=== PATIENT | male | born 1955 | race Caucasian/White ===

== ENCOUNTER → 2017-09-19 14:48 | Outpatient (CLI) | payer OTHER, SELFPAY | PROVIDERS: Family Provider Family Medicine; PCP Family Medicine; Visit Provider Nurse Practitioner Acute Care | DX: G47.33 Obstructive sleep apnea (adult) (pediatric) (principal) | CPT/HCPCS: 98960; G0463 ==

== ENCOUNTER → 2018-01-02 08:10 | Outpatient (CLI) | payer OTHER, SELFPAY ==
[2018-01-02 10:44] LABS: Anion Gap 11 (5-15); BUN 13 mg/dL (7-18); BUN/Creat Ratio 12.9 RATIO (10-20); Calcium,Total 9.2 mg/dL (8.5-10.1); Chloride 101 mmol/L (98-107); Cholesterol 166 mg/dL (200); Creatinine, Serum 1.01 mg/dL (0.70-1.30); EST Glomerular Filtration Rate 80 mL/min (>60); Est Glom Filt Rate - Afr Amer 96 mL/min (>60); Glucose 120 mg/dL (74-106); High Density Lipoprotein 37 mg/dL; PSA,Total - Annual Screen 0.79 ng/mL (0.00-4.00); Potassium 3.3 mmol/L (3.5-5.1); Sodium Level 142 mmol/L (136-145); Triglycerides 182 mg/dL; Very Low Density Lipoprotein 36 mg/dL (5-40)
== END ==
PROVIDERS: Family Provider Family Medicine; PCP Family Medicine; Visit Provider Family Medicine
DX: I10 Essential (primary) hypertension (principal); E78.00 Pure hypercholesterolemia, unspecified; Z12.5 Encounter for screening for malignant neoplasm of prostate
CPT/HCPCS: 36415; 80048; 80061; 84153; G0103

== ENCOUNTER → 2018-08-10 08:18 | Outpatient (CLI) | payer OTHER, SELFPAY ==
[2018-08-10 10:10] LABS: Glucose 131 mg/dL (74-106); Potassium 3.7 mmol/L (3.5-5.1)
== END ==
PROVIDERS: Family Provider Family Medicine; PCP Family Medicine; Referring Provider Family Medicine; Visit Provider Family Medicine
DX: R73.03 Prediabetes (principal); I10 Essential (primary) hypertension
CPT/HCPCS: 36415; 82947; 83036; 84132

== ENCOUNTER → 2019-06-21 09:02 | Outpatient (CLI) | payer OTHER, SELFPAY ==
[2017-05-16 10:11] VITALS: BMI 38.5
[2019-06-21 10:24] LABS: Anion Gap 3 (5-15); BUN 17 mg/dL (7-18); BUN/Creat Ratio 17.3 RATIO (10-20); Calcium,Total 9.3 mg/dL (8.5-10.1); Chloride 104 mmol/L (98-107); Cholesterol 169 mg/dL (200); Creatinine, Serum 0.98 mg/dL (0.70-1.30); EST Glomerular Filtration Rate 82 mL/min (>60); Est Glom Filt Rate - Afr Amer 99 mL/min (>60); Glucose 112 mg/dL (74-106); High Density Lipoprotein 41 mg/dL; PSA,Total - Annual Screen 0.87 ng/mL (0.00-4.00); Potassium 3.7 mmol/L (3.5-5.1); Sodium Level 139 mmol/L (136-145); Triglycerides 216 mg/dL; Very Low Density Lipoprotein 43 mg/dL (5-40)
[2019-06-21 10:35] LABS: Hemoglobin A1c 6.5 % (4.2-6.3)
== END ==
PROVIDERS: PCP Family Medicine; Referring Provider Family Medicine; Visit Provider Family Medicine
DX: E78.00 Pure hypercholesterolemia, unspecified (principal); R73.03 Prediabetes; Z12.5 Encounter for screening for malignant neoplasm of prostate; I10 Essential (primary) hypertension
CPT/HCPCS: 36415; 80048; 80061; 83036; 84153; G0103

== ENCOUNTER → 2019-10-03 | Outpatient (CLI) | payer OTHER, SELFPAY ==
[2017-05-16 10:11] VITALS: BMI 38.5
[2019-10-03 10:04] LABS: Anion Gap 5 (5-15); BUN 19 mg/dL (7-18); BUN/Creat Ratio 21.8 RATIO (10-20); Calcium,Total 8.8 mg/dL (8.5-10.1); Chloride 103 mmol/L (98-107); Cholesterol 153 mg/dL (200); Creatinine, Serum 0.87 mg/dL (0.70-1.30); EST Glomerular Filtration Rate 94 mL/min (>60); Est Glom Filt Rate - Afr Amer 114 mL/min (>60); Glucose 111 mg/dL (74-106); High Density Lipoprotein 45 mg/dL; Potassium 3.5 mmol/L (3.5-5.1); Sodium Level 137 mmol/L (136-145); Triglycerides 125 mg/dL; Very Low Density Lipoprotein 25 mg/dL (5-40)
== END | disposition home or self-care (01) ==
LOC: MTLAB 08:16
PROVIDERS: PCP Family Medicine; Referring Provider Family Medicine; Visit Provider Family Medicine
DX: E11.9 Type 2 diabetes mellitus without complications (principal)
CPT/HCPCS: 36415; 80048; 80061

== ENCOUNTER → 2020-03-31 08:24 | Outpatient (CLI) | payer OTHER, SELFPAY ==
[2017-05-16 10:11] VITALS: BMI 38.5
[2020-03-31 10:39] LABS: Anion Gap 7 (5-15); BUN 15 mg/dL (7-18); BUN/Creat Ratio 13.6 RATIO (10-20); Calcium,Total 9.8 mg/dL (8.5-10.1); Chloride 104 mmol/L (98-107); EST Glomerular Filtration Rate 72 mL/min (>60); Est Glom Filt Rate - Afr Amer 87 mL/min (>60); Glucose 126 mg/dL (74-106); Potassium 3.7 mmol/L (3.5-5.1); Sodium Level 138 mmol/L (136-145)
== END ==
PROVIDERS: PCP Family Medicine; Visit Provider Family Medicine
DX: I10 Essential (primary) hypertension (principal)
CPT/HCPCS: 36415; 80048

== ENCOUNTER → 2021-04-03 10:22 | Outpatient (CLI) | payer BC, SELFPAY ==
[2021-04-03 12:54] LABS: Anion Gap 5 (5-15); BUN 13 mg/dL (7-18); Calcium,Total 9.1 mg/dL (8.5-10.1); Chloride 105 mmol/L (98-107); Creatinine, Serum 0.93 mg/dL (0.70-1.30); EST Glomerular Filtration Rate 87 mL/min (>60); Est Glom Filt Rate - Afr Amer 105 mL/min (>60); Glucose 97 mg/dL (74-106); PSA,Total - Annual Screen 1.11 ng/mL (0.00-4.00); Potassium 3.5 mmol/L (3.5-5.1); Sodium Level 138 mmol/L (136-145)
== END ==
PROVIDERS: PCP Family Medicine; Referring Provider Family Medicine; Visit Provider Family Medicine
DX: I10 Essential (primary) hypertension (principal); Z12.5 Encounter for screening for malignant neoplasm of prostate
CPT/HCPCS: 36415; 80048; 84153; G0103

== ENCOUNTER → 2021-10-09 | Outpatient (CLI) | payer BC, SELFPAY ==
[2021-10-09 12:57] LABS: Cholesterol 173 mg/dL (200); High Density Lipoprotein 47 mg/dL; Triglycerides 107 mg/dL; Very Low Density Lipoprotein 21 mg/dL (5-40)
== END | disposition home or self-care (01) ==
PROVIDERS: PCP Family Medicine; Visit Provider Family Medicine
DX: E78.00 Pure hypercholesterolemia, unspecified (principal)
CPT/HCPCS: 36415; 80061

== ENCOUNTER 2022-07-29 17:13 | Inpatient (IN) | payer MEDICARE, SELFPAY ==
[2022-07-29] VITALS (16 sets, daily range): BP systolic 89–137; BP diastolic 68–115; PULSE 55–167; RESP 18–29; TEMP 36.4–36.6; O2SAT 90–99; BMI 35.5
--- NOTE | 2022-07-29 17:43 | EKG12_ITS ---
Test Reason : TACHY Blood Pressure : / mmHG Vent. Rate : 178 BPM Atrial Rate : 000 BPM P-R Int : 000 ms QRS Dur : 082 ms QT Int : 252 ms P-R-T Axes : 000 107 -33 degrees QTc Int : 433 ms Atrial fibrillation with rapid ventricular response Rightward axis Septal infarct , age undetermined Nonspecific T wave abnormality Abnormal ECG Confirmed by VALE CARRION, LINDSAY ([id number]), health editor ALHAJI GLASS ([id number]) on 08/02/2022 11:10:23 AM Referred By: JACKIE/MAURILIO Confirmed By:LINDSAY COLLAZO MD
[2022-07-29] MEDS: 0.9% Normal Saline 1,000 ML 250 ML IV (17:54)
[2022-07-29] MEDS: dilTIAZem 25 MG/5 ML Vial 20 MG IV BOLUS (17:54)
[2022-07-29 18:03] LABS: Absolute Lymphocyte Count 1.54 X10^3/uL (0.83-4.51); Absolute Neutrophil Count 8.8 X10^3/uL (2.0-7.7); Basophil# 0.08 X10^3/uL; Basophil% 0.7 % (0-1); Eosinophil# 0.11 X10^3/uL; Hematocrit 46.1 % (40-54); Lymphocyte # 1.54 X10^3/ul (0.83-4.51); Lymphocyte % 13.3 % (19-41); Mean Corp Hgb Conc 32.5 g/dL (32-36); Mean Corpuscular Hgb 29.7 pg (27.0-32.0); Mean Corpuscular Volume 91.3 fL (80-94); Mean Platelet Vol. 11.9 fl (6.2-12.0); Monocyte# 1.04 X10^3/uL; NRBC Flagged by Analyzer 0 % (0-5); Neutrophil # 8.75 X10^3/uL (2.7-7.7); Neutrophil % 75.6 % (47-70); Platelet Count 271 K/mm3 (150-450); RBC Distribution Width CV 15.4 % (11.6-14.6); RBC Distribution Width SD 50.7 fl (35.1-43.9); Red Blood Count 5.05 M/mm3 (4.6-6.2); White Blood Count 11.6 K/mm3 (4.4-11.0)
--- NOTE | 2022-07-29 18:06 | EDS_ITS ---
HPI History of Present Illness Chief Complaint: Palpitations Informant: patient Narrative Narrative: Patient has had 3 days of cough and congestion. No fevers or chills, headache, sore throat, myalgias, or significant malaise. Today started feeling a little short of breath at times, feels and palpitations off-and-on. He went to urgent care to have evaluation, and it was determined that his heart rate was extremely high so he was sent here according to the patient. Here, EKG was obtained prior to my seeing the patient, he appears to be in rapid A-fib. He does not have a history of this. He is not currently feeling palpitations and his heart rate is in the 170s. He takes baby aspirin, medications for blood pressure and cholesterol and is healthy otherwise. He is unvaccinated against COVID and influenza, he has had no contact with anyone who has been sick that he knows of recently. Denies any angina. No history of DVT or PE. No recent leg pain or swelling. No travel out of the area recently or hospitalization/surgery. [facility] Medical History HTN (hypertension) Hypercholesteremia Sleep apnea Home Medications amlodipine 10 mg tablet (Norvasc) 10 mg PO QDAY 04/30/17 [History Last Taken Unknown] aspirin 81 mg tablet,delayed release 81 mg PO QDAY 04/30/17 [History Last Taken Unknown] lisinopril 20 mg-hydrochlorothiazide 25 mg tablet 1 tab PO QDAY 04/30/17 [History Last Taken Unknown] rosuvastatin 10 mg tablet (Crestor) 10 mg PO QDAY 04/30/17 [History Last Taken Unknown] multivitamin 1 tab PO DAILY 07/29/22 [History Last Taken Unknown] Allergy/AdvReac Type Severity Reaction Status Date / Time atorvastatin Allergy Other Verified 05/26/17 12:45 Family History Father Heart disease Myocardial infarction Mother Cancer Diabetes Brother Myocardial infarction Surgical History History of partial knee replacement S/P excision of lipoma Social History Smoking Status: Never smoker alcohol intake: never substance use type: does not use eating out: 4 or more times/week during the past year weight has: remained stable ROS ROS ED Constitutional Constitutional ED: Denies chills or fever(s) Eyes Eyes: Denies change in vision or diplopia ENT ENT ED: Reports nasal congestion; Denies rhinorrhea or sore throat Cardiovascular Cardiovascular: Reports palpitations; Denies chest pain, leg edema or syncope Respiratory/Chest Respiratory/Chest: Reports chest congestion, cough and dyspnea on exertion Gastrointestinal Gastrointestinal: Denies abdominal pain, diarrhea, nausea or vomiting Genitourinary Genitourinary ED: Denies dysuria or hematuria Musculoskeletal Musculoskeletal: Denies back pain or neck pain Integumentary Denies abscess or rash Neurologic Neurologic: Denies headache(s), paresthesias or weakness Psychiatric Psychiatric: Denies anxiety or suicidal thoughts EXAM Physical Exam Const Vital Signs: 07/29/22 17:14 07/29/22 17:23 07/29/22 17:26 Temperature 97.9 F Temperature Source Temporal Pulse Rate 55 L 165 H Respiratory Rate 18 Respiratory Pattern Normal Blood Pressure 129/100 H Blood Pressure Mean 109 Blood Pressure Position Blood Pressure Location Pulse Ox 99 Oxygen Delivery Method Room Air Oxygen Flow Rate (L/min) 07/29/22 17:43 07/29/22 18:13 07/29/22 19:00 Temperature Temperature Source Pulse Rate 134 H 167 H Respiratory Rate 18 18 Respiratory Pattern Blood Pressure 119/91 H 127/115 H Blood Pressure Mean 100 119 Blood Pressure Position Blood Pressure Location Pulse Ox 92 92 92 Oxygen Delivery Method Nasal Cannula Nasal Cannula Nasal Cannula Oxygen Flow Rate (L/min) 2 2 2 07/29/22 19:45 07/29/22 20:27 07/29/22 20:42 Temperature Temperature Source Pulse Rate 160 H 146 H 156 H Respiratory Rate 24 H 21 H 18 Respiratory Pattern Blood Pressure 137/112 H 104/88 H Blood Pressure Mean 120 93 Blood Pressure Position Semi-Fowlers Semi-Fowlers Blood Pressure Location Left Arm Left Arm Pulse Ox 91 91 Oxygen Delivery Method Mechanical Ventilator Nasal Cannula Oxygen Flow Rate (L/min) 3 3 07/29/22 20:50 07/29/22 21:06 07/29/22 21:33 Temperature 97.6 F L 97.7 F L Temperature Source Oral Oral Pulse Rate 135 H 130 H 133 H Respiratory Rate 23 H 24 H 20 H Respiratory Pattern Blood Pressure 132/96 H 103/92 H 113/101 H Blood Pressure Mean 108 95 105 Blood Pressure Position Semi-Fowlers Semi-Fowlers Blood Pressure Location Left Arm Left Arm Pulse Ox 92 91 90 Oxygen Delivery Method Nasal Cannula Nasal Cannula Nasal Cannula Oxygen Flow Rate (L/min) 3 3 4 07/29/22 21:00 Temperature 97.7 F L Temperature Source Oral Pulse Rate 126 H Respiratory Rate 25 H Respiratory Pattern Blood Pressure 113/101 H Blood Pressure Mean 105 Blood Pressure Position Blood Pressure Location Pulse Ox 90 Oxygen Delivery Method Nasal Cannula Oxygen Flow Rate (L/min) 4 Positive well nourished and well developed Constitutional Narrative: Well-appearing. Conversive in full sentences. General Appearance ED: well developed and NAD HEENT Reports moist mucous membranes normocephalic and atraumatic Eyes PERRL and EOMs intact bilaterally Neck full ROM and supple Resp normal respiratory effort and clear to auscultation bilaterally Cardio no murmurs Rate: tachycardic Rhythm: abnormal rhythm irregularly irregular GI non-tender and non-distended Auscultation: normoactive bowel sounds Palpation: soft Back/Spine no CVA tenderness General Back: other FROM Extremity normal to inspection General Extremety ED: Negative for edema, pulses abnormal or tenderness General Extremity: Negative for edema or pulses abnormal Neuro oriented x3, CN's II-XII intact bilaterally and no sensory deficits noted Sensorium / Orientation: awake and alert Motor Exam: strength 5/5 throughout Skin no rashes or lesions noted and no wounds MDM MDM MDM Narrative Medical decision making narrative: Patient and apparent new onset A-fib with RVR unknown how long he has been in it. Started him with a dose of Cardizem 20 mg, this slowed him down to the 130- 140 range, so this was followed by a Cardizem drip. Plan is for admission. His labs are noted, his troponin is within normal limits, I do not suspect a pulmonary embolus given the symptoms only of rapid heartbeat and respiratory illness recently. COVID and influenza are negative. Obtained a two-view chest x-ray, my interpretation he has cardiomegaly, some cephalization. Radiology in agreement it appears more consistent with CHF. Added BNP. Was given him some gentle IV fluid since we will give him Cardizem, I will discontinue that. He is a little short of breath, borderline hypoxic and required 2 L nasal cannula, no respiratory distress. Added bolus of Cardizem in addition to an albuterol treatment. Still awaiting for BNP results, but discussed with cardiology Dr. Alvarado, he recommends starting the patient on IV amiodarone bolus/drip, given that his blood pressures are borderline and this clinical scenario. Upon initiating this, his blood pressure did climb into the 110s systolic, his heart rate is in the 120s, and on reevaluation he is having some expiratory wheezes in the bases but in no respiratory distress and able to converse. Therefore I am going to go ahead and give him Lasix 20 mg IV. His BNP returned elevated 524 consistent with all of this being cardiogenic. Lab Data Attestation: I reviewed the patient's lab results. Labs: Laboratory Results - last 24 hr 07/29/22 07/29/22 07/29/22 17:30 17:30 21:00 WBC 11.6 H RBC 5.05 Hgb 15.0 Hct 46.1 MCV 91.3 MCH 29.7 MCHC 32.5 RDW Std Deviation 50.7 H RDW Coeff of Regino 15.4 H Plt Count 271 MPV 11.9 Immature Gran % (Auto) 0.400 Neut % (Auto) 75.6 H Lymph % (Auto) 13.3 L [place] % (Auto) 9.0 Eos % (Auto) 1.0 Baso % (Auto) 0.7 Absolute Neuts (auto) 8.8 H Absolute Lymphs (auto) 1.54 Nucleated RBC % 0 Sodium 136 Potassium 3.8 Chloride 101 Carbon Dioxide 24.0 Anion Gap 11 BUN 22 H Creatinine 1.27 Estim Creat Clear Calc 62.80 Est GFR (MDRD) Af Amer 73 Est GFR (MDRD) Non-Af 60 BUN/Creatinine Ratio 17.3 Glucose 160 H Calcium 9.7 Troponin I High Sens 32 B-Natriuretic Peptide 524.1 H Radiography Chest X-Ray - ED: 2 View, Read by ED Physician, Cardiomegaly, CHF and No Infiltrates Diagnostic Testing: Clinical Impression(s) from Imaging Studies Chest X-Ray 07/29/22 20:20 IMPRESSION: CHF with pulmonary edema and small pleural effusions. Electronically Signed: Ant Clenaing MD at 20:36 EST , Rhythm Strip Rhythm Strip: A-fib Rate: 177 Ectopy: None EKG Initial EKG: Attestation: I personally reviewed and interpreted this EKG as follows: Interpretation: No Acute Injury Pattern, Atrial Fibrillation (With RVR) and Non-Specific ST Changes (Suspect rate dependent) Prior: No Prior Management Discussion w/another healthcare provider: Hospitalist and Chocolate Finisher Operator (cardiology Dr. Alvarado) Critical Care Time Critical Care Time: Yes Critical care time (excluding procedures): 30-74 minutes (35 min), Including time spent:, Discussing w/Patient &/or Family/Statistical Technician, Discussing w/Consultan ts, Arranging Admission or Transfer and Performing Direct Patient Care at Bedside Discharge Plan Dx/Rx/DC Orders Clinical Impression: Atrial fibrillation with RVR, Acute CHF (congestive heart failure) Disposition Disposition: Acute Care Hospital [facility]
[2022-07-29 18:30] LABS: Anion Gap 11 (5-15); BUN 22 mg/dL (7-18); BUN/Creat Ratio 17.3 RATIO (10-20); Calcium,Total 9.7 mg/dL (8.5-10.1); Chloride 101 mmol/L (98-107); Creatinine, Serum 1.27 mg/dL (0.70-1.30); EST Glomerular Filtration Rate 60 mL/min (>60); Est Glom Filt Rate - Afr Amer 73 mL/min (>60); Glucose 160 mg/dL (74-106); Potassium 3.8 mmol/L (3.5-5.1); Sodium Level 136 mmol/L (136-145); Troponin-I HS 32 pg/mL (3.0-78.0)
--- NOTE | 2022-07-29 20:20 | RAD_ITS ---
INDICATION: Cough/SOB EXAMINATION/TECHNIQUE: X-RAY - XR Chest 2 Views COMPARISON: None. FINDINGS: LUNGS: Bibasilar atelectasis and small pleural effusions. Lower peripheral septal thickening. MEDIASTINUM AND CARDIOVASCULAR STRUCTURES: Mild cardiomegaly. Central enlarged pulmonary vessels. RAD/Chest PA and Lateral IMPRESSION: CHF with pulmonary edema and small pleural effusions. Electronically Signed: Ant Cleaning MD at 20:36 EST ,
[2022-07-29] MEDS: Albuterol 2.5 MG/3 ML VIAL.NEB. INHALATION (20:41)
[2022-07-29] MEDS: dilTIAZem 25 MG/5 ML Vial 10 MG IV BOLUS (20:46)
[2022-07-29 21:42] LABS: BNP,B-Type NATRIURETIC PEPTIDE 524.1 pg/mL (0-100)
[2022-07-29] MEDS: Amiodarone 360 MG in Dextrose 5% Viaflo Bag 192.8 ML 33.3 MG CONT INF (21:49)
--- NOTE | 2022-07-29 21:58 | HP.PCM.HOS_ITS ---
[facility] - General General Date of Admission: 07/29/22 Date of Service: 07/29/22 Chief Complaint: Palpitations HPI Narrative ILDA STERN, is a 67 M with a significant history of obesity; hypertension; obstructive sleep apnea on home BiPAP and hyperlipidemia who presented to the emergency department with palpitations. His palpitations started on the same day of presentation. He went to the urgent care and was found to be in A-fib RVR so he was sent to the emergency department for further evaluation and treatment. Of note 3 to 4 days ago patient's symptoms started with a dry cough. Also he developed chest tightness. He reports dyspnea on exertion. He has chronic orthopnea. He uses home BiPAP and denies paroxysmal nocturnal dyspnea. He has chronic swelling in his left ankle. He denies any weight changes at least in the past 2 weeks. He denies any fever or chills. [facility] Medical History HTN (hypertension) Hypercholesteremia Sleep apnea Home Medications amlodipine 10 mg tablet (Norvasc) 10 mg PO QDAY blood pressure 04/30/17 [History Last Taken Unknown] aspirin 81 mg tablet,delayed release 81 mg PO QDAY heart health 04/30/17 [History Last Taken Unknown] lisinopril 20 mg-hydrochlorothiazide 25 mg tablet 1 tab PO QHS blood pressure 04/30/17 [History Last Taken Unknown] rosuvastatin 10 mg tablet (Crestor) 10 mg PO QDAY cholesterol 04/30/17 [History Last Taken Unknown] multivitamin 1 tab PO DAILY supplement 07/29/22 [History Last Taken Unknown] Allergy/AdvReac Type Severity Reaction Status Date / Time atorvastatin Allergy Other Verified 05/26/17 12:45 Family History Father Heart disease Myocardial infarction Mother Cancer Diabetes Brother Myocardial infarction Surgical History History of partial knee replacement S/P excision of lipoma Social History Smoking Status: Never smoker alcohol intake: never substance use type: does not use eating out: 4 or more times/week during the past year weight has: remained stable ROS ROS Narrative Pertinent positives and pertinent negatives as noted in HPI. All other systems were reviewed and are negative Vital Signs Vital Signs Vital Signs: 07/29/22 17:14 07/29/22 17:23 07/29/22 17:26 Temperature 97.9 F Temperature Source Temporal Pulse Rate 55 L 165 H Respiratory Rate 18 Respiratory Pattern Normal Blood Pressure 129/100 H Blood Pressure Mean 109 Blood Pressure Position Blood Pressure Location Pulse Ox 99 Oxygen Delivery Method Room Air Oxygen Flow Rate (L/min) 07/29/22 17:43 07/29/22 18:13 07/29/22 19:00 Temperature Temperature Source Pulse Rate 134 H 167 H Respiratory Rate 18 18 Respiratory Pattern Blood Pressure 119/91 H 127/115 H Blood Pressure Mean 100 119 Blood Pressure Position Blood Pressure Location Pulse Ox 92 92 92 Oxygen Delivery Method Nasal Cannula Nasal Cannula Nasal Cannula Oxygen Flow Rate (L/min) 2 2 2 07/29/22 19:45 07/29/22 20:27 07/29/22 20:42 Temperature Temperature Source Pulse Rate 160 H 146 H 156 H Respiratory Rate 24 H 21 H 18 Respiratory Pattern Blood Pressure 137/112 H 104/88 H Blood Pressure Mean 120 93 Blood Pressure Position Semi-Fowlers Semi-Fowlers Blood Pressure Location Left Arm Left Arm Pulse Ox 91 91 Oxygen Delivery Method Mechanical Ventilator Nasal Cannula Oxygen Flow Rate (L/min) 3 3 07/29/22 20:50 07/29/22 21:06 07/29/22 21:33 Temperature 97.6 F L 97.7 F L Temperature Source Oral Oral Pulse Rate 135 H 130 H 133 H Respiratory Rate 23 H 24 H 20 H Respiratory Pattern Blood Pressure 132/96 H 103/92 H 113/101 H Blood Pressure Mean 108 95 105 Blood Pressure Position Semi-Fowlers Semi-Fowlers Blood Pressure Location Left Arm Left Arm Pulse Ox 92 91 90 Oxygen Delivery Method Nasal Cannula Nasal Cannula Nasal Cannula Oxygen Flow Rate (L/min) 3 3 4 07/29/22 21:00 07/29/22 21:48 07/29/22 21:49 Temperature 97.7 F L Temperature Source Oral Pulse Rate 126 H 132 H 118 H Respiratory Rate 25 H 20 H 24 H Respiratory Pattern Blood Pressure 113/101 H 132/94 H 132/94 H Blood Pressure Mean 105 106 106 Blood Pressure Position Blood Pressure Location Pulse Ox 90 92 Oxygen Delivery Method Nasal Cannula Oxygen Flow Rate (L/min) 4 Weight Weight: 118.841 kg Body Mass Index (BMI) 35.5 Physical Exam Narrative Physical exam: General: Well-nourished, well-developed. Head: Normocephalic, atraumatic, no tenderness Eyes: Vision is grossly intact. EOMI ENT, no trauma, moist mucous membranes, no rhinorrhea Neck: Nontender, No thyromegaly. CVS: Regular rate and rhythm. S1-S2 present. No murmur, gallop or rub. Respiratory : Tachycardia. Irregularly irregular rate and rhythm. Abdomen: Soft, nontender, nondistended, normal bowel sounds, no masses : Deferred Back: Nontender, no CVA tenderness, no midline spinal tenderness, deformities, step-offs Extremities: Mild swelling of the left ankle. Right ankle is not swollen. Skin: Normal color, no trauma, abrasions Neuro: Alert, oriented, cranial nerves II through XII grossly intact. Psychiatry: Normal mood. Normal affect. Not depressed. Not anxious. Results Lab / Micro Data Result Diagrams: 07/30/22 03:55 07/30/22 03:55 Labs: Laboratory Results - last 24 hr 07/29/22 17:30: WBC 11.6 H, RBC 5.05, Hgb 15.0, Hct 46.1, MCV 91.3, MCH 29.7, MCHC 32.5, RDW Std Deviation 50.7 H, RDW Coeff of Regino 15.4 H, Plt Count 271, MPV 11.9, Immature Gran % (Auto) 0.400, Neut % (Auto) 75.6 H, Lymph % (Auto) 13.3 L, [place] % (Auto) 9.0, Eos % (Auto) 1.0, Baso % (Auto) 0.7, Absolute Neuts (auto) 8.8 H, Absolute Lymphs (auto) 1.54, Nucleated RBC % 0 07/29/22 17:30: Sodium 136, Potassium 3.8, Chloride 101, Carbon Dioxide 24.0, Anion Gap 11, BUN 22 H, Creatinine 1.27, Estim Creat Clear Calc 62.80, Est GFR (MDRD) Af Amer 73, Est GFR (MDRD) Non-Af 60, BUN/Creatinine Ratio 17.3, Glucose 160 H, Calcium 9.7, Troponin I High Sens 32 07/29/22 21:00: B-Natriuretic Peptide 524.1 H Micro: Microbiology 07/29/22 18:11 Nasal Secretion SARS-CoV-2 & FLU Antigen (Rapid) - Final Rhythm Strip Rhythm Strip: A-fib Rate: 177 Ectopy: None Radiology Impression Chest X-Ray 07/29/22 20:20 IMPRESSION: CHF with pulmonary edema and small pleural effusions. Electronically Signed: Ant Cleaning MD at 20:36 EST , Assessment & Plan Assessment/Plan (1) Atrial fibrillation with RVR: (2) Acute CHF (congestive heart failure): (3) Hypoxia: PLAN: Plan Atrial fibrillation with RVR with hypoxia Received Cardizem bolus at emergency department. Started on Cardizem drip at the emergency department and continued. Amiodarone drip at emergency department and continued. We will add digoxin since the patient heart rate is still uncontrolled. Therapeutic dose Lovenox ordered Place on PCU on telemetry Obtain echo Lovenox 1 mg per kilogram subcutaneous every 12 hours Potassium level of 3.7 on presentation. Replaced. Check magnesium. Check TSH. Continue supplemental oxygenation titrate as necessary. Cardiology consult. Acute heart failure Unclear whether reduced ejection fraction of preserved ejection fraction. Hold home lisinopril and hydrochlorothiazide combo. HCTZ held. Lisinopril cont inued. Lasix IV ordered. Placed supplemental potassium Obstructive sleep apnea Hypoxic on presentation. Home BiPAP continued nightly and as needed. Hypertension Blood pressures were soft while patient was on Cardizem drip. Trend blood pressures. Home lisinopril continued. Hydrochlorothiazide held. DVT prophylaxis Not indicated as patient be started on therapy dose of Lovenox. Lovenox c ontinued. Charges/Coding Visit Charges Inpatient E&M: 66231 Init Hosp L3
[2022-07-29] MEDS: Furosemide 20 MG/2 ML VIAL IV (22:56)
[2022-07-30] VITALS (28 sets, daily range): BP systolic 87–149; BP diastolic 58–139; PULSE 70–118; RESP 11–29; TEMP 36.4–37.1; O2SAT 26–99; BMI 35.4
--- NOTE | 2022-07-30 00:17 | ECHOD_ITS ---
Reason For Study: Afib, Aflutter Procedure This was a 2D Doppler, Color Flow transthoracic echocardiogram. The exam was of adequate technical quality. Exam performed portable in patient room. Left Ventricle Mildly dilated left ventricle. Moderate global left ventricular systolic dysfunction. The estimated ejection fraction is 35 %. Diastolic function is indeterminate. Right Ventricle Normal RV size. Normal systolic function. Atria The left atrium is moderately enlarged. The right atrium is mildly enlarged. No doppler evidence for ASD. Mitral Valve There is mild mitral annular calcification. Mild focal mitral valve calcification of the anterior leaflet. Moderately severe (3+) mitral valve insufficiency. Tricuspid Valve Normal tricuspid valve. Mild eccentric tricuspid valve insufficiency. Right ventricular systolic pressure estimated to be 55 mmHg. Aortic Valve Trisinus/trileaflet aortic valve. Severe diffuse aortic valve calcification. Moderate to severe aortic stenosis. Pulmonic Valve The pulmonic valve is not well visualized. Trivial pulmonic valve insufficiency. Great Vessels Normal sized aortic root. Pericardium/Pleural Trivial pericardial effusion. There are no echocardiographic indications of cardiac tamponade. Echolucency compatible with a pleural effusion. MMode/2D Measurements & Calculations LVIDd: 5.4 cm IVSd: 1.2 cm LVOT diam: 2.1 cm LVIDs: 4.5 cm LVPWd: 1.3 cm LVOT area: 3.4 cm2 RVDd: 5.0 cm FS: 15.7 % Ao root diam: 3.7 cm LAV(MOD-bp): 107.9 ml LVAd ap4: 40.9 cm2 LAV(MOD-bp) Indexed: 45.3 ml/m2 LVLd ap4: 9.4 cm LAV(MOD-sp2): 93.6 ml EDV(MOD-sp4): 146.6 ml LAV(MOD-sp4): 113.4 ml EDV(sp4-el): 152.0 ml LVAs ap4: 31.6 cm2 LVLs ap4: 8.6 cm ESV(MOD-sp4): 97.3 ml ESV(sp4-el): 98.5 ml EF(MOD-sp4): 33.6 % EF(sp4-el): 35.2 % LVAd ap2: 45.5 cm2 SV(MOD-sp4): 49.3 ml SV(MOD-sp2): 53.3 ml LVLd ap2: 10.0 cm EDV(MOD-sp2): 173.9 ml EDV(sp2-el): 175.2 ml LVAs ap2: 35.1 cm2 LVLs ap2: 8.5 cm ESV(MOD-sp2): 120.7 ml ESV(sp2-el): 122.6 ml EF(MOD-sp2): 30.6 % SV(sp4-el): 53.6 ml LA dimension(2D): 5.5 cm LA A4 area: 30.4 cm2 RA A4 area: 22.9 cm2 Doppler Measurements & Calculations MV E max sandy: 120.4 cm/sec MV V2 max: 133.5 cm/sec Ao V2 max: 297.5 cm/sec MV max P.2 mmHg Ao max P.8 mmHg MV V2 mean: 75.2 cm/sec Ao V2 mean: 234.8 cm/sec MV mean P.9 mmHg Ao mean P.6 mmHg MV V2 VTI: 30.0 cm Ao V2 VTI: 53.6 cm AV (velocity ratio): 0.36 MVA(VTI): 2.2 cm2 DAVID(I,D): 1.2 cm2 DAVID(V,D): 1.1 cm2 LV V1 max: 99.9 cm/sec SV(LVOT): 64.6 ml PA V2 max: 73.3 cm/sec LV V1 max P.1 mmHg LV V1 mean P.8 mmHg LV V1 mean: 79.2 cm/sec LV V1 VTI: 19.2 cm TR max sandy: 316.4 cm/sec TR max P.1 mmHg ECHO/Echo Complete Interpretation Summary Mildly dilated left ventricle. Moderate global left ventricular systolic dysfunction. The estimated ejection fraction is 35 %. The left atrium is moderately enlarged. The right atrium is mildly enlarged. There is mild mitral annular calcification. Mild focal mitral valve calcification of the anterior leaflet. Moderately severe (3+) mitral valve insufficiency. Mild eccentric tricuspid valve insufficiency. Moderate to severe aortic stenosis. Trivial pulmonic valve insufficiency. Trivial pericardial effusion. There are no echocardiographic indications of cardiac tamponade. Echolucency compatible with a pleural effusion. Right ventricular systolic pressure estimated to be 55 mmHg patible with pulmon colin hypertension. Diastolic function is indeterminate. Ordering Physician: Tommy Lira Referring Physician: Ant Roth Performed By: Elvira Knox RDCS, RVT
[2022-07-30] MEDS: Potassium Chloride Oral Tablet 20 MEQ 40 MEQ PO ×2 (01:28→07:47)
[2022-07-30] MEDS: Enoxaparin 120 MG/0.8 ML Syringe SC (01:30)
[2022-07-30] MEDS: Digoxin 250 MCG/ML Ampul 500 MCG IV (01:33)
[2022-07-30] MEDS: 0.9% Saline Lock 10 ML Syringe IV ×2 (01:35→17:00)
--- NOTE | 2022-07-30 03:43 | CPS ---
Pt has own cpap/bipap with 4L bleed in. It is set up for pt and ready for use.
[2022-07-30 04:19] LABS: Magnesium 2.2 mg/dL (1.6-2.6)
[2022-07-30] MEDS: Amiodarone 360 MG in Dextrose 5% Viaflo Bag 192.8 ML 16.7 MG CONT INF (04:56)
[2022-07-30] MEDS: Digoxin 250 MCG/ML Ampul IV (04:58)
[2022-07-30 05:06] LABS: Absolute Lymphocyte Count 1.37 X10^3/uL (0.83-4.51); Basophil# 0.05 X10^3/uL; Basophil% 0.4 % (0-1); Eosinophil# 0.02 X10^3/uL; Eosinophils% 0.2 % (0-5); Hematocrit 43.5 % (40-54); Hemoglobin 14.1 g/dL (13.0-16.5); Lymphocyte # 1.37 X10^3/ul (0.83-4.51); Lymphocyte % 10.7 % (19-41); Mean Corp Hgb Conc 32.4 g/dL (32-36); Mean Corpuscular Hgb 29.6 pg (27.0-32.0); Mean Corpuscular Volume 91.4 fL (80-94); Mean Platelet Vol. 11.8 fl (6.2-12.0); Monocyte# 1.31 X10^3/uL; Monocyte% 10.2 % (0-10); NRBC Flagged by Analyzer 0 % (0-5); Platelet Count 230 K/mm3 (150-450); RBC Distribution Width CV 15.3 % (11.6-14.6); RBC Distribution Width SD 51.5 fl (35.1-43.9); Red Blood Count 4.76 M/mm3 (4.6-6.2); White Blood Count 12.8 K/mm3 (4.4-11.0)
[2022-07-30 05:37] LABS: Anion Gap 9 (5-15); BUN 25 mg/dL (7-18); BUN/Creat Ratio 19.2 RATIO (10-20); Calcium,Total 8.9 mg/dL (8.5-10.1); Chloride 102 mmol/L (98-107); EST Glomerular Filtration Rate 59 mL/min (>60); Est Glom Filt Rate - Afr Amer 71 mL/min (>60); Estimated Creatinine Clearance 61.35 ml/min; Glucose 124 mg/dL (74-106); Potassium 3.7 mmol/L (3.5-5.1); Sodium Level 135 mmol/L (136-145); Thyroid Stim Hormone (TSH) 3.61 uIU/mL (0.358-3.74)
[2022-07-30] MEDS: Aspirin E.C. 81 MG Tablet PO (07:47)
[2022-07-30] MEDS: Furosemide 20 MG/2 ML VIAL IV ×2 (07:47→17:00)
[2022-07-30] MEDS: Multivitamins,Therapeutic Tablet 1 TABLET PO (07:47)
--- NOTE | 2022-07-30 08:09 | NURSING ---
O2 sats mid 80's, pt feeling SOB, increased O2 to 6LNC with no improvement, switched to high flow NC at 8L, sats up to 93% and pt stated feeling better.
[2022-07-30] MEDS: Lisinopril 20 MG Tablet PO (10:04)
[2022-07-30] MEDS: APIXABAN 5 MG TABLET PO ×2 (11:20→22:19)
[2022-07-30] MEDS: dilTIAZem 60 MG Tablet PO (12:04)
--- NOTE | 2022-07-30 12:17 | CON.PCM.CA_ITS ---
Assessment & Plan Assessment/Plan (1) Atrial fibrillation with RVR: PLAN: Continue IV amiodarone for now. After 24 hours of IV amiodarone he can be switched to 200 mg p.o. twice daily of oral amiodarone. Agree with trying to wean off the IV Cardizem. Because of the low EF we will give him metoprolol tartrate and at the time of discharge switch to metoprolol succinate. Agree with Karla. (2) Acute CHF (congestive heart failure): PLAN: Patient may benefit from IV Lasix for another day and he could potentially be switched to p.o. Lasix tomorrow. He would need evaluation for the etiology of his CHF in the form of coronary angiography. This could potentially be done as an outpatient if patient continues to improve. HPI Consult Data Date of Consult: 07/30/22 HPI Narrative Reason for Consultation: A-fib with RVR HPI Narrative: ILDA STERN, is a 67 M who presents with shortness of breath and palpitations. Patient was doing well till about 4 days back. He thought he had a chest cold and started developing shortness of breath. He also describes orthopnea. Last evening he started developing palpitations and was found to have A-fib with RVR in the emergency room. He was started on Cardizem and amiodarone and his heart rate is under better control now. His 2D echo revealed an EF of 35%, moderate aortic stenosis, moderate to severe mitral regurgitation. Patient was also started on IV Lasix and his shortness of breath is improved significantly. He still has some cough when he lies down flat. He denies any chest pain. His 1 set of troponin was negative. Review of systems: All systems reviewed. All else is negative except that in HPI. [facility] Medical History HTN (hypertension) Hypercholesteremia Sleep apnea Home Medications amlodipine 10 mg tablet (Norvasc) 10 mg PO QDAY blood pressure 04/30/17 [History Last Taken Unknown] aspirin 81 mg tablet,delayed release 81 mg PO QDAY [facility] 04/30/17 [History Last Taken Unknown] lisinopril 20 mg-hydrochlorothiazide 25 mg tablet 1 tab PO QHS blood pressure 04/30/17 [History Last Taken Unknown] rosuvastatin 10 mg tablet (Crestor) 10 mg PO QDAY cholesterol 04/30/17 [History Last Taken Unknown] multivitamin 1 tab PO DAILY supplement 07/29/22 [History Last Taken Unknown] Allergy/AdvReac Type Severity Reaction Status Date / Time atorvastatin Allergy Other Verified 05/26/17 12:45 Family History Father Heart disease Myocardial infarction Mother Cancer Diabetes Brother Myocardial infarction Surgical History History of partial knee replacement S/P excision of lipoma Social History Smoking Status: Never smoker alcohol intake: never substance use type: does not use eating out: 4 or more times/week during the past year weight has: remained stable Physical Exam Const alert and oriented x3 HEENT normocephalic Eyes no scleral icterus Neck Neck Narrative: Mild JVD. Resp normal respiratory effort Resp Narrative: Right-sided crackles. Cardio Cardio Narrative: Irregular rhythm. systolic murmur noted. Extremity Extremity Narrative: 1+ left lower extremity edema. Trace right lower extremity edema. Risk Stratification Risk Stratification Applicable: No Charges/Coding Visit Charges Inpatient E&M: 78603 Init Hosp L2 Objective Data Vital Signs: Vital Signs Temp Pulse Resp BP Pulse Ox O2 Del Method O2 Flow Rate 98.0 F 97 21 H 114/91 H 98 High Flow 6 07/30/22 09:00 07/30/22 11:00 07/30/22 11:00 07/30/22 11:00 07/30/22 11:00 07/30/22 11:00 07/30/22 11:00 Oxygen Flow Rate (L/min) 6 Oxygen Delivery Method High Flow Weight: 260 lb 12.909 oz Body Mass Index (BMI) 35.4 Intake & Output: Intake and Output for Last 24 Hours 07/28/22 07/29/22 07/30/22 23:59 23:59 23:59 Intake Total 1113.0 / 1113.0 663.01 / 663.01 Output Total 675 / 675 Balance 1113.0 / 1113.0 -11.99 / -11.99 Lab / Micro Data Result Diagrams: 07/30/22 03:55 07/30/22 03:55 Labs: Laboratory Results - last 24 hr 07/29/22 17:30: WBC 11.6 H, RBC 5.05, Hgb 15.0, Hct 46.1, MCV 91.3, MCH 29.7, MCHC 32.5, RDW Std Deviation 50.7 H, RDW Coeff of Regino 15.4 H, Plt Count 271, MPV 11.9, Immature Gran % (Auto) 0.400, Neut % (Auto) 75.6 H, Lymph % (Auto) 13.3 L, [place] % (Auto) 9.0, Eos % (Auto) 1.0, Baso % (Auto) 0.7, Absolute Neuts (auto) 8.8 H, Absolute Lymphs (auto) 1.54, Nucleated RBC % 0 07/29/22 17:30: Sodium 136, Potassium 3.8, Chloride 101, Carbon Dioxide 24.0, Anion Gap 11, BUN 22 H, Creatinine 1.27, Estim Creat Clear Calc 62.80, Est GFR (MDRD) Af Amer 73, Est GFR (MDRD) Non-Af 60, BUN/Creatinine Ratio 17.3, Glucose 160 H, Calcium 9.7, Troponin I High Sens 32 07/29/22 17:30: Magnesium 2.2 07/29/22 21:00: B-Natriuretic Peptide 524.1 H 07/30/22 03:55: WBC 12.8 H, RBC 4.76, Hgb 14.1, Hct 43.5, MCV 91.4, MCH 29.6, MCHC 32.4, RDW Std Deviation 51.5 H, RDW Coeff of Regino 15.3 H, Plt Count 230, MPV 11.8, Immature Gran % (Auto) 0.500, Neut % (Auto) 78.0 H, Lymph % (Auto) 10.7 L, [place] % (Auto) 10.2 H, Eos % (Auto) 0.2, Baso % (Auto) 0.4, Absolute Neuts (auto) 10.0 H, Absolute Lymphs (auto) 1.37, Nucleated RBC % 0 07/30/22 03:55: Sodium 135 L, Potassium 3.7, Chloride 102, Carbon Dioxide 24.0, Anion Gap 9, BUN 25 H, Creatinine 1.30, Estim Creat Clear Calc 61.35, Est GFR (MDRD) Af Amer 71, Est GFR (MDRD) Non-Af 59 L, BUN/Creatinine Ratio 19.2, Glucose 124 H, Calcium 8.9, TSH 3.61 Micro: Microbiology 07/29/22 18:11 Nasal Secretion SARS-CoV-2 & FLU Antigen (Rapid) - Final Rhythm Strip Rhythm Strip: A-fib Rate: 177 Ectopy: None Cardiology Labs/Tests 07/29/22 17:30: WBC 11.6 H, RBC 5.05, Hgb 15.0, Hct 46.1, MCV 91.3, MCH 29.7, MCHC 32.5, Plt Count 271, MPV 11.9, Immature Gran % (Auto) 0.400, Neut % (Auto) 75.6 H, Lymph % (Auto) 13.3 L, [place] % (Auto) 9.0, Eos % (Auto) 1.0, Baso % (Auto) 0.7, Absolute Neuts (auto) 8.8 H, Nucleated RBC % 0 07/29/22 17:30: Sodium 136, Potassium 3.8, Chloride 101, Carbon Dioxide 24.0, Anion Gap 11, BUN 22 H, Creatinine 1.27, Est GFR (MDRD) Af Amer 73, Est GFR (MDRD) Non-Af 60, BUN/Creatinine Ratio 17.3, Glucose 160 H, Calcium 9.7 07/29/22 17:30: Magnesium 2.2 07/29/22 21:00: B-Natriuretic Peptide 524.1 H 07/30/22 03:55: WBC 12.8 H, RBC 4.76, Hgb 14.1, Hct 43.5, MCV 91.4, MCH 29.6, MCHC 32.4, Plt Count 230, MPV 11.8, Immature Gran % (Auto) 0.500, Neut % (Auto) 78.0 H, Lymph % (Auto) 10.7 L, [place] % (Auto) 10.2 H, Eos % (Auto) 0.2, Baso % (Auto) 0.4, Absolute Neuts (auto) 10.0 H, Nucleated RBC % 0 07/30/22 03:55: Sodium 135 L, Potassium 3.7, Chloride 102, Carbon Dioxide 24.0, Anion Gap 9, BUN 25 H, Creatinine 1.30, Est GFR (MDRD) Af Amer 71, Est GFR (MDRD) Non-Af 59 L, BUN/Creatinine Ratio 19.2, Glucose 124 H, Calcium 8.9 Rhythm: EKG: ECHO: Stress Test: Cardiac Cath: PCI: CT Surgery: Holter monitor: EPS: PPM: CXR: Chest CT Scan: Radiography Diagnostic Testing: Radiology Impression Chest X-Ray 07/29/22 20:20 IMPRESSION: CHF with pulmonary edema and small pleural effusions. Electronically Signed: Ant Cleaning MD at 20:36 EST , Echocardiogram 07/30/22 00:17 Interpretation Summary Mildly dilated left ventricle. Moderate global left ventricular systolic dysfunction. The estimated ejection fraction is 35 %. The left atrium is moderately enlarged. The right atrium is mildly enlarged. There is mild mitral annular calcification. Mild focal mitral valve calcification of the anterior leaflet. Moderately severe (3+) mitral valve insufficiency. Mild eccentric tricuspid valve insufficiency. Moderate to severe aortic stenosis. Trivial pulmonic valve insufficiency. Trivial pericardial effusion. There are no echocardiographic indications of cardiac tamponade. Echolucency compatible with a pleural effusion. Right ventricular systolic pressure estimated to be 55 mmHg patible with pulmon colin hypertension. Diastolic function is indeterminate. Ordering Physician: Tommy Lira Referring Physician: Ant Roth Performed By: Elvira Knox, FLAVIA, RVT
--- NOTE | 2022-07-30 13:50 | CASEMGMT ---
AURELIA CHRISTIAN DC Planning Assessment: Face to Face with patient for initial transition planning/care coordination assessment. AURELIA CHRISTIAN introduced self and role at [facility], pt voices understanding. Pt alert, oriented x4, and agreeable to participating in assessment with and son Koby at bedside. Care providers, pharmacy, and demographics verified. Admitting Dx: Atrial Fibrillation w/RVR and CHF PCP: Gonzalez Specialists: Dr. Jaffe (neurology for DANELLE) Preferred Pharmacy: [facility] Insurance: [employer] Prescription Benefit: yes Living Will/HPOA: yes/HPOA: Rose Mary first, son Koby second LNOK: brandee Bazzi Living Arrangements: Pt lives with his in a single story home with two steps to enter. Pt states he is independent with ADLs including self care and household tasks. Transportation: pt drives and family is able to drive if he is unable. DME: [employer] but no home O2. States they do have assistive DME available from other family members if needed. SNF/HHC: denies any previous providers Plan: Pt plans to return home at discharge with the support of his family. Discussed Eliquis need at discharge and one month free card provided to pt. Pt and family deny any additional questions or concerns at this time. Krista Capone RN CM
[2022-07-30] MEDS: Metoprolol Tartrate 50 MG Tablet PO ×2 (14:29→21:03)
--- NOTE | 2022-07-30 17:53 | CASEMGMT ---
AURELIA CM NOTE; AURELIA CM to room. Discussed home O2, if pt qualifies for Home O2 @ d/c. Pt has a PAP from [facility] [place] and states would like to get O2 thru [facility] [place]. Made aware [facility] [place] does not deliver O2 on the w/e's for new O2 set-up. Pt made aware [facility] is affiliated w/[facility]. He chooses [facility]. Discussed process of home O2 set up and questions answered. Pt verifies he does have a pulse ox @ home. Green sheet placed on chart w/instructions if pt qualifies for Home O2. Carmita BSN AURELIA CM
--- NOTE | 2022-07-30 18:56 | PCM.PN.HOSP ---
Reason for Visit Reason for Visit: Diagnoses Unspecified atrial fibrillation (07/29/22) Heart failure, unspecified (07/29/22) Hypoxemia (07/29/22) Subjective Subjective Patient was seen and examined today, I discussed his care with cardiology today, I also discussed his care with his who was at the bedside during the time my examination today. Patient was admitted for dyspnea yesterday and was found to have new onset atrial fibrillation with rapid ventricular response and acute congestive heart failure. Cardiology told me today the patient's echocardiogram shows reduced EF of 35%. He had been placed on IV digoxin, IV Cardizem, and IV amiodarone when he was admitted yesterday. I stop the patient's IV digoxin today and placed him on p.o. Cardizem with the intent of discontinuing IV Cardizem after the patient had responded to the oral Cardizem, cardiology however felt that the patient was better served to be placed on a beta-bill and placed the patient on metoprolol and stop the oral Cardizem. They also directed that the patient's IV Cardizem be stopped after the patient had his metoprolol. Finally, cardiology instructed me to stop the patient's amiodarone drip when his current bag was finished and place him on amiodarone 200 mg twice daily. At the time of this dictation, patient's pulse rate has slowed into the 80s and 90s but remains in atrial fibrillation. Objective Data Objective Data Vital Signs: Vital Signs Temp Pulse Resp BP Pulse Ox O2 Del Method O2 Flow Rate 98.7 F 83 22 H 101/70 95 Nasal Cannula 3 07/30/22 18:00 07/30/22 18:00 07/30/22 18:00 07/30/22 18:00 07/30/22 18:00 07/30/22 18:00 07/30/22 18:00 Oxygen Flow Rate (L/min) 3 Oxygen Delivery Method Nasal Cannula Weight: 118.3 kg Body Mass Index (BMI) 35.4 Intake & Output: Intake and Output for Last 24 Hours 07/28/22 07/29/22 07/30/22 23:59 23:59 23:59 Intake Total 1113.0 / 1113.0 1074.75 / 1074.75 Output Total 1325 / 1325 Balance 1113.0 / 1113.0 -250.25 / -250.25 Lab / Micro Data Result Diagrams: 07/30/22 03:55 07/30/22 03:55 Labs: Laboratory Results - last 24 hr 07/29/22 17:30: Magnesium 2.2 07/29/22 21:00: B-Natriuretic Peptide 524.1 H 07/30/22 03:55: WBC 12.8 H, RBC 4.76, Hgb 14.1, Hct 43.5, MCV 91.4, MCH 29.6, MCHC 32.4, RDW Std Deviation 51.5 H, RDW Coeff of Regino 15.3 H, Plt Count 230, MPV 11.8, Immature Gran % (Auto) 0.500, Neut % (Auto) 78.0 H, Lymph % (Auto) 10.7 L, G[place]pie % (Auto) 10.2 H, Eos % (Auto) 0.2, Baso % (Auto) 0.4, Absolute Neuts (auto) 10.0 H, Absolute Lymphs (auto) 1.37, Nucleated RBC % 0 07/30/22 03:55: Sodium 135 L, Potassium 3.7, Chloride 102, Carbon Dioxide 24.0, Anion Gap 9, BUN 25 H, Creatinine 1.30, Estim Creat Clear Calc 61.35, Est GFR (MDRD) Af Amer 71, Est GFR (MDRD) Non-Af 59 L, BUN/Creatinine Ratio 19.2, Glucose 124 H, Calcium 8.9, TSH 3.61 Micro: Microbiology 07/29/22 18:11 Nasal Secretion SARS-CoV-2 & FLU Antigen (Rapid) - Final Radiography Diagnostic Testing: Radiology Impression Chest X-Ray 07/29/22 20:20 IMPRESSION: CHF with pulmonary edema and small pleural effusions. Electronically Signed: Ant Cleaning MD at 20:36 EST , Echocardiogram 07/30/22 00:17 Interpretation Summary Mildly dilated left ventricle. Moderate global left ventricular systolic dysfunction. The estimated ejection fraction is 35 %. The left atrium is moderately enlarged. The right atrium is mildly enlarged. There is mild mitral annular calcification. Mild focal mitral valve calcification of the anterior leaflet. Moderately severe (3+) mitral valve insufficiency. Mild eccentric tricuspid valve insufficiency. Moderate to severe aortic stenosis. Trivial pulmonic valve insufficiency. Trivial pericardial effusion. There are no echocardiographic indications of cardiac tamponade. Echolucency compatible with a pleural effusion. Right ventricular systolic pressure estimated to be 55 mmHg patible with pulmonary hypertension. Diastolic function is indeterminate. Ordering Physician: Tommy Lira Referring Physician: Ant Roth Performed By: Elvira Knox, FLAVIA, RVT Rhythm Strip Rhythm Strip: A-fib Rate: 177 Ectopy: None Physical Exam Const alert, oriented x3, no apparent distress and healthy appearing General Appearance: cooperative, well kempt and well developed Orientation / Consciousness: awake, oriented to person, oriented to place and oriented to time HEENT normocephalic, head/scalp atraumatic and moist oral mucous membranes Eyes PERRL, EOMs intact bilaterally and conjunctivae normal Neck supple, no JVD and thyroid normal General: trachea midline Resp normal respiratory effort, no retractions and no use of accessory muscles Resp Narrative: Fine rales are noted on inspiration at the bases Auscultation: rales bilateral; Negative for rhonchi or wheezes Cardio S1 normal heart sound, S2 normal heart sound, no murmurs, no rub and no gallops Cardio Narrative: Heart rate and rhythm is irregular GI normal to inspection, nondistended, normoactive bowel sounds, soft to palpation, non-tender and non-distended Extremity no clubbing, cyanosis or edema Skin no rashes or lesions noted General Skin Exam: no breakdown Neuro oriented x3, CN's II-XII intact bilaterally, moves all extremities, no focal motor deficits and no sensory deficits noted Sensorium / Orientation: awake, alert, oriented to person, oriented to place and oriented to time Speech: speech normal Psych affect normal Assessment & Plan Assessment/Plan (1) Atrial fibrillation with RVR: PLAN: Plan 1. Acute systolic congestive heart failure-initial episode-patient will continue on IV Lasix, pulse ox will be monitored and telemetry will be monitored. #2 new onset atrial fibrillation with RVR-again patient will be on oral amiodarone, metoprolol orally, and will be placed on Eliquis for anticoagulation, patient's Lovenox was discontinued. #3 cardiomyopathy-most probably not rate related, patient will need to undergo a work-up for the cardiomyopathy as an outpatient most probably #4 hypoxia secondary to #1-patient is currently on nasal cannula O2 at 3 L/min, pulse ox will be monitored #5 essential hypertension-patient will remain on lisinopril #6 hyperlipidemia-patient is on Crestor Total clinical time spent by myself addressing the patient's medical issues, reviewing all the data, and collaborating with the patient's care team: 35 minutes Charges/Coding Visit Charges Inpatient E&M: 99045 Subs Hosp L2
[2022-07-30] MEDS: Amiodarone 200 MG Tablet PO (21:03)
[2022-07-31] VITALS (14 sets, daily range): BP systolic 111–128; BP diastolic 64–100; PULSE 71–126; RESP 16; TEMP 36.4–36.9; O2SAT 93–97; BMI 35.4
--- NOTE | 2022-07-31 07:00 | RAD_ITS ---
STUDY: X-RAY CHEST REASON FOR EXAM: Male, 67 years old. chf TECHNIQUE: Single AP portable view of the chest. COMPARISON: 07/29/2022 FINDINGS: The lungs are clear and expanded. Small bilateral pleural effusions with bibasilar atelectasis. There is moderate cardiac enlargement. Normal mediastinum and elis. Normal visualized pulmonary arteries. Normal visualized aortic arch and descending thoracic aorta. Normal visualized thoracic spine. Normal visualized ribs, clavicles, and shoulders. There is no demonstrated abnormality of the visualized soft tissue structures of the upper abdomen. RAD/Chest PA and Lateral IMPRESSION: Small bilateral pleural effusions with bibasilar atelectasis, slightly worsened when compared with the prior study. Electronically Signed: Reece Holley MD at 17:32 EST ,
[2022-07-31 07:23] LABS: Anion Gap 8 (5-15); BUN 25 mg/dL (7-18); BUN/Creat Ratio 22.1 RATIO (10-20); Calcium,Total 8.3 mg/dL (8.5-10.1); Chloride 106 mmol/L (98-107); Creatinine, Serum 1.13 mg/dL (0.70-1.30); EST Glomerular Filtration Rate 69 mL/min (>60); Est Glom Filt Rate - Afr Amer 83 mL/min (>60); Estimated Creatinine Clearance 70.58 ml/min; Glucose 90 mg/dL (74-106); Potassium 3.6 mmol/L (3.5-5.1); Sodium Level 138 mmol/L (136-145)
[2022-07-31] MEDS: Potassium Chloride Oral Tablet 20 MEQ 40 MEQ PO (08:15)
[2022-07-31] MEDS: Metoprolol Tartrate 50 MG Tablet PO ×2 (08:15→15:41)
[2022-07-31] MEDS: Furosemide 20 MG/2 ML VIAL IV ×2 (08:15→17:11)
[2022-07-31] MEDS: Lisinopril 20 MG Tablet PO (08:15)
[2022-07-31] MEDS: Multivitamins,Therapeutic Tablet 1 TABLET PO (08:15)
[2022-07-31] MEDS: Amiodarone 200 MG Tablet PO ×2 (08:15→21:38)
[2022-07-31] MEDS: APIXABAN 5 MG TABLET PO ×2 (08:16→21:38)
[2022-07-31] MEDS: Aspirin E.C. 81 MG Tablet PO (08:16)
--- NOTE | 2022-07-31 11:24 | PCM.PN.CARD ---
Subjective Subjective The patient is awake and alert this morning. He denies any ongoing chest discomfort or palpitations. There has been no obvious issues with classic acute CHF/pulmonary edema this day. He is still wearing O2 nasal cannula at this time. Objective Data Vital Signs: Vital Signs Temp Pulse Resp BP Pulse Ox O2 Del Method O2 Flow Rate 98.4 F 121 H 16 128/93 H 96 Nasal Cannula 3 07/31/22 08:08 07/31/22 08:15 07/31/22 08:08 07/31/22 08:15 07/31/22 08:08 07/31/22 08:15 07/31/22 08:15 Oxygen Flow Rate (L/min) 3 Oxygen Delivery Method Nasal Cannula Weight: 261 lb 3.964 oz Body Mass Index (BMI) 35.4 Intake & Output: Intake and Output for Last 24 Hours 07/29/22 07/30/22 07/31/22 23:59 23:59 23:59 Intake Total 1113.0 / 1113.0 1074.75 / 1314.75 340 / 340 Output Total 1325 / 1325 Balance 1113.0 / 1113.0 -250.25 / -10.25 340 / 340 Lab / Micro Data Result Diagrams: 07/30/22 03:55 07/31/22 05:21 Labs: Laboratory Results - last 24 hr 07/31/22 05:21: Sodium 138, Potassium 3.6, Chloride 106, Carbon Dioxide 24.0, Anion Gap 8, BUN 25 H, Creatinine 1.13, Estim Creat Clear Calc 70.58, Est GFR (MDRD) Af Amer 83, Est GFR (MDRD) Non-Af 69, BUN/Creatinine Ratio 22.1 H, Glucose 90, Calcium 8.3 L Rhythm Strip Rhythm Strip: A-fib Rate: 177 Ectopy: None Cardiology Labs/Tests 07/31/22 05:21: Sodium 138, Potassium 3.6, Chloride 106, Carbon Dioxide 24.0, Anion Gap 8, BUN 25 H, Creatinine 1.13, Est GFR (MDRD) Af Amer 83, Est GFR (MDRD) Non-Af 69, BUN/Creatinine Ratio 22.1 H, Glucose 90, Calcium 8.3 L Rhythm: Atrial fibrillation Radiography Diagnostic Testing: Radiology Impression Echocardiogram 07/30/22 00:17 Interpretation Summary Mildly dilated left ventricle. Moderate global left ventricular systolic dysfunction. The estimated ejection fraction is 35 %. The left atrium is moderately enlarged. The right atrium is mildly enlarged. There is mild mitral annular calcification. Mild focal mitral valve calcification of the anterior leaflet. Moderately severe (3+) mitral valve insufficiency. Mild eccentric tricuspid valve insufficiency. Moderate to severe aortic stenosis. Trivial pulmonic valve insufficiency. Trivial pericardial effusion. There are no echocardiographic indications of cardiac tamponade. Echolucency compatible with a pleural effusion. Right ventricular systolic pressure estimated to be 55 mmHg patible with pulmonary hypertension. Diastolic function is indeterminate. Ordering Physician: Tommy Lira Referring Physician: Ant Roth Performed By: Elvira Knox, FLAVIA, RVT Physical Exam Const alert, oriented x3 and no apparent distress Orientation / Consciousness: awake HEENT normocephalic, head/scalp atraumatic and hearing grossly normal bilaterally Eyes PERRL, EOMs intact bilaterally, conjunctivae normal and no scleral icterus Neck full ROM, supple and no JVD Carotids: normal carotid upstroke Resp Auscultation: diminished lung sounds bilateral (bases) Cardio Rhythm: abnormal rhythm irregularly irregular Heart Sounds: S1 normal, S2 normal and murmur systolic II/ soft mid left sternal border GI normal to inspection, nondistended, normoactive bowel sounds Extremity General Extremity: edema left lower extremity trace Skin no rashes or lesions noted Psych mental status grossly normal Assessment & Plan Assessment/Plan (1) Atrial fibrillation with RVR: PLAN: The patient remains in atrial fibrillation. His heart rate remains elevated. He is rate limiting medication dose is going to be increased to metoprolol tartrate 100 mg p.o. twice daily. He is continuing anticoagulant therapy. He is also on antiarrhythmic therapy with amiodarone. (2) Cardiomyopathy: PLAN: The patient's echocardiogram was reviewed. He does have what appears to be a global left ventricular systolic dysfunction with a diminished LVEF of 35%. It is unclear whether this is related to his atrial dysrhythmia, his underlying valvular heart disease, or underlying CAD. He will continue combined medical therapy which at the moment is including furosemide at 20 mg IV twice daily, potassium supplement, and lisinopril 20 mg p.o. daily. (3) Acute CHF (congestive heart failure): PLAN: The patient appears to be clinically improved from what was previously described with concerns of acute CHF. He is continuing medical therapy as noted above. (4) Valvular heart disease: PLAN: The patient does have valvular heart disease as described on his echocardiogram. Again its unclear whether this is a participating factor in his other objective findings. He will need continued evaluation and care of this going forward as to whether or not he will eventually need valvular repair/replacement. (5) Pulmonary HTN: PLAN: The patient's estimated RV systolic pressure was elevated compatible with pulmonary hypertension. From a cardiovascular standpoint there may be a contributing factor from his underlying valvular heart related issues superimposed upon his other cardiac comorbidities and noncardiovascular issues. He will continue medical therapy/support as noted above at this time. He is also on oxygen therapy at this time. Hopefully if he clinically improves this can be weaned off. (6) HLD (hyperlipidemia): PLAN: The patient has a history of hyperlipidemia. He is continuing rosuvastatin 10 mg p.o. daily (7) HTN (hypertension): PLAN: The patient has a history of hypertension. He is on medical management as noted. Hopefully his blood pressures will stay reasonably well controlled. Addt'l Comments The patient's case was discussed and reviewed with the patient, previously with Dr. Alvarado performed his cardiovascular consultation and with Dr. Baez. Overall, it appears at the moment the plan is for continued conservative medical management and once his cardiovascular condition stabilizes to consider future further cardiac diagnostic evaluation with diagnostic cardiac catheterization which depending upon the patient's status may be either as an inpatient or potentially as an outpatient. Comment: Time spent the patient's evaluation/care including examination, review of medical records/imaging studies, discussion with the patient and the [facility] medical staff, and documentation, etc.: 40 minutes. Procedure Criteria Type of Procedure Procedure Type: Elective Elective Risks - COVID COVID Risk Discussion: The surgeon/proceduralist and patient have discussed in detail the risk of exposure to and/or potential harm posed by the COVID-19 virus with having a surgery/procedure at this time versus the risk of delaying the surgery/procedure. It is not possible to know either the risk of delaying the surgery or procedure or chance of getting an infection with perfect accuracy, but a joint decision was made between the patient and the surgeon/proceduralist to proceed at this time with the scheduled surgery/procedure as indicated on the consent form.
--- NOTE | 2022-07-31 17:40 | PN.HOSP_ITS ---
Reason for Visit Reason for Visit: Diagnoses Hyperlipidemia, unspecified (07/29/22) Essential (primary) hypertension (07/29/22) Pulmonary hypertension, unspecified (07/29/22) Endocarditis, valve unspecified (07/29/22) Cardiomyopathy, unspecified (07/29/22) Unspecified atrial fibrillation (07/29/22) Heart failure, unspecified (07/29/22) Hypoxemia (07/29/22) Subjective Subjective Patient was seen and examined today, I discussed his care with cardiology today, he has been tachycardic when up walking around, I have decided to increase the patient's metoprolol after discussing this with Dr. Huynh. Patient was weaned off oxygen today, he does not appear short of breath, chest x-ray showed small bilateral pleural effusions. Objective Data Objective Data Vital Signs: Vital Signs Temp Pulse Resp BP Pulse Ox O2 Del Method O2 Flow Rate 98.4 F 120 H 16 111/87 H 97 Room Air 0 07/31/22 15:38 07/31/22 15:41 07/31/22 15:38 07/31/22 15:41 07/31/22 15:38 07/31/22 15:38 07/31/22 12:19 Oxygen Flow Rate (L/min) [ 0 AMBULATING on Room Air] Oxygen Flow Rate (L/min) [At 0 REST on Room Air] Oxygen Flow Rate (L/min) 3 Oxygen Delivery Method Room Air Weight: 118.5 kg Body Mass Index (BMI) 35.4 Intake & Output: Intake and Output for Last 24 Hours 07/29/22 07/30/22 07/31/22 23:59 23:59 23:59 Intake Total 1113.0 / 1113.0 1074.75 / 1314.75 820 / 820 Output Total 1325 / 1325 Balance 1113.0 / 1113.0 -250.25 / -10.25 820 / 820 Lab / Micro Data Result Diagrams: 07/30/22 03:55 07/31/22 05:21 Labs: Laboratory Results - last 24 hr 07/31/22 05:21: Sodium 138, Potassium 3.6, Chloride 106, Carbon Dioxide 24.0, Anion Gap 8, BUN 25 H, Creatinine 1.13, Estim Creat Clear Calc 70.58, Est GFR (MDRD) Af Amer 83, Est GFR (MDRD) Non-Af 69, BUN/Creatinine Ratio 22.1 H, Glucose 90, Calcium 8.3 L Micro: Microbiology 07/29/22 18:11 Nasal Secretion SARS-CoV-2 & FLU Antigen (Rapid) - Final Radiography Diagnostic Testing: Radiology Impression Chest X-Ray 07/31/22 07:00 IMPRESSION: Small bilateral pleural effusions with bibasilar atelectasis, slightly worsened when compared with the prior study. Electronically Signed: Reece Holley MD at 17:32 EST , Rhythm Strip Rhythm Strip: A-fib Rate: 177 Ectopy: None Physical Exam Const alert, oriented x3, no apparent distress, average body habitus and healthy a ppearing General Appearance: cooperative, well kempt and well developed Orientation / Consciousness: awake, oriented to person, oriented to place and or iented to time HEENT normocephalic, head/scalp atraumatic and moist oral mucous membranes Eyes PERRL, EOMs intact bilaterally and conjunctivae normal Neck supple, no JVD, thyroid normal and no carotid bruits General: trachea midline Resp normal respiratory effort, no retractions, no use of accessory muscles and clear to auscultation bilaterally Auscultation: Negative for rales, rhonchi or wheezes Cardio S1 normal heart sound, S2 normal heart sound, no murmurs, no rub and no gallops Cardio Narrative: Heart rate and rhythm is irregular GI normal to inspection, nondistended, normoactive bowel sounds, soft to palpation, non-tender and non-distended Extremity Extremity Narrative: Mild lower leg edema was noted Skin no rashes or lesions noted General Skin Exam: no breakdown Neuro oriented x3, CN's II-XII intact bilaterally, moves all extremities, no focal motor deficits and no sensory deficits noted Sensorium / Orientation: awake and alert Speech: speech normal Psych affect normal Assessment & Plan Assessment/Plan (1) Atrial fibrillation with RVR: PLAN: Plan 1. Acute systolic congestive heart failure-initial episode-patient will continue on IV Lasix, labs will be repeated tomorrow, anticipate changing over to oral Lasix tomorrow #2 new onset atrial fibrillation with RVR-again patient is on oral amiodarone, I increase his metoprolol to 150 mg twice daily, patient is on Eliquis. #3 cardiomyopathy-most probably not rate related, patient will need to undergo a work-up for the cardiomyopathy as an outpatient most probably #4 hypoxia-resolved at this time, secondary to acute systolic congestive heart failure #5 essential hypertension-patient will remain on lisinopril #6 hyperlipidemia-patient is on Crestor #7 hypercoagulable state secondary to #2-patient is on Eliquis Total clinical time spent by myself addressing the patient's medical issues, reviewing all the data, and collaborating with the patient's care team: 35 minutes Charges/Coding Visit Charges Inpatient E&M: 94473 Subs Hosp L2
[2022-07-31] MEDS: dilTIAZem 25 MG/5 ML Vial 10 MG IV BOLUS (18:39)
[2022-07-31] MEDS: Metoprolol Tartrate 100 MG Tablet PO (21:43)
[2022-08-01 03:17] VITALS: BP 103/72; PULSE 104; RESP 18; TEMP 36.7; O2SAT 95
[2022-08-01 04:54] LABS: Anion Gap 6 (5-15); BUN 23 mg/dL (7-18); BUN/Creat Ratio 19.2 RATIO (10-20); Calcium,Total 8.7 mg/dL (8.5-10.1); Chloride 107 mmol/L (98-107); EST Glomerular Filtration Rate 64 mL/min (>60); Est Glom Filt Rate - Afr Amer 78 mL/min (>60); Estimated Creatinine Clearance 66.46 ml/min; Glucose 104 mg/dL (74-106); Sodium Level 141 mmol/L (136-145)
[2022-08-01 08:05] VITALS: O2SAT 93
[2022-08-01 08:52] VITALS: BP 116/92; PULSE 119; RESP 16; TEMP 36.9; O2SAT 98
[2022-08-01] MEDS: Amiodarone 200 MG Tablet PO (08:55)
[2022-08-01] MEDS: Multivitamins,Therapeutic Tablet 1 TABLET PO (08:55)
[2022-08-01] MEDS: Aspirin E.C. 81 MG Tablet PO (08:55)
[2022-08-01] MEDS: Potassium Chloride Oral Tablet 20 MEQ 40 MEQ PO (08:55)
[2022-08-01] MEDS: APIXABAN 5 MG TABLET PO (08:56)
[2022-08-01] MEDS: Lisinopril 20 MG Tablet PO (08:56)
[2022-08-01 08:59] VITALS: PULSE 119; PULSE 126
[2022-08-01] MEDS: Metoprolol Tartrate 100 MG Tablet 150 MG PO (08:59)
[2022-08-01] MEDS: Digoxin 250 MCG/ML Ampul 500 MCG IV (08:59)
[2022-08-01] MEDS: Furosemide 20 MG Tablet PO (09:00)
--- NOTE | 2022-08-01 11:45 | PN.CARD_ITS ---
Subjective Subjective The patient is awake and alert. He has been up and ambulating. He is not complaining of any acute symptoms at this time. It is noted that his heart rate is better at rest and it does accelerate with ambulation/exertion. However, he states he cannot sense this change. Objective Data Vital Signs: Vital Signs Temp Pulse Resp BP Pulse Ox O2 Del Method O2 Flow Rate 98.5 F 119 H 16 116/92 H 98 Room Air 0 08/01/22 08:52 08/01/22 08:59 08/01/22 08:52 08/01/22 08:52 08/01/22 08:52 08/01/22 08:52 07/31/22 12:19 Oxygen Flow Rate (L/min) [ 0 AMBULATING on Room Air] Oxygen Flow Rate (L/min) [At 0 REST on Room Air] Oxygen Flow Rate (L/min) 3 Oxygen Delivery Method Room Air Weight: 261 lb 3.964 oz Body Mass Index (BMI) 35.4 Intake & Output: Intake and Output for Last 24 Hours 07/30/22 07/31/22 08/01/22 23:59 23:59 23:59 Intake Total 1074.75 / 1314.75 1240 / 1360 120 / 120 Output Total 1325 / 1325 Balance -250.25 / -10.25 1240 / 1360 120 / 120 Lab / Micro Data Result Diagrams: 07/30/22 03:55 08/01/22 04:20 Labs: Laboratory Results - last 24 hr 08/01/22 04:20: Sodium 141, Potassium 4.0, Chloride 107, Carbon Dioxide 28.0, Anion Gap 6, BUN 23 H, Creatinine 1.20, Estim Creat Clear Calc 66.46, Est GFR (MDRD) Af Amer 78, Est GFR (MDRD) Non-Af 64, BUN/Creatinine Ratio 19.2, Glucose 104, Calcium 8.7 Rhythm Strip Rhythm Strip: A-fib Rate: 177 Ectopy: None Cardiology Labs/Tests 08/01/22 04:20: Sodium 141, Potassium 4.0, Chloride 107, Carbon Dioxide 28.0, Anion Gap 6, BUN 23 H, Creatinine 1.20, Est GFR (MDRD) Af Amer 78, Est GFR (MDRD) Non-Af 64, BUN/Creatinine Ratio 19.2, Glucose 104, Calcium 8.7 Rhythm: Atrial fibrillation Radiography Diagnostic Testing: Radiology Impression Chest X-Ray 07/31/22 07:00 IMPRESSION: Small bilateral pleural effusions with bibasilar atelectasis, slightly worsened when compared with the prior study. Electronically Signed: Reece Holley MD at 17:32 EST Reading Location ID and State: [facility] / [place] Tel , Service support , Physical Exam Const alert, oriented x3 and no apparent distress Orientation / Consciousness: awake HEENT normocephalic, head/scalp atraumatic and hearing grossly normal bilaterally Eyes PERRL, EOMs intact bilaterally, conjunctivae normal and no scleral icterus Neck full ROM, supple and no JVD Carotids: normal carotid upstroke Resp Auscultation: diminished lung sounds bilateral (bases) Cardio Rhythm: abnormal rhythm irregularly irregular Heart Sounds: S1 normal, S2 normal and murmur systolic II/ soft mid left sternal border GI normal to inspection, nondistended, normoactive bowel sounds Extremity General Extremity: edema left lower extremity trace Skin no rashes or lesions noted Psych mental status grossly normal Assessment & Plan Assessment/Plan (1) Atrial fibrillation with RVR: PLAN: The patient remains in atrial fibrillation. His heart rate remains elevated. He is rate limiting medication dose is going to be increased to metoprolol tartrate 150 mg p.o. twice daily. He is also receiving a IV dose of digitalis. He is continuing anticoagulant therapy. He is also on antiarrhythmic therapy with amiodarone. This will need to be tapered over time (2) Cardiomyopathy: PLAN: The patient's echocardiogram was reviewed. He does have what appears to be a global left ventricular systolic dysfunction with a diminished LVEF of 35%. It is unclear whether this is related to his atrial dysrhythmia, his underlying valvular heart disease, or underlying CAD. He will continue combined medical therapy which at the moment is including fu rosemide therapy-oral, potassium supplement, and lisinopril 20 mg p.o. daily. (3) Acute CHF (congestive heart failure): PLAN: The patient appears to be clinically improved from what was previously described with concerns of acute CHF. He is continuing medical therapy as noted above. (4) Valvular heart disease: PLAN: The patient does have valvular heart disease as described on his echocardiogram. Again its unclear whether this is a participating factor in his other objective findings. He will need continued evaluation and care of this going forward as to whether or not he will eventually need valvular repair/replacement. (5) Pulmonary HTN: PLAN: The patient's estimated RV systolic pressure was elevated compatible with pulmonary hypertension. From a cardiovascular standpoint there may be a contributing factor from his underlying valvular heart related issues superimposed upon his other cardiac comorbidities and noncardiovascular issues. He will continue medical therapy/support as noted above at this time. He is also on oxygen therapy at this time. Hopefully if he clinically improves this can be weaned off. (6) HLD (hyperlipidemia): PLAN: The patient has a history of hyperlipidemia. He is continuing rosuvastatin 10 mg p.o. daily (7) HTN (hypertension): PLAN: The patient has a history of hypertension. He is on medical management as noted. Hopefully his blood pressures will stay reasonably well controlled. Addt'l Comments The patient's case was discussed and reviewed with the patient and Dr. Chayito glasgow. Comment: Time spent the patient's evaluation, examination, review of clinical case, discussion with the patient and the medical staff, documentation, etc.: 40 minutes Procedure Criteria Type of Procedure Procedure Type: Elective Elective Risks - COVID COVID Risk Discussion: The surgeon/proceduralist and patient have discussed in detail the risk of expo sure to and/or potential harm posed by the COVID-19 virus with having a surgery/procedure at this time versus the risk of delaying the surgery/procedure. It is not possible to know either the risk of delaying the surgery or procedure or chance of getting an infection with perfect accuracy, but a joint decision was made between the patient and the surgeon/proceduralist to proceed at this time with the scheduled surgery/procedure as indicated on the consent form.
--- NOTE | 2022-08-01 11:56 | DCINST_ITS ---
Discharge Instructions Diet Discharge Diet: No restrictions Activity Discharge Activity: Return to Normal Activity Weight Bearing Status: Full weight bearing Follow Up Care Test Results: Test results from this visit will be discussed in further detail at your follow- up appointment, if applicable. Discharge Plan Admission Admit Date/Time: 07/29/22 21:41 Primary Reason for Your Visit: a-fib Attending Provider: Chapo Baez Primary Care Provider: Ant Roth Consulting Providers: Tommy Lira ; Kelly Alvarado Instructions Additional Instructions / Restrictions: Do not take furosemide today, do not take lisinopril today, do not take potassium today Discharge Orders/Prescriptions Prescriptions: New metoprolol tartrate 100 mg Tablet 150 mg PO BID Qty: 90 0RF amiodarone 200 mg Tablet 200 mg PO BID Qty: 6 0RF lisinopril 20 mg Tablet 20 mg PO DAILY Qty: 30 0RF potassium chloride [Klor-Con M20] 20 mEq Tablet,Er Particles/Crystals 20 meq PO DAILYCM Qty: 30 0RF furosemide 20 mg Tablet 40 mg PO DAILY Qty: 60 0RF Eliquis 5 mg Tablet 5 mg PO BID Qty: 30 0RF digoxin 250 mcg (0.25 mg) tablet 250 mcg PO DAILY Qty: 30 0RF Rx Instructions: start on 08/01/22 Continued aspirin 81 mg tablet,delayed release (DR/EC) 81 mg PO QDAY rosuvastatin [Crestor] 10 mg tablet 10 mg PO QDAY multivitamin Tablet 1 tab PO DAILY Changed amlodipine [Norvasc] 10 mg tablet 5 mg PO QDAY Qty: 1 0RF Discontinued lisinopril-hydrochlorothiazide 20-25 mg tablet 1 tab PO QHS Referrals / Follow Up: Kelly Alvarado MD [Med Staff - Active Staff] - Within 2 Weeks (call for appointment) Ant Roth MD [Primary Care Provider] - Within 1 Month Disposition Disposition (needs filled in before D/C Order can be placed): Home, Self Care
--- NOTE | 2022-08-01 12:22 | DS.PCM_ITS ---
Providers Date of Admission: 07/29/22 Date of Discharge: 08/01/22 Primary Care Physician: Dr. Ant Roth MD Consultations 07/30/22 00:17 Consult: Cardiology Routine Consulting Provider: Kelly Alvarado Reason for Consult: Afib and heart failure EMERGENT Consult: No MD Notified: Yes Date Notified: 07/30/22 Time Notified: 06:44 Method of Notification: Text Reason For Visit: AFIB WITH RVR Diagnosis Discharge Diagnosis (1) Atrial fibrillation with RVR: Status: Acute Code(s): I48.91 - Unspecified atrial fibrillation (2) Cardiomyopathy: Status: Acute Code(s): I42.9 - Cardiomyopathy, unspecified (3) Acute CHF (congestive heart failure): Status: Acute Code(s): I50.9 - Heart failure, unspecified (4) Valvular heart disease: Status: Acute Code(s): I38 - Endocarditis, valve unspecified (5) Pulmonary HTN: Status: Acute Code(s): I27.20 - Pulmonary hypertension, unspecified (6) HLD (hyperlipidemia): Status: Acute Code(s): E78.5 - Hyperlipidemia, unspecified (7) HTN (hypertension): Status: Chronic Code(s): I10 - Essential (primary) hypertension Plan 1. Acute systolic congestive heart failure-initial episode-patient will continue on IV Lasix, labs will be repeated tomorrow, anticipate changing over to oral Lasix tomorrow #2 new onset atrial fibrillation with RVR-again patient is on oral amiodarone, I increase his metoprolol to 150 mg twice daily, patient is on Eliquis. #3 cardiomyopathy-most probably not rate related, patient will need to undergo a work-up for the cardiomyopathy as an outpatient most probably #4 hypoxia-resolved at this time, secondary to acute systolic congestive heart failure #5 essential hypertension-patient will remain on lisinopril #6 hyperlipidemia-patient is on Crestor #7 hypercoagulable state secondary to #2-patient is on Eliquis #8 moderate pulmonary hypertension Total clinical time spent by myself addressing the patient's medical issues, reviewing all the data, and collaborating with the patient's care team: 35 minutes Medications at Discharge Home Medications aspirin 81 mg tablet,delayed release 81 mg PO QDAY [facility] 04/30/17 rosuvastatin 10 mg tablet (Crestor) 10 mg PO QDAY cholesterol 04/30/17 multivitamin 1 tab PO DAILY supplement 07/29/22 amiodarone 200 mg tablet 200 mg PO BID #6 tabs 08/01/22 amlodipine 10 mg tablet (Norvasc) 5 mg PO QDAY blood pressure #1 TAB 08/01/22 apixaban 5 mg tablet (Eliquis) 5 mg PO BID #30 tabs 08/01/22 digoxin 250 mcg (0.25 mg) tablet 250 mcg PO DAILY #30 tabs 08/01/22 furosemide 20 mg tablet 40 mg PO DAILY #60 tabs 08/01/22 lisinopril 20 mg tablet 20 mg PO DAILY #30 tabs 08/01/22 metoprolol tartrate 100 mg tablet 150 mg PO BID #90 tabs 08/01/22 potassium chloride 20 mEq tablet,extended release(part/cryst) (Klor-Con M) 20 meq PO DAILYCM #30 tabs 08/01/22 Hospital Course Operations None Procedures 2-D Echocardiogram Summary of Care Provided Minutes Spent on Discharge: 32 Hospital Course: This 67-year-old white male was seen in the emergency room at [facility] with complaints of cough and congestion x3 days, patient also complained of some shortness of breath. EKG was obtained and revealed the patient to be in A-fib with a rapid ventricular response, patient did not have a history of this rhythm in the past. Patient was given a dose of IV Cardizem which slowed him down slightly, this was followed by Cardizem drip, troponin was within normal limits, COVID and influenza test were negative. Chest x-ray was obtained and it showed cardiomegaly with some cephalization, radiology felt that the patient was in congestive heart failure. Patient required 2 L nasal cannula oxygen, the case was discussed with cardiology by the emergency room physician and the patient was started on IV amiodarone bolus and drip and admitted to PCU. The following day, patient was seen in consultation by cardiology, his medications were adjusted and the patient underwent diuresis and was able to get off oxygen. Echocardiogram was performed which showed a decreased ejection fraction, it was felt that the patient would need close follow-up as an outpatient and need to undergo a cardiac catheterization. Patient's heart rate was finally controlled with a combination of digoxin, beta-bill, and amiodarone. On 08/01/2022, patient was seen and examined: On examination he appeared in good health and spirits. Vital signs as documented. Skin warm and dry and without overt rashes. Neck without JVD, neck was supple, trachea midline, thyroid was normal. Lungs clear bilaterally, normal air movement was noted. Heart exam notable for irregular rhythm, normal sounds and absence of murmurs, rubs or gallops. Abdomen unremarkable and without evidence of organomegaly, masses, or abdominal aortic enlargement. Bowel sounds are present, abdomen is not distended. Extremities nonedematous, no cyanosis was noted, no clubbing was noted. Neuro: Cranial nerves II through XII are grossly intact, no focal motor deficits were noted, sensation to light touch and pinprick intact, motor exam 5/5 throughout. Psych: Patient is alert and oriented x3, he does not appear anxious or depressed, he does not appear agitated. On 08/01/2022, patient was seen and examined and felt to be in stable condition for discharge home. Weight / BMI Weight Weight: 118.5 kg Body Mass Index (BMI) 35.4 ABG / Lab / Microbiology Data Result Diagrams: 07/30/22 03:55 08/01/22 04:20 Laboratory: Laboratory Results - last 24 hr 08/01/22 04:20: Sodium 141, Potassium 4.0, Chloride 107, Carbon Dioxide 28.0, Anion Gap 6, BUN 23 H, Creatinine 1.20, Estim Creat Clear Calc 66.46, Est GFR (MDRD) Af Amer 78, Est GFR (MDRD) Non-Af 64, BUN/Creatinine Ratio 19.2, Glucose 104, Calcium 8.7 Microbiology: Microbiology 07/29/22 18:11 Nasal Secretion SARS-CoV-2 & FLU Antigen (Rapid) - Final Radiography Diagnostic Testing: Radiology Impression Chest X-Ray 07/31/22 07:00 IMPRESSION: Small bilateral pleural effusions with bibasilar atelectasis, slightly worsened when compared with the prior study. Electronically Signed: Reece Holley MD at 17:32 EST , D/C Instructions Discharge Diet: No restrictions Weight Bearing Status: Full weight bearing Meaningful Use Info Meaningful Use Diagnoses (Choose all that apply): CHF CHF ZOYA/ARB ordered at discharge?: Yes Documented LVEF (%): 35 Discharge Plan Admission Admit Date/Time: 07/29/22 21:41 Primary Reason for Your Visit: a-fib Attending Provider: Chapo Baez Primary Care Provider: Ant Roth Consulting Providers: Tommy Lira ; Kelly Alvarado Instructions Additional Instructions / Restrictions: Do not take furosemide today, do not take lisinopril today, do not take potassium today Discharge Orders/Prescriptions Prescriptions: New metoprolol tartrate 100 mg Tablet 150 mg PO BID Qty: 90 0RF amiodarone 200 mg Tablet 200 mg PO BID Qty: 6 0RF lisinopril 20 mg Tablet 20 mg PO DAILY Qty: 30 0RF potassium chloride [Klor-Con M20] 20 mEq Tablet,Er Particles/Crystals 20 meq PO DAILYCM Qty: 30 0RF furosemide 20 mg Tablet 40 mg PO DAILY Qty: 60 0RF Eliquis 5 mg Tablet 5 mg PO BID Qty: 30 0RF digoxin 250 mcg (0.25 mg) tablet 250 mcg PO DAILY Qty: 30 0RF Rx Instructions: start on 08/01/22 Continued aspirin 81 mg tablet,delayed release (DR/EC) 81 mg PO QDAY rosuvastatin [Crestor] 10 mg tablet 10 mg PO QDAY multivitamin Tablet 1 tab PO DAILY Changed amlodipine [Norvasc] 10 mg tablet 5 mg PO QDAY Qty: 1 0RF Discontinued lisinopril-hydrochlorothiazide 20-25 mg tablet 1 tab PO QHS Referrals / Follow Up: Kelly Alvarado MD [Med Staff - Active Staff] - Within 2 Weeks (call for appointment) Ant Roth MD [Primary Care Provider] - Within 1 Month Disposition Disposition (needs filled in before D/C Order can be placed): Home, Self Care Charges/Coding Visit Charges Inpatient E&M: 93323 Disch Hosp >30min
[2022-08-01 12:54] VITALS: BP 111/86; PULSE 80; RESP 16; TEMP 36.6; O2SAT 98
== END 2022-08-01 13:10 | disposition home or self-care (01) | DRG 291 ==
LOC: ED 21:44 → PCU 22:28
PROVIDERS: Admitting Provider Hospitalist; Emergency Provider Emergency Medicine; PCP Family Medicine; Visit Provider Internal Medicine
DX: I11.0 Hypertensive heart disease with heart failure (principal); I50.21 Acute systolic (congestive) heart failure; D68.69 Other thrombophilia; I27.20 Pulmonary hypertension, unspecified; I48.91 Unspecified atrial fibrillation; I42.9 Cardiomyopathy, unspecified; E78.00 Pure hypercholesterolemia, unspecified; G47.33 Obstructive sleep apnea (adult) (pediatric); Z28.310 Unvaccinated for COVID-19; R09.02 Hypoxemia; Z20.822 Contact with and (suspected) exposure to COVID-19; Z79.82 Long term (current) use of aspirin; Z79.899 Other long term (current) drug therapy
CPT/HCPCS: 36415; 71046; 80048; 83735; 83880; 84443; 84484; 85025; 87428; 93005; 93306; 94640; 94762; 99285; J7030; Q9957; A4216; J1940

== ENCOUNTER → 2022-09-24 | Outpatient (CLI) | payer MEDICARE, SELFPAY ==
--- NOTE | 2022-09-24 08:46 | ECHOD_ITS ---
Reason For Study: CHF Procedure This was a 2D Doppler, Color Flow transthoracic echocardiogram. Exam performed in department. Left Ventricle Normal LV size. Moderate concentric left ventricular hypertrophy. The estimated ejection fraction is 50 %. Stage 3 diastolic dysfunction. There is borderline global hypokinesis of the left ventricle. Right Ventricle Normal RV size. Normal systolic function. Atria The left atrium is severely enlarged. Mitral Valve There is mild to moderate mitral annular calcification. Mild focal mitral valve calcification of the anterior leaflet. Mild-Moderate (1-2+) eccentric mitral valve insufficiency. Tricuspid Valve Normal tricuspid valve. Mild tricuspid valve insufficiency. Pulmonary artery systolic pressure is 35 mmHg. Aortic Valve Trisinus/trileaflet aortic valve. Moderate focal aortic valve calcification. Moderate restriction of the aortic valve. Peak aortic valve gradient 49 mmHg. Mean aortic valve gradient 25 mmHg. MMode/2D Measurements & Calculations LVIDd: 5.3 cm IVSd: 1.4 cm LVOT diam: 2.1 cm LVIDs: 4.0 cm LVPWd: 1.4 cm FS: 23.4 % LVOT area: 3.4 cm2 LA dimension: 5.7 cm LAV(MOD-bp): 123.8 ml LA A4 area: 34.1 cm2 LAV(MOD-bp) Indexed: 53.3 ml/m2 LAV(MOD-sp2): 113.8 ml LAV(MOD-sp4): 124.2 ml RA A4 area: 29.1 cm2 Time Measurements MV dec time: 0.17 sec Doppler Measurements & Calculations MV E max caleb: 86.8 cm/sec Lat Peak E' Caleb: 10.9 cm/sec Med Peak E' Caleb: 6.7 cm/sec MV A max caleb: 31.9 cm/sec E/E' lat: 8.0 E/E' med: 12.9 MV E/A: 2.7 MV V2 max: 92.6 cm/sec Ao V2 max: 347.2 cm/sec MV max P.4 mmHg MV dec slope: 516.2 cm/sec2 Ao max P.7 mmHg MV V2 mean: 47.2 cm/sec Ao V2 mean: 227.6 cm/sec MV mean P.1 mmHg Ao mean P.9 mmHg MV V2 VTI: 27.4 cm Ao V2 VTI: 75.5 cm AV (velocity ratio): 0.30 MVA(VTI): 2.8 cm2 DAVID(I,D): 1.0 cm2 DAVID(V,D): 0.98 cm2 LV V1 max: 98.3 cm/sec MR max caleb: 562.9 cm/sec SV(LVOT): 76.9 ml LV V1 max P.9 mmHg MR max P.7 mmHg LV V1 mean P.1 mmHg MR mean caleb: 440.3 cm/sec LV V1 mean: 68.3 cm/sec MR mean P.0 mmHg LV V1 VTI: 22.3 cm MR VTI: 193.7 cm PA V2 max: 102.8 cm/sec TR max caleb: 276.0 cm/sec PA V2 mean: 71.7 cm/sec TR max P.5 mmHg ECHO/Echo Complete Interpretation Summary Normal LV size. Moderate concentric left ventricular hypertrophy. The estimated ejection fraction is 50 %. There is borderline global hypokinesis of the left ventricle. Stage 3 diastolic dysfunction. Mean aortic valve gradient 25 mmHg. Moderate focal aortic valve calcification. Moderate restriction of the aortic valve. Compared to previous study, the left ventricular systolic function has improved .. Ordering Physician: Shady Knox Referring Physician: Ant Roth Performed By: Christiano Huff RCS
== END | disposition home or self-care (01) ==
LOC: CVS 08:39
PROVIDERS: PCP Family Medicine; Referring Provider Nurse Practitioner Family; Visit Provider Nurse Practitioner Family
DX: I34.0 Nonrheumatic mitral (valve) insufficiency (principal); I42.9 Cardiomyopathy, unspecified; I35.0 Nonrheumatic aortic (valve) stenosis
CPT/HCPCS: 93306

== ENCOUNTER → 2022-09-27 | Outpatient (CLI) | payer MEDICARE, SELFPAY ==
[2022-09-27 13:24] LABS: ALB/GLOB Ratio 0.9 RATIO (0.9-2.4); AST(SGOT) 33 U/L (15-37); Alanine Aminotransfer ALT/SGPT 36 U/L (16-61); Albumin, Serum 3.8 g/dL (3.2-5.0); Alkaline Phosphatase 57 U/L (45-117); Anion Gap 9 (5-15); BUN 15 mg/dL (7-18); BUN/Creat Ratio 13.3 RATIO (10-20); Calcium,Total 9.5 mg/dL (8.5-10.1); Chloride 105 mmol/L (98-107); Cholesterol 197 mg/dL (200); Creatinine, Serum 1.13 mg/dL (0.70-1.30); EST Glomerular Filtration Rate 69 mL/min (>60); Est Glom Filt Rate - Afr Amer 83 mL/min (>60); Globulin 4.3 g/dL (2.2-4.2); Glucose 130 mg/dL (74-106); High Density Lipoprotein 46 mg/dL; Potassium 3.3 mmol/L (3.5-5.1); Protein, Total 8.1 g/dL (6.4-8.2); Sodium Level 141 mmol/L (136-145); Triglycerides 187 mg/dL; Very Low Density Lipoprotein 37 mg/dL (5-40)
== END | disposition home or self-care (01) ==
LOC: MFPLAB 09:47
PROVIDERS: PCP Family Medicine; Visit Provider Family Medicine
DX: E11.9 Type 2 diabetes mellitus without complications (principal)
CPT/HCPCS: 36415; 80053; 80061

== ENCOUNTER → 2022-11-17 | Outpatient (CLI) | payer MEDICARE, SELFPAY ==
--- NOTE | 2022-11-17 16:55 | STRESSREP ---
Stress Test Report Pharmacologic myocardial perfusion stress test. 67-year-old male with a history of atrial fibrillation Resting EKG demonstrates atrial fibrillation with a rate of [address] depression is noted in the inferior lateral leads consistent with digoxin. Resting blood pressure is 160/88 mmHg. 0.4 mg of regadenoson was infused per usual protocol followed by rapid intravenous saline flush injection. Continuous EKG monitoring was performed. The maximum heart rate was 76 bpm which was 49% of max impacted heart rate the maximum workload was 1 metabolic equivalent. At rest there were no ST or T wave changes noted to suggest ischemia, but rather digoxin use and at peak infusion nonspecific ST changes were noted which did not meet the criteria for ischemia. No clinical angina is noted. The final blood pressure was 138/80 mmHg. Myocardial perfusion protocol. 14.8 mCi of technetium 99m sestamibi was injected at rest. 0.4 mg of regadenoson was infused per usual protocol. At peak infusion 44.7 mCi of technetium 99m sestamibi was injected stress images were obtained stress and rest images were reconstructed and compared in the short axis vertical long and horizontal long axis. Gated images were also obtained. Perfusion SPECT analysis: Review of the stress images demonstrate normal uptake of tracer noted in all areas of the myocardium, but there is reduction noted involving the inferior wall from base to apex with significant GI attenuation artifact also present.. The resting images similar demonstrated normal uptake of tracer noted in all areas of the myocardium with a similar pattern noted in the inferior wall. No areas of reversibility are noted to suggest ischemia, but GI attenuation artifact or a previous infarct is possible. Gated SPECT analysis: The gated ejection fraction is 47%. Conclusion: Pharmacologic myocardial perfusion stress test with perfusion defect noted in the inferior wall consistent with attenuation artifact and/or infarct. Low normal to mildly reduced ejection fraction.
== END | disposition home or self-care (01) ==
LOC: CVS 06:54
PROVIDERS: PCP Family Medicine; Referring Provider Nurse Practitioner Family; Visit Provider Nurse Practitioner Family
DX: I25.10 Atherosclerotic heart disease of native coronary artery without angina pectoris (principal); I42.9 Cardiomyopathy, unspecified; I48.91 Unspecified atrial fibrillation; I34.0 Nonrheumatic mitral (valve) insufficiency; I35.0 Nonrheumatic aortic (valve) stenosis; I10 Essential (primary) hypertension; E78.5 Hyperlipidemia, unspecified; R94.31 Abnormal electrocardiogram [ECG] [EKG]
CPT/HCPCS: 78452; 93017; A9500; A4216; J2785

== ENCOUNTER → 2023-03-28 | Outpatient (CLI) | payer MEDICARE, SELFPAY ==
[2023-03-28 08:45] LABS: Absolute Lymphocyte Count 2.14 X10^3/uL (0.83-4.51); Absolute Neutrophil Count 6.1 X10^3/uL (2.0-7.7); Basophil# 0.08 X10^3/uL; Basophil% 0.8 % (0-1); Eosinophil# 0.26 X10^3/uL; Eosinophils% 2.7 % (0-5); Hematocrit 47.8 % (40-54); Hemoglobin 16.3 g/dL (13.0-16.5); Lymphocyte # 2.14 X10^3/ul (0.83-4.51); Lymphocyte % 22.2 % (19-41); Mean Corp Hgb Conc 34.1 g/dL (32-36); Mean Corpuscular Hgb 31.9 pg (27.0-32.0); Mean Corpuscular Volume 93.5 fL (80-94); Mean Platelet Vol. 10.2 fl (6.2-12.0); Monocyte% 11.4 % (0-10); NRBC Flagged by Analyzer 0 % (0-5); Neutrophil # 6.06 X10^3/uL (2.7-7.7); Neutrophil % 62.7 % (47-70); Platelet Count 293 K/mm3 (150-450); RBC Distribution Width CV 12.9 % (11.6-14.6); RBC Distribution Width SD 44.4 fl (35.1-43.9); Red Blood Count 5.11 M/mm3 (4.6-6.2); White Blood Count 9.7 K/mm3 (4.4-11.0)
[2023-03-28 09:15] LABS: Anion Gap 2 (5-15); BUN 15 mg/dL (7-18); BUN/Creat Ratio 12.9 RATIO (10-20); Calcium,Total 9.3 mg/dL (8.5-10.1); Chloride 102 mmol/L (98-107); Creatinine, Serum 1.16 mg/dL (0.70-1.30); EST Glomerular Filtration Rate 67 mL/min (>60); Est Glom Filt Rate - Afr Amer 81 mL/min (>60); Glucose 131 mg/dL (74-106); Sodium Level 137 mmol/L (136-145)
== END | disposition home or self-care (01) ==
LOC: LAB 08:07
PROVIDERS: PCP Family Medicine
DX: I35.0 Nonrheumatic aortic (valve) stenosis (principal)
CPT/HCPCS: 36415; 80048; 85025

== ENCOUNTER → 2023-11-02 | Outpatient (CLI) | payer MEDICARE, SELFPAY ==
[2023-11-02 13:24] LABS: AST(SGOT) 41 U/L (15-37); Alanine Aminotransfer ALT/SGPT 48 U/L (16-61); Alkaline Phosphatase 50 U/L (45-117); Anion Gap 6 (5-15); BUN 19 mg/dL (7-18); BUN/Creat Ratio 15.8 RATIO (10-20); Calcium,Total 9.3 mg/dL (8.5-10.1); Chloride 103 mmol/L (98-107); Cholesterol 162 mg/dL (200); EST Glomerular Filtration Rate 64 mL/min (>60); Est Glom Filt Rate - Afr Amer 78 mL/min (>60); Globulin 4.1 g/dL (2.2-4.2); Glucose 135 mg/dL (74-106); High Density Lipoprotein 42 mg/dL; Potassium 3.8 mmol/L (3.5-5.1); Protein, Total 8.1 g/dL (6.4-8.2); Sodium Level 138 mmol/L (136-145); Triglycerides 194 mg/dL; Very Low Density Lipoprotein 39 mg/dL (5-40)
[2023-11-02 14:10] LABS: Hemoglobin A1c 5.9 % (3.8-5.6)
== END | disposition home or self-care (01) ==
PROVIDERS: PCP Family Medicine; Visit Provider Family Medicine
DX: I10 Essential (primary) hypertension (principal); E11.9 Type 2 diabetes mellitus without complications
CPT/HCPCS: 36415; 80053; 80061; 83036

== ENCOUNTER → 2024-05-02 | Outpatient (CLI) | payer MEDICARE, SELFPAY ==
[2024-05-02 13:02] LABS: Microalbumin:Creatinine Ratio 948.1 mg/g CRE (<30 mg/g CRE)
[2024-05-02 13:03] LABS: AST(SGOT) 30 U/L (15-37); Alanine Aminotransfer ALT/SGPT 42 U/L (16-61); Albumin, Serum 4.2 g/dL (3.2-5.0); Alkaline Phosphatase 54 U/L (45-117); Anion Gap 5 (5-15); BUN 20 mg/dL (7-18); BUN/Creat Ratio 16.4 RATIO (10-20); Calcium,Total 9.4 mg/dL (8.5-10.1); Chloride 105 mmol/L (98-107); Cholesterol 181 mg/dL (200); Creatinine, Serum 1.22 mg/dL (0.70-1.30); EST Glomerular Filtration Rate 63 mL/min (>60); Est Glom Filt Rate - Afr Amer 76 mL/min (>60); Globulin 4.3 g/dL (2.2-4.2); Glucose 140 mg/dL (74-106); High Density Lipoprotein 39 mg/dL; Potassium 3.5 mmol/L (3.5-5.1); Protein, Total 8.5 g/dL (6.4-8.2); Sodium Level 140 mmol/L (136-145); Triglycerides 276 mg/dL; Very Low Density Lipoprotein 55 mg/dL (5-40)
== END | disposition home or self-care (01) ==
LOC: MFPLAB 10:46
PROVIDERS: PCP Family Medicine; Referring Provider Family Medicine; Visit Provider Family Medicine
DX: E11.9 Type 2 diabetes mellitus without complications (principal)
CPT/HCPCS: 36415; 80053; 80061; 82043; 82570

== ENCOUNTER → 2024-10-31 | Outpatient (CLI) | payer MEDICARE, SELFPAY ==
[2024-10-31 12:53] LABS: ALB/GLOB Ratio 1.1 RATIO (0.9-2.4); AST(SGOT) 38 U/L (<=37); Alanine Aminotransfer ALT/SGPT 33 U/L (<=46); Albumin, Serum 4.4 g/dL (3.4-4.8); Alkaline Phosphatase 56 U/L (40-129); Anion Gap 14 (5-15); BUN 21 mg/dL (4-19); BUN/Creat Ratio 17.2 RATIO (10-20); Calcium,Total 9.9 mg/dL (7.6-11.0); Carbon Dioxide 26.6 mmol/L (21.0-32.0); Chloride 100 mmol/L (98-108); Cholesterol 174 mg/dL (<=200); Creatinine, Serum 1.23 mg/dL (0.70-1.20); EST Glomerular Filtration Rate 64 (>60); Globulin 3.9 g/dL (2.2-4.2); Glucose 127 mg/dL (70-99); High Density Lipoprotein 38 mg/dL; Low Density Lipoprotein Calc. 88 mg/dL; Potassium 3.4 mmol/L (3.3-5.1); Protein, Total 8.3 g/dL (5.9-8.4); Sodium Level 141 mmol/L (133-145); Total Bilirubin 0.59 mg/dL (0.00-1.30); Triglycerides 242 mg/dL; Very Low Density Lipoprotein 48 mg/dL (5-40); cholesterol:hdl ratio screen 4.59
[2024-10-31 14:22] LABS: Microalbumin,Random Urine 41.2 mg/L (NO RANGE EST.); Microalbumin:Creatinine Ratio 1745.8 mg/g CRE
--- OUTSIDE RECORDS SUMMARY | 2024-10-31 19:04 | XMS RPT_ITS | CCD ---
Author Organization [facility] CliniSyms Care Team Providers Care Credit Front Office Developer Name Role Phone BARTOLOME MCDONOUGH Unavailable Unavailabl e Unavailable Primary Care Provider Unavailabl e Dr. Ant Roth Primary Care Provider Dr. Alex Bajwa Emergency Provider 1([facility])[phone] Dr. Tommy Lirait Provider Dr. Tommy Lira Attending Provider 1([facility])[phone] Dr. Tommy Lira Other Provider 1([facility])[phone] Ant Huynh Attending Provider 1([facility])[phone] Dr. Chapo Baez Attending Provider Dr. Chapo Baez Other Provider 1([facility])[phone] Kelly Alvarado Other Provider Dr. Ant Roth Primary Care Provider Dr. Alex Bajwa Emergency Provider 1([facility])[phone] Dr. Tommy Lira Provider 1([facility])[phone] Tommy Lira Attending Provider Dr. Tommy Lira Other Provider Dr. Ant Huynh Attending Provider Dr. Chapo Baez Attending Provider 1([facility])[phone] Dr. Chapo Baez Other Provider Dr. Kelly Alvarado Other Provider Dr. Ant Roth Referring Provider 1([facility])[phone] Roof DULITE MACHINE BLUER, DULITE MACHINE BLUER-C Shady Ignacio Attending Provider Dr. Saw Goldman Attending Provider Dr. Saw Goldman Referring Provider Roof DULITE MACHINE BLUER, DULITE MACHINE BLUER-C Shady Ignacio Referring Provider Roof DULITE MACHINE BLUER, DULITE MACHINE BLUER-C Shady Ignacio Other Provider Roof POLISHER HAND, Shady Unavailable Ant Roth MD Primary Care Provider Saw Goldman MD Unavailable Ant Roth MD Primary Care Provider AGUILAR HERRMANN Attending Unavailable LANDY FERGUSON Referring Unavailable LANDY FERGUSON Attending Unavailable ROTH, ANT Carrasco Primary Care Unavailable ROTH, ANT Carrasco Primary Care Unavailable BERHANE MCKEON Attending Unavailable ROTH, ANT Carrasco Referring Unavailable ROTH, ANT Carrasco Primary Care Unavailable KISTE, AALIYAH Alexandra Referring Unavailable ELLIESTAALIYAH Dahl Attending Unavailable ROTH, ANT Carrasco Primary Care Unavailable BERHANE MCKEON Attending Unavailable ROTH, ANT Carrasco Referring Unavailable Roth, Ant Primary Care Unavailable Roth, Ant Referring Unavailable Roth, Ant Attending Unavailable Roth, Ant Primary Care Unavailable Roth, Ant Attending Unavailable DONNA OTERO Attending Unavailable Roth, Ant Primary Care Unavailable Roth, Ant Primary Care Unavailable Roof DULITE MACHINE BLUER, Shady Ignacio Attending Unavailable Roth, Ant Referring Unavailable Allergies Allergy Classification Reported Allergen(s) Allergy Type Date of Onset Reaction(s) Facility (7 sources) atorvastatin Drug Allergy 05-26-2017 Other [facility] (1 source) atorvastatin Drug Allergy 12-07-2023 [facility] Repository Medications Current Medications Medication Drug Class(es) Dates Sig (Normalized) Sig (Original) amiodarone hydrochloride 200 mg oral tablet (20 sources) Antiarrhythmic Start: 02-24-2023 take 0.5 tablet by mouth once daily AMIOdarone 200 MG tablet Take 0.5 tablets by mouth daily. 15 tablet 5 02/24/2023 Active Start: 09-14-2022 take 1 tablet by venus th twice daily Amiodarone Active 200 MG PO .COMPLEX 180 September 14, 2022 4:14pm 200 mg orally once a day: please give extra tablets as patient may need to resume twice a day depending on test results; Start: 09-01-2022 End: 02-24-2023 take 200 mg by mouth once daily Amiodarone Discontinue d 200 MG PO DAILY September 01, 2022 9:02pm September 14, 2022 4:15pm Start: 08-01-2022 End: 09-01-2022 take 200 mg by mouth twice daily Amiodarone Discontinued 200 MG PO TWICE A DAY 60 August 06, 2022 2:43pm September 01, 2022 9:04pm amiodarone (Pace daniel) 200 MG tablet Take 100 mg by mouth in the morning. Active amLODIPine 5 mg oral tablet (20 sources) Dihydropyridine Calcium Channel Bill Start: 09-14-2022 take 5 mg by mouth once daily Amlodipine Active 5 MG PO DAILY September 14, 2022 12:00am Start: 08-01-2022 End: 09-14-2022 take 5 mg by mouth once daily Amlodipine (Norvasc) 10 mg tablet Discontinued 5 MG PO daily August 01, 2022 1:02pm September 14, 2022 4:16pm Start: 04-30-2017 End: 08-01-2022 take 1 tablet by mouth once daily Amlodipine (Norvasc) 10 mg tablet Discontinued 10 MG PO daily April 30, 2017 1:00am August 01, 2022 1:02pm Comment on above: Take 10 mg by mouth once daily. aspirin 81 mg delayed release oral tablet (15 sources) Platelet Aggregation Inhibitor, Nonsteroidal Anti-inflammatory Drug Start: 04-04-2023 End: 04-04-2023 aspirin chewable tablet 324 mg Start: 04-30-2017 take 81 mg by mouth once daily Aspirin Active 81 MG PO daily April 30, 2017 1:00am take 81 mg by mouth in the morning ASPIRIN 81 PO Take 81 mg by mouth in the morning. Active End: 02-24-2023 aspirin 81 MG Chew Tab chewa ble tablet Chew 1 tablet daily. 0 02/24/2023 Discontinued (Stop Taking at Discharge) Comment on above: Take 81 mg by mouth once daily. digoxin 0.25 mg oral tablet (13 sources) Cardiac Glycoside Start: 08-01-2022 End: 02-24-2023 take 250 ug by mouth once daily Digoxin Active 250 MCG PO DAILY November 04, 2022 11:33am start on 08/01/22 furosemide 40 mg oral tablet (20 sources) Loop Diuretic Start: 09-14-2022 End: 11-04-2022 take 40 mg by mouth once daily Furosemide Active 40 MG PO DAILY November 04, 2022 11:33am Start: 08-01-2022 End: 09-14-2022 take 40 mg by mouth once daily Furosemide Discontinued 40 MG PO DAILY August 01, 2022 1:00am September 14, 2022 4:17pm lisinopril 20 mg oral tablet (18 sources) Angiotensin Converting Enzyme Inhibitor Start: 08-01-2022 take 20 mg by mouth once daily Lisinopril Active 20 MG PO DAILY August 01, 2022 1:00am metoprolol tartrate 100 mg oral tablet (18 sources) beta-Adrenergic Bill Start: 08-01-2022 take 150 mg by mouth twice daily Metoprolol Tartrate Active 150 MG PO TWICE A DAY August 01, 2022 1:00am metoprolol tartr ate (Lopressor) 100 MG tablet Take 150 mg by mouth in the morning and 150 mg before bedtime. Active take 1.5 tablets by mouth twice daily Metoprolol 100 MG tab regular release Take 1.5 tablets by mouth 2 times daily. Active Multiple Vitamins-Minerals ( Centrum Silver Adult 50+) tablet (10 sources) Multiple Vitamin s-Minerals (Centrum Silver Adult 50+) tablet Take by mouth. Active Multiple Vitamin s-Minerals (Centrum Silver Adult 50+) tablet Take by mouth. 0 Active Multivitamin preparation (6 sources) Start: 07-29-2022 take 1 tablet by mouth once daily Multivitamin Active 1 TABLET PO DAILY July 29, 2022 1:00am Start: 07-29-2022 take 1 tablet by venus th once daily Multivitamin Active 1 TABLET PO DAILY July 29, 2022 12:00am rosuvastatin calcium 10 mg oral tablet (20 sources) HMG-CoA Reductase Inhibitor Start: 04-30-2017 take 1 tablet by mouth once daily Rosuvastatin (Crestor) 10 mg tablet Active 10 MG PO daily April 30, 2017 1:00am Comment on above: Take 10 mg by mouth once daily. zinc citrate 30 mg oral capsule (10 sources) take 1 capsule by mouth once daily Zinc 30 MG capsule Take 1 capsule by mouth daily. Active Zinc 30 MG capsu le Take by mouth 2 times daily. 0 Active Completed/Discontinued Medications Medication Drug Class(es) Dates Sig (Normalized) Sig (Original) acetaminophen 325 mg oral tablet (1 source) Start: 04-04-2023 End: 04-04-2023 take 1 tablet by mouth every six hours as needed Acetaminophen (TYLENOL) tablet 325 mg acetaminophen 325 mg / oxyCODONE hydrochloride 5 mg oral tablet (7 sources) Opioid Agonist Start: 05-16-2017 End: 05-26-2017 take 1 tablet by mouth every four hours as needed Oxycodone-Acetamino phen Discontinued 1 - 2 TABLET PO EVERY 4 HOURS NEEDED May 16, 2017 1:00am May 26, 2017 1:45pm apixaban 5 mg oral tablet (20 sources) Factor Xa Inhibitor Start: 08-01-2022 End: 11-04-2022 take 1 tablet by mouth twice daily Apixaban (Eliquis) 5 mg tablet Discontinued 5 MG PO TWICE A DAY 180 September 14, 2022 4:19pm November 04, 2022 11:34am Eliquis 5 MG tab let Take by mouth every 12 hours. Active hydroCHLOROthiazide 25 mg / lisinopril 20 mg oral tablet (8 sources) Thiazide Diuretic, Angiotensin Converting Enzyme Inhibitor Start: 04-30-2017 End: 08-01-2022 take 1 tablet by mouth at bedtime Lisinopril-Hydrochlorothiazide Discontinued 1 TABLET PO AT BEDTIME April 30, 2017 1:00am August 01, 2022 12:59pm Start: 04-30-2017 take 1 tablet by venus th once daily Lisinopril-Hydrochlorothiazide Active 1 TABLET PO daily April 30, 2017 12:54pm take 1 tablet by venus th once daily lisinopril-hydrochlorothiazide (PRINZIDE , ZESTORETIC) 20-25 mg per tablet Take 1 tablet by mouth once daily. 0 Active Comment on above: Take 1 tablet by venus th once daily. iohexol (OMNIPAQUE) 350 MG/M L injection 1-171 mL (1 source) Start: 04-26-2023 End: 04-26-2023 iohexol (OMNIPAQUE) 350 MG/ML injection 1-171 mL microencapsulated potassium chloride 20 meq extended release oral tablet (20 sources) Start: 08-01-2022 End: 11-04-2022 Potassium Chloride (Klor-Con M20) 20 mEq tablet,ER particles/crystals Discontinued 20 MEQ PO DAILY WITH MEALS 90 September 14, 2022 4:17pm November 04, 2022 11:34am take 20 mEq by mouth in the morn ing potassium chloride (Klor-Con) 20 MEQ packet Take 20 mEq by mouth in the morning and 20 mEq before bedtime. Active Potassium Chlori de ER 20 MEQ Tab CR tablet Take by mouth. Active 20 ml sodium chloride 9 mg/m l injection (4 sources) Start: 04-26-2023 End: 04-26-2023 Sodium chloride (PF) 0.9 % injection 1-100 mL Start: 04-04-2023 End: 04-04-2023 Sodium chloride 0.9% IV solu tion Start: 04-04-2023 End: 04-04-2023 Sodium chloride 0.9% IV solu tion Start: 02-24-2023 End: 02-24-2023 Sodium chloride 0.9% IV solu tion 500 mL Problems Active Problems Problem Classification Problem Date Documented Date Episodic/Chronic Cardiac and circulatory congenital anomalies (1 source) Aortic valve stenosis; Translations: [Congenital stenosis of aortic valve] 10-25-2023 Chronic Cardiac dysrhythmias (20 sources) Atrial fibrillation with rapid ventricular response; Translations: [Unspecified atrial fibrillation] Onset: 3 07-29-2022 Chronic Cardiac dysrhythmias (1 source) Tachycardia; Translations: [Tachycardia, unspecified] Episodic Congestive heart failure; nonhypertensive (12 sources) Acute congestive heart failure; Translations: [Heart failure, unspecified] Onset: 5 07-29-2022 Chronic Diabetes mellitus without complication (1 source) Type 2 diabetes mellitus without complications; Translations: [Type 2 diabetes mellitus without complications] Onset: 5 Chronic Disorders of lipid metabolism (15 sources) Hyperlipidemia, unspecified; Translations: [Hyperlipidemia] Onset: 7 07-31-2022 Chronic Essential hypertension (20 sources) Essential (primary) hypertension; Translations: [Hypertensive disorder] Onset: 7 07-31-2022 Chronic Heart valve disorders (20 sources) Aortic stenosis, non-rheumatic ; Translations: [Nonrheumatic aortic (valve) stenosis] Onset: 5 08-13-2022 Chronic Other circulatory disease (2 sources) Other disorders of arteries, arterioles and capillaries in diseases classified elsewhere; Translations: [Other disorders of arteries, arterioles and capillaries in diseases classified elsewhere] Onset: 5 Chronic Other circulatory disease (1 source) Other specified symptoms and signs involving the circulatory and respiratory systems; Translations: [Other symptoms involving cardiovascular system] 04-26-2023 Episodic Other lower respiratory disease (6 sources) Hypoxia; Translations: [Hypoxemia] 07-29-2022 Episodic Other lower respiratory disease (5 sources) Hypoxemia; Translations: [Hypoxemia] 07-29-2022 Episodic Other nutritional; endocrine; and metabolic disorders (6 sources) Obese class II; Translations: [Obesity, unspecified] Onset: 3 04-26-2023 Chronic Other skin disorders (7 sources) Mass of subcutaneous tissue of back; Translations: [Localized swelling, mass and lump, trunk] 05-16-2017 Episodic Tatiana-; endo-; and myocarditis; cardiomyopathy (except that caused by tuberculosis or sexually transmitted disease) (19 sources) Heart valve disorder; Translations: [Endocarditis, valve unspecified] 07-31-2022 Chronic Pulmonary heart disease (6 sources) Pulmonary hypertension; Translations: [Pulmonary hypertension, unspecified] 07-31-2022 Chronic Residual codes; unclassified (4 sources) Obstructive sleep apnea syndrome; Translations: [Obstructive sleep apnea (adult) (pediatric)] Onset: 5 06-07-2024 Chronic Unclassified (6 sources) Abnormal electrocardiogram [ECG] [EKG]; Translations: [Electrocardiogram abnormal] Onset: 7 11-05-2022 Episodic Past or Other Problems Problem Classification Problem Date Documented Date Episodic/Chronic Medical examination/evaluatio n (2 sources) Encounter for other preprocedural examination; Translations: [Encounter for other preprocedural examination] Onset: 01-19-2017 Episodic Results Test Name Value Interpretation Reference Range Facility ECHOCARDIOGRAMon 10-18-2024 Echocardiography ? Left Ventricle: Chamber size is enlarged at end diastole. Normal global systolic function. Ejection fraction is normal (55 - 60%). Diastolic function is consistent with impaired relaxation (grade I). ? Right Ventricle: Chamber size is normal. Systolic function is normal. ? Left Atrium: Chamber size is normal. ? Aortic Valve: Calcified trileaflet valve. Leaflet excursion is decreased. Mild regurgitation. Moderate to severe stenosis. Mean gradient: 35 mmHg. Dimensionless Index by VTI: 0.26. Valve area continuity VTI: 0.82 cm2. Stroke volume index: 31.78 ml/m2. The valve Vmax is 4.02 m/s. Gradient may be underestimated due to low stroke volume. ? Mitral Valve: Normal appearing leaflets. Leaflet mobility is normal. No regurgitation. No valve stenosis. ? Tricuspid Valve: Normal leaflets. Leaflet mobility is normal. Trace regurgitation. No stenosis. ? Compared to the prior study on 04/05/2024, the aortic valve gradient has worsened. Table formatting from the original result was not included. Images from the original result were not included. [facility] Facility [facility] Patient Information Patient Name Lenard Correa Legal Sex Male Indication for Exam Priority: Routine Dx: Severe aortic stenosis [I35.0 (ICD-10-CM)] Comments: Severe aortic stenosis Interpretation Summary Result History is available. ? Left Ventricle: Chamber size is enlarged at end diastole. Normal global systolic function. Ejection fraction is normal (55 - 60%). Diastolic function is consistent with impaired relaxation (grade I). ? Right Ventricle: Chamber size is normal. Systolic function is normal. ? Left Atrium: Chamber size is normal. ? Aortic Valve: Calcified trileaflet valve. Leaflet excursion is decreased. Mild regurgitation. Moderate to severe stenosis. Mean gradient: 35 mmHg. Dimensionless Index by VTI: 0.26. Valve area continuity VTI: 0.82 cm2. Stroke volume index: 31.78 ml/m2. The valve Vmax is 4.02 m/s. Gradient may be underestimated due to low stroke volume. ? Mitral Valve: Normal appearing leaflets. Leaflet mobility is normal. No regurgitation. No valve stenosis. ? Tricuspid Valve: Normal leaflets. Leaflet mobility is normal. Trace regurgitation. No stenosis. ? Compared to the prior study on 04/05/2024, the aortic valve gradient has worsened. Findings Left Ventricle Chamber size is enlarged at end diastole. Normal global systolic function. Ejection fraction is normal (55 - 60%). Diastolic function is consistent with impaired relaxation (grade I). Right Ventricle Chamber size is normal. Systolic function is normal. Left Atrium Chamber size is normal. Right Atrium Chamber size is normal. Septum The atrial septum is normal. Mitral Valve Normal appearing leaflets. Leaflet mobility is normal. No regurgitation. No valve stenosis. Aortic Valve Trileaflet valve. Leaflet calcification. Leaflet excursion is decreased. Mild regurgitation. Moderate to severe stenosis. Mean gradient: 35 mmHg. Dimensionless Index by VTI: 0.26. Valve area continuity VTI: 0.82 cm2. Stroke volume index: 31.78 ml/m2. The valve Vmax is 4.02 m/s. Tricuspid Valve Normal leaflets. Leaflet mobility is normal. Trace regurgitation. No stenosis. Pulmonic Valve Pulmonic valve not well visualized. Pulmonic valve function not well visualized. No regurgitation. No stenosis. Aorta No dilation to extent seen. SOV: 3.67 cm. STJ: 3.39 cm. Ascendin.80 cm. Pericardium No pericardial effusion. IVC/SVC Inferior vena cava not well visualized. Reading Providers Reading Role Read Date Augustina Young DO Fellow - Reading 10/18/2024 Landry Allan MD [facility] [place] 10/18/2024 Left Heart Measurements LV - Systole LVIDD 6.14 cm IVS 0.7 cm LVIDS 3.72 cm PW 0.85 cm LV RWT 0.28 LV Mass Index 75.8 g/m2 LV EDV BP 159 mL LV ESV BP 70 mL BP EF 56 % LV stroke volume BP (ml) 89 mL LV stroke volume index BP 36.18 mL/m2 LV - Diastole MV pk E sandy 0.47 m/s MV pk A sandy 0.8 m/s E/A ratio 0.59 e' septal pk sandy 0.04 m/s e' lateral pk sandy 0.04 m/s Avg e' pk sandy 0.04 m/s E/e' septal ratio 10.8 E/e' lateral ratio 11.99 Avg E/e' ratio 11.4 LV - HCM AV LVOT peak gradient 3 mmHg Left Atrium LA ESV SP 4CH (MOD) 108 mL LA ESV SP 2CH (MOD) 45 mL LA ESV BP (MOD) index 30 mL/m2 Right Heart Measurements RV - 2D RV basal diam 3.98 cm RV mid diam 3.97 cm RV long diam 7.44 cm RV - Doppler TAPSE 1.88 cm RV S' 14.1 cm/s Right Atrium RA vol index 4CH (MOD) 23.17 mL/m2 Great Vessels Aortic Root - End Diastolic Sinus 3.67 cm STJ 3.39 cm Ascending aorta 3.8 cm Doppler Measurements - Aortic Valve Stenosis LVOT diameter 2 cm LVOT area 3.14 cm2 LVOT peak sandy 0.92 m/s LVOT peak VTI 24.9 cm Stroke (more content not included)... Normal [facility] Metabolic Prof ilon 05-02-2024 Albumin [Mass/Vol] 4.2 g/dL Normal 3.2-5.0 [facility] Comment on above: Performed By: #### L 500.4050, L500.4100, [id number] #### [facility] [address] [place], [address] Albumin/Globulin [Mass ratio] 1.0 {ratio} Normal 0.9-2.4 [facility] Comment on above: Performed By: #### L 500.4050, L500.4100, [id number] #### [facility] [address] [place], [address] ALK P 54 U/L Normal 45-117 [facility] Comment on above: Performed By: #### L [id number], L500.4100, [id number] #### [facility] [address] [place], [address] ALT [Catalytic activity/Vol] 42 U/L Normal 16-61 [facility] Comment on above: Performed By: #### L 500.4050, L500.4100, [id number] #### [facility] [address] [place], [address] AST [Catalytic activity/Vol] 30 U/L Normal 15-37 [facility] Comment on above: Performed By: #### L 500.4050, L500.4100, [id number] #### [facility] [address] [place], [address] Bilirubin [Mass/Vol] 0.60 mg/dL Normal 0.20-1.00 [facility] Comment on above: Result Comment: For patients on eltrombopag therapy, use of Dimension [place] TBIL is not recommended. Performed By: #### L 500.4050, L500.4100, [id number] #### [facility] [address] [place], [address] BUN/CRE 16.4 RATIO Normal 10-20 [facility] Comment on above: Performed By: #### L [id number], L500.4100, [id number] #### [facility] [address] [place], [address] CA,Total 9.4 mg/dL Normal 8.5-10.1 [facility] Comment on above: Performed By: #### L 500.4050, [id number], [id number] #### [facility] [address] [place], [address] Chloride [Moles/Vol] 105 mmol/L Normal 98-107 [facility] Comment on above: Performed By: #### L 500.4050, L500.4100, [id number] #### [facility] [address] [place], [address] CO2 [Moles/Vol] 30.0 mmol/L Normal 21.0-32.0 [facility] Comment on above: Performed By: #### L 500.4050, L500.4100, L502.0250 #### [facility] [address] [place], [address] Creatinine [Mass/Vol] 1.22 mg/dL Normal 0.70-1.30 [facility] Comment on above: Result Comment: The validity of the calculated GFR GFRAA in patients over 70 years has not been determined. Clinical correlation is essential. Performed By: #### L 500.4050, L500.4100, [id number] #### [facility] [address] [place], [address] EST GFR - AA 76 mL/min Normal >60 [facility] Comment on above: Result Comment: Afri can Afghan GFR Calc Performed By: #### L 500.4050, L500.4100, L502.0250 #### [facility] [address] [place], [address] GAP 5 Normal 5-15 [facility] Comment on above: Performed By: #### L 500.4050, L500.4100, [id number] #### [facility] [address] [place], [address] GFR/1.73 sq M.predicted among non-blacks MDRD (S/P/Bld) [Vol rate/Area] 63 mL/min/{1.73_m2} Normal >60 [facility] Comment on above: Result Comment: Non- GFR Calc Performed By: #### L 500.4050, L500.4100, [id number] #### [facility] [address] [place], [address] Globulin (S) [Mass/Vol] 4.3 g/dL High 2.2-4.2 [facility] Comment on above: Performed By: #### L 500.4050, L500.4100, [id number] #### [facility] [address] [place], [address] Glucose [Mass/Vol] 140 mg/dL High 74-106 [facility] Comment on above: Result Comment: Fast ing Glucose result greater than or equal to 126 mg/dL suggests DIABETES MELLITUS per A.D.A. criteria. Performed By: #### L 500.4050, L500.4100, [id number] #### [facility] [address] [place], [address] Potassium [Moles/Vol] 3.5 mmol/L Normal 3.5-5.1 [facility] Comment on above: Performed By: #### L 500.4050, [id number], [id number] #### [facility] [address] [place], [address] Sodium [Moles/Vol] 140 mmol/L Normal 136-145 [facility] Comment on above: Performed By: #### L 500.4050, L500.4100, [id number] #### [facility] [address] [place], [address] T PROT 8.5 g/dL High 6.4-8.2 [facility] Comment on above: Performed By: #### L 500.4050, L500.4100, [id number] #### [facility] [address] [place], [address] Urea nitrogen [Mass/Vol] 20 mg/dL High 7-18 [facility] Comment on above: Performed By: #### L 500.4050, L500.4100, L502.0250 #### [facility] [address] [place], [address] Lipid Profileon 05-02-2024 Cholesterol [Mass/Vol] 181 mg/dL Normal 200 [facility] Comment on above: Result Comment: <200 mg/dL Desirable 200-240 mg/dL Borderline >240 mg/dL High Risk Performed By: #### L 500.4050, L500.4100, [id number] #### [facility] [address] [place], [address] Cholesterol in HDL [Mass/Vol] 39 mg/dL Low [facility] Comment on above: Result Comment: The drugs N-Acetylcysteine and Metamizole may falsely depress this assay. Reference Range HDL <40 mg/dL Low HDL Cholesterol HDL >or= 60 mg/dL High HDL Cholesterol Performed By: #### L 500.4050, L500.4100, [id number] #### [facility] [address] [place], [address] Cholesterol in LDL [Mass/Vol] 87 mg/dL Normal 0-130 [facility] Comment on above: Performed By: #### L 500.4050, L500.4100, [id number] #### [facility] [address] [place], [address] Cholesterol in VLDL [Mass/Vol] 55 mg/dL High 5-40 [facility] Comment on above: Performed By: #### L 500.4050, L500.4100, [id number] #### [facility] [address] [place], [address] Triglyceride [Mass/Vol] 276 mg/dL High [facility] Comment on above: Result Comment: The drugs N-Acetylcysteine and Metamizole may falsely depress this assay. Serum Triglycerides Reference Interval Normal <150 mg/dL Borderline high 150 - 199 mg/dL High 200 - 499 mg/dL Very High > or = 500 mg/dL Performed By: #### L 500.4050, L500.4100, [id number] #### [facility] [address] [place], [address] Microalb:Creat Ratio,Random URon 05-02-2024 Creatinine [Mass/Vol] 13.50 mg/dL Normal NO RAN GE EST. [facility] Comment on above: Performed By: #### L 500.4050, L500.4100, L502.0250 #### [facility] [address] [place], [address] MALB:CRE 948.1 mg/g CRE High <30 mg/g CRE [facility] Comment on above: Performed By: #### L 500.4050, L500.4100, L502.0250 #### [facility] [address] [place], [address] MICROALBUMIN,UR 128.0 mg/L Normal NO RANGE EST. [facility] Comment on above: Performed By: #### L 500.4050, L500.4100, L502.0250 #### [facility] [address] [place], [address] ECHOCARDIOGRAMon 04-06-2024 Echocardiography Left ventricle marlin l in size and with low-normal systolic function. Ejection fraction of 50-55%. No regional wall motion abnormalities. Right ventricle with normal size and systolic function. Poor TR jet unable to assess RVSP. Aortic valve severely calcified with moderate-severe stenosis (DAVID 0.84 cm2 by VTI, DI 0.24, mean gradient 28 mm Hg, Vmax 3.57 m/s) and trace regurgitation. Compared to prior study on 10/25/23, there are no significant changes. Table formatting from the original result was not included. Images from the original result were not included. Facility [facility] Patient Information Patient Name Lenard Correa Legal Sex Male Indication for Exam Priority: Routine Dx: Severe aortic stenosis [I35.0 (ICD-10-CM)] Comments: Severe surveillance Interpretation Summary Result History is available. Left ventricle normal in size and with low-normal systolic function. Ejection fraction of 50-55%. No regional wall motion abnormalities. Right ventricle with normal size and systolic function. Poor TR jet unable to assess RVSP. Aortic valve severely calcified with moderate-severe stenosis (DAVID 0.84 cm2 by VTI, DI 0.24, mean gradient 28 mm Hg, Vmax 3.57 m/s) and trace regurgitation. Compared to prior study on 10/25/23, there are no significant changes. Findings Left Ventricle Chamber size is normal. Increased wall thickness. Concentric remodeling is present. Normal global systolic function. Regional wall motion is normal. Ejection fraction is low normal (50-55%). Diastolic function is consistent with impaired relaxation (grade I). Right Ventricle Chamber size is enlarged. Systolic function is normal. Left Atrium Chamber size is normal. Right Atrium Chamber size is normal. Septum The atrial septum is normal. Mitral Valve Anterior leaflet thickening. Leaflet calcification. Leaflet mobility is normal. Trace regurgitation. No valve stenosis. Aortic Valve Structural morphology cannot be determined. Leaflet calcification. Leaflet excursion is decreased. Trace regurgitation. Moderate to severe stenosis. Mean gradient: 28 mmHg. Dimensionless Index by VTI: 0.24. Valve area continuity VTI: 0.84 cm2. The valve Vmax is 3.57 m/s. Tricuspid Valve Normal leaflets. Leaflet mobility is normal. No regurgitation. No stenosis. Pulmonary artery systolic pressure (PASP) is unable to be estimated. Pulmonic Valve Trace regurgitation. No stenosis. Aorta No dilation to extent seen. SOV: 3.97 cm. STJ: 3.43 cm. Ascendin.69 cm. Pericardium Trivial pericardial effusion. IVC/SVC Inferior vena cava not well visualized. Reading Providers Reading Role Read Date Garrett Gutierrez MD Fellow - Reading 04/06/2024 Viviane Hirsch MD Echo [place], Test Dope Mixer 04/06/2024 Wall Scoring Score Index: 1.00 The left ventricular wall motion is normal. Left Heart Measurements LV - Systole LVIDD 4.32 cm IVS 1.35 cm LVIDS 2.89 cm PW 1.6 cm LV RWT 0.74 LV Mass Index 103.8 g/m2 LV EDV BP 163 mL LV ESV BP 75 mL BP EF 54 % LV stroke volume BP (ml) 88 mL LV stroke volume index BP 36.07 mL/m2 LV - Diastole MV pk E sandy 0.5 m/s MV pk A sandy 0.81 m/s E/A ratio 0.62 e' septal pk sandy 0.08 m/s e' lateral pk sandy 0.04 m/s Avg e' pk sandy 0.06 m/s E/e' septal ratio 6.35 E/e' lateral ratio 13.16 Avg E/e' ratio 9.75 LV - HCM AV LVOT peak gradient 2 mmHg Left Atrium LA ESV SP 4CH (MOD) 88 mL LA ESV SP 2CH (MOD) 67 mL LA ESV BP (MOD) index 33 mL/m2 Right Heart Measurements RV - 2D RV basal diam 4.65 cm RV mid diam 4.16 cm RV long diam 8.07 cm RV - Doppler TAPSE 2.66 cm RV S' 16.73 cm/s Great Vessels Aortic Root - End Diastolic Sinus 3.97 cm STJ 3.43 cm Ascending aorta 3.69 cm Doppler Measurements - Aortic Valve Stenosis LVOT diameter 2.11 cm LVOT area 3.49 cm2 LVOT peak sandy 0.78 m/s LVOT peak VTI 20.47 cm Stroke Volume 72 cm/mL Stroke volume index 29 Ao peak sandy 3.57 m/s Ao VTI 84.71 cm AV peak gradient 51 mmHG AV mean gradient 28 mmHg DI (VTI) 0.24 m/2 DI (Vmax) 0.22 DAVID (continuity Vmax) 0.76 cm2 DAVID index (continuity Vmax) 0.31 m/s DAVID (continuity VTI) 0.84 cm2 DAVID index (continuity VTI) 0.35 cm2/m2 LVOT stroke volume 72 cm3 LVOT stroke volume index 29.32 ml/m2 Doppler Measurements - Mitral Valve Stenosis MV pk E sandy 0.5 m/s MV pk A sandy 0.81 m/s E/A ratio 0.62 PISA-MS MV pk E sandy 0.5 m/s Vitals Height Weight BSA (Calculated - sq m) BP Pulse 1.829 m (6') 124.3 kg (274 lb) 2.44 m2 Performing Staff Zbigniew Bird Study Details A complete echocardiography study (including color flow Doppler, spectral Doppler and M- (more content not included)... Normal [facility] 12 Lead EKG performed by [facility] on 12-07-2023 12 Lead EKG performed by [address] [address] 12 Lead EKG performed by [facility] 12/07/23 0749 MR#: [id number] Acct: [id number] Name: LENARD CORREA Rep #: [id number] : 1955 68 From: Shady Knox NP, NP-C Attending Dr: REYNOLD Verma Status: DEP AMB Ordering Dr: Shady Knox NP Date: 12/07/23 [place]: [facility] Sex: M C Admitted: BMS/12 Lead EKG performed by [facility] ECG Report Interpretation ---Sinus Rhythm -First degree A-V block Devyn = [id number] RHYTHMElectronically signed on 12/13/2023 at 10:40 by Saw Goldman Software Version [id number] 12/13/23 1044 Date Shady FLAHERTY CC: Dr. Ant Roth MD Date Dictated: 12/07/2349 Date Transcribed: 12/07/23748 [employer]ards Stripper Etcher: MINDY Signed Normal [facility] Cardiology Visit Reporton Cardiology Visit Report [facility] [place] [id number] [facility]. [address] [place] [address] OFFICE VISIT Date of Service: 12/07/23 MR#: [id number] Acct: [id number] Name: LENARD CORREA Rep #: [id number] : 1955 Provider: REYNOLD meza Age/Sex: 68/M Location: [facility] Status: Signed HPI HPI History of Present Illness Details: This is a 68-year-old male presents the office today for a cardiovascular outpatient follow-up. He was in the Emergency Department on 07/29/2022 for palpitations. He was noted be in atrial fibrillation with RVR. His troponin is within normal limits. His BNP was elevated at 524. Echocardiogram on 07/30/2022 showed ejection fraction of 35%, moderately enlarged left atrium, mildly enlarged right atrium, moderately severe mitral valve insufficiency, moderate to severe aortic valve stenosis, and an RVSP of 55 mmHg. He was discharged on amiodarone, metoprolol tartrate, and digoxin therapy. He had repeat echocardiogram in August 2022 that showed ejection action 50% stage III diastolic dysfunction. He had stress test on 11/17/2022 that was negative for ischemia. He was referred to electrophysiology team. He underwent successful cardioversion on 02/24/2023. Digoxin was discontinued. He underwent echocardiogram on 02/24/2023 that showed ejection fraction of 55-60%, severe aortic valve stenosis with a mean pressure gradient of 37 mmHg and a DAVID of 0.97 cm???. He underwent a heart catheterization on 04/04/2023 that showed nonobstructive coronary artery disease with left main with minimal luminal irregularities, mid LAD with 20-30% stenosis, distal LAD with 20-30% stenosis, LCx is normal, and RCA is a small vessel with minimal luminal irregularities. He is currently being worked up for TAVR versus surgical aortic valve replacement with possible maze procedure. He also has a history of hypertension, hyperlipidemia, and DANELLE with BiPAP therapy. He denies chest, arm, jaw, or neck discomfort. He denies palpitations. He denies bilateral lower extremity edema. He denies claudication. He states shortness of breath with activity such as walking longer distances. He denies shortness of breath at rest, orthopnea, or PND. He denies chronic cough. He denies significant, sudden weight gain. He denies lightheadedness, dizziness, near-syncope, or syncope. He denies blood in urine, blood in stool, or epistaxis. He denies fever with chills. He denies myalgia. He continual fatigue. His exercise level has remained stable. He states typically his blood pressure is 120s-130s. Intake Vital Signs 04/14/23 13:00 12/07/23 08:24 Height 6 ft 6 ft Weight: 265 lb 278 lb BMI 35.9 37.7 BP 156/75 H 179/93 H Blood Pressure Location Lt brachial Lt brachial Position Sitting Sitting Respiration 14 18 Pulse 55 L 58 L Pulse Source Monitor Monitor Pulse Oximetry (%) 96 Intake Visit Reasons: 1 Y FU - PREV PFM PT Special Needs Nanny Required: No Is patient in pain?: No Allergies atorvastatin Allergy (Verified 12/07/23 08:27) Other Medications ???Medication ???Instructions ???Recorded ???Confirmed ???Type aspirin 81 mg tablet,delayed 81 mg PO QDAY heart health 04/30/17 12/07/23 History release rosuvastatin 10 mg tablet (Crestor) 10 mg PO QDAY cholesterol 04/30/17 12/07/23 History multivitamin 1 tab PO DAILY supplement 07/29/22 12/07/23 History lisinopril 20 mg tablet 20 mg PO DAILY #30 tabs 08/01/22 12/07/23 Rx metoprolol tartrate 100 mg tablet 150 mg (1.5 x 100 mg) PO BID #90 08/01/22 12/07/23 Rx tabs amlodipine 5 mg tablet 5 mg PO DAILY #90 tabs 09/14/22 12/07/23 Rx amiodarone 200 mg tablet 100 mg PO DAILY 04/14/23 12/07/23 History potassium chloride 20 mEq 20 meq PO BID 04/14/23 12/07/23 History tablet,extended release(part/cryst) (Klor-Con M) apixaban 5 mg tablet (Eliquis) 5 mg PO BID #180 tabs 10/18/23 12/07/23 Rx furosemide 40 mg tablet 40 mg PO DAILY #90 tabs 12/07/23 12/07/23 Rx Have you fallen in the past year?: No [facility] Medical History Nonrheumatic aortic (valve) stenosis Nonrheumatic mitral (valve) insufficiency Pulmonary HTN Valvular heart disease Acute CHF (congestive heart failure) Atrial fibrillation with RVR Sleep apnea HTN (hypertension) Hypercholesteremia Surgical History History of partial knee replacement S/P excision of lipoma Family History Father Heart disease Myocardial infarction Mother Cancer Diabetes Brother Myocardial infarction Social History Smoking Status: Never smoker alcohol intake: never substance use type: does not use eating out: 4 or more times/wee (more content not included)... Normal [facility] Comprehensive Metabolic Prof armen 11-02-2023 Albumin [Mass/Vol] 4.0 g/dL Normal 3.2-5.0 [facility] Comment on above: Performed By: #### L 501.9914, L500.4100, L500.4050 #### [facility] [address] [place], [address] Albumin/Globulin [Mass ratio] 1.0 {ratio} Normal 0.9-2.4 [facility] Comment on above: Performed By: #### L 501.9985, L500.4100, L500.4050 #### [facility] [address] [place], [address] ALK P 50 U/L Normal 45-117 [facility] Comment on above: Performed By: #### L 501.9985, L500.4100, L500.4050 #### [facility] [address] [place], [address] ALT [Catalytic activity/Vol] 48 U/L Normal 16-61 [facility] Comment on above: Performed By: #### L 501.9985, L500.4100, L500.4050 #### [facility] [address] [place], [address] AST [Catalytic activity/Vol] 41 U/L High 15-37 [facility] Comment on above: Performed By: #### L 501.9985, L500.4100, L500.4050 #### [facility] [address] [place], [address] Bilirubin [Mass/Vol] 0.50 mg/dL Normal 0.20-1.00 [facility] Comment on above: Result Comment: For patients on eltrombopag therapy, use of Dimension [place] TBIL is not recommended. Performed By: #### L 501.9985, L500.4100, L500.4050 #### [facility] [address] [place], [address] BUN/CRE 15.8 RATIO Normal 10-20 [facility] Comment on above: Performed By: #### L 501.9985, L500.4100, L500.4050 #### [facility] [address] [place], [address] CA,Total 9.3 mg/dL Normal 8.5-10.1 [facility] Comment on above: Performed By: #### L 501.9985, L500.4100, L500.4050 #### [facility] [address] [place], [address] Chloride [Moles/Vol] 103 mmol/L Normal 98-107 [facility] Comment on above: Performed By: #### L 501.9985, L500.4100, L500.4050 #### [facility] [address] [place], [address] CO2 [Moles/Vol] 29.0 mmol/L Normal 21.0-32.0 [facility] Comment on above: Performed By: #### L 501.9985, L500.4100, L500.4050 #### [facility] [address] [place], [address] Creatinine [Mass/Vol] 1.20 mg/dL Normal 0.70-1.30 [facility] Comment on above: Result Comment: The validity of the calculated GFR GFRAA in patients over 70 years has not been determined. Clinical correlation is essential. Performed By: #### L 501.9985, L500.4100, L500.4050 #### [facility] [address] [place], [address] EST GFR - AA 78 mL/min Normal >60 [facility] Comment on above: Result Comment: Afri can Afghan GFR Calc Performed By: #### L 501.9985, L500.4100, L500.4050 #### [facility] [address] [place], [address] GAP 6 Normal 5-15 [facility] Comment on above: Performed By: #### L 501.9985, L500.4100, L500.4050 #### [facility] [address] [place], [address] GFR/1.73 sq M.predicted among non-blacks MDRD (S/P/Bld) [Vol rate/Area] 64 mL/min/{1.73_m2} Normal >60 [facility] Comment on above: Result Comment: Non- GFR Calc Performed By: #### L 501.9985, L500.4100, L500.4050 #### [facility] [address] [place], [address] Globulin (S) [Mass/Vol] 4.1 g/dL Normal 2.2-4.2 [facility] Comment on above: Performed By: #### L 501.9985, L500.4100, L500.4050 #### [facility] [address] [place], [address] Glucose [Mass/Vol] 135 mg/dL High 74-106 [facility] Comment on above: Result Comment: Fast ing Glucose result greater than or equal to 126 mg/dL suggests DIABETES MELLITUS per A.D.A. criteria. Performed By: #### L 501.9985, L500.4100, L500.4050 #### [facility] [address] [place], [address] Potassium [Moles/Vol] 3.8 mmol/L Normal 3.5-5.1 [facility] Comment on above: Performed By: #### L 501.9985, L500.4100, L500.4050 #### [facility] [address] [place], [address] Sodium [Moles/Vol] 138 mmol/L Normal 136-145 [facility] Comment on above: Performed By: #### L 501.9985, L500.4100, L500.4050 #### [facility] [address] [place], [address] T PROT 8.1 g/dL Normal 6.4-8.2 [facility] Comment on above: Performed By: #### L 501.9985, L500.4100, L500.4050 #### [facility] [address] [place], [address] Urea nitrogen [Mass/Vol] 19 mg/dL High 7-18 [facility] Comment on above: Performed By: #### L 501.9985, L500.4100, L500.4050 #### [facility] [address] [place], [address] Hemoglobin A1con 11-02-2023 HbA1c (Bld) [Mass fraction] 5.9 % High 3.8-5.6 [facility] Comment on above: Result Comment: Norm al < 5.7 % Prediabetic 5.7 - 6.4 % Diabetic >or= 6.5 % Please note range changes. Performed By: #### L 501.9985, L500.4100, L500.4050 #### [facility] [address] [place], [address] Lipid Profileon 11-02-2023 Cholesterol [Mass/Vol] 162 mg/dL Normal 200 [facility] Comment on above: Result Comment: <200 mg/dL Desirable 200-240 mg/dL Borderline >240 mg/dL High Risk Performed By: #### L 501.9985, L500.4100, L500.4050 #### [facility] [address] [place], [address] Cholesterol in HDL [Mass/Vol] 42 mg/dL Normal [facility] Comment on above: Result Comment: The drugs N-Acetylcysteine and Metamizole may falsely depress this assay. Reference Range HDL <40 mg/dL Low HDL Cholesterol HDL >or= 60 mg/dL High HDL Cholesterol Performed By: #### L 501.9985, L500.4100, L500.4050 #### [facility] [address] [place], [address] Cholesterol in LDL [Mass/Vol] 81 mg/dL Normal 0-130 [facility] Comment on above: Performed By: #### L 501.9985, L500.4100, L500.4050 #### [facility] [address] [place], [place], [address] Cholesterol in VLDL [Mass/Vol] 39 mg/dL Normal 5-40 [facility] Comment on above: Performed By: #### L 501.9985, L500.4100, L500.4050 #### [facility] [address] [place], [address] Triglyceride [Mass/Vol] 194 mg/dL Normal [facility] Comment on above: Result Comment: The drugs N-Acetylcysteine and Metamizole may falsely depress this assay. Serum Triglycerides Reference Interval Normal <150 mg/dL Borderline high 150 - 199 mg/dL High 200 - 499 mg/dL Very High > or = 500 mg/dL Performed By: #### L 501.9985, L500.4100, L500.4050 #### [facility] [address] [place], [place], [id number] Cardiac echo study Procedure Ordered By: Derrek Carvalho on 10-25-2023 Ao ASC index 1.59 cm/m2 [facility]: Ao peak sandy 3.63 m/s [facility] Work [facility]: Ao SOV index 1.48 cm/m2 [facility] Work Phone: Ao STJ index 1.39 cm/m2 [facility] Work Phone: Ao VTI 86.47 cm [facility] Work Phone: Ascending aorta 3.78 cm [facility] Work Phone: AV LVOT peak gradient 3 mmHg [facility] Work Phone: AV mean gradient 32 mmHg [facility] Work Phone: AV peak gradient 53 mmHG [facility] Work Phone: AV valve area 1.01 cm2 [facility] Work Phone: AV Velocity Ratio 0.25 [facility] Work Phone: DAVID (continuity Vmax) 1.05 cm2 [facility] Work Phone: DAVID (continuity VTI) 1.01 cm2 [facility] Work Phone: DAVID index (continuity Vmax) 0.44 m/s [facility] Work Phone: DAVID index (continuity VTI) 0.42 cm2/m2 [facility] Work Phone: Avg e' pk sandy 0.05 m/s [facility] Work Phone: Avg E/e' ratio 13.93 [facility] Work Phone: Body surface area Derived from formula 2.38 m2 [facility] Work Phone: BP EF 68 % [facility] Work Phone: DI (Vmax) 0.25 [facility] Work Phone: DI (VTI) 0.24 m/2 [facility] Work Phone: E wave decelartion time 314.20 msec [facility] Work Phone: e' lateral pk sandy 0.0483 m/s [facility]: e' lateral pk sandy 0.05 m/s [facility] Work Phone: e' septal pk sandy 0.0524 m/s [facility]: e' septal pk sandy 0.05 m/s [facility] Work Phone: E/A ratio 0.84 [facility] Work Phone: E/e' lateral ratio 14.49 [facility] Work Phone: E/e' septal ratio 13.36 [facility] Work Phone: EF SP 2CH 68 [facility] Work Phone: EF SP 4CH 70 [facility] Work Phone: EST RAP 5.00 mmHg [facility] Work Phone: EST RVSP 21 mmHg [facility] Work Phone: FS 35 % 28 - 44 % [facility] Work Phone: IVS 1.39 cm [facility] Work Phone: LA AREA 2CH 28.26 cm2 [facility] Work Phone: LA area 4CH 33.60 cm2 [facility] Work Phone: LA ESV BP (MOD) 131 mL [facility] Work Phone: LA ESV BP (MOD) index 55 mL/m2 [facility] Work Phone: LA ESV SP 2CH (MOD) 109 mL [facility] Work Phone: LA ESV SP 4CH (MOD) 133 mL [facility] Work Phone: LV EDV BP 146 mL [facility] Work Phone: LV EDV SP 2CH 150 mL [facility] Work Phone: LV EDV SP 4CH 142 mL [facility] Work Phone: LV ESV BP 47 mL [facility] Work Phone: LV ESV SP 2CH 48 mL [facility] Work Phone: LV ESV SP 4CH 43 mL [facility] Work Phone: LV mass 311.23 g [facility] Work Phone: LV Mass Index 130.8 g/m2 [facility] Work Phone: LV RWT 0.75 [facility] Work Phone: LV stroke volume BP (ml) 99 mL [facility] Work Phone: LV stroke volume index BP 41.60 mL/m2 [facility] Work Phone: LVIDD 4.66 cm [facility] Work Phone: LVIDS 3.01 cm [facility] Work Phone: LVOT area 4.15 cm2 [facility] Work Phone: LVOT diameter 2.30 cm [facility] Work Phone: LVOT peak sandy 0.92 m/s [facility] Work Phone: LVOT peak VTI 21.05 cm [facility] Work Phone: LVOT stroke volume 87 cm3 [facility] Work Phone: LVOT stroke volume index 36.73 ml/m2 [facility] Work Phone: MV pk A sandy 0.83 m/s [facility] Work Phone: MV pk E sandy 0.70 m/s [facility] Work Phone: [facility] AV VTI RATIO PRE STRESS 0.24 [facility] Work Phone: [facility] ECHO LV BIPLANE SYSTOLIC VOLUME INDEX 19.75 mL/m2 [facility] Work Phone: [facility] ECHO LV BP DIASTOLIC VOLUME INDEX 61.34 mL/m[facility] Work Phone: PV mean gradient 1 mmHg [facility] Work Phone: PV peak gradient 3 mmHg [facility] Work Phone: PV PK SANDY 0.80 m/s [facility] Work Phone: PW 1.75 cm [facility] Work Phone: RA area 4CH (MOD) 18.63 cm2 [facility] Work Phone: RA vol index 4CH (MOD) 42.02 mL/m2 [facility] Work Phone: Right atrium volume 4 chamber method of disks 100 mL [facility] Work Phone: RV basal diam 4.68 cm [facility] Work Phone: RV long diam 8.81 cm [facility] Work Phone: RV mid diam 3.47 cm [facility] Work Phone: RV S' 13.79 cm/s [facility] Work Phone: RVOT peak gradient 2 mmHg [facility] Work Phone: RVOT peak sandy 0.67 m/s [facility] Work Phone: RVOT peak VTI 16.62 cm [facility] Work Phone: Sinus 3.52 cm [facility] Work Phone: STJ 3.32 cm [facility] Work Phone: Stroke Volume 87 cm/mL [facility] Work Phone: [facility]roke volume index [facility]: TAPSE 2.52 cm [facility] Work Phone: TR pk grad 16 mmHg [facility] Work Phone: TR pk sandy 1.99 m/s [facility] Work Phone: [facility] Work Phone: Cardiac echo study Procedure on 10-25-2023 Left ventricular siz e is normal with concentric hypertrophy. Regional wall motion and global systolic function are normal. Ejection fraction 68% Left atrium measures severely enlarged in size Right ventricle is enlarged with normal systolic function. Estimated right ventricular/pulmonary artery systolic pressure is within the normal limits Right atrium measures moderate to severely enlarged in size Aortic valve is calcified. No regurgitation. Moderately severe (area 1.0cm2, mean gradient 32mmHg) to severe (dimensionless index 0.24) stenosis Ascending aorta is mildly enlarged, 3.8cm Further study details described below In comparison to an echo of January 2023, no significant changes have occurred. Left Ventricle Chamber size is normal. Increased wall thickness. Concentric hypertrophy. Normal global systolic function. Regional wall motion is normal. The ejection fraction is 68%. Ejection fraction by modified Arizmendi's rule is normal. Diastolic function could not be determined. Right Ventricle Chamber size is enlarged. Systolic function is normal. Left Atrium Chamber size is severely enlarged. Right Atrium Chamber size is moderately to severely enlarged. IVC/SVC The inferior vena cava is normal in size. The inferior vena cava structure has a diameter <21 mm and decreases >50% during inspiration. Mitral Valve Mild anterior and posterior leaflet calcification. Leaflet mobility is normal. Mild annular calcification. Trace regurgitation. No valve stenosis. Tricuspid Valve Normal leaflets. Leaflet mobility is normal. Mild regurgitation. No stenosis. No echo/Doppler evidence for pulmonary hypertension. Poor tricuspid regurgitation jet may not accurately reflect right ventricular systolic pressure. Estimated right ventricular systolic pressure is 21 mmHg. Aortic Valve Morphology not clear on this study. Historically a bicuspid valve. Moderate leaflet calcification. Leaflet excursion is decreased. No regurgitation. Moderate to severe stenosis. Mean gradient: 32 mmHg. Dimensionless Index by VTI: 0.24. Valve area continuity VTI: 1.01 cm2. The valve Vmax is 3.63 m/s. Pulmonic Valve Normal structure. No regurgitation. No stenosis. Pericardium No pericardial effusion. Septum The atrial septum is normal. Aorta Sinuses of Valsalva/aortic root is mildly enlarged. Ascending aorta is normal size. SOV: 3.52 cm. STJ: 3.32 cm. Ascendin.78 cm. Study Details A complete echocardiography study was performed. Overall study quality was good. Imaging system used: [employer]. Indications Indications for study: aortic valve disease. Wall Scoring Score Index: 1.00 The left ventricular wall motion is normal. [facility] Radiology Study observation (narrative) [facility] CT ANGIO TAVR EVALUATIONon 1 06-26-2022 IMPRESSION: 1. Aortic valvular calcification. Please refer to the separate cardiology report regarding the cardiac, aortic valve, aortic root, and coronary findings/measurements. 2. Mild multifocal aortoiliac, iliofemoral, and visceral atheromatous disease, without flow-limiting stenosis. 3. Mild enlargement of the pulmonary arteries, which may suggest pulmonary arterial hypertension in the proper clinical setting. 4. Ancillary findings as described above. OLOGY Tom Boucher MD - 04/26/2023 EXAM: CT Angiogram of the chest, abdomen and pelvis for TAVR evaluation, 04/26/2023 14:41 PM CLINICAL INDICATIONS: aortic stenosis; TECHNIQUE: The imaging was performed using a dual-source 128-slice MDCT system. A non-gated CT arterial angiogram with a spiral acquisition extending from shoulders to upper thighs covering the chest, abdomen and pelvis to assess the entire thoracic and abdominal aorta, as well as extremity branches for vascular access. CONTRAST: iohexol (OMNIPAQUE) 350 MG/ML injection 1-171 mL; Route of Administration: Intravenous; Dose: 100 mL. Post-processing consisted of 3D (including MIP) and 4D assessment on an FDA-approved advanced workstation. FINDINGS: Chest Wall: Degenerative changes of thoracic spine Mediastinum: Normal, without adenopathy Cat: Normal, without adenopathy Pleural Spaces: Normal, without thickening/effusion or pneumothorax Lung Parenchyma: Mild subsegmental atelectatic changes. Pericardium: Normal, without thickening/effusion. Aortic valvular calcification and coronary calcification atherosclerosis noted. ------ -- Pulmonary Arteries: There is mild enlargement of the pulmonary arteries, with the main pulmonary artery measuring up to 3.4 cm. ------ -- Thoracic Aorta: Mid-Ascending Segment (4 cm above annulus) = No atherosclerosis Minimum Diameter - 36 mm / Perpendicular Diameter - 38 mm Proximal Arch = No atherosclerosis, 32 mm Distal Arch = Minimal atherosclerosis, 33 mm Isthmus = No atherosclerosis, 34 mm Mid-Descending Segment = No atherosclerosis, 30 mm Diaphragm Level = Mild atherosclerosis, 27 mm Arch Branches: Patent with minimal scattered changes. Right Innominate Artery/Subclavian Artery: Minimal atherosclerosis No stenosis Minimum Diameter - 7.5 mm / Perpendicular Diameter - 8.7 mm No tortuosity Left Subclavian Artery: No atherosclerosis No stenosis Minimum Diameter - 7.6 mm / Perpendicular Diameter - 8.9 mm No tortuosity ------ -- Abdominal Aorta: Suprarenal Segment = Minimal atherosclerosis, 26 mm Infrarenal Segment = Mild atherosclerosis, 24 mm Minimum Aortic Lumen Caliber: Minimum Diameter - 19 mm / Perpendicular Diameter - 22 mm Abdominal Aortic Branches: Atherosclerosis of celiac, SMA, renal, and FAM branches without significant stenoses. Right Common Iliac Artery Lumen: No atherosclerosis No stenosis Minimum Diameter - 13 mm / Perpendicular Diameter - 15 mm No tortuosity Left Common Iliac Artery Lumen: No atherosclerosis No stenosis Minimum Diameter - 14 mm / Perpendicular Diameter - 14 mm No tortuosity Right External Iliac Artery Lumen: No atherosclerosis No stenosis Minimum Diameter - 11 mm / Perpendicular Diameter - 11 mm No tortuosity Left External Iliac Artery Lumen: No atherosclerosis No stenosis Minimum Diameter - 11 mm / Perpendicular Diameter - 11 mm No tortuosity Right Femoral Artery Lumen: No atherosclerosis No stenosis Minimum Diameter - 11 mm / Perpendicular Diameter - 12 mm No tortuosity Left Femoral Artery Lumen: No atherosclerosis No stenosis Minimum Diameter - 9.9 mm / Perpendicular Diameter - 11 mm No tortuosity ------ -- Liver: Normal Biliary System: Normal Pancreas: Normal Spleen: Normal Kidneys: Normal Adrenal Glands: Normal Bowels: Normal Retroperitoneum: Normal Pelvic Structures: Normal Abdominal and Pelvic Wall: Degenerative changes of lumbosacral spine and hip joints IMPRESSION IMPRESSION: 1. Aortic valvular calcification. Please refer to the separate cardiology report regarding the cardiac, aortic valve, aortic root, and coronary findings/measurements. 2. Mild multifocal aortoiliac, iliofemoral, and visceral atheromatous disease, without flow-limiting stenosis. 3. Mild enlargement of the pulmonary arteries, which may suggest pulmonary arterial hypertension in the proper clinical setting. 4. Ancillary findings as described above. [facility] Radiology Study observation (narrative) [facility] CT ANGIO TAVR EVALUATIONOrde red By: Tom Boucher on 04-26-2023 [facility] Work Phone: [email or web address] Carotid arteries - bilateralOrdered By: Sánchez Singleton on 04-26-2023 [facility] Work Phone: [email or web address] Carotid arteries - bilateralon 04-26-2023 Radiology Study observation (narrative) [facility] CHEM 6 (LYTES, BUN CREA)on 06-04-2022 Anion gap [Moles/Vol] 10 mmol/L 7 - 17 mmol/L [facility] Chloride [Moles/Vol] 104 mmol/L 98 - 10 8 mmol/L [facility] CO2 [Moles/Vol] 30 mmol/L 21 - 31 mmol/L [facility] Creatinine [Mass/Vol] 1.04 mg/dL 0.70 - 1.30 mg/dL [facility] eGFR, CKD-EPI, Male 80 - PINF [facility] Comment on above: Reported eGFR is bas ed on the CKD-EPI 2020 equation using creatinine, age, and sex. Potassium [Moles/Vol] 3.7 mmol/L 3.5 - 5.0 mmol/L [facility] Sodium [Moles/Vol] 140 mmol/L 135 - 145 mmol/L [facility] Urea nitrogen [Mass/Vol] 18 mg/dL 7 - 25 mg/dL [facility] Urea nitrogen/Creatinine [Mass ratio] 17 mg/mg [facility] Cardiac catheterization stud yon 04-04-2023 [facility] Radiology Study observation (narrative) [facility] Absolute lymphocyte counton 03-28-2023 Lymphocytes Auto (Unsp spec) [#/Vol] 2.14 10*3/uL 0.83-4.51 [facility] Basophil percentageon 2022 Basophils/100 WBC (Bld) 0.8 % 0-1 [facility] Chloride [Moles/Vol] 102 mmol[facility]L 98-[facility] Eosin[facility]/100 WBC (Bld) 2.7 % 0-5 [facility] Glucose [Mass/Vol] 131 mg/dL 74-106 [facility] Comment on above: Fasting Glucose resu lt greater than or equal to 126 mg/dL suggests DIABETES MELLITUS per A.D.A. criteria. Neutrophils (Bld) [#/Vol] 6.1 10*3/uL 2.0-7.7 [facility] Neutrophils/100 WBC (Bld) 62.7 % 47-70 [facility] Potassium [Moles/Vol] 3.0 mmol/L 3.5-5.1 [facility] Sodium [Moles/Vol] 137 mmol/L 136-145 [facility] WBC (Bld) [#/Vol] 9.7 10*3/uL 4.4-11.0 [facility] Blood erythrocytes count (nu mber/volume)on 03-28-2023 RBC (Bld) [#/Vol] 5.11 10*6/uL 4.6-6.2 [facility] Blood hemoglobin measurement (mass/volume)on 03-28-2023 Hemoglobin (Bld) [Mass/Vol] 16.3 g/dL 13.0-16.5 [facility] Blood lymphocytes/100 leukoc yteson 03-28-2023 Lymphocytes/100 WBC (Bld) 22.2 % 19-41 [facility] Blood monocytes/100 leukocyt eson 03-28-2023 Monocytes/100 WBC (Bld) 11.4 % 0-10 [facility] Blood platelet mean volumeon 03-28-2023 Platelet mean volume (Bld) [Entitic vol] 10.2 fL 6.2-12.0 [facility] Determination of erythrocyte mean corpuscular volume (MCV)on 03-28-2023 MCV (RBC) [Entitic vol] 93.5 fL 80-94 [facility] Hematocrit Auto (Bld) [Volum e fraction]on 03-28-2023 Hematocrit (Bld) [Volume fraction] 47.8 % 40-54 [facility] Laboratory - Chemistry and C hemistry - challengeon 03-28-2023 CO2 [Moles/Vol] 33.0 mmol/L 21.0-32.0 [facility] Urea nitrogen/Creatinine [Mass ratio] 12.9 mg/mg 10-20 [facility] Laboratory - Hematology and Cell countson 03-28-2023 Erythrocyte distribution width (RBC) [Entitic vol] 44.4 fL 35.1-43.9 [facility] Erythrocyte distribution width (RBC) [Ratio] 12.9 % 11.6-14.6 [facility] Immature granulocytes/100 WBC (Bld) 0.200 % 0.0-0.9 [facility] Comment on above: IG% - Immature Granu locytes (promyelocytes, myelocytes and metamyelocytes) > 1% indicates that a LEFT SHIFT is Present. MCH (RBC) [Entitic mass] 31.9 pg 27.0-32.0 [facility] Nucleated RBC/100 WBC (Bld) [Ratio] 0 % 0-5 [facility] MCHC Auto (RBC) [Mass/Vol]on 03-28-2023 MCHC (RBC) [Mass/Vol] 34.1 g/dL 32-36 [facility] No Panel Informationon 03-28 Estimated GFR (MDRD) Amer 81 mL/min >60 [facility] Comment on above: GFR Calc Estimated GFR (MDRD) Non-Af Amer 67 mL/min >60 [facility] Comment on above: Non- GFR Calc Platelets bldon 03-28-2023 Platelets (Bld) [#/Vol] 293 10*3/uL 150-450 [facility] Serum or plasma calcium henok urement (mass/volume)on 03-28-2023 Calcium [Mass/Vol] 9.3 mg/dL 8.5-10.1 [facility] Serum or plasma creatinine m easurement (mass/volume)on 03-28-2023 Creatinine [Mass/Vol] 1.16 mg/dL 0.70-1.30 [facility] Comment on above: The validity of the calculated GFR & GFRAA in patients over 70 years has not been determined. Clinical correlation is essential. Serum or plasma urea nitroge n measurement (mass/volume)on 03-28-2023 Urea nitrogen [Mass/Vol] 15 mg/dL 7-18 [facility] Thin prep Papanicolaou smear with manual screeningon 03-28-2023 Thin prep Papanicolaou smear with manual screening 2 5-15 [facility] CHEM 7 (LYTES,BUN,CREA,GLUC) on 02-24-2023 Anion gap [Moles/Vol] 15 mmol/L 7 - 17 mmol/L [facility] Chloride [Moles/Vol] 100 mmol/L 98 - 10 8 mmol/L [facility] CO2 [Moles/Vol] 28 mmol/L 21 - 31 mmol/L [facility] Creatinine [Mass/Vol] 1.16 mg/dL 0.70 - 1.30 mg/dL [facility] eGFR, CKD-EPI, Male 69 - PINF [facility] Comment on above: Reported eGFR is bas ed on the CKD-EPI 2020 equation using creatinine, age, and sex. Glucose [Mass/Vol] 132 mg/dL High 70 - 99 mg/dL [facility] Interpretation and review of laboratory results Abnormal [facility] Osmolality Calc [Osmolality] 294 [facility] Potassium [Moles/Vol] 3.5 mmol/L 3.5 - 5.0 mmol/L [facility] Sodium [Moles/Vol] 139 mmol/L 135 - 145 mmol/L [facility] Urea nitrogen [Mass/Vol] 19 mg/dL 7 - 25 mg/dL [facility] Urea nitrogen/Creatinine [Mass ratio] 16 mg/mg [facility] EP CARDIOVERSION EXTERNALOrd ered By: Oscar Nolasco on 02-24-2023 Body surface area Derived from formula 2.38 m2 [facility] Work Phone: [facility] Work Phone: EP CARDIOVERSION EXTERNALon 02-24-2023 Lenard Correa is a 67 y.o. male with persistent atrial fibrillation who presented for cardioversion. - Successful 200 J synchronized cardioversion. - Propofol 100 mg iv was used for sedation. Plan - Stop digoxin. - Continue amiodarone. - Continue Eliquis. - Outpatient follow up for further evaluation of aortic stenosis and consideration for Afib ablation. [facility] Radiology Study observation (narrative) [facility] Basophil percentageOrdered B y: Dr. Roth on 09-27-2022 Bilirubin [Mass/Vol] 0.80 mg/dL 0.20-1.00 [facility] Comment on above: For patients on eltr ombopag therapy, use of Dimension [place] TBIL is not recommended. Chloride [Moles/Vol] 105 mmol/L 98-107 [facility] Cholesterol [Mass/Vol] 197 mg/dL <200 [facility] Comment on above: <200 mg/dL Desirable 200-240 mg/dL Borderline >240 mg/dL High Risk Glucose [Mass/Vol] 130 mg/dL 74-106 [facility] Comment on above: Fasting Glucose resu greater than or equal to 126 mg/dL suggests DIABETES MELLITUS per A.D.A. criteria. Potassium [Moles/Vol] 3.3 mmol/L 3.5-5.1 [facility] Protein [Mass/Vol] 8.1 g/dL 6.4-8.2 [facility] Sodium [Moles/Vol] 141 mmol/L 136-145 [facility] Triglyceride [Mass/Vol] 187 mg/dL <199 [facility] Comment on above: The drugs N-Acetylcy steine and Metamizole may falsely depress this assay.Serum Triglycerides Reference Interval Normal <150 mg/dL Borderline high 150 - 199 mg/dL High 200 - 499 mg/dL Very High > or = 500 mg/dL Laboratory - Chemistry and C hemistry - challengeOrdered By: Dr. Roth on 09-27-2022 ALP [Catalytic activity/Vol] 57 U/L 45-117 [facility] ALT [Catalytic activity/Vol] 36 U/L 16-61 [facility] CO2 [Moles/Vol] 27.0 mmol/L 21.0-32.0 [facility] Globulin (S) [Mass/Vol] 4.3 g/dL 2.2-4.2 [facility] Urea nitrogen/Creatinine [Mass ratio] 13.3 mg/mg 10-20 [facility] No Panel InformationOrdered By: Dr. Roth on 09-27-2022 Estimated GFR (MDRD) Amer 83 mL/min >60 [facility] Comment on above: GFR Calc Estimated GFR (MDRD) Non-Af Amer 69 mL/min >60 [facility] Comment on above: Non- GFR Calc Serum or plasma albumin henok urement (mass/volume)Ordered By: Dr. Roth on 09-27-2022 Albumin [Mass/Vol] 3.8 g/dL 3.2-5.0 [facility] Serum or plasma albumin/glob ulin mass ratioOrdered By: Dr. Roth on 09-27-2022 Albumin/Globulin [Mass ratio] 0.9 {ratio} 0.9-2.4 [facility] Serum or plasma calcium henok urement (mass/volume)Ordered By: Dr. Roth on 09-27-2022 Calcium [Mass/Vol] 9.5 mg/dL 8.5-10.1 [facility] Serum or plasma cholesterol in HDL measurement (mass/volume)Ordered By: Dr. Roth on 09-27-2022 Cholesterol in HDL [Mass/Vol] 46 mg/dL >40 [facility] Comment on above: The drugs N-Acetylcy steine and Metamizole may falsely depress this assay. Reference Range HDL <40 mg/dL Low HDL Cholesterol HDL >or= 60 mg/dL High HDL Cholesterol Serum or plasma cholesterol in VLDL measurement (mass/volume)Ordered By: Dr. Roth on 09-27-2022 Cholesterol in VLDL [Mass/Vol] 37 mg/dL 5-40 [facility] Serum or plasma creatinine m easurement (mass/volume)Ordered By: Dr. Roth on 09-27-2022 Creatinine [Mass/Vol] 1.13 mg/dL 0.70-1.30 [facility] Comment on above: The validity of the calculated GFR & GFRAA in patients over 70 years has not been determined. Clinical correlation is essential. Serum or plasma low density lipoprotein (LDL) cholesterol measurement (mass/volume)Ordered By: Dr. Roth on 09-27-2022 Cholesterol in LDL [Mass/Vol] 114 mg/dL 0-130 [facility] Serum or plasma urea nitroge n measurement (mass/volume)Ordered By: Dr. Roth on 09-27-2022 Urea nitrogen [Mass/Vol] 15 mg/dL 7-18 [facility] Thin prep Papanicolaou smear with manual screeningOrdered By: Dr. Roth on 09-27-2022 Thin prep Papanicolaou smear with manual screening 33 U/L 15-37 [facility] Thin prep Papanicolaou smear with manual screening 9 5-15 [facility] Basophil percentageOrdered B y: Dr. Baez on 08-01-2022 Chloride [Moles/Vol] 107 mmol/L 98-107 [facility] Glucose [Mass/Vol] 104 mg/dL 74-106 [facility] Comment on above: Fasting Glucose resu lt from 100 to 125 mg/dL suggests IMPAIRED HOMEOSTASIS per A.D.A. criteria. Potassium [Moles/Vol] 4.0 mmol/L 3.5-5.1 [facility] Sodium [Moles/Vol] 141 mmol/L 136-145 [facility] Laboratory - Chemistry and C hemistry - challengeOrdered By: Dr. Baez on 08-01-2022 CO2 [Moles/Vol] 28.0 mmol/L 21.0-32.0 [facility] Urea nitrogen/Creatinine [Mass ratio] 19.2 mg/mg 10-20 [facility] No Panel InformationOrdered By: Dr. Baez on 08-01-2022 Estimated Creatinine Clearance Calc 66.46 ml/min [facility] Estimated GFR (MDRD) Amer 78 mL/min >60 [facility] Comment on above: GFR Calc Estimated GFR (MDRD) Non-Af Amer 64 mL/min >60 [facility] Comment on above: Non- GFR Calc Serum or plasma calcium henok urement (mass/volume)Ordered By: Dr. Baez on 08-01-2022 Calcium [Mass/Vol] 8.7 mg/dL 8.5-10.1 [facility] Serum or plasma creatinine m easurement (mass/volume)Ordered By: Dr. Baez on 08-01-2022 Creatinine [Mass/Vol] 1.20 mg/dL 0.70-1.30 [facility] Comment on above: The validity of the calculated GFR & GFRAA in patients over 70 years has not been determined. Clinical correlation is essential. Serum or plasma urea nitroge n measurement (mass/volume)Ordered By: Dr. Baez on 08-01-2022 Urea nitrogen [Mass/Vol] 23 mg/dL 7-18 [facility] Thin prep Papanicolaou smear with manual screeningOrdered By: Dr. Baez on 08-01-2022 Thin prep Papanicolaou smear with manual screening 6 5-15 [facility] Absolute lymphocyte countOrd ered By: Dr. Lira on 07-30-2022 Lymphocytes Auto (Unsp spec) [#/Vol] 1.37 10*3/uL 0.83-4.51 [facility] Basophil percentageOrdered B y: Dr. Lira on 07-30-2022 Basophils/100 WBC (Bld) 0.4 % 0-1 [facility] Eosinophils/100 WBC (Bld) 0.2 % 0-5 [facility] Neutrophils (Bld) [#/Vol] 10.0 10*3/uL 2.0-7.7 [facility] Neutrophils/100 WBC (Bld) 78.0 % 47-70 [facility] WBC (Bld) [#/Vol] 12.8 10*3/uL 4.4-11.0 [facility] Blood erythrocytes count (nu mber/volume)Ordered By: Dr. Lira on 07-30-2022 RBC (Bld) [#/Vol] 4.76 10*6/uL 4.6-6.2 [facility] Blood hemoglobin measurement (mass/volume)Ordered By: Dr. Lira on 07-30-2022 Hemoglobin (Bld) [Mass/Vol] 14.1 g/dL 13.0-16.5 [facility] Blood lymphocytes/100 leukoc ytesOrdered By: Dr. Lira on 07-30-2022 Lymphocytes/100 WBC (Bld) 10.7 % 19-41 [facility] Blood monocytes/100 leukocyt esOrdered By: Dr. Lira on 07-30-2022 Monocytes/100 WBC (Bld) 10.2 % 0-10 [facility] Blood platelet mean volumeOr dered By: Dr. Lira on 07-30-2022 Platelet mean volume (Bld) [Entitic vol] 11.8 fL 6.2-12.0 [facility] Determination of erythrocyte mean corpuscular volume (MCV)Ordered By: Dr. Lira on 07-30-2022 MCV (RBC) [Entitic vol] 91.4 fL 80-94 [facility] Hematocrit Auto (Bld) [Volum e fraction]Ordered By: Dr. Lira on 07-30-2022 Hematocrit (Bld) [Volume fraction] 43.5 % 40-54 [facility] Laboratory - Hematology and Cell countsOrdered By: Dr. Lira on 07-30-2022 Erythrocyte distribution width (RBC) [Entitic vol] 51.5 fL 35.1-43.9 [facility] Erythrocyte distribution width (RBC) [Ratio] 15.3 % 11.6-14.6 [facility] Immature granulocytes/100 WBC (Bld) 0.500 % 0.0-0.9 [facility] Comment on above: IG% - Immature Granu locytes (promyelocytes, myelocytes and metamyelocytes) > 1% indicates that a LEFT SHIFT is Present. MCH (RBC) [Entitic mass] 29.6 pg 27.0-32.0 [facility] Nucleated RBC/100 WBC (Bld) [Ratio] 0 % 0-5 [facility] MCHC Auto (RBC) [Mass/Vol]Or dered By: Dr. Lira on 07-30-2022 MCHC (RBC) [Mass/Vol] 32.4 g/dL 32-36 [facility] No Panel InformationOrdered By: Dr. Lira on 07-30-2022 Thyroid Stimulating Hormone (TSH) 3.61 uIU/mL 0.358-3.74 [facility] Platelets bldOrdered By: Dr. Lira on 07-30-2022 Platelets (Bld) [#/Vol] 230 10*3/uL 150-450 [facility] Absolute lymphocyte countOrd ered By: Dr. Bajwa on 07-29-2022 Lymphocytes Auto (Unsp spec) [#/Vol] 1.54 10*3/uL 0.83-4.51 [facility] Basophil percentageOrdered B y: Dr. Bajwa on 07-29-2022 Basophils/100 WBC (Bld) 0.7 % 0-1 [facility] Chloride [Moles/Vol] 101 mmol/L 98-107 [facility] Eosinophils/100 WBC (Bld) 1.0 % 0-5 [facility] Glucose [Mass/Vol] 160 mg/dL 74-106 [facility] Comment on above: Fasting Glucose resu lt greater than or equal to 126 mg/dL suggests DIABETES MELLITUS per A.D.A. criteria. Neutrophils (Bld) [#/Vol] 8.8 10*3/uL 2.0-7.7 [facility] Neutrophils/100 WBC (Bld) 75.6 % 47-70 [facility] Potassium [Moles/Vol] 3.8 mmol/L 3.5-5.1 [facility] Comment on above: Moderate Hemolysis, Result may be falsely increased. Sodium [Moles/Vol] 136 mmol/L 136-145 [facility] WBC (Bld) [#/Vol] 11.6 10*3/uL 4.4-11.0 [facility] Blood erythrocytes count (nu mber/volume)Ordered By: Dr. Bajwa on 07-29-2022 RBC (Bld) [#/Vol] 5.05 10*6/uL 4.6-6.2 [facility] Blood hemoglobin measurement (mass/volume)Ordered By: Dr. Bajwa on 07-29-2022 Hemoglobin (Bld) [Mass/Vol] 15.0 g/dL 13.0-16.5 [facility] Blood lymphocytes/100 leukoc ytesOrdered By: Dr. Bajwa on 07-29-2022 Lymphocytes/100 WBC (Bld) 13.3 % 19-41 [facility] Blood monocytes/100 leukocyt esOrdered By: Dr. Bajwa on 07-29-2022 Monocytes/100 WBC (Bld) 9.0 % 0-10 [facility] Blood platelet mean volumeOr dered By: Dr. Bajwa on 07-29-2022 Platelet mean volume (Bld) [Entitic vol] 11.9 fL 6.2-12.0 [facility] CNOVon 07-29-2022 CNOV Office Visit ([facility] ) LENARD CORREA ([id number]) 1955 M Date Time Provider Department 07/29/22 5:00 PM GREGORIA BUTLER [facility] During your visit today, we recorded the following information about you: Temperature Pulse Respiration Blood pressure 97.3 degrees 166/minute 20/minute 132/92 Weight 119.7 kg Gregoria Butler APRN.[facility] 07/29/2022 5:27 PM Signed Subjective Cough Associated symptoms include shortness of breath and wheezing. Pertinent negatives include no chest pain. Lenard Correa is a 67 year old male who presents with 3 days of cough, shortness of breath, wheezing. 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 On rooming intake his HR is noted to be 166. He denies chest pain. He has not had any nausea. He denies any cardiac history. Review of Systems Respiratory: Positive for cough, shortness of breath and wheezing. Cardiovascular: Negative for chest pain. Gastrointestinal: Negative for nausea and vomiting. BP 132/92 Pulse (!) 166 Temp 36.3 ?C (97.3 ?F) Resp 20 Wt 119.7 kg (263 lb 12.8 oz) SpO2 96% No past medical history on file. No past surgical history on file. ALLERGIES Patient has no known allergies. MEDICATIONS amLODIPine (NORVASC) 10 mg tablet Take 10 mg by mouth once daily. rosuvastatin (CRESTOR) 10 mg tablet Take 10 mg by mouth once daily. aspirin, enteric coated (ASPIRIN, ENTERIC COATED) 81 mg EC tablet Take 81 mg by mouth once daily. lisinopril-hydrochlorot hiazide (PRINZIDE, ZESTORETIC) 20-25 mg per tablet Take 1 tablet by mouth once daily. No family history on file. Social History Tobacco Use Smoking status: Never Smokeless tobacco: Never Objective Physical Exam Vitals and nursing note reviewed. Constitutional: General: He is not in acute distress. Appearance: He is not toxic-appearing. Cardiovascular: Rate and Rhythm: Tachycardia present. Pulmonary: Effort: Pulmonary effort is normal. No respiratory distress. Breath sounds: No wheezing or rales. Neurological: Mental Status: He is alert and oriented to person, place, and time. ASSESSMENT/PLAN: 1. Tachycardia - ICD9: 785.0, ICD10: R00.0 - patient is experiencing an arrhythmia which is likely the cause for his shortness of breath. He is referred to ER. He is offered ambulance transportation and he declined. [facility]. Report called to ER and sent via ER Passport. Gregoria Butler APRN.[employer] Referring Provider: SELF [[id number]] Allergies As of Date: 07/29/2022 (No Known Allergies) Date Reviewed: 07/29/2022 Reviewed by: Sue Valdez MA - Fully Assessed Reason for Visit: Cough [28] Cmt: Sob, wheezing x 3 days Primary Visit Diagnosis:Tachycardia [R00.0] Prescriptions as of 07/29/2022 - amLODIPine (NORVASC) 10 mg tablet Take 10 mg by mouth once daily. - rosuvastatin (CRESTOR) 10 mg tablet Take 10 mg by mouth once daily. - aspirin, enteric coated (ASPIRIN, ENTERIC COATED) 81 mg EC tablet Take 81 mg by mouth once daily. - lisinopril-hydrochlorot hiazide (PRINZIDE, ZESTORETIC) 20-25 mg per tablet Take 1 tablet by mouth once daily. Problem List As Of Date: 07/29/2022 (None) Encounter Status:Closed by GREGORIA BUTLER on 07/29/22 Normal [facility] Determination of erythrocyte mean corpuscular volume (MCV)Ordered By: Dr. Bajwa on 07-29-2022 MCV (RBC) [Entitic vol] 91.3 fL 80-94 [facility] Hematocrit Auto (Bld) [Volum e fraction]Ordered By: Dr. Bajwa on 07-29-2022 Hematocrit (Bld) [Volume fraction] 46.1 % 40-54 [facility] Influenza virus A and B and SARS-CoV-2 (COVID-19) Ag panel - Upper respiratory specimOrdered By: Dr. Bajwa on 07-29-2022 SARS-CoV-2 (COVID-19) RNA KARI+probe Ql (Resp) [facility] Laboratory - Chemistry and C hemistry - challengeOrdered By: Dr. Bajwa on 07-29-2022 Natriuretic peptide B (Bld) [Mass/Vol] 524.1 pg/mL 0-100 [facility] CO2 [Moles/Vol] 24.0 mmol/L 21.0-32.0 [facility] Urea nitrogen/Creatinine [Mass ratio] 17.3 mg/mg 10-20 [facility] - Chemistry and C hemistry - challengeOrdered By: Dr. Lira on 07-29-2022 Magnesium [Mass/Vol] 2.2 mg/dL 1.6-2.6 [facility] Comment on above: Moderate Hemolysis, Result may be falsely increased. Laboratory - Hematology and Cell countsOrdered By: Dr. Bajwa on 07-29-2022 Erythrocyte distribution width (RBC) [Entitic vol] 50.7 fL 35.1-43.9 [facility] Erythrocyte distribution width (RBC) [Ratio] 15.4 % 11.6-14.6 [facility] Immature granulocytes/100 WBC (Bld) 0.400 % 0.0-0.9 [facility] Comment on above: IG% - Immature Granu locytes (promyelocytes, myelocytes and metamyelocytes) > 1% indicates that a LEFT SHIFT is Present. MCH (RBC) [Entitic mass] 29.7 pg 27.0-32.0 [facility] Nucleated RBC/100 WBC (Bld) [Ratio] 0 % 0-5 [facility] MCHC Auto (RBC) [Mass/Vol]Or dered By: Dr. Bajwa on 07-29-2022 MCHC (RBC) [Mass/Vol] 32.5 g/dL 32-36 [facility] No Panel InformationOrdered By: Dr. Bajwa on 07-29-2022 Estimated Creatinine Clearance Calc 62.80 ml/min [facility] Estimated GFR (MDRD) Amer 73 mL/min >60 [facility] Comment on above: GFR Calc Estimated GFR (MDRD) Non-Af Amer 60 mL/min >60 [facility] Comment on above: Non- GFR Calc Troponin I High Sensitivity 32 pg/mL 3.0-78.0 [facility] Comment on above: Please Note: New Tea t Units and Gender Specific Reference Ranges. For more information see Policy Stat Procedure [place] High Sensitivity Troponin (TNIH) and attachments. Platelets bldOrdered By: Dr. Bajwa on 07-29-2022 Platelets (Bld) [#/Vol] 271 10*3/uL 150-450 [facility] Serum or plasma calcium henok urement (mass/volume)Ordered By: Dr. Bajwa on 07-29-2022 Calcium [Mass/Vol] 9.7 mg/dL 8.5-10.1 [facility] Serum or plasma creatinine m easurement (mass/volume)Ordered By: Dr. Bajwa on 07-29-2022 Creatinine [Mass/Vol] 1.27 mg/dL 0.70-1.30 [facility] Comment on above: The validity of the calculated GFR & GFRAA in patients over 70 years has not been determined. Clinical correlation is essential. Serum or plasma urea nitroge n measurement (mass/volume)Ordered By: Dr. Bajwa on 07-29-2022 Urea nitrogen [Mass/Vol] 22 mg/dL 7-18 [facility] Thin prep Papanicolaou smear with manual screeningOrdered By: Dr. Bajwa on 07-29-2022 Thin prep Papanicolaou smear with manual screening 11 5-15 [facility] Basophil percentageon 2021 Cholesterol [Mass/Vol] 173 mg/dL <200 [facility] Work Phone: Comment on above: <200 mg/dL Desirable 200-240 mg/dL Borderline >240 mg/dL High Risk Triglyceride [Mass/Vol] 107 mg/dL [facility] Work Phone: Comment on above: The drugs N-Acetylcy steine and Metamizole may falsely depress this assay.Serum Triglycerides Reference Interval Normal <150 mg/dL Borderline high 150 - 199 mg/dL High 200 - 499 mg/dL Very High > or = 500 mg/dL Serum or plasma cholesterol in HDL measurement (mass/volume)on 10-09-2021 Cholesterol in HDL [Mass/Vol] 47 mg/dL [facility] Work Phone: Comment on above: The drugs N-Acetylcy steine and Metamizole may falsely depress this assay. Reference Range HDL <40 mg/dL Low HDL Cholesterol HDL >or= 60 mg/dL High HDL Cholesterol Serum or plasma cholesterol in VLDL measurement (mass/volume)on 10-09-2021 Cholesterol in VLDL [Mass/Vol] 21 mg/dL 5-40 [facility] Work Phone: Serum or plasma low density lipoprotein (LDL) cholesterol measurement (mass/volume)on 10-09-2021 Cholesterol in LDL [Mass/Vol] 105 mg/dL 0-130 [facility] Work Phone: Vital Signs Date Time Vital Sign Value Performing Clinician Facility 06-07-2024 14:33-0500 Body height 182.9 cm Aguilar Herrmann MD Work Phone: [facility] 06-07-2024 14:33-0500 Body mass index (BMI) [Ratio] 37.97 kg/m2 Aguilar Herrmann MD Work Phone: [facility] 06-07-2024 14:33-0500 Body weight 127.01 kg Aguilar Herrmann MD Work Phone: [facility] 06-07-2024 14:33-0500 Diastolic blood pressure 86 mm[Hg] Aguilar Herrmann MD Work Phone: [facility] 06-07-2024 14:33-0500 Heart rate 90 /min Aguilar Herrmann MD Work Phone: [facility] 06-07-2024 14:33-0500 SaO2% (BldA) [Mass fraction] 98 % Aguilar Herrmann MD Work Phone: [facility] 06-07-2024 14:33-0500 Systolic blood pressure 142 mm[Hg] Aguilar Herrmann MD Work Phone: [facility] 04-05-2024 16:00-0500 Body height 182.9 cm Landy Ferguson APRN-POLISHER HAND Work Phone: [facility] 04-05-2024 16:00-0500 Body mass index (BMI) [Ratio] 37.16 kg/m2 Landy Ferguson FOOD SANITARIAN-[employer] Work Phone: 5([phone])[phone] [place] [address] 04-05-2024 16:00-0500 Body weight 124.29 kg Landy Ferguson AISHA-POLISHER HAND Work Phone: 0(132)913-041782 [place] [address] 10-25-2023 11:37-0400 Diastolic blood pressure 85 mm[Hg] Ryan Ospina MD Work Phone: 5(436)238-923382 [place] [address] 10-25-2023 11:37-0400 Heart rate 47 /min Ryan Ospina MD Work Phone: 0(218)611-[address] [place] [address] 10-25-2023 11:37-0400 Systolic blood pressure 173 mm[Hg] Ryan Ospina MD Work Phone: 1(140)481-507282 [place] [address] 10-25-2023 11:34-0400 Body height 182.9 cm Ryan Ospina MD Work Phone: 2(635)589-606482 [place] [address] 10-25-2023 11:34-0400 Body mass index (BMI) [Ratio] 37.23 kg/m2 Ryan Ospina MD Work Phone: 4(243)731-614882 [place] [address] 10-25-2023 11:34-0400 Body temperature 98.01 [degF] Ryan Ospina MD Work Phone: 3(745)157-329182 [place] [address] 10-25-2023 11:34-0400 Body weight 124.51 kg Ryan Ospina MD Work Phone: 6(761)614-489382 [place] [address] 10-25-2023 11:34-0400 Respiratory rate 18 /min Ryan Ospina MD Work Phone: 5(449)256-279482 [place] [address] 10-25-2023 11:34-0400 SaO2% (BldA) [Mass fraction] 95 % yRan Ospina MD Work Phone: 9(503)950-483582 [place] [address] 10-25-2023 11:14-0400 Body height 182.9 cm Aaliyah Kiste FOOD SANITARIAN-POLISHER HAND Work Phone: [facility] 10-25-2023 11:14-0400 Body mass index (BMI) [Ratio] 35.26 kg/m2 Aaliyah Sanchez FOOD SANITARIAN-POLISHER HAND Work Phone: [facility] 10-25-2023 11:14-0400 Body weight 117.94 kg Aaliyah Sanchez FOOD SANITARIAN-[employer] Work Phone: [facility] 10-25-2023 11:14-0400 Diastolic blood pressure 82 mm[Hg] Aaliyah Sanchez FOOD SANITARIAN-POL[employer] HAND Work Phone: [facility] 10-25-2023 11:14-0400 Systolic blood pressure 142 mm[Hg] Aaliyah Sanchez FOOD SANITARIAN-POL[employer] HAND Work Phone: [facility] 04-04-2023 12:23-0500 Diastolic blood pressure 72 mm[Hg] Reece Soto MD, PhD Work Phone: [facility] 04-04-2023 12:23-0500 Heart rate 44 /min Reece Soto MD, PhD Work Phone: [facility] 04-04-2023 12:23-0500 Respiratory rate 20 /min Reece Soto MD, PhD Work Phone: [facility] 04-04-2023 12:23-0500 SaO2% (BldA) [Mass fraction] 96 % Reece Soto MD, PhD Work Phone: [facility] 04-04-2023 12:23-0500 Systolic blood pressure 150 mm[Hg] Reece Soto MD, PhD Work Phone: [facility] 04-04-2023 08:04-0500 Body height 182.9 cm Reece Soto MD, PhD Work Phone: [facility] 04-04-2023 08:04-0500 Body mass index (BMI) [Ratio] 35.26 kg/m2 Reece Soto MD, PhD Work Phone: [facility] 04-04-2023 08:04-0500 Body temperature 97.9 [degF] Reece Soto MD, PhD Work Phone: [facility] 04-04-2023 08:04-0500 Body weight 117.94 kg Reece Soto MD, PhD Work Phone: [facility] 02-24-2023 11:15-0400 Diastolic blood pressure 75 mm[Hg] Meryl Colon MD Work Phone: [facility] 02-24-2023 11:15-0400 Heart rate 44 /min Meryl Colon MD Work Phone: [facility] 02-24-2023 11:15-0400 Respiratory rate 23 /min Meryl Colon MD Work Phone: [facility] 02-24-2023 11:15-0400 SaO2% (BldA) [Mass fraction] 98 % Meryl Colon MD Work Phone: [facility] 02-24-2023 11:15-0400 Systolic blood pressure 158 mm[Hg] Meryl Colon MD Work Phone: [facility] 02-24-2023 08:27-0400 Body height 182.9 cm Meryl Colon MD Work Phone: [facility] 02-24-2023 08:27-0400 Body mass index (BMI) [Ratio] 35.26 kg/m2 Meryl Colon MD Work Phone: [facility] 02-24-2023 08:27-0400 Body temperature 98.2 [degF] Meryl Colon MD Work Phone: [facility] 02-24-2023 08:27-0400 Body weight 117.94 kg Meryl Colon MD Work Phone: [facility] 11-04-2022 10:46-0400 Body height 182.[address] Ant Roth Work Phone: [facility] 11-04-2022 10:46-0400 Body mass index (BMI) [Ratio] 34.8 kg/m2 Dr. Ant Roth Work Phone: [facility] 11-04-2022 10:46-0400 Body weight 116.[address] Ant Roth Work Phone: [facility] 11-04-2022 10:46-0400 Diastolic blood pressure 85 mm[Hg] Dr. Ant Roth Work Phone: [facility] 11-04-2022 10:46-0400 Heart rate 50 /min Dr. Ant Roth Work Phone: [facility] 11-04-2022 10:46-0400 Respiratory rate 18 /min Dr. Ant Roth Work Phone: [facility] 11-04-2022 10:46-0400 Systolic blood pressure 156 mm[Hg] Dr. Ant Roth Work Phone: [facility] 08-13-2022 13:09-0400 Body height 182.[address] Ant Roth Work Phone: [facility] 08-13-2022 13:09-0400 Body mass index (BMI) [Ratio] 33.2 kg/m2 Dr. Ant Roth Work Phone: [facility] 08-13-2022 13:09-0400 Body weight 111.[address] Ant Roth Work Phone: [facility] 08-13-2022 13:09-0400 Diastolic blood pressure 90 mm[Hg] Dr. Ant Roth Work Phone: [facility] 08-13-2022 13:09-0400 Heart rate 70 /min Dr. Ant Roth Work Phone: [facility] 08-13-2022 13:09-0400 Respiratory rate 18 /min Dr. Ant Roth Work Phone: [facility] 08-13-2022 13:09-0400 SaO2% (BldA) [Mass fraction] 95 % Dr. Ant Roth Work Phone: [facility] 08-13-2022 13:09-0400 Systolic blood pressure 132 mm[Hg] Dr. Ant Roth Work Phone: [facility] 08-01-2022 12:54-0500 Body temperature 97.9 [degF] Dr. Ant Roth Work Phone: [facility] 08-01-2022 12:54-0500 Diastolic blood pressure 86 mm[Hg] Dr. Ant Roth Work Phone: [facility] 08-01-2022 12:54-0500 Heart rate 80 /min Dr. Ant Roth Work Phone: [facility] 08-01-2022 12:54-0500 Respiratory rate 16 /min Dr. Ant Roth Work Phone: [facility] 08-01-2022 12:54-0500 SaO2% (BldA) [Mass fraction] 98 % Dr. Ant Roth Work Phone: [facility] 08-01-2022 12:54-0500 Systolic blood pressure 111 mm[Hg] Dr. Ant Roth Work Phone: [facility] 07-31-2022 12:19-0500 Inhaled oxygen flow rate 0 L/min Dr. Ant Roth Work Phone: [facility] 07-31-2022 05:51-0500 Body mass index (BMI) [Ratio] 35.4 kg/m2 Dr. Ant Roth Work Phone: [facility] 07-31-2022 05:51-0500 Body weight 118.[address] Ant Roth Work Phone: [facility] 07-30-2022 00:18-0500 Body height 182.[address] Ant Roth Work Phone: [facility] 07-29-2022 23:33-0500 Diastolic blood pressure 68 mm[Hg] [facility] 07-29-2022 23:33-0500 Heart rate 111 /min [facility] 07-29-2022 23:33-0500 Inhaled oxygen flow rate 4 L/min [facility] 07-29-2022 23:33-0500 Respiratory rate 26 /min [facility] 07-29-2022 23:33-0500 SaO2% (BldA) [Mass fraction] 92 % [facility] 07-29-2022 23:33-0500 Systolic blood pressure 89 mm[Hg] [facility] 07-29-2022 22:38-0500 Body temperature 97.7 [degF] [facility] 07-29-2022 17:14-0500 Body height 182.88 cm [facility] 07-29-2022 17:14-0500 Body mass index (BMI) [Ratio] 35.5 kg/m2 [facility] 07-29-2022 17:14-0500 Body weight 118.84 kg [facility] 07-29-2022 16:52-0500 Body temperature 97.3 [degF] Gregoria Praisler-Wood FOOD SANITARIAN.POLISHER HAND Work Phone: [facility] 07-29-2022 16:52-0500 Body weight 119.66 kg Gregoria Praisler-Wood FOOD SANITARIAN.POLISHER HAND Work Phone: [facility] 07-29-2022 16:52-0500 Diastolic blood pressure 92 mm[Hg] Gregoria Praisler-Wood FOOD SANITARIAN.POLISHER HAND Work Phone: [facility] 07-29-2022 16:52-0500 Heart rate 166 /min Gregoria Praisler-Wood FOOD SANITARIAN.POL[employer]ER HAND Work Phone: [facility] 07-29-2022 16:52-0500 Respiratory rate 20 /min Gregoria Praisler-Wood FOOD SANITARIAN.POL[employer]ER HAND Work Phone: [facility] 03-02-2023 16:52-0500 SaO2% (BldA) [Mass fraction] 96 % Gregoria Butler FOOD SANITARIAN.POLISHER HAND Work Phone: [facility] 07-29-2022 16:52-0500 Systolic blood pressure 132 mm[Hg] Gregoria Butler APRN.POLISHER HAND Work Phone: [facility] Encounters Encounter Date Encounter Type Care Provider Facility Start: 10-25-2024 ambulatory DONNABORIS OTERO Soumya ty:[facility] Start: 10-18-2024 ambulatory [facility] Facility :[facility] Start: 06-07-2024 End: 06-07-2024 Office outpatient visit 25 minutes Agiular Herrmann MD Work Phone: [facility] Comment on above: DANELLE (obstructive sle ep apnea) (Primary Dx); Atrial fibrillation, unspecified type (CMS/HCC); Congestive heart failure, unspecified HF chronicity, unspecified heart failure type ([facility]/HCC) Start: 06-07-2024 End: 06-07-2024 ambulatory AGUILAR HERRMANN Not Available Start: 06-07-2024 End: 06-07-2024 Bamboo flowsheet Aguilar Herrmann MD Work Phone: [facility] Start: 06-07-2024 End: 06-07-2024 Bamboo flowsheet Aguilar Herrmann MD Work Phone: [facility] Start: 05-02-2024 End: 05-02-[address] [facility] Facility:[facility] Start: 04-19-2024 [facility] Start: 04-05-2024 End: 04-05-2024 Subsequent hospital visit by physician Landy Ferguson FOOD SANITARIAN-POLISHER HAND Work Phone: [facility] Reece Seth [facility] Comment on above: Arrived Start: 04-05-2024 ambulatory LANDY FERGUSON Facilit y:[facility] Start: 12-07-2023 End: 12-07-2023 ambulatory [facility] Facility:[facility] Start: 11-02-2023 End: 11-02-[address] [facility] Facility:[facility] Start: 10-25-2023 End: 10-25-2023 Office outpatient visit 25 minutes Ryan Ospina MD Work Phone: [facility] Comment on above: Severe aortic stenos is (Primary Dx) Start: 10-25-2023 End: 10-25-2023 Subsequent hospital visit by physician Aaliyah Sanchez FOOD SANITARIAN-POLISHER HAND Work Phone: [facility] Comment on above: Arrived Start: 04-26-2023 End: 04-26-2023 Subsequent hospital visit by physician Aaliyah Sanchez FOOD SANITARIAN-POL[employer] Work Phone: [facility] Comment on above: Arrived Start: 04-04-2023 End: 04-04-2023 Subsequent hospital visit by physician Reece Soto MD, PhD Work Phone: [facility] Comment on above: Severe aortic stenos is Start: 03-28-2023 End: 03-28-2023 ambulatory [facility] Work Phone: Start: 03-28-2023 End: 03-28-2023 Patient encounter procedure [facility] Work Phone: Start: 02-24-2023 End: 02-24-2023 Subsequent hospital visit by physician Meryl Colon MD Work Phone: [facility] Comment on above: Persistent atrial fi brillation Start: 02-15-2023 End: 02-15-2023 Office outpatient new 60 minutes Bonita Mccollum FOOD SANITARIAN-POLISHER HAND Work Phone: [facility] Comment on above: Persistent atrial fi brillation (Primary Dx); Abnormal result of other cardiovascular function study Start: 11-19-2022 Non-patient / Non-visit Dr. Brandon Roth Work Phone: [facility] Start: 11-17-2022 Non-patient / Non-visit Dr. Brandon Roth Work Phone: [facility] Start: 11-17-2022 End: 11-17-[address] Ant Roth Work Phone: [facility] Work Phone: Start: 11-17-2022 End: 11-17-[address] [facility] Start: 11-04-2022 End: 11-04-[address] Ant Roth Work Phone: [facility] Start: 09-30-2022 Non-patient / Non-visit Dr. Brandon Roth Work Phone: [facility] Start: 09-27-2022 End: 09-27-[address] Ant Roth Work Phone: [facility] Work Phone: Start: 09-27-2022 End: 09-27-[address] Ant Roth Work Phone: [facility] Start: 09-24-2022 Non-patient / Non-visit Dr. Brandon Roth Work Phone: [facility] Start: 09-24-2022 End: 09-24-[address] Ant Roth Work Phone: [facility] Work Phone: Start: 09-24-2022 End: 09-24-[address] [facility] Start: 08-13-2022 End: 08-13-[address] Ant Roth Work Phone: [facility] Start: 08-01-2022 Non-patient / Non-visit Dr. Brandon Roth Work Phone: [facility] Start: 07-31-2022 Non-patient / Non-visit Dr. Brandon Roth Work Phone: [facility] Start: 07-31-2022 Non-patient / Non-visit Dr. Brandon Roth Work Phone: [facility] Start: 07-30-2022 Non-patient / Non-visit Dr. Brandon Roth Work Phone: [facility] Start: 07-30-2022 Non-patient / Non-visit Dr. Brandon Roth Work Phone: [facility] Start: 07-29-2022 Non-patient / Non-visit Dr. Brandon Roth Work Phone: [facility] Start: 07-29-2022 End: 08-01-2022 Evaluation and management of inpatient [facility] Start: 07-29-2022 End: 07-29-2022 ambulatory Facility:[facility] Start: 07-29-2022 End: 07-29-2022 Patient encounter procedure Gregoria Butler APRN.POLISHER HAND Work Phone: [facility] Comment on above: Tachycardia (Primary Dx) Start: 10-09-2021 End: 10-09-2021 [facility] Start: 01-19-2017 End: 01-19-2017 [facility] Procedures Date Procedure Procedure Detail Performing Clinician Start: 10-25-2023 Echo tthrc r-t 2d w/ wom-mode compl spec&colr d Aaliyah Sanchez FOOD SANITARIAN-POL[employer] Work Phone: Start: 04-26-2023 Ct heart contrast ev al cardiac structure&morph Aaliyah Sanchez FOOD SANITARIAN-[employer] Work Phone: Start: 04-26-2023 Duplex scan extracra nial art compl bi study Aaliyah Sanchez FOOD SANITARIAN-POL[employer] Work Phone: Start: 04-26-2023 Spmtry w/vc expirato ry mauro w/wo mxml vol vntj Aaliyah Sanchez [facility] Work Phone: Start: 04-04-2023 Cath placement & njx coronary art angio img s&i [facility]aliyah Sanchez [facility] Work Phone: Start: 04-04-2023 Cardiac catheterization Aaliyah Sanchez [facility] Work Phone: Start: 04-04-2023 Creatinine blood Judie Bryant MD Work Phone: Start: 04-04-2023 Ecg routine ecg w/le ast 12 lds w/i&r Judie Bryant MD Work Phone: Start: 02-24-2023 Cardioversion electi ve arrhythmia external Bonita A Nilesh FOOD SANITARIAN-POL[employer] Work Phone: Start: 02-24-2023 Creatinine blood Hedy A [place] [employer]ITAR[employer] Work Phone: Start: 11-17-2022 Cardiovascular stres s test using pharmacologic stress agent Dr. Ant Roth Work Phone: Start: 07-31-2022 Plain chest X-ray Dr. Inderjit Roth Work Phone: Start: 07-29-2022 Plain chest X-ray SARS-CoV-2 & FLU Ant igen (Rapid) Plan of Treatment Date Care Activity Detail Author Start: 05-20-2026 Tetanus vaccination TETANUS [facility] Start: 06-07-2024 End: 06-07-2024 Patient encounter procedure 06/07/2024 2:40 PM EST Office Visit [facility] [address] [place] [id number] Aguilar Herrmann MD [address] [place], [place] [id number] Arrived [facility] Comment on above: Arrived Start: 04-04-2024 Potassium [Moles/volume] in Serum or Plasma POTASSIUM [facility] Start: 02-25-2024 Potassium [Moles/volume] in Serum or Plasma POTASSIUM [facility] Start: 01-29-2024 COVID-19 VACCINE ( season) COVID-19 VACCINE () [facility] Start: 01-29-2024 Influenza vaccination [facility] Start: 10-25-2023 End: 10-24-2024 Echocardiography ECHOCARDIOGRAM Echocardiography Routine Severe aortic stenosis Expected: 10/25/2023, Expires: 10/24/2024 [facility] Comment on above: Expected: 10/25/2023, Expires: Start: 04-26-2023 End: 04-26-2023 Patient encounter procedure 04/26/2023 12:30 PM EST Office Visit [employer] [facility] [address] [place] [address] Ryan Ospina MD [address] [place] [id number] [employer] [facility] Start: 04-26-2023 End: 04-26-2023 Patient encounter procedure [facility] Start: 04-04-2023 End: 04-04-2023 L hrt cath w/njx l ventriculography img s&i LEFT HEART CATHETERIZATION Severe aortic stenosis 04/04/2023 9:24 AM EST [facility] CATH Start: 02-24-2023 End: 02-24-2023 Admission to same day surgery center 02/24/2023 1:10 PM EDT - 02/24/2023 2:10 PM EDT Surgery Cardiovascular Imaging Lab [facility] [address] [place] [id number] Obed Soria Procedure [address] [place] [address] Cardioversion Cardiovascular Imaging Lab [facility] Comment on above: Cardioversion Start: 02-24-2023 Subsequent hospital visit by physician 02/24/2023 1:10 PM EDT Hospital Encounter [facility] [address] [place] [address] Persistent atrial fibrillation [facility] Comment on above: Persistent atrial fibrillation Start: 02-15-2023 End: 02-16-[address] CARDIAC PULMONARY VENOGRAM Imaging Routine Persistent atrial fibrillation Abnormal result of other cardiovascular function study Expected: 02/15/2023, Expires: 02/16/2024 [facility] Comment on above: Expected: 02/15/2023, Expires: Start: 01-28-2023 COVID-19 VACCINE () COVID-19 VACCINE () [facility] Start: 01-28-2023 Influenza vaccination INFLUENZA VACCINE (#1) [facility] Start: 11-19-2022 Patient referral [facility] Work Phone: Start: 08-01-2022 Patient discharge [facility] Start: 07-30-2022 Care planning and problem solving actions [facility] Start: 07-30-2022 Verification routine [facility] Start: 07-30-2022 Care planning and problem solving actions [facility] Start: 07-30-2022 Following clinical pathway protocol [facility] Start: 07-30-2022 Assessment of risk of venous thromboembolism [facility] Start: 07-30-2022 Continuous pulse oximetry [facility] Start: 07-30-2022 Elevation of affected extremity [facility] Start: 07-30-2022 Fluid restriction [facility] Start: 07-30-2022 Insertion of catheter into peripheral vein [facility] Start: 07-30-2022 Measuring intake and output [facility] Start: 07-30-2022 Notification of physician [facility] Start: 07-30-2022 Oxygen therapy [facility] Start: 07-30-2022 Patient education [facility] Start: 07-30-2022 Providing care according to standard [facility] Start: 07-30-2022 Provision of activity privileges [facility] Start: 07-30-2022 Referral to barrel builder [facility] Start: 07-30-2022 End: 07-30-2022 [facility] Start: 07-29-2022 Dual pressure spontaneous ventilation support [facility] Start: 07-29-2022 Verification routine [facility] Start: 07-29-2022 Admission procedure [facility] Start: 05-30-2022 ADVANCE DIRECTIVE DISCUSSION ADVANCE DIRECTIVE DISCUSSION [facility] Start: 05-30-2022 DEPRESSION ASSESSMENT DEPRESSION ASSESSMENT [facility] Start: 2021 Abdominal aortic aneurysm screening ABDOMINAL AORTIC ANEURYSM HIGH RISK SCREEN [facility] Start: 2021 Pneumococcal vaccination [facility] Start: 2021 PNEUMOCOCCAL: 65+ (1 - PCV) PNEUMOCOCCAL: 65+ (1 - PCV) [facility] Start: 2016 RSV VACCINE (1 - 1-dose 60+ series) RSV VACCINE (1 - 1-dose 60+ series) [facility] Start: 2011 PROSTATE CANCER SCREENING DISCUSSION PROSTATE CANCER SCREENING DISCUSSION [facility] Start: 2006 Prostate specific antigen measurement PROSTATE CANCER SCREENING DISCUSSION [facility] Start: 2006 SHINGRIX VACCINE (1 of 2) SHINGRIX VACCINE (1 of 2) [facility] Start: 2006 Zoster vaccine hzv live for subcutaneous use ZOSTER (SHINGLES) VACCINE (1 of 2) [facility] Start: 2001 COLOGUARD (FIT-DNA) COLOGUARD (FIT-DNA) [facility] Start: 2001 Colonoscopy COLONOSCOPY [facility] Start: 2001 COLORECTAL CANCER SCREENING COLORECTAL CANCER SCREENING [facility] Start: [address] COLONOGRAPHY [facility] Start: 2001 DIABETES SCREEN DIABETES SCREEN [facility] Start: 2001 FECAL OCCULT BLOOD FECAL OCCULT BLOOD [facility] Start: 2001 Screening for malignant neoplasm of colon COLORECTAL CANCER SCREENING DISCUSSION [facility] Start: 2001 SIGMOIDOSCOPY SIGMOIDOSCOPY [facility] Start: 1996 Lipid panel LIPID SCREENING [facility] Start: 1991 LIPID SCREEN LIPID SCREEN [facility] Start: 1975 Urine microalbumin profile DTAP,TDAP,TD (1 - Tdap) [facility] Start: 1974 HEPATITIS C SCREENING HEPATITIS C SCREENING [facility] Start: 1956 COVID-19 VACCINE (#1) COVID-19 VACCINE (#1) [facility] Start: 1956 Hepatitis C screening HEPATITIS C VIRUS SCREENING [facility] Start: 1956 Potassium [Moles/volume] in Serum or Plasma POTASSIUM [facility] Cardiac catheterizat ion study INVASIVE CARDIOVASCULAR PROCEDURE Cardiac Cath Routine Severe aortic stenosis 04/04/2023 10:12 AM EST [facility] End: 04-26-[address] [facility] Comment on above: 1 Occurrences starting 04/26/2023 until 04/26/2023 End: 02-24-2023 Echocardiography ECHOCARDIOGRAM Echocardiography Urgent One Time for 1 Occurrences starting 02/24/2023 until 02/24/2023 [facility] Comment on above: One Time for 1 Occurrences starting 01/29 until 02/24/2023 End: 04-05-2024 Echocardiography [facility] Comment on above: 1 Occurrences starting 04/05/2024 until 04/05/2024 Ephys evl trnsptl tx atrial fib isolat pulm vein ABLATION SCHED INTERCARDIAC A-FIB TRANSEPTAL BY PULM VEIN ISOLATION W/EP EVAL (37660) Persistent atrial fibrillation [facility] ROSS EP End: 02-24-2023 EXTRA LAVENDER TOP [facility] Comment on above: Once for 1 Occurrences starting 02/25/20 until 02/24/2023 End: 04-04-2023 EXTRA LAVENDER TOP [facility] Comment on above: Once for 1 Occurrences starting 04/04/20 until 04/04/2023 End: 02-24-2023 EXTRA LIGHT BLUE TOP [facility] Comment on above: Once for 1 Occurrences starting 02/25/20 until 02/24/2023 End: 04-04-2023 EXTRA LIGHT BLUE TOP [facility] Comment on above: Once for 1 Occurrences starting 04/04/20 until 04/04/2023 End: 02-24-2023 EXTRA TUBES [facility] Work Phone: Comment on above: One Time for 1 Occurrences starting 01/29 until 02/24/2023 End: 04-04-2023 EXTRA TUBES [facility] Work Phone: Comment on above: One Time for 1 Occurrences starting 10/2022 until 04/04/2023 Measurement of respiratory function PFT STANDARD PFT Routine Severe aortic stenosis 04/26/2023 10:39 AM EST [facility] Patient referral [facility] Work Phone: Standard ECG ECG ECG Routine Persistent atrial fibrillation 02/15/2023 12:34 PM EDT [facility] End: 02-24-2023 Standard ECG ECG ECG STAT One Time for 1 Occurrences starting 02/24/2023 until 02/24/2023 [facility] Work Phone: Comment on above: One Time for 1 Occurrences starting 01/29 until 02/24/2023 Immunizations Immunization Date Immunization Notes Care Provider [facility] 02-27-2022 influenza virus vaccine, unspecified formulation [facility] Work Phone: [facility] Payers Date Payer Category Payer Medicare (Managed Care) [employer] [id number] 2024 Medicare [id number] 2023 Self-pay [id number] 2023 Unknown [id number] 2022 Medicare [id number] 2022 Private Health Insurance [id number] 2011 Unknown [id number] 1956 Unknown [id number] 1956 Unknown [id number] [id number] 1956 Unknown [id number] [id number] 1956 Unknown [id number] 1956 Unknown [id number] Unknown [id number] Unknown [id number] Unknown [id number] Unknown [id number] [id number] Unknown [id number] [id number] Social History Date Type Detail Facility Start: 05-31-2017 End: 11-04-2022 Tobacco smoking status NHIS Unknown if ever smoked [facility] Start: 1955 Sex Assigned At Male [facility] Start: 07-29-2022 End: 11-11-2022 Tobacco smoking status NHIS Never smoked tobacco [facility] Start: 07-29-2022 End: 11-11-2022 Tobacco use and exposure Smokeless tobacco non-user [facility] Start: 1955 Sex Assigned At Not on file [facility] Start: 02-24-2023 End: 06-02-2023 Gender identity Not on file [facility] Start: 02-24-2023 End: 05-31-2024 Alcohol intake Lifetime non-drinker (finding) [facility] Start: 02-24-2023 End: 06-02-2023 History of Social function [facility] Start: 04-28-2023 Alcohol Comment Caffeine: none [facility] Start: 06-04-2024 Gender identity Identifies as male gender (finding) [facility] Healthcare Goals Date Patient Goal Desired Activity /State Functional Status Date Assessment Result Facility 08-01-2022 Functional status Chair [facility] Work Phone: Mental Status Date Assessment Result Facility 08-01-2022 Cognitive function Voice/Name [facility] Work Phone: 07-29-2022 Cognitive function Level Of Consciousness Awake [facility] Work Phone: Clinical Notes 07-29-2022 to 06-07-2024 Aguilar Herrmann MD - 06/07/2024 2:40 PM Lucian Ferguson APRN-[facility] - 10/25/2023 11:15 AM Enedina Ospina MD - 10/25/2023 11:15 AM EDTPatient InstructionsDischarge Instr - Activity Note Date & Type Note Facility 06-07-2024 History of Present illness Narrative Images from the original note were not included. CHIEF COMPLAINT: Lenard Correa is a 69 y.o. male here today for Chief Complaint Patient presents with Sleep Apnea HISTORY OF PRESENT ILLNESS: History of Present Illness The patient presents for a follow-up visit. He has a history of sleep apnea. His last visit was approximately a year ago with Estelita, at which time it was noted that he was wearing his CPAP nightly and was on Auto BiPAP 22/05 with a pressure support of 4. No changes were made at that time. He reports no significant changes in his condition since his last visit. He continues to use his CPAP machine nightly, achieving 8 to 9 hours of sleep per night. His last sleep study was conducted approximately 5 to 6 years ago. He is currently under the care of Dr. Ant Roth. He underwent a sleep test with Dr. Baig 6 to 7 years ago but has not had any recent consultations. He says he has a slight leaky heart valve and [facility] to get another [facility]. He was just down there in March and nothing has changed from the previous echo. They are hoping to push it to where he turns 71 and then they would do the TAVR operation rather than open heart surgery. He had atrial fibrillation and congestive heart failure, which they said was due to atrial fibrillation. He was cardioverted at the [facility] and ever since then everything seems to be fine. He is still on Eliquis. MEDICATIONS Eliquis Current Outpatient Medications on File Prior to Visit Medication Sig Dispense Refill amiodarone (Pacerone) 200 MG tablet Take 100 mg by mouth in the morning. amLODIPine (Norvasc) 5 MG tablet Take 5 mg by mouth in the morning. apixaban (Eliquis) 5 MG tablet Take 5 mg by mouth in the morning and 5 mg before bedtime. ASPIRIN 81 PO Take 81 mg by mouth in the morning. digoxin (Lanoxin) 250 MCG tab;et Take 250 mcg by mouth in the morning. furosemide (Lasix) 40 MG tablet Take 40 mg by mouth in the morning. lisinopril 20 MG tablet Take 20 mg by mouth in the morning. metoprolol tartrate (Lopressor) 100 MG tablet Take 150 mg by mouth in the morning and 150 mg before bedtime. potassium chloride (Klor-Con) 20 MEQ packet Take 20 mEq by mouth in the morning and 20 mEq before bedtime. rosuvastatin (Crestor) 10 MG tablet Take 10 mg by mouth in the morning. No current facility-administered medications on file prior to visit. Past Medical History: Diagnosis Date A-fib (CMS/HCC) CHF (congestive heart failure) (CMS/HCC) High blood pressure (CMS/HCC) DANELLE (obstructive sleep apnea) Past Surgical History: Procedure Laterality Date CT ANGIOGRAM HEART CORONARY 04/26/2023 CT ANGIOGRAM TAVR 04/26/2023 CT ANGIOGRAM HEART CORONARY 04/26/2023 CT ANGIOGRAM TAVR 04/26/2023 JOINT REPLACEMENT Right knee replacement Family History Problem Relation Name Age of Onset Cancer Mother gallbladder Heart disease Father No Known Problems Sister No Known Problems Brother 2 Cancer Other Spouse thyroid, breast and skin No Known Problems Son No Known Problems Daughter Social History Tobacco Use Smoking status: Never Smokeless tobacco: Never Substance Use Topics Alcohol use: Never Comment: Caffeine: none ALLERGIES: Patient has no known allergies. REVIEW OF SYSTEMS: General: Appetite change: denies. Chills: denies. Fever: denies. Allergy/Immunology: Unusual rection to medications, food, animals or insects reaction: denies. Ophthalmologic: Visual acuity change: denies. ENT: Decreased hearing: denies. Endocrine: Weight loss: denies. Respiratory: Cough: denies. Wheezing: denies. Cardiovascular: Chest pain: denies. Palpitations: denies. Gastrointestinal: Abdominal pain: denies. Difficulty swallowing: denies Hematology: Bleeding problems: denies. Genitourinary: Painful urination: denies. Musculoskeletal: Joint pain: denies. Joint edema: denies. Skin: Rash: denies. Neurologic: Ataxia: denies, Tremor: denies. Psychiatric Anxiety: denies. Depression: denies. Insomnia: denies. Suicidal thoughts: denies. Also see HPI for elements of ROS documented therein and for details of positive findings, which shall supersede the foregoing. OBJECTIVE: Objective Vitals: 06/07/24 1433 BP: 142/86 Pulse: 90 SpO2: 98% Weight: 280 lb Height: 6' Body mass index is 37.97 kg/m . No orders to display No visits with results within 2 Month(s) from this visit. Latest known visit with results is: No results found for any previous visit. Results Imaging Echo showed a slight leaky valve. Examination: General Exam: pleasant, well nourished, well developed, in no acute distress Head: normocephalic, atraumatic Eyes: extraocular movement intact (EOMI), pupils equal, round, reactive to light, upper eyelids normal , lower eyelids normal Ears: no obvious hearing deficit Nose: Nares patent Neck/Throat: neck supple, full range of motion Oral Cavity: mucosa moist Skin: warm and dry Heart: no murmurs, regular rate and rhythm, S1, S2 normal Lungs: clear to auscultation bilaterally, good air movement, no wheezes, rales, rhonci, speaks in full sentences Chest: normal shape and expansion Abdomen: bowel sounds present, soft, nontender, nondistended, no guarding or rigidity Extremities: no edema, no cyanosis Musculoskeletal: no swelling or deformity Neurologic: AAOx3, memory intact, fund of knowledge appropriate Naming and repetition intact, fluent language, follows 3-step commands Pupils equal and reactive EOM intact, no gaze preference or deviation, no nystagmus. Normal sensation in V1, V2, and V3 segments bilaterally No facial asymmetry, no nasolabial fold flattening Normal hearing to speech Normal palatal elevation, no uvular deviation Normal midline tongue protrusion 5/5 head turn and 5/5 shoulder shrug bilaterally 5/5 muscle power in bilateral shoulder abductors/adductors, elbow flexors/extensors, wrist flexors/extensors, finger abductors/adductors. 5/5 in bilateral hip flexors/extensors, knee flexors/extensors, ankle dorsiflexors and plantar flexors. Reflexes 2/4 throughout, bilateral flexor plantar response, no Grullon's, no clonus Sensation intact to touch, pinprick, vibration, and temperature in all limbs No hemineglect, no extinction to double sided stimulation (visual & tactile) Romberg absent Coordination intact to finger to nose and heel to blakely, no tremor, no dysmetria Normal stance, no truncal ataxia Normal gait; patient able to tip-toe, heel-walk Psych: pleasant, cooperative, good eye contact, speech clear, judgement and insight good ASSESSMENT/PLAN: Assessment & Plan 1. Sleep Apnea. He has a history of sleep apnea and has been using an Auto BiPAP machine with settings of 24/12 and a pressure support of 4. He reports sleeping 8-9 hours per night with the machine. His last sleep study was approximately 5-6 years ago. He will be referred to Dr. Baig for a sleep study to ensure his current treatment plan is still appropriate. He is advised to sign a release form to facilitate the transfer of his medical records. 2. Atrial Fibrillation. He has a history of atrial fibrillation, which was previously managed with cardioversion. He continues to take Eliquis. He reports that his blood pressure is slightly elevated today but typically ranges from 130-132/80-82. He is advised to continue his current medication regimen and monitor his blood pressure regularly. 3. Congestive Heart Failure. He has a history of congestive heart failure secondary to atrial fibrillation. He undergoes regular echocardiograms every 6 months at the [facility] in [place]. The most recent echocardiogram in March showed no changes. He is scheduled for another echocardiogram in September. The plan is to manage his condition with medication until he reaches the age of 71, at which point a TAVR procedure may be considered. documented in this encounter [facility] 10-25-2023 History of Present illness Narrative [facility] Division of Cardiac Surgery I'm seeing ,Mr. Lenard Correa, a 68 y.o. male with history of HTN, HLD, DANELLE on BiPAP, tachycardia induced cardiomyopathy (recovered EF), atrial fibrillation, and severe bicuspid aortic valve stenosis. Follows with Dr. Goldman in Cardiology. They present for 6 month follow up with echo surveillance prior to the appointment. Patient was asymptomatic 6 months ago. He denies back pain, chest pain, shortness of breath and has no complaints of numbness or pain in the upper or lower extremities. For activity, he is active with his grandkids. Takes care of his lawn and goes on walks. He denies having any physical limitation. Review of Systems - General ROS: negative for - chills, fatigue, fever, night sweats or sleep disturbance. All other systems reported negative for HEENT, Cardiac, pulmonary, GI, , musculoskeletal, and integumentary. Current Meds: Current Outpatient Medications: AMIOdarone 200 MG tablet, Take 0.5 tablets by mouth daily., Disp: 15 tablet, Rfl: 5 amLODIPine 5 MG tablet, Take 1 tablet by mouth daily., Disp: , Rfl: Eliquis 5 MG tablet, Take by mouth every 12 hours., Disp: , Rfl: furOSEmide 40 MG tablet, Take 1 tablet by mouth daily., Disp: , Rfl: Lisinopril 20 MG tablet, Take 1 tablet by mouth daily., Disp: , Rfl: Metoprolol 100 MG tab regular release, Take 1.5 tablets by mouth 2 times daily., Disp: , Rfl: Multiple Vitamins-Minerals (Centrum Silver Adult 50+) tablet, Take by mouth., Disp: , Rfl: Potassium Chloride ER 20 MEQ Tab CR tablet, Take by mouth., Disp: , Rfl: Rosuvastatin 10 MG tablet, Take 1 tablet by mouth every evening at 6 PM., Disp: , Rfl: Zinc 30 MG capsule, Take 1 capsule by mouth daily., Disp: , Rfl: Physical Exam: Vital Signs BP 173/85 (BP Location: Left arm, BP Position: Sitting) Pulse (!) 47 Temp 98 F (36.7 C) (Oral) Resp 18 Ht 1.829 m (6') Wt 124.5 kg (274 lb 8 oz) SpO2 95% BMI 37.23 kg/m Smoking Status Never Alert and Oriented x3 RRR, no murmurs appreciated Radial pulses Lungs clear bilaterally. Abdomen is soft, rounded Extremities show no edema Skin is warm and dry. No focal deficits appreciated. Echocardiogram 02/24/23 LVIDD 5.9 Normal left ventricular size and systolic function. LVEF of 55-60%. Indeterminate diastolic function Severely dilated RV with normal systolic function Severe bi-atrial dilation Suspect bicuspid aortic valve with fusion of right and left coronary cusps. Calcified and restricted leaflets. Severe aortic stenosis (MG of 37 mmHg, PV 3.87 m/s, DI 0.23, DAVID 0.97 cm2) Mild mitral regurgitation Mild tricuspid regurgitation. RVSP of 27 mmHg Borderline dilated aortic root measuring 4.0 cm and ascending aorta measuring 3.7 cm. Results: I personally reviewed the CT images from 10/25/2023 Dr. Ospina, LVIDD 4.66 Left ventricular size is normal with concentric hypertrophy. Regional wall motion and global systolic function are normal. Ejection fraction 68% Left atrium measures severely enlarged in size Right ventricle is enlarged with normal systolic function. Estimated right ventricular/pulmonary artery systolic pressure is within the normal limits Right atrium measures moderate to severely enlarged in size Aortic valve is calcified. No regurgitation. Moderately severe (area 1.0cm2, mean gradient 32mmHg) to severe (dimensionless index 0.24) stenosis Ascending aorta is mildly enlarged, 3.8cm Further study details described below In comparison to an echo of January 2023, no significant changes have occurred. In summary, Mr. Lenard Correa, a 68 y.o. male with severe aortic valve stenosis. His valve disease is stable in comparison to 6 months ago, patient remains asymptomatic. Also, we discussed exercise and the importance of avoiding increases in intra-thoracic pressure. We will follow him up in 1 year with Echocardiogram. Patient to do a 6 month follow up with Cardiology. KARTHIKEYAN Omalley [facility] Nurse Practitioner P: [phone] F: [phone] CARDIAC SURGERY - STAFF Referring Pan Tank Worker: Dr. Saw Goldman Today I had the pleasure of seeing Lenard Correa is a 68 y.o. male with Landy NAPIER The patient is known to me for aortic stenosis. I have reviewed the patient's history, medications, and current complaints. Please see note for details regarding these. Briefly this is a 68 yo M. Known . He is asymptomatic and states that he is doing more from an activity level without any limitations. Symptoms Angina: No Edema: No Dyspnea: No Fatigue: No I have personally reviewed the imaging in regards to this issue and results are as follows: Echocardiogram: LVEF: 68% RV Function: Normal Aortic Valve: Moderate to severe Stenosis Mitral Valve: No significant abnormalities Tricuspid Valve: No significant abnormalities Other: NA Cardiac Catheterization: No significant CAD CT: Aortic Calcification: No Other: Annulus ~30 mm At this time, I feel we should proceed with observation. We will plan to get an echo in 6 months and will alternate echos and visits between 's office and our office. PLAN: Obtain the following: -Echo in 6 months -[facility] in 1 year Ryan Ospina MD Attending Surgeon Division of Cardiac Surgery documented in this encounter [facility] 10-25-2023 Instructions Tete Linares RN - 10/25/2023 11:15 AM EDT Thank you for choosing [facility] Division of Cardiac Surgery for your cardiac surgical needs. Please continue to follow-up with your Pan Tank Worker for your heart issues and with your Primary Care Physician for further medication refills and health care questions. We will contact you with an appointment for in one year with an echocardiogram. For Questions regarding follow-up in the future, please call [phone] and speak to Ryan Ospina MD s administrative dietitian. documented in this encounter [facility] 04-26-2023 Note EXAM: CT Angiogram o f the chest, abdomen and pelvis for TAVR evaluation, 04/26/2023 14:41 PM CLINICAL INDICATIONS: aortic stenosis; TECHNIQUE: The imaging was performed using a dual-source 128-slice MDCT system. A non-gated CT arterial angiogram with a spiral acquisition extending from shoulders to upper thighs covering the chest, abdomen and pelvis to assess the entire thoracic and abdominal aorta, as well as extremity branches for vascular access. CONTRAST: iohexol (OMNIPAQUE) 350 MG/ML injection 1-171 mL; Route of Administration: Intravenous; Dose: 100 mL. Post-processing consisted of 3D (including MIP) and 4D assessment on an FDA-approved advanced workstation. FINDINGS: Chest Wall: Degenerative changes of thoracic spine Mediastinum: Normal, without adenopathy Cat: Normal, without adenopathy Pleural Spaces: Normal, without thickening/effusion or pneumothorax Lung Parenchyma: Mild subsegmental atelectatic changes. Pericardium: Normal, without thickening/effusion. Aortic valvular calcification and coronary calcification atherosclerosis noted. Pulmonary Arteries: There is mild enlargement of the pulmonary arteries, with the main pulmonary artery measuring up to 3.4 cm. Thoracic Aorta: Mid-Ascending Segment (4 cm above annulus) = No atherosclerosis Minimum Diameter - 36 mm / Perpendicular Diameter - 38 mm Proximal Arch = No atherosclerosis, 32 mm Distal Arch = Minimal atherosclerosis, 33 mm Isthmus = No atherosclerosis, 34 mm Mid-Descending Segment = No atherosclerosis, 30 mm Diaphragm Level = Mild atherosclerosis, 27 mm Arch Branches: Patent with minimal scattered changes. Right Innominate Artery/Subclavian Artery: Minimal atherosclerosis No stenosis Minimum Diameter - 7.5 mm / Perpendicular Diameter - 8.7 mm No tortuosity Left Subclavian Artery: No atherosclerosis No stenosis Minimum Diameter - 7.6 mm / Perpendicular Diameter - 8.9 mm No tortuosity Abdominal Aorta: Suprarenal Segment = Minimal atherosclerosis, 26 mm Infrarenal Segment = Mild atherosclerosis, 24 mm Minimum Aortic Lumen Caliber: Minimum Diameter - 19 mm / Perpendicular Diameter - 22 mm Abdominal Aortic Branches: Atherosclerosis of celiac, SMA, renal, and FAM branches without significant stenoses. Right Common Iliac Artery Lumen: No atherosclerosis No stenosis Minimum Diameter - 13 mm / Perpendicular Diameter - 15 mm No tortuosity Left Common Iliac Artery Lumen: No atherosclerosis No stenosis Minimum Diameter - 14 mm / Perpendicular Diameter - 14 mm No tortuosity Right External Iliac Artery Lumen: No atherosclerosis No stenosis Minimum Diameter - 11 mm / Perpendicular Diameter - 11 mm No tortuosity Left External Iliac Artery Lumen: No atherosclerosis No stenosis Minimum Diameter - 11 mm / Perpendicular Diameter - 11 mm No tortuosity Right Femoral Artery Lumen: No atherosclerosis No stenosis Minimum Diameter - 11 mm / Perpendicular Diameter - 12 mm No tortuosity Left Femoral Artery Lumen: No atherosclerosis No stenosis Minimum Diameter - 9.9 mm / Perpendicular Diameter - 11 mm No tortuosity Liver: Normal Biliary System: Normal Pancreas: Normal Spleen: Normal Kidneys: Normal Adrenal Glands: Normal Bowels: Normal Retroperitoneum: Normal Pelvic Structures: Normal Abdominal and Pelvic Wall: Degenerative changes of lumbosacral spine and hip joints RADIOLOGY 04-04-2023 Nurse Note Discharge instructions and printed AVS reviewed with patient by AURELIA Raza all questions answered. Pt verbalizes understanding. IV dc'd with no difficulty and catheter tip intact. Telemetry dc'd. VS stable at time of discharge. Patient being discharged to home by wheelchair with spouse. No patient belongings left at bedside. Post procedure recovery without events. R radial site without bleeding or hematoma, palpable +2 pulses, verbalizes understanding of dc instructions. [facility] 04-04-2023 Miscellaneous Notes Discharge instructions and printed AVS reviewed with patient by AURELIA Raza all questions answered. Pt verbalizes understanding. IV dc'd with no difficulty and catheter tip intact. Telemetry dc'd. VS stable at time of discharge. Patient being discharged to home by wheelchair with spouse. No patient belongings left at bedside. Post procedure recovery without events. R radial site without bleeding or hematoma, palpable +2 pulses, verbalizes understanding of dc instructions. Pt arrives to room 2432 in IPR for CorLv. ECG completed. IV started in L arm. Labs drawn and sent. 0.9 NS IVF initiated @ 100mL/ hr per pump. Pt prep completed. Valuables given to . Clothes secured in room. Questions about procedure answered. Family brought to bedside. Bed in low position, side rail up x2 and call light given to pt. Tele monitor shows Sinus Gigi. PREPARING FOR YOUR VENETIAN BLIND MECHANIC PROCEDURE Your catheterization is scheduled on APRIL 04, 2023 at: [facility] at the [facility] located at [address], [place] [address]. You are to arrive at [facility] on the 1st floor at 8:00AM You may use waste/materials exchange specialist parking ($10) or park in the [facility] [employer] [facility] just past the [place] ($3). There is a walkway from the 2nd floor of the garage into the [place] Lobby. You are to have nothing to eat after MIDNIGHT You may drink CLEAR liquids up to the time you arrive or 2 hrs before the procedure. (water, juice, clear soda, tea, coffee NO CREAMERS). YOU ARE TO TAKE YOUR MEDICATIONS USUAL ON THE AM OF THE PROCEDURE UNLESS OTHERWISE INSTRUCTED. THEN SEE BELOW. ++++++++++++++++++++++++++++++++ ++++++++++++++++++++++++++++++++ + DO NOT TAKE ELIQUIS 04/02/2023, 04/03/2023, AND 04/04/2023 AM. ++++++++++++++++++++++++++++++++ ++++++++++++++++++++++++++++++++ + PLEASE BRING A COMPLETE AND ACCURATE LIST OF ALL THE MEDICATIONS THAT YOU TAKE ON A REGULAR BASIS. BRING AN OVERNIGHT BAG JUST IN CASE YOU HAVE TO SPEND THE NIGHT. JUST ESSENTIALS YOU WOULD NEED FOR BED. YOU ARE HAVING A LEFT HEART CATH - Expect to be at the hospital 6 - 8 hrs. If you get a stent, you may have to stay the night. ++++++++++++++++++++++++++++++++ ++++++++++++++++++++++++++++++++ ++ IF YOU REQUIRE CPAP, bring it with you. You will need it during your cath procedure. ++++++++++++++++++++++++++++++++ ++++++++++++++++++++++++++++++++ ++ If you have a contrast dye or iodine allergy or if you are on Coumadin or any other major blood thinners like Eliquis, Xarelto, Pradaxa and it was NOT addressed during scheduling, please call NOW to notify the lab ([phone]). You may receive sedation during your procedure and will not be permitted to drive yourself home. You will not be allowed to drive for 24-48 hrs. You will need a friend or family member to accompany you home (a taxi or bus is not acceptable). Failure to have a responsible person on discharge will result in cancellation of your procedure. HOSPITAL POLICY SAYS THAT YOU ARE PERMITTED TWO (2) VISITORS WITH YOU. ALTHOUGH, THE PREP AND RECOVERY AREA WHERE YOU WILL BE, ONLY ALLOWS 1 VISITOR AT A TIME WITH YOU IN THE ROOM BEFORE AND AFTER THE PROCEDURE. Labs: PLEASE GO TO [facility]. TO HAVE YOUR LAB WORK DRAWN ABOUT 1 WEEK BEFORE YOUR PROCEDURE. THESE ARE NOT FASTING LABS. YOU MAY BE TOLD BY ANOTHER DEPARTMENT THAT YOU WILL RECEIVE A REMINDER CALL THE DAY BEFORE YOUR PROCEDURE, BUT YOU WILL NOT RECEIVE A REMINDER CALL. IF YOU HAVE ANY QUESTIONS REGARDING THE PROCEDURE CALL US AT : [phone] THANK YOU, BERNADETTE MOSES Metal Bending Machine Operator Scheduling The above instructions were given to patient verbally over the phone AND VIA MY CHART. CLICK THE LINK BELOW FOR A VIDEO EXPLANATION OF THE CARDIAC CATH PROCEDURE AND OUT PATIENT PROCESS. [email or web address] I called patient to schedule his heart cath. There was no answer so I left a message on his voice mail requesting that he call us back. Our direct phone number was provided. [phone]. I also left him the following my chart message. Demarco GONSALES, I tried to contact you by phone but there was no answer. Please call us back at [phone] so we can schedule you heart cath that AALIYAH SANCHEZ ordered. Thank you, SHANE RN documented in this encounter [facility] 04-04-2023 Nurse Note Pt arrives to room 2432 in IPR for CorLv. ECG completed. IV started in L arm. Labs drawn and sent. 0.9 NS IVF initiated @ 100mL/ hr per pump. Pt prep completed. Valuables given to . Clothes secured in room. Questions about procedure answered. Family brought to bedside. Bed in low position, side rail up x2 and call light given to pt. Tele monitor shows Sinus Gigi. [facility] 03-08-2023 Nurse Note PREPARING FOR YOUR VENETIAN BLIND MECHANIC PROCEDURE Your catheterization is scheduled on APRIL 04, 2023 at: [facility] at the [facility] located at [address] [place] [address]. You are to arrive at [place] registration on the 1st floor at 8:00AM You may use waste/materials exchange specialist parking ($10) or park in the [employer] [facility] [facility] just past the [place] ($3). There is a walkway from the 2nd floor of the garage into the [facility]. You are to have nothing to eat after MIDNIGHT You may drink CLEAR liquids up to the time you arrive or 2 hrs before the procedure. (water, juice, clear soda, tea, coffee NO CREAMERS). YOU ARE TO TAKE YOUR MEDICATIONS USUAL ON THE AM OF THE PROCEDURE UNLESS OTHERWISE INSTRUCTED. THEN SEE BELOW. ++++++++++++++++++++++++++++++++ ++++++++++++++++++++++++++++++++ + DO NOT TAKE ELIQUIS 04/02/2023, 04/03/2023, AND 04/04/2023 AM. ++++++++++++++++++++++++++++++++ ++++++++++++++++++++++++++++++++ + PLEASE BRING A COMPLETE AND ACCURATE LIST OF ALL THE MEDICATIONS THAT YOU TAKE ON A REGULAR BASIS. BRING AN OVERNIGHT BAG JUST IN CASE YOU HAVE TO SPEND THE NIGHT. JUST ESSENTIALS YOU WOULD NEED FOR BED. YOU ARE HAVING A LEFT HEART CATH - Expect to be at the hospital 6 - 8 hrs. If you get a stent, you may have to stay the night. ++++++++++++++++++++++++++++++++ ++++++++++++++++++++++++++++++++ ++ IF YOU REQUIRE CPAP, bring it with you. You will need it during your cath procedure. ++++++++++++++++++++++++++++++++ ++++++++++++++++++++++++++++++++ ++ If you have a contrast dye or iodine allergy or if you are on Coumadin or any other major blood thinners like Eliquis, Xarelto, Pradaxa and it was NOT addressed during scheduling, please call NOW to notify the lab ([phone]). You may receive sedation during your procedure and will not be permitted to drive yourself home. You will not be allowed to drive for 24-48 hrs. You will need a friend or family member to accompany you home (a taxi or bus is not acceptable). Failure to have a responsible person on discharge will result in cancellation of your procedure. HOSPITAL POLICY SAYS THAT YOU ARE PERMITTED TWO (2) VISITORS WITH YOU. ALTHOUGH, THE PREP AND RECOVERY AREA WHERE YOU WILL BE, ONLY ALLOWS 1 VISITOR AT A TIME WITH YOU IN THE ROOM BEFORE AND AFTER THE PROCEDURE. Labs: PLEASE GO TO [facility]. TO HAVE YOUR LAB WORK DRAWN ABOUT 1 WEEK BEFORE YOUR PROCEDURE. THESE ARE NOT FASTING LABS. YOU MAY BE TOLD BY ANOTHER DEPARTMENT THAT YOU WILL RECEIVE A REMINDER CALL THE DAY BEFORE YOUR PROCEDURE, BUT YOU WILL NOT RECEIVE A REMINDER CALL. IF YOU HAVE ANY QUESTIONS REGARDING THE PROCEDURE CALL US AT : [phone] THANK YOU, BERNADETTE MOSES Metal Bending Machine Operator Scheduling The above instructions were given to patient verbally over the phone AND VIA MY CHART. CLICK THE LINK BELOW FOR A VIDEO EXPLANATION OF THE CARDIAC CATH PROCEDURE AND OUT PATIENT PROCESS. [email or web address]?[email or web address] [facility] 03-08-2023 Nurse Note I called patient to schedule his heart cath. There was no answer so I left a message on his voice mail requesting that he call us back. Our direct phone number was provided. [phone]. I also left him the following my chart message. Demarco GONSALES, I tried to contact you by phone but there was no answer. Please call us back at [phone] so we can schedule you heart cath that AALIYAH SANCHEZ ordered. Thank you, SHANE MOSES [facility] 02-24-2023 Nurse Note Discharge instructions and printed AVS reviewed with patient by RN, all questions answered. Pt verbalizes understanding. IV dc'd with no difficulty and catheter tip intact. Telemetry dc'd. VS stable at time of discharge. Patient being discharged to home with . No patient belongings left at bedside. Post procedure recovery without events. Sedation education reviewed on AVS. [facility] 02-24-2023 Miscellaneous Notes Discharge instructions and printed AVS reviewed with patient by RN, all questions answered. Pt verbalizes understanding. IV dc'd with no difficulty and catheter tip intact. Telemetry dc'd. VS stable at time of discharge. Patient being discharged to home with . No patient belongings left at bedside. Post procedure recovery without events. Sedation education reviewed on AVS. documented in this encounter [facility] 02-24-2023 Hospital Discharge instructions KARTHIKEYAN Sullivan - 02/24/2023 8:41 AM EDT Activity Start light exercise if your doctor says that it is okay. Even a small amount will help you get stronger, have more energy, and manage your stress. Walking is an easy way to get exercise. Start out by walking a little more than you did in the hospital. Bit by bit, increase the amount you walk. When you exercise, watch for signs that your heart is working too hard. You are pushing too hard if you cannot talk while you are exercising. If you become short of breath or dizzy or have chest pain, sit down and rest right away. Check your pulse regularly. Place two fingers on the artery at the palm side of your wrist in line with your thumb. If your heartbeat seems uneven or fast, talk to your doctor. Rest for 24 hours after you are home. You should have someone with you to help you the first night you are home. DO NOT drive for 24 hours. DO NOT make any important decisions for 24 hours. DO NOT work around the stove, machinery or power equipment for 24 hours. KARTHIKEYAN Sullivan - 02/24/2023 8:41 AM EDT Diet: Cardiac 4gm NA Low sodium, low fat, low cholesterol, caffeine controlled. Sodium restricted to 4 grams. KARTHIKEYAN Sullivan - 02/24/2023 8:41 AM EDT NOTIFY PHYSICIAN BLEEDING/BRUISING -If severe bleeding, apply pressure -Increased bleeding from site -Increased bruising or hematoma Chest pain or shortness of breath Respiratory Changes Call your doctor or nurse if you have shortness of breath that gets worse -Cough that gets worse -Coughing up blood Stroke Symptoms Call 911 if you suddenly have any of these signs of a stroke: -Numbness or muscle weakness -Trouble swallowing -Problems talking -Dizziness or feeling unsteady -Severe headache -Confusion SYMPTOMS OF DVT DVT = Deep Vein Thrombus, or Blood Clot -any tender, swollen, or reddened areas from your groin to your heels. -numbness or tingling in groin or calf -the skin on your leg looks pale or blue or it feels cold to touch -any shortness of breath -chest pain -fever or chills When you are nauseated, you may feel weak and sweaty and notice a lot of saliva in your mouth. Nausea often leads to vomiting. Most of the time you do not need to worry about nausea and vomiting, but they can be signs of other illnesses. The doctor has checked you carefully, but problems can develop later. If you notice any problems or new symptoms, get medical treatment right away. Follow-up care is a dugan part of your treatment and safety. Be sure to make and go to all appointments, and call your doctor if you are having problems. It's also a good idea to know your test results and keep a list of the medicines you take. How can you care for yourself at home? To prevent dehydration, drink plenty of fluids, enough so that your urine is light yellow or clear like water. Choose water and other caffeine-free clear liquids until you feel better. If you have kidney, heart, or liver disease and have to limit fluids, talk with your doctor before you increase the amount of fluids you drink. Rest in bed until you feel better. When you are able to eat, try clear soups, mild foods, and liquids until all symptoms are gone for 12 to 48 hours. Other good choices include dry toast, crackers, cooked cereal, and gelatin dessert, such as Jell-O. When should you call for help? Call 911 anytime you think you may need emergency care. For example, call if: You passed out (lost consciousness) Call your doctor now or seek immediate medical care if: You have symptoms of dehydration, such as: Dry eyes and a dry mouth Passing only a little dark urine Feeling thirstier than usual You have new or worsening belly pain You have a new or higher fever You vomit blood or what looks like coffee grounds Watch closely for changes in your health, and be sure to contact your doctor if: You have on going nausea and vomiting Your vomiting gets worse Your vomiting last longer than 2 days You are not getting better as expected Where can you learn more? Go to [email or web address].net/osumy chart. The following attachments cannot be sent through Care Everywhere.Cardioversion: Post-op (American)documented in this encounter [facility] 02-24-2023 History and physical note Lenard Correa is a 67 y.o. male here for DCCV. H&P reviewed from 02/15/23 by me, updates as listed. Updates: In summary, Lenard Correa is a 67 year old male with HTN, DANELLE on BiPAP, HFrecoveredEF(tachymediated, mod-severe aortix stenosis and persistent atrial fibrillation. He was diagnosed with AF with RVR in July of 2022 when he presented to ED with cough and PURCELL. He was found to have an LVEF of 35%. He was started on Amiodarone but cardioversion was never attempted. His rate is now controlled and his LVEF improved to 50%. He is symptomatic with fatigue, and decreased exercise intemperance. He is a [id number] score of 3 and is anticoagulated on Eliquis. He denies any missed doses x4 weeks. Patient Active Problem List Diagnosis Essential hypertension Persistent atrial fibrillation Objective BP (!) 186/93 Pulse 64 Temp 98.2 F (36.8 C) (Oral) Resp 16 Ht 1.829 m (6') Wt 117.9 kg (260 lb) SpO2 97% BMI 35.26 kg/m Smoking Status Never Body mass index is 35.26 kg/m . Telemetry AF Cardiac Testing Echo 09/24/22-LVEF 50%, moderate LVH, borderline global hypokinesis LV, Stage III diastolic dysfunction, moderate constriction of aortic valve with mean gradient of 25 mmHG Echo 07/30/22-LVEF 35%, LA moderately enlarged, moderately severe MV insufficiency, moderate to severe aortic stenosis, RVSP 55mmHG Stress 11/17/22-Perfusion defect inferior wall consistent with attenuation artifact and/or infarct Referring MD: Dr Goldman PCP Ant VIZCARRA MD: Never seen by EP physician Anticoagulation: Eliquis Missed doses? no Last dose taken 02/24/23 [id number] Score: 3 (HTN, HF, Age) Antiarrythmics:Currently on Amiodarone No results found for: WBC, WBCCOUNT, WBCFETAL, HGB, HCT, PLATELET, MCV No results found for: SODIUM, POTASSIUM, CHLORIDE, CO2, BUN, CREATSERUM, GLUCOSE No results found for: INR Medications Prior to Admission Medication Sig Dispense Refill Last Dose AMIOdarone 200 MG tablet Take 1 tablet by mouth daily. amLODIPine 5 MG tablet Take 1 tablet by mouth daily. aspirin 81 MG Chew Tab chewable tablet Chew 1 tablet daily. Digoxin 250 MCG tablet Take 1 tablet by mouth daily. Eliquis 5 MG tablet Take by mouth every 12 hours. furOSEmide 40 MG tablet Take 1 tablet by mouth daily. Lisinopril 20 MG tablet Take 1 tablet by mouth daily. Metoprolol 100 MG tab regular release Take 1.5 tablets by mouth 2 times daily. Multiple Vitamins-Minerals (Centrum Silver Adult 50+) tablet Take by mouth. Potassium Chloride ER 20 MEQ Tab CR tablet Take by mouth. Rosuvastatin 10 MG tablet Take 1 tablet by mouth daily. Zinc 30 MG capsule Take by mouth 2 times daily. Review of Systems - Negative except as noted above Physical Exam General appearance - alert, LOC x 3, well appearing, and in no distress Neck - supple, no significant adenopathy, carotids upstroke normal bilaterally without bruits. Chest - lungs clear to auscultation, breath sounds equal and symmetric, no rhonchi, rales or wheezes Heart - irregularly irregular, S1 and S2 normal, no murmurs, clicks, gallops or rubs, normal bilateral carotid upstroke without bruits, no JVD Abdomen - soft, nontender, nondistended, no masses or organomegaly, bowel sounds present x 4 quadrants. Extremities - peripheral pulses normal, no pedal edema, no clubbing or cyanosis Skin - normal coloration and turgor, no rashes, no suspicious skin lesions noted Assessment and Plan: Persistent atrial fibrillation-On Amiodarone. No missed doses of Eliquis x4 weeks. Fellow to obtain consent. OK to proceed with DCCV today. Plan is to have echocardiogram today to assess severity of aortic valve to plan for valve+MAZE vs AF RFA. Bonita Mccollum, FOOD SANITARIAN-POLISHER HAND 02/24/2023 Associated attestation - Oscar Nolasco MD - 02/24/2023 10:51 AM EDT Attending Physician Note I have personally interviewed and examined this patient with the Nurse Practitioner on 02/24/23. I have reviewed the history and examination and edited these in the note above. I agree with the medical decision and components of the note as edited by me. Patient is alert and oriented and VS stable. He presents with symptomatic persistent AF with shortness of breath and fatigue. He has had some improvement with better rate control on amiodarone. Also, there is moderate-severe . We plan DC cardioversion. The procedure was explained with indication, risks and benefits and he consents to proceed. Oscar Nolasco MD, [facility], [facility] Steven Chatman Chair in Cardiac Electrophysiology Professor of Clinical Medicine [facility] 02-24-2023 History and physical note Lenard Correa is a 67 y.o. male here for DCCV. H&P reviewed from 02/15/23 by me, updates as listed. Updates: In summary, Lenard Correa is a 67 year old male with HTN, DANELLE on BiPAP, HFrecoveredEF(tachymediated, mod-severe aortix stenosis and persistent atrial fibrillation. He was diagnosed with AF with RVR in July of 2022 when he presented to ED with cough and PURCELL. He was found to have an LVEF of 35%. He was started on Amiodarone but cardioversion was never attempted. His rate is now controlled and his LVEF improved to 50%. He is symptomatic with fatigue, and decreased exercise intemperance. He is a [id number] score of 3 and is anticoagulated on Eliquis. He denies any missed doses x4 weeks. Patient Active Problem List Diagnosis Essential hypertension Persistent atrial fibrillation Objective BP (!) 186/93 Pulse 64 Temp 98.2 F (36.8 C) (Oral) Resp 16 Ht 1.829 m (6') Wt 117.9 kg (260 lb) SpO2 97% BMI 35.26 kg/m Smoking Status Never Body mass index is 35.26 kg/m . Telemetry AF Cardiac Testing Echo 09/24/22-LVEF 50%, moderate LVH, borderline global hypokinesis LV, Stage III diastolic dysfunction, moderate constriction of aortic valve with mean gradient of 25 mmHG Echo 07/30/22-LVEF 35%, LA moderately enlarged, moderately severe MV insufficiency, moderate to severe aortic stenosis, RVSP 55mmHG Stress 11/17/22-Perfusion defect inferior wall consistent with attenuation artifact and/or infarct Referring MD: Dr Goldman PCP Ant VIZCARRA MD: Never seen by EP physician Anticoagulation: Eliquis Missed doses? no Last dose taken 02/24/23 [id number] Score: 3 (HTN, HF, Age) Antiarrythmics:Currently on Amiodarone No results found for: WBC, WBCCOUNT, WBCFETAL, HGB, HCT, PLATELET, MCV No results found for: SODIUM, POTASSIUM, CHLORIDE, CO2, BUN, CREATSERUM, GLUCOSE No results found for: INR Medications Prior to Admission Medication Sig Dispense Refill Last Dose AMIOdarone 200 MG tablet Take 1 tablet by mouth daily. amLODIPine 5 MG tablet Take 1 tablet by mouth daily. aspirin 81 MG Chew Tab chewable tablet Chew 1 tablet daily. Digoxin 250 MCG tablet Take 1 tablet by mouth daily. Eliquis 5 MG tablet Take by mouth every 12 hours. furOSEmide 40 MG tablet Take 1 tablet by mouth daily. Lisinopril 20 MG tablet Take 1 tablet by mouth daily. Metoprolol 100 MG tab regular release Take 1.5 tablets by mouth 2 times daily. Multiple Vitamins-Minerals (Centrum Silver Adult 50+) tablet Take by mouth. Potassium Chloride ER 20 MEQ Tab CR tablet Take by mouth. Rosuvastatin 10 MG tablet Take 1 tablet by mouth daily. Zinc 30 MG capsule Take by mouth 2 times daily. Review of Systems - Negative except as noted above Physical Exam General appearance - alert, LOC x 3, well appearing, and in no distress Neck - supple, no significant adenopathy, carotids upstroke normal bilaterally without bruits. Chest - lungs clear to auscultation, breath sounds equal and symmetric, no rhonchi, rales or wheezes Heart - irregularly irregular, S1 and S2 normal, no murmurs, clicks, gallops or rubs, normal bilateral carotid upstroke without bruits, no JVD Abdomen - soft, nontender, nondistended, no masses or organomegaly, bowel sounds present x 4 quadrants. Extremities - peripheral pulses normal, no pedal edema, no clubbing or cyanosis Skin - normal coloration and turgor, no rashes, no suspicious skin lesions noted Assessment and Plan: Persistent atrial fibrillation-On Amiodarone. No missed doses of Eliquis x4 weeks. Fellow to obtain consent. OK to proceed with DCCV today. Plan is to have echocardiogram today to assess severity of aortic valve to plan for valve+MAZE vs AF RFA. Bonita Mccollum, FOOD SANITARIAN-POLISHER HAND 02/24/2023 Associated attestation - Oscar Nolasco MD - 02/24/2023 10:51 AM EDT Attending Physician Note I have personally interviewed and examined this patient with the Nurse Practitioner on 02/24/23. I have reviewed the history and examination and edited these in the note above. I agree with the medical decision and components of the note as edited by me. Patient is alert and oriented and VS stable. He presents with symptomatic persistent AF with shortness of breath and fatigue. He has had some improvement with better rate control on amiodarone. Also, there is moderate-severe . We plan DC cardioversion. The procedure was explained with indication, risks and benefits and he consents to proceed. Oscar Nolasco MD, [facility], [facility] Steven Chatman Chair in Cardiac Electrophysiology Professor of Clinical Medicine documented in this encounter [facility] 02-15-2023 History of Present illness Narrative NEW PATIENT - ATRIAL ARRHYTHMIA CLINIC VISIT for CARDIAC ELECTROPHYSIOLOGY Primary care provider: Ant Roth Cardiology physician: /Shady Knox CNP [facility] Provider for this encounter: KARTHIKEYAN Sullivan It was my pleasure to see Lneard Correa independently for Cardiovascular Electrophysiology on 02/15/2023. Mr. Correa is a 67 y.o. 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 Mr. Correa is here to establish care for management of atrial fibrillation. He was first diagnosed in July of 2022 when he presented to the ED with dyspnea/cough and was found to be in HFrEF. His LV function was found to be 35% in AF with RVR. He was started on Amiodarone, Toprol, Eliquis, and digoxin.Cardioversion was never attempted and he has been in rate controlled atrial fibrillation since discharge in July. Follow up echocardiogram shows an LVEF of 50%. Symptomatically, he seems to feel OK. He does note increased fatigue and possibly some decreased exercise tolerance, but he is able to do normal activities, yard activities, etc without difficulty. ASSESSMENT and PLAN Mr. 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 Reports PURCELL, faituge . We discussed pathophysiology of atrial arrhythmias and treatment options including benefits and risks of medical management/antiarrhythmic drugs, cardioversion, and ablation therapy. He prefers cardioversion as bridge to ablation. - LDL and A1c labs reviewed from September,factory - Stress testing showed inferior wall perfusion defect consistent with attenuation. No symptoms of ischemia. - Echo from July and August reviewed - Continue Amiodarone for rhythm control; - Continue Eliquis for stroke risk reduction in setting of [id number] score of 3 (for CHF, HTN and age). A score of 3 is associated with 3.2% unadjusted ischemic stroke rate per year . - Discussed lifestyle modifications to promote heart health, specifically progression of exercise regimen . He denies alcohol and tobacco use. -Schedule for AF ablation with CARTO/general anesthesia and CTPV prior. Hold dose of Eliquis morning of procedure. HFrEF(recovered)/Tachyinduced cardiomyopathy/LVEF 50% now -Continue Toprol, Losartan -Because of his reduction in LVEF, thought to be tachyinduced, rhythm control is preferred DANELLE on BiPAP -Continue compliance. Uses nightly. high risk medication use Currently on Amiodarone - monitoring. Will continue until after ablation Moderate Aortic Stenosis -asymptomatic -Mean pressure gradient 25mmHG and AV area 1.0 HTN Elevated today. - Encouraged periodic home monitoring and keep log - Continue current regimen, will talk to or PCP re:management obesity, class 2 There is no height or weight on file to calculate BMI. - Discussed health benefits of dietary and lifestyle modifications to promote weight loss, specifically reduced portion sizes . RECOMMENDED FOLLOW UP We will plan on return visit in 3-4 months after ablation, or sooner if needed. If you have any questions or concerns, please do not hesitate to contact me. Sincerely, Bonita Mccollum APRN-POLISHER HAND Clinical Electrophysiology, Division of Cardiovascular Medicine, [facility] SUBJECTIVE Today the patient reports feeling fatigue. Review of Systems Constitutional: Positive for malaise/fatigue. Cardiovascular: Positive for dyspnea on exertion. All other systems reviewed and are negative. OBJECTIVE Physical Exam Constitutional: In general, the patient appears well and in no distress. Overweight. Cardiovascular: Slow rate, irregular rhythm; S1 normal, S2 normal. No murmurs, clicks, rubs, or gallops appreciated . Respiratory: No respiratory distress, normal normal work of breathing. Breath sounds are Normal, lungs are clear without rales or rhonchi . Abdomen: Round, soft, non-tender. Extremities: No peripheral edema. Palpable radial pulses equal bilaterally. Skin: Without apparent icterus, rash, or other lesions of the visualized skin. Warm, dry. Neurologic: Alert. Oriented to self, place, and time. Psychiatric: Good attention and Normal thought process. Mood is fair. Good insight into situation and disease process. I have reviewed each of the following bulleted unique test results as part of today's service: Notes from [facility] from October 2022 Echo 09/24/22-LVEF 50%, moderate LVH, borderline global hypokinesis LV, Stage III diastolic dysfunction, moderate constriction of aortic valve with mean gradient of 25 mmHG Echo 07/30/22-LVEF 35%, LA moderately enlarged, moderately severe MV insufficiency, moderate to severe aortic stenosis, RVSP 55mmHG Stress 11/17/22-Perfusion defect inferior wall consistent with attenuation artifact and/or infarct I personally spent the following amount of time to complete the visit: ACTIVITY TIME Direct communication with the patient. 50 minutes Other patient care activities related to this service including chart/data review, coordination of care, and/or preparation of documentation. 20 minutes Total time spent on this service. 70 minutes Medical decision making complexity was high. Patient Education Patient education regarding the following topic(s) was provided on 02/16/2023: diagnostic tesing (CT scan) and procedure identification (cardioversion and ablation). Those in attendance for the education included: patient and spouse. Barriers in providing the education included: none. The following methods were used in providing the education: explanation and handout. [facility] handouts given included: After visit summary. The response of those in attendance was: states/identifies education topic. The following Clinical Intervention(s) occurred during today s visit: None documented in this encounter [facility] 02-15-2023 Instructions Jialyn Virk RN - 02/15/2023 12:30 PM EDT Arrange for cardioversion - please call Jb at [phone] to schedule Arrange for atrial fibrillation ablation with a CT scan beforehand If your CT scan is on a different day than the procedure, you may eat and drink up to the CT scan. If your CT scan is on the same days as the procedure, do NOT eat or drink after midnight. Do not take Eliquis the morning of your procedure, but you may take other medications with a sip of water both days. Bring a current list of your medications. If your CT scan is on a different day than the ablation, you may drive yourself. If it is on the same day as the ablation, you will need a bus driver/monitor to bring you to the hospital and to pick you up at time of discharge. Jb Moncada at will call you to schedule the procedure when scheduling permits. A nurse from the EP lab will call you 7 days prior to your procedure to review these instructions. Continue current medications Thank you for choosing [facility] for your [facility] Care. [employer] is an available tool to securely access your online medical information. Please ask to enroll during any [facility] appointment. Once enrolled, your MD reviewed test results will be available for you to review at your convenience. [employer] messaging is reserved for non urgent messages and responses may take a few days. Call the [facility] at [phone] option 6, option 3 for urgent EP questions/concerns M-F 8 to 4:00 Call Scheduling for any appointment/procedure verification or changes [phone] If we are sending you an Event monitor and you have not received it when expected, please call the office. For any questions/problems with your monitor please call Mariah at [phone]. [facility] testing and procedure patient Instructions may be obtained at: [email or web address] Insurance Concerns: [email or web address] The following attachments cannot be sent through Care Everywhere.Pulmonary Vein CT Scan ([facility]) (American)Cardioversion: General Info (American)documented in this encounter [facility] 02-15-2023 Miscellaneous Notes Addended by: BONITA MCCOLLUM on: 02/15/2023 04:53 PM Modules accepted: Orders documented in this encounter [facility] 02-15-2023 Note Addended by: BONITA MCCOLLUM on: 02/15/2023 04:53 PM Modules accepted: [facility] Note Addended by: BONITA MCCOLLUM on: 02/15/2023 04:53 PM Modules accepted: Orders [facility] 07-31-2022 Progress note Note Date/Time July 31, 2022 5:45pm [facility] Medical Records Department [address] [place] [address] Progress Note - Hospitalist 07/31/22 1740 MR#: [id number] Acct: [id number] Name: LENARD CORREA Rep #:[id number] : 1955 67 From: Chapo Baez DO PCP: Dr. Ant Roth MD Status:ADM I N Location: [place] [address] Reason for Visit Reason for Visit: Diagnoses Hyperlipidemia, unspecified (07/29/22) Essential (primary) hypertension (07/29/22) Pulmonary hypertension, unspecified (07/29/22) Endocarditis, valve unspecified (07/29/22) Cardiomyopathy, unspecified (07/29/22) Unspecified atrial fibrillation (07/29/22) Heart failure, unspecified (07/29/22) Hypoxemia (07/29/22) Subjective Subjective Patient was seen and examined today, I discussed his care with cardiology today,he has been tachycardic when up walking around, I have decided to increase the patient's metoprolol after discussing this with Dr. Huynh. Patient was weaned off oxygen today, he does not appear short of breath, chest x-ray showed small bilateral pleural effusions. Objective Data Objective Data Vital Signs: Vital Signs Temp Pulse Resp BP Pulse Ox O2 Del Method O2 Flow Rate 98.4 F 120 H 16 111/87 H 97 Room Air 0 07/31/22 15:38 07/31/22 15:41 07/31/22 15:38 07/31/22 15:41 07/31/22 15:38 07/31/22 15:38 07/31/22 12:19 Oxygen Flow Rate (L/min) [ 0 AMBULATING on Room Air] Oxygen Flow Rate (L/min) [At 0 REST on Room Air] Oxygen Flow Rate (L/min) 3 Oxygen Delivery Method Room Air Weight: 118.5 kg Body Mass Index (BMI) 35.4 Intake & Output: Intake and Output for Last 24 Hours 07/29/22 07/30/22 07/31/22 23:59 23:59 23:59 Intake Total 1113.0 / 1113.0 1074.75 / 1314.75 820 / 820 Output Total 1325 / 1325 Balance 1113.0 / 1113.0 -250.25 / -10.25 820 / 820 Lab / Micro Data Result Diagrams: 07/30/22 03:55 07/31/22 05:21 Labs: Laboratory Results - last 24 hr 07/31/22 05:21: Sodium 138, Potassium 3.6, Chloride 106, Carbon Dioxide 24.0, Anion Gap 8, BUN 25 H, Creatinine 1.13, Estim Creat Clear Calc 70.58, Est GFR (MDRD) Af Amer 83, Est GFR (MDRD) Non-Af 69, BUN/Creatinine Ratio 22.1 H, Glucose 90, Calcium 8.3 L Micro: Microbiology 07/29/22 18:11 Nasal Secretion SARS-CoV-2 & FLU Antigen (Rapid) - Final Radiography Diagnostic Testing: Radiology Impression Chest X-Ray 07/31/22 07:00 IMPRESSION: Small bilateral pleural effusions with bibasilar atelectasis, slightly worsened when compared with the prior study. Electronically Signed: Reece Holley MD at 17:32 EST , Rhythm Strip Rhythm Strip: A-fib Rate: 177 Ectopy: None Physical Exam Const alert, oriented x3, no apparent distress, average body habitus and healthy appearing General Appearance: cooperative, well kempt and well developed Orientation / Consciousness: awake, oriented to person, oriented to place and oriented to time HEENT normocephalic, head/scalp atraumatic and moist oral mucous membranes Eyes PERRL, EOMs intact bilaterally and conjunctivae normal Neck supple, no JVD, thyroid normal and no carotid bruits General: trachea midline Resp normal respiratory effort, no retractions, no use of accessory muscles and clearto auscultation bilaterally Auscultation: Negative for rales, rhonchi or wheezes Cardio S1 normal heart sound, S2 normal heart sound, no murmurs, no rub and no gallops Cardio Narrative: Heart rate and rhythm is irregular GI normal to inspection, nondistended, normoactive bowel sounds, soft to palpation,non-tender and non-distended Extremity Extremity Narrative: Mild lower leg edema was noted Skin no rashes or lesions noted General Skin Exam: no breakdown Neuro oriented x3, CN's II-XII intact bilaterally, moves all extremities, no focal motor deficits and no sensory deficits noted Sensorium / Orientation: awake and alert Speech: speech normal Psych affect normal Assessment & Plan Assessment/Plan (1) Atrial fibrillation with RVR: PLAN: Plan 1. Acute systolic congestive heart failure-initial episode-patient will continue on IV Lasix, labs will be repeated tomorrow, anticipate changing over to oral Lasix tomorrow #2 new onset atrial fibrillation with RVR-again patient is on oral amiodarone, Iincrease his metoprolol to 150 mg twice daily, patient is on Eliquis. #3 cardiomyopathy-most probably not rate related, patient will need to undergo awork-up for the cardiomyopathy as an outpatient most probably #4 hypoxia-resolved at this time, secondary to acute systolic congestive heart failure #5 essential hypertension-patient will remain on lisinopril #6 hyperlipidemia-patient is on Crestor #7 hypercoagulable state secondary to #2-patient is on Eliquis Total clinical time spent by myself addressing the patient's medical issues, reviewing all the data, and collaborating with the patient's care team: 35 minutes Charges/Coding Visit Charges Inpatient E&M: 53012 Subs Hosp L2 07/31/22 5259 <Electronically signed by Chapo Baez DO> Cosigner Signature (if applicable): CC: ~ Signed [facility] Work Phone: [phone]) 167-172303-04-[address] Huynh [facility] July 31, 2022 12:20pm Note Date/Time July 31, 2022 12:2 0pm [facility] Medical Records Department [address] [place] [address] Progress Note - Cardiology 07/31/22 1124 MR#: [id number] Acct: [id number] Name: LENARD CORREA Rep #:[id number] : 1955 67 From: Ant Huynh MD PCP: Dr. Ant Roth MD Status:ADM I N Location: [place] [address] Subjective Subjective The patient is awake and alert this morning. He denies any ongoing chest discomfort or palpitations. There has been no obvious issues with classic acuteCHF/pulmonary edema this day. He is still wearing O2 nasal cannula at this time. Objective Data Vital Signs: Vital Signs Temp Pulse Resp BP Pulse Ox O2 Del Method O2 Flow Rate 98.4 F 121 H 16 128/93 H 96 Nasal Cannula 3 07/31/22 08:08 07/31/22 08:15 07/31/22 08:08 07/31/22 08:15 07/31/22 08:08 07/31/22 08:15 07/31/22 08:15 Oxygen Flow Rate (L/min) 3 Oxygen Delivery Method Nasal Cannula Weight: 261 lb 3.964 oz Body Mass Index (BMI) 35.4 Intake & Output: Intake and Output for Last 24 Hours 07/29/22 07/30/22 07/31/22 23:59 23:59 23:59 Intake Total 1113.0 / 1113.0 1074.75 / 1314.75 340 / 340 Output Total 1325 / 1325 Balance 1113.0 / 1113.0 -250.25 / -10.25 340 / 340 Lab / Micro Data Result Diagrams: 07/30/22 03:55 07/31/22 05:21 Labs: Laboratory Results - last 24 hr 07/31/22 05:21: Sodium 138, Potassium 3.6, Chloride 106, Carbon Dioxide 24.0, Anion Gap 8, BUN 25 H, Creatinine 1.13, Estim Creat Clear Calc 70.58, Est GFR (MDRD) Af Amer 83, Est GFR (MDRD) Non-Af 69, BUN/Creatinine Ratio 22.1 H, Obolufb25, Calcium 8.3 L Rhythm Strip Rhythm Strip: A-fib Rate: 177 Ectopy: None Cardiology Labs/Tests 07/31/22 05:21: Sodium 138, Potassium 3.6, Chloride 106, Carbon Dioxide 24.0, Anion Gap 8, BUN 25 H, Creatinine 1.13, Est GFR (MDRD) Af Amer 83, Est GFR (MDRD) Non- Af 69, BUN/Creatinine Ratio 22.1 H, Glucose 90, Calcium 8.3 L Rhythm: Atrial fibrillation Radiography Diagnostic Testing: Radiology Impression Echocardiogram 07/30/22 00:17 Interpretation Summary Mildly dilated left ventricle. Moderate global left ventricular systolic dysfunction. The estimated ejection fraction is 35 %. The left atrium is moderately enlarged. The right atrium is mildly enlarged. There is mild mitral annular calcification. Mild focal mitral valve calcification of the anterior leaflet. Moderately severe (3+) mitral valve insufficiency. Mild eccentric tricuspid valve insufficiency. Moderate to severe aortic stenosis. Trivial pulmonic valve insufficiency. Trivial pericardial effusion. There are no echocardiographic indications of cardiac tamponade. Echolucency compatible with a pleural effusion. Right ventricular systolic pressure estimated to be 55 mmHg patible with pulmonary hypertension. Diastolic function is indeterminate. Ordering Physician: Tommy Lira Referring Physician: Ant Roth Performed By: Elvira Knox RDCS, RVT Physical Exam Const alert, oriented x3 and no apparent distress Orientation / Consciousness: awake HEENT normocephalic, head/scalp atraumatic and hearing grossly normal bilaterally Eyes PERRL, EOMs intact bilaterally, conjunctivae normal and no scleral icterus Neck full ROM, supple and no JVD Carotids: normal carotid upstroke Resp Auscultation: diminished lung sounds bilateral (bases) Cardio Rhythm: abnormal rhythm irregularly irregular Heart Sounds: S1 normal, S2 normal and murmur systolic II/ soft mid left sternal border GI normal to inspection, nondistended, normoactive bowel sounds Extremity General Extremity: edema left lower extremity trace Skin no rashes or lesions noted Psych mental status grossly normal Assessment & Plan Assessment/Plan (1) Atrial fibrillation with RVR: PLAN: The patient remains in atrial fibrillation. His heart rate remains elevated. He is rate limiting medication dose is going to be increased to metoprolol tartrate 100 mg p.o. twice daily. He is continuing anticoagulant therapy. He is also on antiarrhythmic therapy with amiodarone. (2) Cardiomyopathy: PLAN: The patient's echocardiogram was reviewed. He does have what appears to be a global left ventricular systolic dysfunction with a diminished LVEF of 35%. It is unclear whether this is related to his atrial dysrhythmia, his underlying valvular heart disease, or underlying CAD. He will continue combined medical therapy which at the moment is including furosemide at 20 mg IV twice daily, potassium supplement, and lisinopril 20 mg p.o. daily. (3) Acute CHF (congestive heart failure): PLAN: The patient appears to be clinically improved from what was previously described with concerns of acute CHF. He is continuing medical therapy as noted above. (4) Valvular heart disease: PLAN: The patient does have valvular heart disease as described on his echocardiogram. Again its unclear whether this is a participating factor in his other objective findings. He will need continued evaluation and care of this going forward as to whether or not he will eventually need valvular repair/replacement. (5) Pulmonary HTN: PLAN: The patient's estimated RV systolic pressure was elevated compatible with pulmonary hypertension. From a cardiovascular standpoint there may be a contributing factor from his underlying valvular heart related issues superimposed upon his other cardiac comorbidities and noncardiovascular issues. He will continue medical therapy/support as noted above at this time. He is also on oxygen therapy at this time. Hopefully if he clinically improves this can be weaned off. (6) HLD (hyperlipidemia): PLAN: The patient has a history of hyperlipidemia. He is continuing rosuvastatin 10 mg p.o. daily (7) HTN (hypertension): PLAN: The patient has a history of hypertension. He is on medical management as noted. Hopefully his blood pressures will stay reasonably well controlled. Addt'l Comments The patient's case was discussed and reviewed with the patient, previously with Dr. Alvarado performed his cardiovascular consultation and with Dr. Baez. Overall, it appears at the moment the plan is for continued conservative medicalmanagement and once his cardiovascular condition stabilizes to consider future further cardiac diagnostic evaluation with diagnostic cardiac catheterization which depending upon the patient's status may be either as an inpatient or potentially as an outpatient. Comment: Time spent the patient's evaluation/care including examination, review of medical records/imaging studies, discussion with the patient and the [facility] medical staff, and documentation, etc.: 40 minutes. Procedure Criteria Type of Procedure Procedure Type: Elective Elective Risks - COVID COVID Risk Discussion: The surgeon/proceduralist and patient have discussed in detail the risk of exposure to and/or potential harm posed by the COVID-19 virus with having a surgery/procedure at this time versus the risk of delaying the surgery/procedure. It is not possible to know either the risk of delaying the surgery or procedure or chance of getting an infection with perfect accuracy, but a joint decision was made between the patient and the surgeon/proceduralist to proceed at this time with the scheduled surgery/procedure as indicated on the consent form. 07/31/22 1220 <Electronically signed by Ant Huynh MD> Cosigner Signature (if applicable): CC: ~ Signed [facility] Work Phone: [phone] 135-302703-03-[address] Baez [facility] July 30, 2022 7:04pm Note Date/Time July 30, 2022 7:04 pm [facility] Medical Records Department [address] [place] [id number] Progress Note - Hospitalist 07/30/22 1856 MR#: [id number] Acct: [id number] Name: LENARD CORREA Rep #:[id number] : 1955 67 From: Chapo Baez DO PCP: Dr. Ant Roth MD Status:ADM I N Location: [place] [address] Reason for Visit Reason for Visit: Diagnoses Unspecified atrial fibrillation (07/29/22) Heart failure, unspecified (07/29/22) Hypoxemia (07/29/22) Subjective Subjective Patient was seen and examined today, I discussed his care with cardiology today,I also discussed his care with his who was at the bedside during the time my examination today. Patient was admitted for dyspnea yesterday and was found to have new onset atrial fibrillation with rapid ventricular response and acute congestive heart failure. Cardiology told me today the patient's echocardiogramshows reduced EF of 35%. He had been placed on IV digoxin, IV Cardizem, and IV amiodarone when he was admitted yesterday. I stop the patient's IV digoxin today and placed him on p.o. Cardizem with the intent of discontinuing IV Cardizem after the patient had responded to the oral Cardizem, cardiology however felt that the patient was better served to be placed on a beta-bill and placed the patient on metoprolol and stop the oral Cardizem. They also directed that the patient's IV Cardizem be stopped after the patient had his metoprolol. Finally, cardiology instructed me to stop the patient's amiodarone drip when his current bag was finished and place him on amiodarone 200 mg twice daily. At the time of this dictation, patient's pulse rate has slowed into the 80s and 90s but remains in atrial fibrillation. Objective Data Objective Data Vital Signs: Vital Signs Temp Pulse Resp BP Pulse Ox O2 Del Method O2 Flow Rate 98.7 F 83 22 H 101/70 95 Nasal Cannula 3 07/30/22 18:00 07/30/22 18:00 07/30/22 18:00 07/30/22 18:00 07/30/22 18:00 07/30/22 18:00 07/30/22 18:00 Oxygen Flow Rate (L/min) 3 Oxygen Delivery Method Nasal Cannula Weight: 118.3 kg Body Mass Index (BMI) 35.4 Intake & Output: Intake and Output for Last 24 Hours 07/28/22 07/29/22 07/30/22 23:59 23:59 23:59 Intake Total 1113.0 / 1113.0 1074.75 / 1074.75 Output Total 1325 / 1325 Balance 1113.0 / 1113.0 -250.25 / -250.25 Lab / Micro Data Result Diagrams: 07/30/22 03:55 07/30/22 03:55 Labs: Laboratory Results - last 24 hr 07/29/22 17:30: Magnesium 2.2 07/29/22 21:00: B-Natriuretic Peptide 524.1 H 07/30/22 03:55: WBC 12.8 H, RBC 4.76, Hgb 14.1, Hct 43.5, MCV 91.4, MCH 29.6, MCHC 32.4, RDW Std Deviation 51.5 H, RDW Coeff of Regino 15.3 H, Plt Count 230, MPV11.8, Immature Gran % (Auto) 0.500, Neut % (Auto) 78.0 H, Lymph % (Auto) 10.7 L,Kidder % (Auto) 10.2 H, Eos % (Auto) 0.2, Baso % (Auto) 0.4, Absolute Neuts (auto)10.0 H, Absolute Lymphs (auto) 1.37, Nucleated RBC % 0 07/30/22 03:55: Sodium 135 L, Potassium 3.7, Chloride 102, Carbon Dioxide 24.0, Anion Gap 9, BUN 25 H, Creatinine 1.30, Estim Creat Clear Calc 61.35, Est GFR (MDRD) Af Amer 71, Est GFR (MDRD) Non-Af 59 L, BUN/Creatinine Ratio 19.2, Glucose 124 H, Calcium 8.9, TSH 3.61 Micro: Microbiology 07/29/22 18:11 Nasal Secretion SARS-CoV-2 & FLU Antigen (Rapid) - Final Radiography Diagnostic Testing: Radiology Impression Chest X-Ray 07/29/22 20:20 IMPRESSION: CHF with pulmonary edema and small pleural effusions. Electronically Signed: Ant Cleaning MD at 20:36 EST , Echocardiogram 07/30/22 00:17 Interpretation Summary Mildly dilated left ventricle. Moderate global left ventricular systolic dysfunction. The estimated ejection fraction is 35 %. The left atrium is moderately enlarged. The right atrium is mildly enlarged. There is mild mitral annular calcification. Mild focal mitral valve calcification of the anterior leaflet. Moderately severe (3+) mitral valve insufficiency. Mild eccentric tricuspid valve insufficiency. Moderate to severe aortic stenosis. Trivial pulmonic valve insufficiency. Trivial pericardial effusion. There are no echocardiographic indications of cardiac tamponade. Echolucency compatible with a pleural effusion. Right ventricular systolic pressure estimated to be 55 mmHg patible with pulmonary hypertension. Diastolic function is indeterminate. Ordering Physician: Tommy Lira Referring Physician: Ant Roth Performed By: Elvira Knox, RDCS, RVT Rhythm Strip Rhythm Strip: A-fib Rate: 177 Ectopy: None Physical Exam Const alert, oriented x3, no apparent distress and healthy appearing General Appearance: cooperative, well kempt and well developed Orientation / Consciousness: awake, oriented to person, oriented to place and oriented to time HEENT normocephalic, head/scalp atraumatic and moist oral mucous membranes Eyes PERRL, EOMs intact bilaterally and conjunctivae normal Neck supple, no JVD and thyroid normal General: trachea midline Resp normal respiratory effort, no retractions and no use of accessory muscles Resp Narrative: Fine rales are noted on inspiration at the bases Auscultation: rales bilateral; Negative for rhonchi or wheezes Cardio S1 normal heart sound, S2 normal heart sound, no murmurs, no rub and no gallops Cardio Narrative: Heart rate and rhythm is irregular GI normal to inspection, nondistended, normoactive bowel sounds, soft to palpation,non-tender and non-distended Extremity no clubbing, cyanosis or edema Skin no rashes or lesions noted General Skin Exam: no breakdown Neuro oriented x3, CN's II-XII intact bilaterally, moves all extremities, no focal motor deficits and no sensory deficits noted Sensorium / Orientation: awake, alert, oriented to person, oriented to place andoriented to time Speech: speech normal Psych affect normal Assessment & Plan Assessment/Plan (1) Atrial fibrillation with RVR: PLAN: Plan 1. Acute systolic congestive heart failure-initial episode-patient will continue on IV Lasix, pulse ox will be monitored and telemetry will be monitored. #2 new onset atrial fibrillation with RVR-again patient will be on oral amiodarone, metoprolol orally, and will be placed on Eliquis for anticoagulation, patient's Lovenox was discontinued. #3 cardiomyopathy-most probably not rate related, patient will need to undergo awork-up for the cardiomyopathy as an outpatient most probably #4 hypoxia secondary to #1-patient is currently on nasal cannula O2 at 3 L/min, pulse ox will be monitored #5 essential hypertension-patient will remain on lisinopril #6 hyperlipidemia-patient is on Crestor Total clinical time spent by myself addressing the patient's medical issues, reviewing all the data, and collaborating with the patient's care team: 35 minutes Charges/Coding Visit Charges Inpatient E&M: 86551 Subs Hosp L2 07/30/22 1904 <Electronically signed by Chapo Baez DO> Cosigner Signature (if applicable): CC: ~ Signed [facility] Work Phone: 1(898) 415-730403-03-[address] Alvarado [facility] July 30, 2022 12:24pm Note Date/Time July 30, 2022 12:2 4pm [facility] Medical Records Department [address] [place] [address] Consultation - Cardiology 07/30/22 1217 MR#: [id number] Acct: [id number] Name: LENARD CORREA Rep #:[id number] : 1955 67 From: Kelly hardy MD PCP: Dr. Ant Roth MD Status:ADM I N Location: [place] [address] Assessment & Plan Assessment/Plan (1) Atrial fibrillation with RVR: PLAN: Continue IV amiodarone for now. After 24 hours of IV amiodarone he can beswitched to 200 mg p.o. twice daily of oral amiodarone. Agree with trying to wean off the IV Cardizem. Because of the low EF we will give him metoprolol tartrate and at the time of discharge switch to metoprolol succinate. Agree with Karla. (2) Acute CHF (congestive heart failure): PLAN: Patient may benefit from IV Lasix for another day and he could potentiallybe switched to p.o. Lasix tomorrow. He would need evaluation for the etiology of his CHF in the form of coronary angiography. This could potentially be done as an outpatient if patient continues to improve. HPI Consult Data Date of Consult: 07/30/22 HPI Narrative Reason for Consultation: A-fib with RVR HPI Narrative: LENARD CORREA, is a 67 M who presents with shortness of breath and palpitations. Patient was doing well till about 4 days back. He thought he hada chest cold and started developing shortness of breath. He also describes orthopnea. Last evening he started developing palpitations and was found to have A-fib with RVR in the emergency room. He was started on Cardizem and amiodarone and his heart rate is under better control now. His 2D echo revealedan EF of 35%, moderate aortic stenosis, moderate to severe mitral regurgitation. Patient was also started on IV Lasix and his shortness of breath is improved significantly. He still has some cough when he lies down flat. He denies any chest pain. His 1 set of troponin was negative. Review of systems: All systems reviewed. All else is negative except that in HPI. [facility] Medical History HTN (hypertension) Hypercholesteremia Sleep apnea Home Medications amlodipine 10 mg tablet (Norvasc) 10 mg PO QDAY blood pressure 04/30/17 [History Last Taken Unknown] aspirin 81 mg tablet,delayed release 81 mg PO QDAY heart health 04/30/17 [History Last Taken Unknown] lisinopril 20 mg-hydrochlorothiazide 25 mg tablet 1 tab PO QHS blood pressure 04/30/17 [History Last Taken Unknown] rosuvastatin 10 mg tablet (Crestor) 10 mg PO QDAY cholesterol 04/30/17 [History Last Taken Unknown] multivitamin 1 tab PO DAILY supplement 07/29/22 [History Last Taken Unknown] Allergy/AdvReac Type Severity Reaction Status Date / Time atorvastatin Allergy Other Verified 05/26/17 12:45 Family History Father Heart disease Myocardial infarction Mother Cancer Diabetes Brother Myocardial infarction Surgical History History of partial knee replacement S/P excision of lipoma Social History Smoking Status: Never smoker alcohol intake: never substance use type: does not use eating out: 4 or more times/week during the past year weight has: remained stable Physical Exam Const alert and oriented x3 HEENT normocephalic Eyes no scleral icterus Neck Neck Narrative: Mild JVD. Resp normal respiratory effort Resp Narrative: Right-sided crackles. Cardio Cardio Narrative: Irregular rhythm. systolic murmur noted. Extremity Extremity Narrative: 1+ left lower extremity edema. Trace right lower extremity edema. Risk Stratification Risk Stratification Applicable: No Charges/Coding Visit Charges Inpatient E&M: 19584 Init Hosp L2 Objective Data Vital Signs: Vital Signs Temp Pulse Resp BP Pulse Ox O2 Del Method O2 Flow Rate 98.0 F 97 21 H 114/91 H 98 High Flow 6 07/30/22 09:00 07/30/22 11:00 07/30/22 11:00 07/30/22 11:00 07/30/22 11:00 07/30/22 11:00 07/30/22 11:00 Oxygen Flow Rate (L/min) 6 Oxygen Delivery Method High Flow Weight: 260 lb 12.909 oz Body Mass Index (BMI) 35.4 Intake & Output: Intake and Output for Last 24 Hours 07/28/22 07/29/22 07/30/22 23:59 23:59 23:59 Intake Total 1113.0 / 1113.0 663.01 / 663.01 Output Total 675 / 675 Balance 1113.0 / 1113.0 -11.99 / -11.99 Lab / Micro Data Result Diagrams: 07/30/22 03:55 07/30/22 03:55 Labs: Laboratory Results - last 24 hr 07/29/22 17:30: WBC 11.6 H, RBC 5.05, Hgb 15.0, Hct 46.1, MCV 91.3, MCH 29.7, MCHC 32.5, RDW Std Deviation 50.7 H, RDW Coeff of Regino 15.4 H, Plt Count 271, MPV11.9, Immature Gran % (Auto) 0.400, Neut % (Auto) 75.6 H, Lymph % (Auto) 13.3 L,Kidder % (Auto) 9.0, Eos % (Auto) 1.0, Baso % (Auto) 0.7, Absolute Neuts (auto) 8.8 H, Absolute Lymphs (auto) 1.54, Nucleated RBC % 0 07/29/22 17:30: Sodium 136, Potassium 3.8, Chloride 101, Carbon Dioxide 24.0, Anion Gap 11, BUN 22 H, Creatinine 1.27, Estim Creat Clear Calc 62.80, Est GFR (MDRD) Af Amer 73, Est GFR (MDRD) Non-Af 60, BUN/Creatinine Ratio 17.3, Glucose 160 H, Calcium 9.7, Troponin I High Sens 32 07/29/22 17:30: Magnesium 2.2 07/29/22 21:00: B-Natriuretic Peptide 524.1 H 07/30/22 03:55: WBC 12.8 H, RBC 4.76, Hgb 14.1, Hct 43.5, MCV 91.4, MCH 29.6, MCHC 32.4, RDW Std Deviation 51.5 H, RDW Coeff of Regino 15.3 H, Plt Count 230, MPV11.8, Immature Gran % (Auto) 0.500, Neut % (Auto) 78.0 H, Lymph % (Auto) 10.7 L,Kidder % (Auto) 10.2 H, Eos % (Auto) 0.2, Baso % (Auto) 0.4, Absolute Neuts (auto)10.0 H, Absolute Lymphs (auto) 1.37, Nucleated RBC % 0 07/30/22 03:55: Sodium 135 L, Potassium 3.7, Chloride 102, Carbon Dioxide 24.0, Anion Gap 9, BUN 25 H, Creatinine 1.30, Estim Creat Clear Calc 61.35, Est GFR (MDRD) Af Amer 71, Est GFR (MDRD) Non-Af 59 L, BUN/Creatinine Ratio 19.2, Glucose 124 H, Calcium 8.9, TSH 3.61 Micro: Microbiology 07/29/22 18:11 Nasal Secretion SARS-CoV-2 & FLU Antigen (Rapid) - Final Rhythm Strip Rhythm Strip: A-fib Rate: 177 Ectopy: None Cardiology Labs/Tests 07/29/22 17:30: WBC 11.6 H, RBC 5.05, Hgb 15.0, Hct 46.1, MCV 91.3, MCH 29.7, MCHC 32.5, Plt Count 271, MPV 11.9, Immature Gran % (Auto) 0.400, Neut % (Auto) 75.6 H, Lymph % (Auto) 13.3 L, Kidder % (Auto) 9.0, Eos % (Auto) 1.0, Baso % (Auto) 0.7, Absolute Neuts (auto) 8.8 H, Nucleated RBC % 0 07/29/22 17:30: Sodium 136, Potassium 3.8, Chloride 101, Carbon Dioxide 24.0, Anion Gap 11, BUN 22 H, Creatinine 1.27, Est GFR (MDRD) Af Amer 73, Est GFR (MDRD) Non-Af 60, BUN/Creatinine Ratio 17.3, Glucose 160 H, Calcium 9.7 07/29/22 17:30: Magnesium 2.2 07/29/22 21:00: B-Natriuretic Peptide 524.1 H 07/30/22 03:55: WBC 12.8 H, RBC 4.76, Hgb 14.1, Hct 43.5, MCV 91.4, MCH 29.6, MCHC 32.4, Plt Count 230, MPV 11.8, Immature Gran % (Auto) 0.500, Neut % (Auto) 78.0 H, Lymph % (Auto) 10.7 L, Kidder % (Auto) 10.2 H, Eos % (Auto) 0.2, Baso % (Auto) 0.4, Absolute Neuts (auto) 10.0 H, Nucleated RBC % 0 07/30/22 03:55: Sodium 135 L, Potassium 3.7, Chloride 102, Carbon Dioxide 24.0, Anion Gap 9, BUN 25 H, Creatinine 1.30, Est GFR (MDRD) Af Amer 71, Est GFR (MDRD) Non- Af 59 L, BUN/Creatinine Ratio 19.2, Glucose 124 H, Calcium 8.9 Rhythm: EKG: ECHO: Stress Test: Cardiac Cath: PCI: CT Surgery: Holter monitor: EPS: PPM: CXR: Chest CT Scan: Radiography Diagnostic Testing: Radiology Impression Chest X-Ray 07/29/22 20:20 IMPRESSION: CHF with pulmonary edema and small pleural effusions. Electronically Signed: Ant Cleaning MD at 20:36 EST , Echocardiogram 07/30/22 00:17 Interpretation Summary Mildly dilated left ventricle. Moderate global left ventricular systolic dysfunction. The estimated ejection fraction is 35 %. The left atrium is moderately enlarged. The right atrium is mildly enlarged. There is mild mitral annular calcification. Mild focal mitral valve calcification of the anterior leaflet. Moderately severe (3+) mitral valve insufficiency. Mild eccentric tricuspid valve insufficiency. Moderate to severe aortic stenosis. Trivial pulmonic valve insufficiency. Trivial pericardial effusion. There are no echocardiographic indications of cardiac tamponade. Echolucency compatible with a pleural effusion. Right ventricular systolic pressure estimated to be 55 mmHg patible with pulmonary hypertension. Diastolic function is indeterminate. Ordering Physician: Tommy Lira Referring Physician: Ant Roth Performed By: Elvira Knox, RD, RVT 07/30/22 1224 <Electronically signed by Kelly Alvarado MD> Cosigner Signature (if applicable): CC: Dr. Tommy Lira MD; Dr. Kelly Alvarado MD; Dr. Ant Roth MD~ Signed [facility] Work Phone: 1(698) 526-978703-03-2023 History and physical note Author Dr. Lira [facility] July 30, 2022 6:43am Note Date/Time July 29, 2022 9:59 pm [facility] Medical Records Department [address] [place] [id number] H&P Exam - Hospitalist 07/29/22 2158 MR#: [id number] Acct: [id number] Name: LENARD CORREA Rep #:[id number] : 1955 67 From: Tommy Lira MD PCP: Dr. Ant Roth MD Status:ADM I N Location: [place] [id number] HPI - General General Date of Admission: 07/29/22 Date of Service: 07/29/22 Chief Complaint: Palpitations HPI Narrative LENARD CORREA, is a 67 M with a significant history of obesity; hypertension; obstructive sleep apnea on home BiPAP and hyperlipidemia who presented to the emergency department with palpitations. His palpitations started on the same day of presentation. He went to the urgent care and was found to be in A-fib RVR so he was sent to the emergency department for further evaluation and treatment. Of note 3 to 4 days ago patient's symptoms started with a dry cough. Also he developed chest tightness. He reports dyspnea on exertion. He has chronic orthopnea. He uses home BiPAP and denies paroxysmal nocturnal dyspnea. He has chronic swelling in his left ankle. He denies any weight changes at least in the past 2 weeks. He denies any fever or chills. [facility] Medical History HTN (hypertension) Hypercholesteremia Sleep apnea Home Medications amlodipine 10 mg tablet (Norvasc) 10 mg PO QDAY blood pressure 04/30/17 [History Last Taken Unknown] aspirin 81 mg tablet,delayed release 81 mg PO QDAY heart health 04/30/17 [History Last Taken Unknown] lisinopril 20 mg-hydrochlorothiazide 25 mg tablet 1 tab PO QHS blood pressure 04/30/17 [History Last Taken Unknown] rosuvastatin 10 mg tablet (Crestor) 10 mg PO QDAY cholesterol 04/30/17 [History Last Taken Unknown] multivitamin 1 tab PO DAILY supplement 07/29/22 [History Last Taken Unknown] Allergy/AdvReac Type Severity Reaction Status Date / Time atorvastatin Allergy Other Verified 05/26/17 12:45 Family History Father Heart disease Myocardial infarction Mother Cancer Diabetes Brother Myocardial infarction Surgical History History of partial knee replacement S/P excision of lipoma Social History Smoking Status: Never smoker alcohol intake: never substance use type: does not use eating out: 4 or more times/week during the past year weight has: remained stable ROS ROS Narrative Pertinent positives and pertinent negatives as noted in HPI. All other systems were reviewed and are negative Vital Signs Vital Signs Vital Signs: 07/29/22 17:14 07/29/22 17:23 07/29/22 17:26 Temperature 97.9 F Temperature Source Temporal Pulse Rate 55 L 165 H Respiratory Rate 18 Respiratory Pattern Normal Blood Pressure 129/100 H Blood Pressure Mean 109 Blood Pressure Position Blood Pressure Location Pulse Ox 99 Oxygen Delivery Method Room Air Oxygen Flow Rate (L/min) 07/29/22 17:43 07/29/22 18:13 07/29/22 19:00 Temperature Temperature Source Pulse Rate 134 H 167 H Respiratory Rate 18 18 Respiratory Pattern Blood Pressure 119/91 H 127/115 H Blood Pressure Mean 100 119 Blood Pressure Position Blood Pressure Location Pulse Ox 92 92 92 Oxygen Delivery Method Nasal Cannula Nasal Cannula Nasal Cannula Oxygen Flow Rate (L/min) 2 2 2 07/29/22 19:45 07/29/22 20:27 07/29/22 20:42 Temperature Temperature Source Pulse Rate 160 H 146 H 156 H Respiratory Rate 24 H 21 H 18 Respiratory Pattern Blood Pressure 137/112 H 104/88 H Blood Pressure Mean 120 93 Blood Pressure Position Semi-Fowlers Semi-Fowlers Blood Pressure Location Left Arm Left Arm Pulse Ox 91 91 Oxygen Delivery Method Mechanical Ventilator Nasal Cannula Oxygen Flow Rate (L/min) 3 3 07/29/22 20:50 07/29/22 21:06 07/29/22 21:33 Temperature 97.6 F L 97.7 F L Temperature Source Oral Oral Pulse Rate 135 H 130 H 133 H Respiratory Rate 23 H 24 H 20 H Respiratory Pattern Blood Pressure 132/96 H 103/92 H 113/101 H Blood Pressure Mean 108 95 105 Blood Pressure Position Semi-Fowlers Semi-Fowlers Blood Pressure Location Left Arm Left Arm Pulse Ox 92 91 90 Oxygen Delivery Method Nasal Cannula Nasal Cannula Nasal Cannula Oxygen Flow Rate (L/min) 3 3 4 07/29/22 21:00 07/29/22 21:48 07/29/22 21:49 Temperature 97.7 F L Temperature Source Oral Pulse Rate 126 H 132 H 118 H Respiratory Rate 25 H 20 H 24 H Respiratory Pattern Blood Pressure 113/101 H 132/94 H 132/94 H Blood Pressure Mean 105 106 106 Blood Pressure Position Blood Pressure Location Pulse Ox 90 92 Oxygen Delivery Method Nasal Cannula Oxygen Flow Rate (L/min) 4 Weight Weight: 118.841 kg Body Mass Index (BMI) 35.5 Physical Exam Narrative Physical exam: General: Well-nourished, well-developed. Head: Normocephalic, atraumatic, no tenderness Eyes: Vision is grossly intact. EOMI ENT, no trauma, moist mucous membranes, no rhinorrhea Neck: Nontender, No thyromegaly. CVS: Regular rate and rhythm. S1-S2 present. No murmur, gallop or rub. Respiratory : Tachycardia. Irregularly irregular rate and rhythm. Abdomen: Soft, nontender, nondistended, normal bowel sounds, no masses : Deferred Back: Nontender, no CVA tenderness, no midline spinal tenderness, deformities, step-offs Extremities: Mild swelling of the left ankle. Right ankle is not swollen. Skin: Normal color, no trauma, abrasions Neuro: Alert, oriented, cranial nerves II through XII grossly intact. Psychiatry: Normal mood. Normal affect. Not depressed. Not anxious. Results Lab / Micro Data Result Diagrams: 07/30/22 03:55 07/30/22 03:55 Labs: Laboratory Results - last 24 hr 07/29/22 17:30: WBC 11.6 H, RBC 5.05, Hgb 15.0, Hct 46.1, MCV 91.3, MCH 29.7, MCHC 32.5, RDW Std Deviation 50.7 H, RDW Coeff of Regino 15.4 H, Plt Count 271, MPV11.9, Immature Gran % (Auto) 0.400, Neut % (Auto) 75.6 H, Lymph % (Auto) 13.3 L,Kidder % (Auto) 9.0, Eos % (Auto) 1.0, Baso % (Auto) 0.7, Absolute Neuts (auto) 8.8 H, Absolute Lymphs (auto) 1.54, Nucleated RBC % 0 07/29/22 17:30: Sodium 136, Potassium 3.8, Chloride 101, Carbon Dioxide 24.0, Anion Gap 11, BUN 22 H, Creatinine 1.27, Estim Creat Clear Calc 62.80, Est GFR (MDRD) Af Amer 73, Est GFR (MDRD) Non-Af 60, BUN/Creatinine Ratio 17.3, Glucose 160 H, Calcium 9.7, Troponin I High Sens 32 07/29/22 21:00: B-Natriuretic Peptide 524.1 H Micro: Microbiology 07/29/22 18:11 Nasal Secretion SARS-CoV-2 & FLU Antigen (Rapid) - Final Rhythm Strip Rhythm Strip: A-fib Rate: 177 Ectopy: None Radiology Impression Chest X-Ray 07/29/22 20:20 IMPRESSION: CHF with pulmonary edema and small pleural effusions. Electronically Signed: Ant Cleaning MD at 20:36 EST , Assessment & Plan Assessment/Plan (1) Atrial fibrillation with RVR: (2) Acute CHF (congestive heart failure): (3) Hypoxia: PLAN: Plan Atrial fibrillation with RVR with hypoxia Received Cardizem bolus at emergency department. Started on Cardizem drip at the emergency department and continued. Amiodarone drip at emergency department and continued. We will add digoxin since the patient heart rate is still uncontrolled. Therapeutic dose Lovenox ordered Place on PCU on telemetry Obtain echo Lovenox 1 mg per kilogram subcutaneous every 12 hours Potassium level of 3.7 on presentation. Replaced. Check magnesium. Check TSH. Continue supplemental oxygenation titrate as necessary. Cardiology consult. Acute heart failure Unclear whether reduced ejection fraction of preserved ejection fraction. Hold home lisinopril and hydrochlorothiazide combo. HCTZ held. Lisinopril continued. Lasix IV ordered. Placed supplemental potassium Obstructive sleep apnea Hypoxic on presentation. Home BiPAP continued nightly and as needed. Hypertension Blood pressures were soft while patient was on Cardizem drip. Trend blood pressures. Home lisinopril continued. Hydrochlorothiazide held. DVT prophylaxis Not indicated as patient be started on therapy dose of Lovenox. Lovenox continued. Charges/Coding Visit Charges Inpatient E&M: 63988 Init Hosp L3 07/30/22 0643 <Electronically signed by Tommy Lira MD> Cosigner Signature (if applicable): CC: Dr. Tommy Lira MD; Dr. Ant Roth MD~ Signed [facility] Work Phone: 1(676) 801-664903-02-[address] Bajwa [facility] July 29, 2022 9:51pm Note Date/Time July 29, 2022 6:10 pm [facility] Medical Records Department [address] [place] [address] Emergency Department Summary 07/29/22 MR#: [id number] Acct: [id number] Name: LENARD CORREA Rep #:[id number] : 1955 67 From: Alex Bajwa MD PCP: Dr. Ant Roth MD Status:REG E R Location: ED HPI History of Present Illness Chief Complaint: Palpitations Informant: patient Narrative Narrative: Patient has had 3 days of cough and congestion. No fevers or chills, headache, sore throat, myalgias, or significant malaise. Today started feeling a little short of breath at times, feels and palpitations off-and-on. He went to urgent care to have evaluation, and it was determined that his heart rate was extremelyhigh so he was sent here according to the patient. Here, EKG was obtained priorto my seeing the patient, he appears to be in rapid A-fib. He does not have a history of this. He is not currently feeling palpitations and his heart rate isin the 170s. He takes baby aspirin, medications for blood pressure and cholesterol and is healthy otherwise. He is unvaccinated against COVID and influenza, he has had no contact with anyone who has been sick that he knows of recently. Denies any angina. No history of DVT or PE. No recent leg pain or swelling. No travel out of the area recently or hospitalization/surgery. [facility] Medical History HTN (hypertension) Hypercholesteremia Sleep apnea Home Medications amlodipine 10 mg tablet (Norvasc) 10 mg PO QDAY 04/30/17 [History Last Taken Unknown] aspirin 81 mg tablet,delayed release 81 mg PO QDAY 04/30/17 [History Last Taken Unknown] lisinopril 20 mg-hydrochlorothiazide 25 mg tablet 1 tab PO QDAY 04/30/17 [History Last Taken Unknown] rosuvastatin 10 mg tablet (Crestor) 10 mg PO QDAY 04/30/17 [History Last Taken Unknown] multivitamin 1 tab PO DAILY 07/29/22 [History Last Taken Unknown] Allergy/AdvReac Type Severity Reaction Status Date / Time atorvastatin Allergy Other Verified 05/26/17 12:45 Family History Father Heart disease Myocardial infarction Mother Cancer Diabetes Brother Myocardial infarction Surgical History History of partial knee replacement S/P excision of lipoma Social History Smoking Status: Never smoker alcohol intake: never substance use type: does not use eating out: 4 or more times/week during the past year weight has: remained stable ROS ROS ED Constitutional Constitutional ED: Denies chills or fever(s) Eyes Eyes: Denies change in vision or diplopia ENT ENT ED: Reports nasal congestion; Denies rhinorrhea or sore throat Cardiovascular Cardiovascular: Reports palpitations; Denies chest pain, leg edema or syncope Respiratory/Chest Respiratory/Chest: Reports chest congestion, cough and dyspnea on exertion Gastrointestinal Gastrointestinal: Denies abdominal pain, diarrhea, nausea or vomiting Genitourinary Genitourinary ED: Denies dysuria or hematuria Musculoskeletal Musculoskeletal: Denies back pain or neck pain Integumentary Denies abscess or rash Neurologic Neurologic: Denies headache(s), paresthesias or weakness Psychiatric Psychiatric: Denies anxiety or suicidal thoughts EXAM Physical Exam Const Vital Signs: 07/29/22 17:14 07/29/22 17:23 07/29/22 17:26 Temperature 97.9 F Temperature Source Temporal Pulse Rate 55 L 165 H Respiratory Rate 18 Respiratory Pattern Normal Blood Pressure 129/100 H Blood Pressure Mean 109 Blood Pressure Position Blood Pressure Location Pulse Ox 99 Oxygen Delivery Method Room Air Oxygen Flow Rate (L/min) 07/29/22 17:43 07/29/22 18:13 07/29/22 19:00 Temperature Temperature Source Pulse Rate 134 H 167 H Respiratory Rate 18 18 Respiratory Pattern Blood Pressure 119/91 H 127/115 H Blood Pressure Mean 100 119 Blood Pressure Position Blood Pressure Location Pulse Ox 92 92 92 Oxygen Delivery Method Nasal Cannula Nasal Cannula Nasal Cannula Oxygen Flow Rate (L/min) 2 2 2 07/29/22 19:45 07/29/22 20:27 07/29/22 20:42 Temperature Temperature Source Pulse Rate 160 H 146 H 156 H Respiratory Rate 24 H 21 H 18 Respiratory Pattern Blood Pressure 137/112 H 104/88 H Blood Pressure Mean 120 93 Blood Pressure Position Semi-Fowlers Semi-Fowlers Blood Pressure Location Left Arm Left Arm Pulse Ox 91 91 Oxygen Delivery Method Mechanical Ventilator Nasal Cannula Oxygen Flow Rate (L/min) 3 3 07/29/22 20:50 07/29/22 21:06 07/29/22 21:33 Temperature 97.6 F L 97.7 F L Temperature Source Oral Oral Pulse Rate 135 H 130 H 133 H Respiratory Rate 23 H 24 H 20 H Respiratory Pattern Blood Pressure 132/96 H 103/92 H 113/101 H Blood Pressure Mean 108 95 105 Blood Pressure Position Semi-Fowlers Semi-Fowlers Blood Pressure Location Left Arm Left Arm Pulse Ox 92 91 90 Oxygen Delivery Method Nasal Cannula Nasal Cannula Nasal Cannula Oxygen Flow Rate (L/min) 3 3 4 07/29/22 21:00 Temperature 97.7 F L Temperature Source Oral Pulse Rate 126 H Respiratory Rate 25 H Respiratory Pattern Blood Pressure 113/101 H Blood Pressure Mean 105 Blood Pressure Position Blood Pressure Location Pulse Ox 90 Oxygen Delivery Method Nasal Cannula Oxygen Flow Rate (L/min) 4 Positive well nourished and well developed Constitutional Narrative: Well-appearing. Conversive in full sentences. General Appearance ED: well developed and NAD HEENT Reports moist mucous membranes normocephalic and atraumatic Eyes PERRL and EOMs intact bilaterally Neck full ROM and supple Resp normal respiratory effort and clear to auscultation bilaterally Cardio no murmurs Rate: tachycardic Rhythm: abnormal rhythm irregularly irregular GI non-tender and non-distended Auscultation: normoactive bowel sounds Palpation: soft Back/Spine no CVA tenderness General Back: other FROM Extremity normal to inspection General Extremety ED: Negative for edema, pulses abnormal or tenderness General Extremity: Negative for edema or pulses abnormal Neuro oriented x3, CN's II-XII intact bilaterally and no sensory deficits noted Sensorium / Orientation: awake and alert Motor Exam: strength 5/5 throughout Skin no rashes or lesions noted and no wounds MDM MDM MDM Narrative Medical decision making narrative: Patient and apparent new onset A-fib with RVR unknown how long he has been in it. Started him with a dose of Cardizem 20 mg, this slowed him down to the 130-140 range, so this was followed by a Cardizem drip. Plan is for admission. Hislabs are noted, his troponin is within normal limits, I do not suspect a pulmonary embolus given the symptoms only of rapid heartbeat and respiratory illness recently. COVID and influenza are negative. Obtained a two-view chest x-ray, my interpretation he has cardiomegaly, some cephalization. Radiology in agreement it appears more consistent with CHF. Added BNP. Was given him some gentle IV fluid since we will give him Cardizem, I will discontinue that. He alice little short of breath, borderline hypoxic and required 2 L nasal cannula, no respiratory distress. Added bolus of Cardizem in addition to an albuterol treatment. Still awaiting for BNP results, but discussed with cardiology Dr. Alvarado, he recommends starting the patient on IV amiodarone bolus/drip, giventhat his blood pressures are borderline and this clinical scenario. Upon initiating this, his blood pressure did climb into the 110s systolic, his heart rate is in the 120s, and on reevaluation he is having some expiratory wheezes inthe bases but in no respiratory distress and able to converse. Therefore I am going to go ahead and give him Lasix 20 mg IV. His BNP returned elevated 524 consistent with all of this being cardiogenic. Lab Data Attestation: I reviewed the patient's lab results. Labs: Laboratory Results - last 24 hr 07/29/22 07/29/22 07/29/22 17:30 17:30 21:00 WBC 11.6 H RBC 5.05 Hgb 15.0 Hct 46.1 MCV 91.3 MCH 29.7 MCHC 32.5 RDW Std Deviation 50.7 H RDW Coeff of Regino 15.4 H Plt Count 271 MPV 11.9 Immature Gran % (Auto) 0.400 Neut % (Auto) 75.6 H Lymph % (Auto) 13.3 L Kidder % (Auto) 9.0 Eos % (Auto) 1.0 Baso % (Auto) 0.7 Absolute Neuts (auto) 8.8 H Absolute Lymphs (auto) 1.54 Nucleated RBC % 0 Sodium 136 Potassium 3.8 Chloride 101 Carbon Dioxide 24.0 Anion Gap 11 BUN 22 H Creatinine 1.27 Estim Creat Clear Calc 62.80 Est GFR (MDRD) Af Amer 73 Est GFR (MDRD) Non-Af 60 BUN/Creatinine Ratio 17.3 Glucose 160 H Calcium 9.7 Troponin I High Sens 32 B-Natriuretic Peptide 524.1 H Radiography Chest X-Ray - ED: 2 View, Read by ED Physician, Cardiomegaly, CHF and No Infiltrates Diagnostic Testing: Clinical Impression(s) from Imaging Studies Chest X-Ray 07/29/22 20:20 IMPRESSION: CHF with pulmonary edema and small pleural effusions. Electronically Signed: Ant Cleaning MD at 20:36 EST , Rhythm Strip Rhythm Strip: A-fib Rate: 177 Ectopy: None EKG Initial EKG: Attestation: I personally reviewed and interpreted this EKG as follows: Interpretation: No Acute Injury Pattern, Atrial Fibrillation (With RVR) and Non-Specific ST Changes (Suspect rate dependent) Prior: No Prior Management Discussion w/another healthcare provider: Hospitalist and Undergraduate Advisor (cardiologyDr. Alvarado) Critical Care Time Critical Care Time: Yes Critical care time (excluding procedures): 30-74 minutes (35 min), Including time spent:, Discussing w/Patient &/or Family/Video Specialist, Discussing w/Consultants, Arranging Admission or Transfer and Performing Direct Patient Care at Bedside Discharge Plan Dx/Rx/DC Orders Clinical Impression: Atrial fibrillation with RVR, Acute CHF (congestive heart failure) Disposition Disposition: Acute Care Hospital [facility] What to do if you have Problems For any increased pain, shortness of breath, bleeding, nausea or vomiting, chestpain, or any unexpected problems, contact your Primary Care Provider. Call [facility] ([phone]) or report to the closest Emergency Room. Call 911 if necessary. 07/29/222150 <Electronically signed by Alex Bajwa MD> Cosigner Signature (if applicable): CC: Dr. Ant Roth MD ~ Signed [facility] Work Phone: 1(395) 811-782203-02-[address] Bajwa [facility] July 29, 2022 9:51pm Note Date/Time July 29, 2022 6:10 pm [facility] Medical Records Department [address] [place] [id number] Emergency Department Summary 07/29/22 MR#: [id number] Acct: [id number] Name: LENARD CORREA Rep #:[id number] : [id number] 67 From: Alex Bajwa MD PCP: Dr. Ant Roth MD Status:REG E R Location: ED HPI History of Present Illness Chief Complaint: Palpitations Informant: patient Narrative Narrative: Patient has had 3 days of cough and congestion. No fevers or chills, headache, sore throat, myalgias, or significant malaise. Today started feeling a little short of breath at times, feels and palpitations off-and-on. He went to urgent care to have evaluation, and it was determined that his heart rate was extremelyhigh so he was sent here according to the patient. Here, EKG was obtained priorto my seeing the patient, he appears to be in rapid A-fib. He does not have a history of this. He is not currently feeling palpitations and his heart rate isin the 170s. He takes baby aspirin, medications for blood pressure and cholesterol and is healthy otherwise. He is unvaccinated against COVID and influenza, he has had no contact with anyone who has been sick that he knows of recently. Denies any angina. No history of DVT or PE. No recent leg pain or swelling. No travel out of the area recently or hospitalization/surgery. [facility] Medical History HTN (hypertension) Hypercholesteremia Sleep apnea Home Medications amlodipine 10 mg tablet (Norvasc) 10 mg PO QDAY 04/30/17 [History Last Taken Unknown] aspirin 81 mg tablet,delayed release 81 mg PO QDAY 04/30/17 [History Last Taken Unknown] lisinopril 20 mg-hydrochlorothiazide 25 mg tablet 1 tab PO QDAY 04/30/17 [History Last Taken Unknown] rosuvastatin 10 mg tablet (Crestor) 10 mg PO QDAY 04/30/17 [History Last Taken Unknown] multivitamin 1 tab PO DAILY 07/29/22 [History Last Taken Unknown] Allergy/AdvReac Type Severity Reaction Status Date / Time atorvastatin Allergy Other Verified 05/26/17 12:45 Family History Father Heart disease Myocardial infarction Mother Cancer Diabetes Brother Myocardial infarction Surgical History History of partial knee replacement S/P excision of lipoma Social History Smoking Status: Never smoker alcohol intake: never substance use type: does not use eating out: 4 or more times/week during the past year weight has: remained stable ROS ROS ED Constitutional Constitutional ED: Denies chills or fever(s) Eyes Eyes: Denies change in vision or diplopia ENT ENT ED: Reports nasal congestion; Denies rhinorrhea or sore throat Cardiovascular Cardiovascular: Reports palpitations; Denies chest pain, leg edema or syncope Respiratory/Chest Respiratory/Chest: Reports chest congestion, cough and dyspnea on exertion Gastrointestinal Gastrointestinal: Denies abdominal pain, diarrhea, nausea or vomiting Genitourinary Genitourinary ED: Denies dysuria or hematuria Musculoskeletal Musculoskeletal: Denies back pain or neck pain Integumentary Denies abscess or rash Neurologic Neurologic: Denies headache(s), paresthesias or weakness Psychiatric Psychiatric: Denies anxiety or suicidal thoughts EXAM Physical Exam Const Vital Signs: 07/29/22 17:14 07/29/22 17:23 07/29/22 17:26 Temperature 97.9 F Temperature Source Temporal Pulse Rate 55 L 165 H Respiratory Rate 18 Respiratory Pattern Normal Blood Pressure 129/100 H Blood Pressure Mean 109 Blood Pressure Position Blood Pressure Location Pulse Ox 99 Oxygen Delivery Method Room Air Oxygen Flow Rate (L/min) 07/29/22 17:43 07/29/22 18:13 07/29/22 19:00 Temperature Temperature Source Pulse Rate 134 H 167 H Respiratory Rate 18 18 Respiratory Pattern Blood Pressure 119/91 H 127/115 H Blood Pressure Mean 100 119 Blood Pressure Position Blood Pressure Location Pulse Ox 92 92 92 Oxygen Delivery Method Nasal Cannula Nasal Cannula Nasal Cannula Oxygen Flow Rate (L/min) 2 2 2 07/29/22 19:45 07/29/22 20:27 07/29/22 20:42 Temperature Temperature Source Pulse Rate 160 H 146 H 156 H Respiratory Rate 24 H 21 H 18 Respiratory Pattern Blood Pressure 137/112 H 104/88 H Blood Pressure Mean 120 93 Blood Pressure Position Semi-Fowlers Semi-Fowlers Blood Pressure Location Left Arm Left Arm Pulse Ox 91 91 Oxygen Delivery Method Mechanical Ventilator Nasal Cannula Oxygen Flow Rate (L/min) 3 3 07/29/22 20:50 07/29/22 21:06 07/29/22 21:33 Temperature 97.6 F L 97.7 F L Temperature Source Oral Oral Pulse Rate 135 H 130 H 133 H Respiratory Rate 23 H 24 H 20 H Respiratory Pattern Blood Pressure 132/96 H 103/92 H 113/101 H Blood Pressure Mean 108 95 105 Blood Pressure Position Semi-Fowlers Semi-Fowlers Blood Pressure Location Left Arm Left Arm Pulse Ox 92 91 90 Oxygen Delivery Method Nasal Cannula Nasal Cannula Nasal Cannula Oxygen Flow Rate (L/min) 3 3 4 07/29/22 21:00 Temperature 97.7 F L Temperature Source Oral Pulse Rate 126 H Respiratory Rate 25 H Respiratory Pattern Blood Pressure 113/101 H Blood Pressure Mean 105 Blood Pressure Position Blood Pressure Location Pulse Ox 90 Oxygen Delivery Method Nasal Cannula Oxygen Flow Rate (L/min) 4 Positive well nourished and well developed Constitutional Narrative: Well-appearing. Conversive in full sentences. General Appearance ED: well developed and NAD HEENT Reports moist mucous membranes normocephalic and atraumatic Eyes PERRL and EOMs intact bilaterally Neck full ROM and supple Resp normal respiratory effort and clear to auscultation bilaterally Cardio no murmurs Rate: tachycardic Rhythm: abnormal rhythm irregularly irregular GI non-tender and non-distended Auscultation: normoactive bowel sounds Palpation: soft Back/Spine no CVA tenderness General Back: other FROM Extremity normal to inspection General Extremety ED: Negative for edema, pulses abnormal or tenderness General Extremity: Negative for edema or pulses abnormal Neuro oriented x3, CN's II-XII intact bilaterally and no sensory deficits noted Sensorium / Orientation: awake and alert Motor Exam: strength 5/5 throughout Skin no rashes or lesions noted and no wounds MDM MDM MDM Narrative Medical decision making narrative: Patient and apparent new onset A-fib with RVR unknown how long he has been in it. Started him with a dose of Cardizem 20 mg, this slowed him down to the 130-140 range, so this was followed by a Cardizem drip. Plan is for admission. Hislabs are noted, his troponin is within normal limits, I do not suspect a pulmonary embolus given the symptoms only of rapid heartbeat and respiratory illness recently. COVID and influenza are negative. Obtained a two-view chest x-ray, my interpretation he has cardiomegaly, some cephalization. Radiology in agreement it appears more consistent with CHF. Added BNP. Was given him some gentle IV fluid since we will give him Cardizem, I will discontinue that. He alice little short of breath, borderline hypoxic and required 2 L nasal cannula, no respiratory distress. Added bolus of Cardizem in addition to an albuterol treatment. Still awaiting for BNP results, but discussed with cardiology Dr. Alvarado, he recommends starting the patient on IV amiodarone bolus/drip, giventhat his blood pressures are borderline and this clinical scenario. Upon initiating this, his blood pressure did climb into the 110s systolic, his heart rate is in the 120s, and on reevaluation he is having some expiratory wheezes inthe bases but in no respiratory distress and able to converse. Therefore I am going to go ahead and give him Lasix 20 mg IV. His BNP returned elevated 524 consistent with all of this being cardiogenic. Lab Data Attestation: I reviewed the patient's lab results. Labs: Laboratory Results - last 24 hr 07/29/22 07/29/22 07/29/22 17:30 17:30 21:00 WBC 11.6 H RBC 5.05 Hgb 15.0 Hct 46.1 MCV 91.3 MCH 29.7 MCHC 32.5 RDW Std Deviation 50.7 H RDW Coeff of Regino 15.4 H Plt Count 271 MPV 11.9 Immature Gran % (Auto) 0.400 Neut % (Auto) 75.6 H Lymph % (Auto) 13.3 L Kidder % (Auto) 9.0 Eos % (Auto) 1.0 Baso % (Auto) 0.7 Absolute Neuts (auto) 8.8 H Absolute Lymphs (auto) 1.54 Nucleated RBC % 0 Sodium 136 Potassium 3.8 Chloride 101 Carbon Dioxide 24.0 Anion Gap 11 BUN 22 H Creatinine 1.27 Estim Creat Clear Calc 62.80 Est GFR (MDRD) Af Amer 73 Est GFR (MDRD) Non-Af 60 BUN/Creatinine Ratio 17.3 Glucose 160 H Calcium 9.7 Troponin I High Sens 32 B-Natriuretic Peptide 524.1 H Radiography Chest X-Ray - ED: 2 View, Read by ED Physician, Cardiomegaly, CHF and No Infiltrates Diagnostic Testing: Clinical Impression(s) from Imaging Studies Chest X-Ray 07/29/22 20:20 IMPRESSION: CHF with pulmonary edema and small pleural effusions. Electronically Signed: Ant Cleaning MD at 20:36 EST Reading Location ID and State: [facility] / [place] Tel , Service support , Rhythm Strip Rhythm Strip: A-fib Rate: 177 Ectopy: None EKG Initial EKG: Attestation: I personally reviewed and interpreted this EKG as follows: Interpretation: No Acute Injury Pattern, Atrial Fibrillation (With RVR) and Non-Specific ST Changes (Suspect rate dependent) Prior: No Prior Management Discussion w/another healthcare provider: Hospitalist and Undergraduate Advisor (cardiologyDr. Alvarado) Critical Care Time Critical Care Time: Yes Critical care time (excluding procedures): 30-74 minutes (35 min), Including time spent:, Discussing w/Patient &/or Family/Video Specialist, Discussing w/Consultants, Arranging Admission or Transfer and Performing Direct Patient Care at Bedside Discharge Plan Dx/Rx/DC Orders Clinical Impression: Atrial fibrillation with RVR, Acute CHF (congestive heart failure) Disposition Disposition: Acute Care Hospital [facility] What to do if you have Problems For any increased pain, shortness of breath, bleeding, nausea or vomiting, chestpain, or any unexpected problems, contact your Primary Care Provider. Call [facility] ([phone]) or report to the closest Emergency Room. Call 911 if necessary. 07/29/222150 <Electronically signed by Alex Bajwa MD> Cosigner Signature (if applicable): CC: Dr. Ant Roth MD ~ Signed [facility] Work Phone: 1([phone] 167-725803-02-2023 NoteHNO ID: [id number] Author: Gregoria Butler APRN.[employer] Service: ? Author Type: Nurse Practitioner Type: Progress Notes Filed: 07/29/2022 5:27 PM Note Text: Subjective Cough Associated symptoms include shortness of breath and wheezing. Pertinent negatives include no chest pain. Lenard Correa is a 67 year old male who presents with 3 days of cough, shortness of breath, wheezing. 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 On rooming intake his HR is noted to be 166. He denies chest pain. He has not had any nausea. He denies any cardiac history. Review of Systems Respiratory: Positive for cough, shortness of breath and wheezing. Cardiovascular: Negative for chest pain. Gastrointestinal: Negative for nausea and vomiting. BP 132/92 Pulse (!) 166 Temp 36.3 ?C (97.3 ?F) Resp 20 Wt 119.7 kg (263 lb 12.8 oz) SpO2 96% No past medical history on file. No past surgical history on file. ALLERGIES Patient has no known allergies. MEDICATIONS amLODIPine (NORVASC) 10 mg tablet Take 10 mg by mouth once daily. rosuvastatin (CRESTOR) 10 mg tablet Take 10 mg by mouth once daily. aspirin, enteric coated (ASPIRIN, ENTERIC COATED) 81 mg EC tablet Take 81 mg by mouth once daily. lisinopril-hydrochlorothiazide (PRINZIDE, ZESTORETIC) 20-25 mg per tablet Take 1 tablet by mouth once daily. No family history on file. Social History Tobacco Use Smoking status: Never Smokeless tobacco: Never Objective Physical Exam Vitals and nursing note reviewed. Constitutional: General: He is not in acute distress. Appearance: He is not toxic-appearing. Cardiovascular: Rate and Rhythm: Tachycardia present. Pulmonary: Effort: Pulmonary effort is normal. No respiratory distress. Breath sounds: No wheezing or rales. Neurological: Mental Status: He is alert and oriented to person, place, and time. ASSESSMENT/PLAN: 1. Tachycardia - ICD9: 785.0, ICD10: R00.0 - patient is experiencing an arrhythmia which is likely the cause for his shortness of breath. He is referred to ER. He is offered ambulance transportation and he declined. His will take him to [facility]. Report called to ER and sent via ER Passport. Gregoria Butler APRN.[facility] History of Present illness Narrative* Gregoria Butler APRN.JEANNA - 07/29/2022 5:23 PM EST Subjective Cough Associated symptoms include shortness of breath and wheezing. Pertinent negatives include no chest pain. Lenard Correa is a 67 year old male who presents with 3 days of cough, shortness of breath, wheezing. 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 On rooming intake his HR is noted to be 166. He denies chest pain. He has not had any nausea. He denies anycardiac history. Review of Systems Respiratory: Positive for cough, shortness of breath and wheezing. Cardiovascular: Negative for chest pain. Gastrointestinal: Negative for nausea and vomiting. BP 132/92 Pulse (!) 166 Temp 36.3 C (97.3 F) Resp 20 Wt 119.7 kg (263 lb 12.8 oz) SpO2 96% No past medical history on file. No past surgical history on file. ALLERGIES Patient has no known allergies. MEDICATIONS amLODIPine (NORVASC) 10 mg tablet Take 10 mg by mouth once daily. rosuvastatin (CRESTOR) 10 mg tablet Take 10 mg by mouth once daily. aspirin, enteric coated (ASPIRIN, ENTERIC COATED) 81 mg EC tablet Take 81 mg by mouth once daily. lisinopril-hydrochlorothiazide (PRINZIDE, ZESTORETIC) 20-25 mg per tablet Take 1 tablet by mouth once daily. No family history on file. Social History Tobacco Use Smoking status: Never Smokeless tobacco: Never Objective Physical Exam Vitals and nursing note reviewed. Constitutional: General: He is not in acute distress. Appearance: He is not toxic-appearing. Cardiovascular: Rate and Rhythm: Tachycardia present. Pulmonary: Effort: Pulmonary effort is normal. No respiratory distress. Breath sounds: No wheezing or rales. Neurological: Mental Status: He is alert and oriented to person, place, and time. ASSESSMENT/PLAN: 1. Tachycardia - ICD9: 785.0, ICD10: R00.0 - patient is experiencing an arrhythmia which is likely the cause for his shortness of breath. He is referred to ER. He is offered ambulance transportation and he declined. His will take him to [facility]. Report called to ER and sent via ER Passport. Gregoria Butler APRN.JEANNA documented in this encounterCleveland ClinicDischarge summary Author Dr. Baez [facility] August 01, 2022 12:22pm Note Date/Time August 01, 2022 11:5 7am [facility] Medical Records Department [address] [place] [address] Instructions for Home/Discharge Instructions 08/01/22 1156 MR#: [id number] Acct: [id number] Name: LENARD CORREA Rep #:[id number] : 1955 67 From: Chapo Baez DO PCP: Dr. Ant Roth MD Status:ADM I N Discharge Instructions Diet Discharge Diet: No restrictions Activity Discharge Activity: Return to Normal Activity Weight Bearing Status: Full weight bearing Follow Up Care Test Results: Test results from this visit will be discussed in further detail at your follow- up appointment, if applicable. Discharge Plan Admission Admit Date/Time: 07/29/22 21:41 Primary Reason for Your Visit: a-fib Attending Provider: Chapo Baez Primary Care Provider: Ant Roth Consulting Providers: Tommy Lira ; Kelly Alvarado Instructions Additional Instructions / Restrictions: Do not take furosemide today, do not take lisinopril today, do not take potassium today Discharge Orders/Prescriptions Prescriptions: New metoprolol tartrate 100 mg Tablet 150 mg PO BID Qty: 90 0RF amiodarone 200 mg Tablet 200 mg PO BID Qty: 6 0RF lisinopril 20 mg Tablet 20 mg PO DAILY Qty: 30 0RF potassium chloride [Klor-Con M20] 20 mEq Tablet,Er Particles/Crystals 20 meq PO DAILYCM Qty: 30 0RF furosemide 20 mg Tablet 40 mg PO DAILY Qty: 60 0RF Eliquis 5 mg Tablet 5 mg PO BID Qty: 30 0RF digoxin 250 mcg (0.25 mg) tablet 250 mcg PO DAILY Qty: 30 0RF Rx Instructions: start on 08/01/22 Continued aspirin 81 mg tablet,delayed release (DR/EC) 81 mg PO QDAY rosuvastatin [Crestor] 10 mg tablet 10 mg PO QDAY multivitamin Tablet 1 tab PO DAILY Changed amlodipine [Norvasc] 10 mg tablet 5 mg PO QDAY Qty: 1 0RF Discontinued lisinopril-hydrochlorothiazide 20-25 mg tablet 1 tab PO QHS Referrals / Follow Up: Kelly Alvarado MD [Med Staff - Active Staff] - Within 2 Weeks (call for appointment) Ant Roth MD [Primary Care Provider] - Within 1 Month Disposition Disposition (needs filled in before D/C Order can be placed): Home, Self Care 08/01/22 1222<Electronically signed by Chapo Baez DO>Chapo Baez DO CC: Dr. Tommy Lira MD; Dr. Kelly Alvarado MD; Dr. Ant Roth MD~ Signed [facility] Work Phone: Evaluation noteNo assessment information available [facility] Work Phone: evaluation note* Diagnosis Onset Date Resolution Status Acute CHF (congestive heart failure) acute Atrial fibrillation with RVR acute Hypoxia acute [facility] Work Phone: evaluation note* Diagnosis Tachycardia- Primary Tachycardia, unspecified [facility] Diagnosis Onset Date Resolution Status Acute CHF (congestive heart failure) acute Atrial fibrillation with RVR acute Cardiomyopathy acute HLD (hyperlipidemia) acute Hypoxia acute Pulmonary HTN acute Valvular heart disease acute HTN (hypertension) chronic [facility] Work Phone: evaluation note* Diagnosis Onset Date Resolution Status Atrial fibrillation with RVR acute Cardiomyopathy acute HLD (hyperlipidemia) acute HTN (hypertension) chronic Hypoxia resolved Atrial fibrillation with RVR acute Cardiomyopathy acute HLD (hyperlipidemia) acute Nonrheumatic aortic (valve) stenosis acute Nonrheumatic mitral (valve) insufficiency acute HTN (hypertension) chronic [facility] Work Phone: Evaluation note* Diagnosis Onset Date Resolution Status Atrial fibrillation with RVR acute Cardiomyopathy chronic HLD (hyperlipidemia) chronic HTN (hypertension) chronic Hypoxia resolved Atrial fibrillation with RVR acute Nonrheumatic aortic (valve) stenosis acute Cardiomyopathy chronic HLD (hyperlipidemia) chronic HTN (hypertension) chronic Nonrheumatic mitral (valve) insufficiency chronic Atrial fibrillation with RVR acute Nonrheumatic aortic (valve) stenosis acute Cardiomyopathy chronic HLD (hyperlipidemia) chronic HTN (hypertension) chronic Nonrheumatic mitral (valve) insufficiency chronic [facility] Work Phone: Evaluation note* Diagnosis Persistent atrial fibrillation- Primary Atrial fibrillation Abnormal result of other cardiovascular function study Persistent atrial fibrillation Atrial fibrillation Persistent atrial fibrillation Atrial fibrillation [facility] Persistent atrial fibrillation Atrial fibrillation Persistent atrial fibrillation Atrial fibrillation [facility] Diagnosis Severe aortic stenosis Aortic valve disorders Severe aortic stenosis Aortic valve disorders [facility] Diagnosis Severe aortic stenosis Aortic valve disorders documented in [facility]* Diagnosis Severe aortic stenosis Aortic valve disorders [facility] Diagnosis Severe aortic stenosis Aortic valve disorders Other specified symptoms and signs involving the circulatory and respiratory systems [facility] Diagnosis Aortic stenosis due to bicuspid aortic valve documented in this encounter [facility] note* Diagnosis Severe aortic stenosis- Primary Aortic valve disorders [facility]* Diagnosis DANELLE (obstructive sleep apnea)- Primary Obstructive sleep apnea (adult) (pediatric) Atrial fibrillation, unspecified type (CMS/HCC) Congestive heart failure, unspecified HF chronicity, unspecified heart failure type (CMS/HCC) [facility]* Electrophysiology Location: None Selected [facility] Work Phone: Hospital Discharge instructions* Attachments The following attachments cannot be sent through Care Everywhere. * Cardiac Cath [facility] After - Wrist [facility] ([facility]. Huynh [facility] August 01, 2022 11:47am Note Date/Time August 01, 2022 11:4 7am [facility] Medical Records Department [address] [place] [id number] Progress Note - Cardiology 08/01/22 1145 MR#: [id number] Acct: [id number] Name: LENARD CORREA Rep #:[id number] : 1955 67 From: Ant Huynh MD PCP: Dr. Ant Roth MD Status:ADM I N Location: [place] [id number] Subjective Subjective The patient is awake and alert. He has been up and ambulating. He is not complaining of any acute symptoms at this time. It is noted that his heart rateis better at rest and it does accelerate with ambulation/exertion. However, he states he cannot sense this change. Objective Data Vital Signs: Vital Signs Temp Pulse Resp BP Pulse Ox O2 Del Method O2 Flow Rate 98.5 F 119 H 16 116/92 H 98 Room Air 0 08/01/22 08:52 08/01/22 08:59 08/01/22 08:52 08/01/22 08:52 08/01/22 08:52 08/01/22 08:52 07/31/22 12:19 Oxygen Flow Rate (L/min) [ 0 AMBULATING on Room Air] Oxygen Flow Rate (L/min) [At 0 REST on Room Air] Oxygen Flow Rate (L/min) 3 Oxygen Delivery Method Room Air Weight: 261 lb 3.964 oz Body Mass Index (BMI) 35.4 Intake & Output: Intake and Output for Last 24 Hours 07/30/22 07/31/22 08/01/22 23:59 23:59 23:59 Intake Total 1074.75 / 1314.75 1240 / 1360 120 / 120 Output Total 1325 / 1325 Balance -250.25 / -10.25 1240 / 1360 120 / 120 Lab / Micro Data Result Diagrams: 07/30/22 03:55 08/01/22 04:20 Labs: Laboratory Results - last 24 hr 08/01/22 04:20: Sodium 141, Potassium 4.0, Chloride 107, Carbon Dioxide 28.0, Anion Gap 6, BUN 23 H, Creatinine 1.20, Estim Creat Clear Calc 66.46, Est GFR (MDRD) Af Amer 78, Est GFR (MDRD) Non-Af 64, BUN/Creatinine Ratio 19.2, Glucose 104, Calcium 8.7 Rhythm Strip Rhythm Strip: A-fib Rate: 177 Ectopy: None Cardiology Labs/Tests 08/01/22 04:20: Sodium 141, Potassium 4.0, Chloride 107, Carbon Dioxide 28.0, Anion Gap 6, BUN 23 H, Creatinine 1.20, Est GFR (MDRD) Af Amer 78, Est GFR (MDRD) Non- Af 64, BUN/Creatinine Ratio 19.2, Glucose 104, Calcium 8.7 Rhythm: Atrial fibrillation Radiography Diagnostic Testing: Radiology Impression Chest X-Ray 07/31/22 07:00 IMPRESSION: Small bilateral pleural effusions with bibasilar atelectasis, slightly worsened when compared with the prior study. Electronically Signed: Reece Holley MD at 17:32 EST , Physical Exam Const alert, oriented x3 and no apparent distress Orientation / Consciousness: awake HEENT normocephalic, head/scalp atraumatic and hearing grossly normal bilaterally Eyes PERRL, EOMs intact bilaterally, conjunctivae normal and no scleral icterus Neck full ROM, supple and no JVD Carotids: normal carotid upstroke Resp Auscultation: diminished lung sounds bilateral (bases) Cardio Rhythm: abnormal rhythm irregularly irregular Heart Sounds: S1 normal, S2 normal and murmur systolic II/ soft mid left sternal border GI normal to inspection, nondistended, normoactive bowel sounds Extremity General Extremity: edema left lower extremity trace Skin no rashes or lesions noted Psych mental status grossly normal Assessment & Plan Assessment/Plan (1) Atrial fibrillation with RVR: PLAN: The patient remains in atrial fibrillation. His heart rate remains elevated. He is rate limiting medication dose is going to be increased to metoprolol tartrate 150 mg p.o. twice daily. He is also receiving a IV dose of digitalis. He is continuing anticoagulant therapy. He is also on antiarrhythmic therapy with amiodarone. This will need to be tapered over time (2) Cardiomyopathy: PLAN: The patient's echocardiogram was reviewed. He does have what appears to be a global left ventricular systolic dysfunction with a diminished LVEF of 35%. It is unclear whether this is related to his atrial dysrhythmia, his underlying valvular heart disease, or underlying CAD. He will continue combined medical therapy which at the moment is including furosemide therapy-oral, potassium supplement, and lisinopril 20 mg p.o. daily. (3) Acute CHF (congestive heart failure): PLAN: The patient appears to be clinically improved from what was previously described with concerns of acute CHF. He is continuing medical therapy as noted above. (4) Valvular heart disease: PLAN: The patient does have valvular heart disease as described on his echocardiogram. Again its unclear whether this is a participating factor in his other objective findings. He will need continued evaluation and care of this going forward as to whether or not he will eventually need valvular repair/replacement. (5) Pulmonary HTN: PLAN: The patient's estimated RV systolic pressure was elevated compatible with pulmonary hypertension. From a cardiovascular standpoint there may be a contributing factor from his underlying valvular heart related issues superimposed upon his other cardiac comorbidities and noncardiovascular issues. He will continue medical therapy/support as noted above at this time. He is also on oxygen therapy at this time. Hopefully if he clinically improves this can be weaned off. (6) HLD (hyperlipidemia): PLAN: The patient has a history of hyperlipidemia. He is continuing rosuvastatin 10 mg p.o. daily (7) HTN (hypertension): PLAN: The patient has a history of hypertension. He is on medical management as noted. Hopefully his blood pressures will stay reasonably well controlled. Addt'l Comments The patient's case was discussed and reviewed with the patient and Dr. Baez. Comment: Time spent the patient's evaluation, examination, review of clinical case, discussion with the patient and the medical staff, documentation, etc.: 40minutes Procedure Criteria Type of Procedure Procedure Type: Elective Elective Risks - COVID COVID Risk Discussion: The surgeon/proceduralist and patient have discussed in detail the risk of exposure to and/or potential harm posed by the COVID-19 virus with having a surgery/procedure at this time versus the risk of delaying the surgery/procedure. It is not possible to know either the risk of delaying the surgery or procedure or chance of getting an infection with perfect accuracy, but a joint decision was made between the patient and the surgeon/proceduralist to proceed at this time with the scheduled surgery/procedure as indicated on theconsent form. 08/01/22 1147 <Electronically signed by Ant Huynh MD> Cosigner Signature (if applicable): CC: ~ Signed [facility] Work Phone: Summary Purpose Family History No Family History Records Found Relationship Condition Age at Onset Recorded Date/T venkat father Cardiac disease Unknown Myocardial infarction Unknown mother Malignant neoplasm Unknown Diabetes mellitus Unknown brother Myocardial infarction Unknown Advance Directives No Advanced Directives Records Found Advance Directive Response Recorded Date/ Time Living Will No May 13 017 12:22pm Power of Residence Life Coordinator No May 13, 2017 12:22pm Advance Directive Response Recorded Date/ Time Living Will Yes July 29, 2022 5:24pm Power of Residence Life Coordinator Yes July 29 5:24pm Name of Medical Power of Residence Life Coordinator July 29, 2022 5:24pm Advance Directive Response Recorded Date/ Time Name of Medical Power of Residence Life Coordinator Rose Mary Correa July 30, 2022 12:27am Living Will Yes July 30, 2022 12:27am Power of Residence Life Coordinator Yes July 30 12:27am Advance Directive Response Recorded Date/ Time Name of Medical Power of Residence Life Coordinator Rose Mary Correa July 30, 2022 1:27am Living Will Yes July 30, 2022 1:27am Power of Residence Life Coordinator Yes July 30 1:27am Advance Directive Response Recorded Date/ Time Living Will Yes July 30, 2022 1:27am Power of Residence Life Coordinator Yes July 30 1:27am Chief Complaint and Reason for Visit Chief Complaint AFIB WITH RVR Reason for Visit Acute CHF (congestiv e heart failure) Atrial fibrillation with RVR Hypoxia Chief Complaint AFIB WITH RVR AFIB WITH RVR AFIB WITH RVR AFIB WITH RVR AFIB WITH RVR AFIB WITH RVR Reason for Visit Acute CHF (congestiv e heart failure) Atrial fibrillation with RVR Cardiomyopathy HLD (hyperlipidemia) Hypoxia Pulmonary HTN Valvular heart disease HTN (hypertension) Chief Complaint AFIB WITH RVR AFIB WITH RVR AFIB WITH RVR AFIB WITH RVR AFIB WITH RVR AFIB WITH RVR AFIB WITH RVR 2 WK S/P [facility] AFIB,RVR CHF Reason for Visit Atrial fibrillation with RVR Cardiomyopathy HLD (hyperlipidemia) HTN (hypertension) Hypoxia Atrial fibrillation with RVR Cardiomyopathy HLD (hyperlipidemia) Nonrheumatic aortic (valve) stenosis Nonrheumatic mitral (valve) insufficiency HTN (hypertension) Chief Complaint AFIB WITH RVR AFIB WITH RVR AFIB WITH RVR AFIB WITH RVR AFIB WITH RVR AFIB WITH RVR AFIB WITH RVR 2 WK S/P [facility] AFIB,RVR CHF Amb Documentation Reason for Visit Atrial fibrillation with RVR Cardiomyopathy HLD (hyperlipidemia) HTN (hypertension) Hypoxia Atrial fibrillation with RVR Cardiomyopathy HLD (hyperlipidemia) Nonrheumatic aortic (valve) stenosis Nonrheumatic mitral (valve) insufficiency HTN (hypertension) Chief Complaint AFIB WITH RVR AFIB WITH RVR AFIB WITH RVR AFIB WITH RVR AFIB WITH RVR AFIB WITH RVR AFIB WITH RVR 2 WK S/P [facility] AFIB,RVR CHF Amb Documentation 8-12 WK F/U RULE OUT CAD WITH A-FIB RULE OUT CAD WITH A-FIB Amb Documentation Reason for Visit Atrial fibrillation with RVR Cardiomyopathy HLD (hyperlipidemia) HTN (hypertension) Hypoxia Atrial fibrillation with RVR Nonrheumatic aortic (valve) stenosis Cardiomyopathy HLD (hyperlipidemia) HTN (hypertension) Nonrheumatic mitral (valve) insufficiency Atrial fibrillation with RVR Nonrheumatic aortic (valve) stenosis Cardiomyopathy HLD (hyperlipidemia) HTN (hypertension) Nonrheumatic mitral (valve) insufficiency Reason for Referral Specialty Diagnoses / [facility] To Contact Diagnoses Persistent atrial fibrillation Procedures CASE REQUEST - EP PROC (EPS, ABLATION, DEVICE) Bonita Mccollum APRN-CNP [address] [place] [address] Referral ID Status Reason Start Date Expiration Date V isits Requested Visits Authorized [id number] New Request 02/15/2023 03/11/2024 1 1 Specialty Diagnoses / Procedures [facility] Referred To Contact Diagnoses Persistent atrial fibrillation Abnormal result of other cardiovascular function study Procedures CT CARDIAC PULMONARY VENOGRAM NV CHG CT HEART CONTRAST EVAL CARDIAC STRUCT/MORPH Bonita Mccollum APRN-CNP [address] [place] [address] Referral ID Status Reason Start Date Expiration Date V isits Requested Visits Authorized [id number] New Request 02/15/2023 03/11/2024 1 1 Specialty Diagnoses / Procedures [facility] Referred To Contact Diagnoses Persistent atrial fibrillation Procedures CASE REQUEST - EP CARDIOVERSION EXTERNAL Bonita Mccollum APRN-CNP [address] [place] [address] Referral ID Status Reason Start Date Expiration Date V isits Requested Visits Authorized [id number] New Request 02/15/2023 03/11/2024 1 1 Specialty Diagnoses / Procedures Referred By [facility] Referred To Contact Diagnoses Persistent atrial fibrillation Procedures ECG NileshBonita adan, FOOD SANITARIAN-POLISHER HAND [address] [place] [address] Referral ID Status Reason Start Date Expiration Date V isits Requested Visits Authorized [id number] New Request 02/15/2023 03/11/2024 1 1 Specialty Diagnoses / Procedures Referred By [facility] Referred To Contact Procedures ECG Hedy Hsu, FOOD SANITARIAN-POLISHER [employer] [address] [place] [address] [address] [place] [address] Referral ID Status Reason Start Date Expiration Date V isits Requested Visits Authorized [id number] New Request 02/24/2023 03/20/2024 1 1 Specialty Diagnoses / Procedures Referred By [facility] Referred To Contact Procedures ECG Reece Soto MD, PhD [address] [place] [phone] Referral ID Status Reason Start Date Expiration Date V isits Requested Visits Authorized [id number] New Request 04/04/2023 04/28/2024 1 1 Specialty Diagnoses / Procedures Referred By [facility] Referred To Contact Diagnoses Severe aortic stenosis Procedures PFT STANDARD Aaliyah Sanchez, FOOD SANITARIAN-POLISHER [employer] [address] [place] [phone] Referral ID Status Reason Start Date Expiration Date V isits Requested Visits Authorized [id number] New Request 03/08/2023 04/01/2024 1 1 Specialty Diagnoses / Procedures Referred By [facility] Referred To Contact Diagnoses Severe aortic stenosis Procedures CT ANGIO TAVR EVALUATION - CARDIOLOGY NV CT ANGIO ABD&PLVIS CNTRST MTRL W/WO CNTRST IMGES NV RECON, CTA FOR SURG PLAN NV CHG CT ANGIO HRT CORNRY ART/BYPASS GRFTS CONTRST 3D POST Aaliyah Sanchez, FOOD SANITARIAN-POLISHER [employer] [address] [place] [address] [place] [phone] Referral ID Status Reason Start Date Expiration Date Visits Re quested Visits Authorized [id number] Closed 04/26/2023 05/20/2024 1 1 Specialty Diagnoses / Procedures Referred By [facility] t Referred To Contact Diagnoses Severe aortic stenosis Procedures CT ANGIO TAVR EVALUATION NV CT ANGIO ABD&PLVIS CNTRST MTRL W/WO CNTRST IMGES NV RECON, CTA FOR SURG PLAN NV CHG CT ANGIO HRT CORNRY ART/BYPASS GRFTS CONTRST 3D POST Aaliyah Sanchez, FOOD SANITARIAN-POLISHER [employer] [address] [place] [address] Referral ID Status Reason Start Date Expiration Date Visits Re quested Visits Authorized [id number] Closed 03/08/2023 04/01/2024 1 1 Specialty Diagnoses / Procedures Referred By [facility] t Referred To Contact Diagnoses Severe aortic stenosis Other specified symptoms and signs involving the circulatory and respiratory systems Procedures VASC DUPLEX CAROTID BILATERAL NV DUPLEX SCAN EXTRACRANIAL,BILAT Aaliyah Sanchez, FOOD SANITARIAN-POLISHER HAND [address] [place] [address] Referral ID Status Reason Start Date Expiration Date V isits Requested Visits Authorized [id number] New Request 03/08/2023 04/01/2024 1 1 Specialty Diagnoses / Procedures Referred By [facility] t Referred To Contact Diagnoses Aortic stenosis due to bicuspid aortic valve Procedures ECHOCARDIOGRAM NV ECHO HEART XTHORACIC,COMPLETE W DOPPLER Aaliyah Sanchez, FOOD SANITARIAN-POLISHER HAND [address] [place] [address] Referral ID Status Reason Start Date Expiration Date Visits Re quested Visits Authorized [id number] Closed 04/26/2023 05/20/2024 1 1 Specialty Diagnoses / Procedures Referred By [facility] t Referred To Contact Diagnoses Severe aortic stenosis Procedures ECHOCARDIOGRAM NV ECHO TTHRC R-T 2D W/WOM-MODE COMPL SPEC&COLR D Landy Ferguson, FOOD SANITARIAN-POLISHER [employer] [address] [place] [address] Referral ID Status Reason Start Date Expiration Date V isits Requested Visits Authorized [id number] New Request 10/25/2023 11/18/2024 1 1 Referral ID Status Reason Start Date Expiration Date Visits Re quested Visits Authorized [id number] Closed 10/25/2023 11/18/2024 1 1 Additional Source Comments (unrecognized sect ion and content) No Status Records FoundNo Status Records FoundNo Status Records FoundNo Status Records FoundNo Status Records Found INFORMATION SOURCE (unrecogn ized section and content) DATE CREATED AUTHOR 11/23/2017 [facility] DATE CREATED AUTHOR AUTHOR'S ORGANIZ ATION 07/31/2022 [facility] DATE CREATED AUTHOR AUTHOR'S ORGANIZ ATION 06/12/2024 [facility] DATE CREATED AUTHOR AUTHOR'S ORGANIZ ATION 10/25/2024 [facility] DATE CREATED AUTHOR AUTHOR'S ORGANIZ ATION 10/27/2024 [facility] Goals (unrecognized section and content) Goals may be documented in a n alternate sectionGoals may be documented in an alternate sectionGoals may be documented in an alternate section Care Teams (unrecognized sec tion and content) Team Status: Active Member Role Status Dates Dr. Shady Forrester MD Family Provider Active Dr. Ant Roth MD Primary Care Provider Active Team Status: Active Member Role Status Dates Dr. Ant Roth MD Primary Care Provider Active Dr. Alex Bajwa MD Emergency Provider Active Dr. Tommy Lira MD Admit Provider, Attending Pro vider Active Team Status: Active Member Role Status Dates Dr. Ant Roth MD Primary Care Provider Active Dr. Alex Bajwa MD Emergency Provider Active Dr. Tommy Lira MD Admit Provider, Attending Provider, Other Provider Active Team Status: Active Member Role Status Dates Dr. Ant Roth MD Primary Care Provider Active Dr. Ant Huynh MD Attending Provider Active Team Status: Active Member Role Status Dates Dr. Ant Roth MD Primary Care Provider Active Dr. Alex Bajwa MD Emergency Provider Active Dr. Tommy Lira MD Admit Provider, Other Provide r Active Dr. Chapo Baez DO Attending Provider, Other Pro vider Active Dr. Kelly Alvarado MD Other Provider Active Team Status: Active Member Role Status Dates Dr. Ant Roth MD Primary Care Provider Active Dr. Alex Bajwa MD Emergency Provider Active Dr. Tommy Lira MD Admit Provider, Other Provide r Active Dr. Chapo Baez DO Other Provider Active Dr. Kelly Alvarado MD Other Provider Active Dr. Ant Huynh MD Attending Provider Active Team Status: Inactive Member Role Status Dates Dr. Ant Roth MD Primary Care Provider Active Dr. Alex Bajwa MD Emergency Provider Active Dr. Tommy Lira MD Admit Provider, Other Provide r Active Dr. Chapo Baez DO Attending Provider Active Dr. Kelly Alvarado MD Other Provider Active Team Status: Inactive Member Role Status Dates Dr. Ant Roth MD Primary Care Provider, Referring Provider Active Shady Knox DULITE MACHINE BLUER, DULITE MACHINE BLUER-C Attending Provider Active Team Status: Active Member Role Status Dates Dr. Ant Roth MD Primary Care Provider Active Dr. Saw Goldman MD Attending Provider Active Team Status: Inactive Member Role Status Dates Dr. Ant Roth MD Primary Care Provider Active Shady Knox DULITE MACHINE BLUER, DULITE MACHINE BLUER-C Attending Provider, Referring Pro vider Active Team Status: Active Member Role Status Dates Dr. Ant Roth MD Primary Care Provider, Attending Provider Active Team Status: Active Member Role Status Dates Dr. Ant Roth MD Primary Care Provider Active Dr. Saw Goldman MD Attending Provider, Referring Pro vider Active Team Status: Active Member Role Status Dates Dr. Ant Roth MD Primary Care Provider Active Shady Knox DULITE MACHINE BLUER, DULITE MACHINE BLUER-C Attending Provider Active Team Status: Inactive Member Role Status Dates Dr. Ant Roth MD Primary Care Provider, Attending Provider Active Team Status: Active Member Role Status Dates Dr. Ant Roth MD Primary Care Provider Active Shady Knox DULITE MACHINE BLUER, DULITE MACHINE BLUER-C Referring Provider, Other Provide r Active Dr. Saw Goldman MD Attending Provider Active Credit Front Office Developer Relationship Specialty Start Date End Date Ant Roth MD [address] [place] [phone] PCP - General Family Medicine 11/23/22 Shady Knox, POLISHER HAND [address] [place] [address] Nurse Practitioner - Family 11/23/22 Saw Goldman MD [address] [facility] [address] [place] [address] Cardiovascular Disease 11/23/22 Credit Front Office Developer Relationship Specialty Start Date End Date Ant Roth MD [address] [place] [address] PCP - General Family Medicine 11/23/22 Shady Knox, POLISHER HAND [address] [place] [address] Nurse Practitioner - Family 11/23/22 Saw Goldman MD [address] [facility] [address] [place] [address] Cardiovascular Disease 11/23/22 Team Status: Inactive Member Role Status Dates Dr. Ant Roth MD Primary Care Provider Active JUAN MANUEL DIANE Attending Provider, Referring Provider Active Credit Front Office Developer Relationship Specialty Start Date End Date Ant Roth MD [address] [place] [address] PCP - General Family Medicine 11/23/22 Shady Knox, POLISHER HAND [address] [place] [address] Nurse Practitioner - Family 11/23/22 Saw Goldman MD [address] [facility] [address] [place] [address] Cardiovascular Disease 11/23/22 Credit Front Office Developer Relationship Specialty Start Date End Date Ant Roth MD [address] [facility] [place] [address] PCP - General Family Medicine 11/23/22 Shady Knox, POLISHER HAND [address] [place] [address] Nurse Practitioner - Family 11/23/22 Saw Goldman MD [address] [facility] [address] [place] [address] Cardiovascular Disease 11/23/22 Credit Front Office Developer Relationship Specialty Start Date End Date Ant Roth MD [address] [place] [address] PCP - General Family Medicine 11/23/22 Shady Knox CNP [address] [place] [address] Nurse Practitioner - Family 11/23/22 Saw Goldman MD [address] [facility] [address] [place] [address] Cardiovascular Disease 11/23/22 Credit Front Office Developer Relationship Specialty Start Date End Date Ant Roth MD [address] [place], [place] [id number] PCP - General Family Medicine 11/23/22 Shady Knox, POLISHER HAND [address] [place] [address] Nurse Practitioner - Family 11/23/22 Saw Goldman MD [address] [facility] [address] [place] [address] Cardiovascular Disease 11/23/22 Credit Front Office Developer Relationship Specialty Start Date End Date Ant Roth MD [address] [place], [place] [id number] PCP - General Family Medicine 11/23/22 Shady Knox, POLISHER HAND [address] [place] [address] Nurse Practitioner - Family 11/23/22 Saw Goldman MD [address] [facility] [address] [place] [address] Cardiovascular Disease 11/23/22 Credit Front Office Developer Relationship Specialty Start Date End Date Ant Roth MD [address] [place], [place] [address] PCP - General Family Medicine 11/23/22 Shady Knox, POLISHER HAND [address] [place] [address] Nurse Practitioner - Family 11/23/22 Saw Goldman MD [address] [facility] [address] [place] [address] Cardiovascular Disease 11/23/22 Credit Front Office Developer Relationship Specialty Start Date End Date Ant Roth MD [address] [place] [phone] PCP - General Internal Medicine 11/11/22 Credit Front Office Developer Relationship Specialty Start Date End Date Ant Roth MD [address] [place] [phone] PCP - General Internal Medicine 11/11/22 Source Comments (unrecognize d section and content) In the event this informatio n is protected by the Federal Confidentiality of Alcohol and Drug Abuse Patient Records regulations: The Federal rules restrict any use of the information to criminally investigate or prosecute any alcohol or drug abuse patient.[facility] Reason for Visit (unrecogniz ed section and content) Reason Comments Cough Sob, wheezing x 3 da ys Reason Comments Follow-up Specialty Diagnoses / Procedures Referred By Contac t Referred To Contact Electrophysiology Diagnoses Abnormal electrocardiogram (ECG) (EKG) Nonrheumatic aortic (valve) stenosis Nonrheumatic mitral (valve) insufficiency Atrial fibrillation, unspecified type Essential (primary) hypertension Hyperlipidemia, unspecified hyperlipidemia type Cardiomyopathy, unspecified type Shady Knox, JEANNA [address] [place] [address] Aaron Howard MD [address] [place] [phone] Referral ID Status Reason Start Date Expiration Date V isits Requested Visits Authorized [id number] New Request 11/23/2022 12/18/2023 1 1 Specialty Diagnoses / Procedures Referred By Contac t Referred To Contact Diagnoses Persistent atrial fibrillation Persistent atrial fibrillation [I48.19] Procedures NV CARDIOVERSION ELECTIVE ARRHYTHMIA EXTERNAL NV COMPRE EP EVAL ABLTJ ATR FIB PULM VEIN ISOLATION CARDIOVERSION (EP LAB) [facility] [address] [place] [address] [facility] [address] [place] [phone] Referral ID Status Reason Start Date Expiration Date Visits Re quested Visits Authorized [id number] 1 1 Specialty Diagnoses / Procedures Referred By Contac t Referred To Contact Diagnoses Severe aortic stenosis Severe aortic stenosis [I35.0] Procedures NV CATH PLACEMENT & NJX CORONARY ART ANGIO IMG S&I NV L HRT CATH W/NJX L VENTRICULOGRAPHY IMG S&I CORONARY ANGIOGRAM LEFT HEART CATHETERIZATION [facility] [address] [place] [phone] [facility] [address] [place] [phone] Referral ID Status Reason Start Date Expiration Date Visits Re quested Visits Authorized [id number] 1 1 Specialty Diagnoses / Procedures Referred By Contac t Referred To Contact Diagnoses Severe aortic stenosis Procedures PFT STANDARD Kiste, Aaliyah C, FOOD SANITARIAN-POLISHER HAND [address] [place] [address] Referral ID Status Reason Start Date Expiration Date V isits Requested Visits Authorized [id number] New Request 03/08/2023 04/01/2024 1 1 Specialty Diagnoses / Procedures Referred By Tavoac t Referred To Contact Diagnoses Severe aortic stenosis Procedures CT ANGIO TAVR EVALUATION NV CT ANGIO ABD&PLVIS CNTRST MTRL W/WO CNTRST IMGES NV RECON, CTA FOR SURG PLAN NV CHG CT ANGIO HRT CORNRY ART/BYPASS GRFTS CONTRST 3D POST Aaliyah Sanchez FOOD SANITARIAN-POLISHER HAND [address] [place] [phone] Referral ID Status Reason Start Date Expiration Date Visits Re quested Visits Authorized [id number] Closed 03/08/2023 04/01/2024 1 1 Specialty Diagnoses / Procedures Referred By Tavoac t Referred To Contact Diagnoses Severe aortic stenosis Other specified symptoms and signs involving the circulatory and respiratory systems Procedures VASC DUPLEX CAROTID BILATERAL NV DUPLEX SCAN EXTRACRANIAL,BILAT Aaliyah Sanchez FOOD SANITARIAN-POLISHER HAND [address] [place] [phone] Referral ID Status Reason Start Date Expiration Date V isits Requested Visits Authorized [id number] New Request 03/08/2023 04/01/2024 1 1 Specialty Diagnoses / Procedures Referred By Tavoac t Referred To Contact Diagnoses Aortic stenosis due to bicuspid aortic valve Procedures ECHOCARDIOGRAM NV ECHO HEART XTHORACIC,COMPLETE W DOPPLER Aaliyah Sanchez, FOOD SANITARIAN-POLISHER HAND [address] [place] [phone] Referral ID Status Reason Start Date Expiration Date Visits Re quested Visits Authorized [id number] Closed 04/26/2023 05/20/2024 1 1 Reason Comments Follow-up Specialty Diagnoses / Procedures Referred By Tavoac t Referred To Contact Diagnoses Severe aortic stenosis Procedures ECHOCARDIOGRAM NV ECHO TTHRC R-T 2D W/WOM-MODE COMPL SPEC&COLR D Landy Ferguson, FOOD SANITARIAN-POLISHER HAND [address] [place] [address] Referral ID Status Reason Start Date Expiration Date Visits Re quested Visits Authorized [id number] Closed 10/25/2023 11/18/2024 1 1 Reason Comments Sleep Apnea Continuous Active and Recently Administ ered Medications (unrecognized section and content) Medication Order 02/22/2023 02/23/2023 02/24/2023 Sodium chloride 0.9% IV solution 500 mL Intravenous, at 10 mL/hr, CONTINUOUS, Starting on Shaniqua 02/24/23 at 0815, Until Shaniqau 02/24/23 at 1244, KVO fluids, start the morning of procedure., Pre-op/Pre-Proc 0837 ($$New Bag$$ - Provider: Salma Montero RN) PRN Medication Order 02/22/2023 02/23/2023 02/24/2023 Propofol (DIPRIVAN) injection (CANCELED) NEEDED, Starting on Shaniqua 02/24/23 at 1002, Until Shaniqua 02/24/23 at 1010, Intra-op/Intra-Proc 1002 (Given - Provid er: Gideon Bartlett MD)1003 (Given - Provider: Gideon Bartlett MD)1004 (Given - Provider: Gideon Bartlett MD) No Frequency Medication Order 02/22/2023 02/23/2023 02/24/2023 Propofol (DIPRIVAN) injection 1 dose, Starting on Shaniqua 02/24/23 at 0950, Until Shaniqua 02/24/23 at 1244, Created by cabinet override Extravasation Risk 1000 (Canceled Entry - Provider: System Discharge - Comment: Automatically canceled at discontinue of medication order) Sodium chloride 0.9% IV solution 1 dose, Starting on Shaniqua 02/24/23 at 0834, Until Shaniqua 02/24/23 at 1244, Created by cabinet override 0845 (Canceled Entry - Provider: System Discharge - Comment: Automatically canceled at discontinue of medication order) Scheduled Medication Order 04/02/2023 04/03/2023 04/04/2023 aspirin chewable tablet 324 mg (COMPLETED) 324 mg, Oral, ONCE, 1 dose, On Tue04/04/23 at 0745, Patient to receive at least 30 minutes prior to procedure. Instruct patient to chew and not swallow., Pre-op/Pre-Proc 0758 (Given - Provid er: Ry Gomez RN) Continuous Medication Order 04/02/2023 04/03/2023 04/04/2023 Sodium chloride 0.9% IV solution Intravenous, at 100 mL/hr, CONTINUOUS, Starting on Tue04/04/23 at 0745, Until Tue04/04/23 at 1442, Pre-op/Pre-Proc 0758 ($$New Bag$$ - Provider: Ry Gomez RN)1024 (Stopped - Provider: Mya Rand RN) Sodium chloride 0.9% IV solution 1.5 mL/kg/hr 117.9 kg Dosing weight (176.85 mL/hr, rounded to 176.9 mL/hr), Intravenous, CONTINUOUS, Starting on Tue04/04/23 at 1030, Until Tue04/04/23 at 1329, Post-op/Post-Proc 1023 (Rate/Dose Correia ge - Provider: Mya Rand, RN) PRN Medication Order 04/02/2023 04/03/2023 04/04/2023 Acetaminophen (TYLENOL) tablet 325 mg 325 mg, Oral, EVERY 6 HOURS NEEDED, Starting on Tue04/04/23 at 1016, Until Tue04/04/23 at 1442, Mild Pain, Maximum dose of acetaminophen is 4000 mg from all sources in 24 hours., Post-op/Post-Proc fentaNYL (SUBLIMAZE) injection (CANCELED) Administer over 2 Minutes, NEEDED, Starting on Tue04/04/23 at 0940, Until Tue04/04/23 at 1015, Intra-op/Intra-Proc 0940 (Given - Provid er: Mayra Benson RN)0952 (Given - Provider: Mayra Benson RN) Heparin injection (CANCELED) NEEDED, Starting on Tue04/04/23 at 0954, Until Tue04/04/23 at 1015, Intra-op/Intra-Proc 0954 (Given - Provid er: Reece Soto MD, PhD - Comment: sheath) iodixanol (VISIPAQUE) injection 320 mg/mL for [facility] IR (CANCELED) NEEDED, Starting on Tue04/04/23 at 1011, Until Tue04/04/23 at 1015, Intra-op/Intra-Proc 1011 (Given - Provid er: Reece Soto MD, PhD - Comment: IC) Lidocaine 2 % injection (CANCELED) NEEDED, Starting on Tue04/04/23 at 0947, Until Tue04/04/23 at 1015, Intra-op/Intra-Proc 0947 (Given - Provid er: Jesús Villalobos MD, PhD - Comment: right wrist) midazolam (VERSED) injection (CANCELED) NEEDED, Starting on Tue04/04/23 at 0940, Until Tue04/04/23 at 1015, Intra-op/Intra-Proc 0940 (Given - Provid er: Mayra Benson RN)0952 (Given - Provider: Mayra Benson RN) verapamil (ISOPTIN) injection (CANCELED) NEEDED, Starting on Tue04/04/23 at 0954, Until Tue04/04/23 at 1015, Intra-op/Intra-Proc 0954 (Given - Provid er: Reece Soto MD, PhD - Comment: sheath) FOR RECORDS PERTAINING TO PATIENTS WHO ARE OR HAVE BEEN ENROLLED IN A CHEMICAL DEPENDENCY/SUBSTANCEABUSE PROGRAM, SOME INFORMATION MAY BE OMITTED. This clinical summary was aggregated from multiple sources. Caution should be exercised in using it in the provision of clinical care. This summary normalizes information from multiple sources, and as a consequence, information in this document may materially change the coding, format and clinical context of patient data. In addition, data may be omitted in some cases. CLINICAL DECISIONS SHOULD BE BASED ON THE PRIMARY CLINICAL RECORDS. [employer] [facility]. provides no warranty or guarantee of the accuracy or completeness of information in this document.
== END | disposition home or self-care (01) ==
PROVIDERS: PCP Family Medicine; Referring Provider Family Medicine; Visit Provider Family Medicine
DX: I10 Essential (primary) hypertension (principal); E11.9 Type 2 diabetes mellitus without complications
CPT/HCPCS: 36415; 80053; 80061; 82043; 82570

== ENCOUNTER → 2024-12-13 | Outpatient (CLI) | payer MEDICARE, SELFPAY ==
[2024-12-13 09:21] LABS: Hematocrit 42.3 % (40-54); Hemoglobin 14.5 g/dL (13.0-16.5); Immature Granulocytes Count 0.020 X10^3/uL (0.0-0.0); Mean Corp Hgb Conc 34.3 g/dL (32-36); Mean Corpuscular Volume 93.2 fL (80-94); Mean Platelet Vol. 9.8 fl (6.2-12.0); NRBC Flagged by Analyzer 0 % (0-5); Platelet Count 265 K/mm3 (150-450); RBC Distribution Width CV 13.7 % (11.6-14.6); RBC Distribution Width SD 46.5 fl (35.1-43.9); Red Blood Count 4.54 M/mm3 (4.6-6.2); White Blood Count 7.1 K/mm3 (4.4-11.0)
[2024-12-13 09:55] LABS: Anion Gap 13 (5-15); BUN 18 mg/dL (4-19); BUN/Creat Ratio 15.4 RATIO (10-20); Calcium,Total 9.5 mg/dL (7.6-11.0); Carbon Dioxide 24.6 mmol/L (21.0-32.0); Chloride 103 mmol/L (98-108); Glucose 133 mg/dL (70-99); Potassium 3.8 mmol/L (3.3-5.1)
== END | disposition home or self-care (01) ==
LOC: LAB 08:46
PROVIDERS: PCP Family Medicine
DX: I35.0 Nonrheumatic aortic (valve) stenosis (principal)
CPT/HCPCS: 36415; 80048; 85025

== ENCOUNTER 2025-02-20 10:11 | Inpatient (IN) | payer MEDICARE, SELFPAY ==
[2025-02-20] VITALS (33 sets, daily range): BP systolic 98–171; BP diastolic 74–116; PULSE 81–129; RESP 14–24; TEMP 36.2–36.6; O2SAT 94–100; BMI 36.2; BMI 34.9
--- NOTE | 2025-02-20 12:04 | EKG12_ITS ---
Test Reason : A FIB Blood Pressure : */* mmHG Vent. Rate : 127 BPM Atrial Rate : 127 BPM P-R Int : 176 ms QRS Dur : 88 ms QT Int : 318 ms P-R-T Axes : * 62 262 degrees QTcB Int : 462 ms Atypical Atrial Flutter 2:1 Conduction, occasional PVC Septal infarct , age undetermined ST & T wave abnormality, consider inferolateral ischemia Abnormal ECG Confirmed by Stanley Morton ([id number]), offline editor ALHAJI GLASS ([id number]) on 02/22/2025 5:48:47 AM Referred By: ENEDINA/SIMI Confirmed By: Stanley Morton
--- NOTE | 2025-02-20 12:04 | CT_ITS ---
PROCEDURE: CTA CHEST W/WO CONTRAST 02/20/2025 REASON FOR EXAM: TACHYCARDIA TECHNIQUE: Procedure Code: [id number] Modality: CT Procedure: CTA CHEST W/WO CONTRAST Multiplanar Sagittal and Coronal images were obtained. CONTRAST: 100 cc Isovue 370 One or more dose reduction techniques were used (e.g., Automated exposure control, adjustment of the mA and/or kV according to patient size, use of iterative reconstruction technique). RADIATION DOSE SUMMARY: DLP: 514 mGycm FINDINGS: Evans sternotomy wires rdware: Are noted Lymph nodes: There is a 1.5 x 1.8 cm right enlarged precarinal lymph node. Heart: There is a 1.4 cm pericardial effusion. RV/LV Diameter Ratio: 0.8 Thoracic Aorta: Ascending aorta is dilated to 4.1 cm in AP diameter. Pulmonary Vessels: Main pulmonary artery Hounsfield units = 426. There is no visible pulmonary embolus. Lungs and Airways: There is no focal infiltrate or consolidation Pleura: There is a 3.5 cm left pleural effusion. Upper Abdomen: Unremarkable Bones: There is no acute bony abnormality. CT/CTA Chest W/WO Contrast IMPRESSION: There is a 1.5 x 1.8 cm right enlarged precarinal lymph node. There is a 3.5 cm left pleural effusion. There is a 1.4 cm pericardial effusion. Reading Location: [facility]
[2025-02-20 12:58] LABS: Hematocrit 35.0 % (40-54); Hemoglobin 11.0 g/dL (13.0-16.5); Immature Granulocytes Count 0.060 X10^3/uL (0.0-0.0); Mean Corp Hgb Conc 31.4 g/dL (32-36); Mean Corpuscular Volume 94.3 fL (80-94); Mean Platelet Vol. 9.0 fl (6.2-12.0); NRBC Flagged by Analyzer 0 % (0-5); Platelet Count 419 K/mm3 (150-450); RBC Distribution Width CV 14.4 % (11.6-14.6); RBC Distribution Width SD 49.8 fl (35.1-43.9); Red Blood Count 3.71 M/mm3 (4.6-6.2); White Blood Count 7.9 K/mm3 (4.4-11.0)
[2025-02-20 13:02] LABS: Partial Thromboplast Time 33.7 Seconds (24.1-36.2); Prothrombin Time (Protime)PT. 16.9 SECONDS (11.7-14.9)
--- NOTE | 2025-02-20 13:16 | ED.VIS.CHEST ---
HPI History of Present Illness Chief Complaint: Palpitations Onset/Context/Timing Onset: Yesterday Activity at onset: gradual Timing: Waxes and wanes Quality: Positive for Dull Location: Substernal Worsened By: Nothing Relieved By: - (Sitting up) Associated Symptoms: Positive for Cough and Palpitations; Negative for Nausea, Vomiting, Diaphoresis, Dyspnea, Fever, Lightheadedness or Acid Reflux Narrative Narrative: Patient presents with palpitations that began last night. Patient states he feels like his heart is racing. Patient states it has been between 125 and 127 since last night. Patient states that it seems to get better when he is able to sit up. Patient states that it has been waxing and waning since last night. Patient states she has had a recent cough. Patient had a recent maze procedure 3 weeks ago. Patient states that he contacted the cardiothoracic surgeon as well as his primary care physician who referred him to the emergency department. Patient states he was told he was likely in atrial fibrillation again. CVD Risk Factors: Positive for Hypertension and Hypercholesterolemia; Negative for Diabetes, Family History 1' </=55 or Smoking PE Risk Factors: Positive for Recent Travel/Surgery; Negative for Recent Immobilization, Prior DVT or PE, Cancer or OCP + Smoking + >/=35 PFSH FORMERLY [facility], 1928–1983 Medical History Nonrheumatic aortic (valve) stenosis Nonrheumatic mitral (valve) insufficiency Pulmonary HTN Valvular heart disease Acute CHF (congestive heart failure) Atrial fibrillation with RVR Sleep apnea HTN (hypertension) Hypercholesteremia Home Medications ?Medication ?Instructions ?Recorded ?Last Taken ?Type aspirin 81 mg tablet,delayed 81 mg PO QDAY heart health 04/30/17 Unknown History release rosuvastatin 10 mg tablet (Crestor) 10 mg PO QDAY cholesterol 04/30/17 Unknown History multivitamin 1 tab PO DAILY supplement 07/29/22 Unknown History furosemide 40 mg tablet 40 mg PO DAILY #90 tabs 12/07/23 Unknown Rx apixaban 5 mg tablet (Eliquis) 5 mg PO BID #180 tabs 10/24/24 Unknown Rx acetaminophen 325 mg tablet 650 mg PO Q6H 02/11/25 Unknown History ascorbic acid (vitamin C) 500 mg 500 mg PO QDAY 02/11/25 Unknown History tablet cholecalciferol (vitamin D3) 50 50 mcg PO QDAY 02/11/25 Unknown History mcg (2,000 unit) tablet gabapentin 100 mg capsule 100 mg PO Q12H neurapathy 02/11/25 Unknown History magnesium oxide 400 mg PO QDAY 02/11/25 Unknown History metoprolol tartrate 25 mg tablet 25 mg PO BID 02/11/25 Unknown History potassium chloride 20 mEq 20 meq PO QDAY 02/11/25 Unknown History tablet,extended release(part/cryst) (Klor-Con M) sennosides 8.6 mg capsule (senna) 8.6 mg PO BID PRN constipation 02/11/25 Unknown History zinc gluconate 30 mg tablet 30 mg PO QDAY 02/11/25 Unknown History Allergy/AdvReac Type Severity Reaction Status Date / Time atorvastatin Allergy Other Verified 02/20/25 10:14 Family History Father Heart disease Myocardial infarction Mother Cancer Diabetes Brother Myocardial infarction Surgical History H/O aortic valve replacement (01/30/25) History of partial knee replacement S/P excision of lipoma Social History Smoking Status: Never smoker alcohol intake: never substance use type: does not use eating out: 4 or more times/week during the past year weight has: remained stable ROS ROS ED Constitutional Constitutional ED: Denies chills or fever(s) Eyes Eyes: Denies blurry vision or change in vision ENT ENT ED: Denies rhinorrhea or sore throat Cardiovascular Cardiovascular: Reports palpitations; Denies chest pain Respiratory/Chest Respiratory/Chest: Denies cough or dyspnea Gastrointestinal Gastrointestinal: Denies nausea or vomiting Genitourinary Genitourinary ED: Denies dysuria or hematuria Musculoskeletal Musculoskeletal: Denies back pain or neck pain Integumentary Denies abscess or rash Neurologic Neurologic: Denies headache(s) or weakness Allergic/Immunologic Allergic/Immunologic ED: Denies mouth swelling or urticaria EXAM Physical Exam Const Vital Signs: 02/20/25 10:12 02/20/25 10:24 02/20/25 11:11 Temperature 97.8 F Temperature Source Oral Pulse Rate 128 H 126 H Respiratory Rate 18 21 H Respiratory Effort Normal Non-Labored Blood Pressure 161/111 H Blood Pressure Mean 127 Pulse Ox 100 95 Oxygen Delivery Method Room Air 02/20/25 12:00 02/20/25 12:04 02/20/25 12:15 Temperature Temperature Source Pulse Rate 126 H 126 H Respiratory Rate 16 22 H Respiratory Effort Blood Pressure 158/114 H 148/95 H Blood Pressure Mean 122 111 Pulse Ox 97 97 97 Oxygen Delivery Method Room Air 02/20/25 13:00 02/20/25 14:00 02/20/25 15:00 Temperature Temperature Source Pulse Rate 124 H 125 H 126 H Respiratory Rate 21 H 20 H 20 H Respiratory Effort Blood Pressure 158/113 H 148/110 H 167/113 H Blood Pressure Mean 128 122 131 Pulse Ox 96 94 96 Oxygen Delivery Method Room Air Room Air Room Air 02/20/25 15:52 02/20/25 16:00 02/20/25 16:34 Temperature Temperature Source Pulse Rate 126 H 116 H 128 H Respiratory Rate 18 19 H 21 H Respiratory Effort Blood Pressure 145/112 H 141/99 H 155/109 H Blood Pressure Mean 123 113 124 Pulse Ox 96 95 97 Oxygen Delivery Method Room Air Room Air Room Air 02/20/25 17:00 Temperature Temperature Source Pulse Rate 128 H Respiratory Rate 24 H Respiratory Effort Blood Pressure 156/116 H Blood Pressure Mean 129 Pulse Ox 96 Oxygen Delivery Method Room Air Positive well nourished and well developed General Appearance ED: well developed and NAD HEENT Reports moist mucous membranes Neck supple and no JVD Resp normal respiratory effort and clear to auscultation bilaterally Cardio regular rhythm Rate: tachycardic GI soft to palpation, non-tender and non-distended Neuro oriented x3, CN's II-XII intact bilaterally and no sensory deficits noted Sensorium / Orientation: awake and alert Motor Exam: strength 5/5 throughout Psych mental status grossly normal Skin no rashes or lesions noted Heart Score History: Slightly/Non-Suspicious ECG: Nonspecific Repolarization Age: >/= 65 years Risk Factors: 1 or 2 Risk Factors Troponin: >1 - <3 Normal Limit Score: 5 MDM MDM MDM Narrative Medical decision making narrative: Differential diagnosis includes cardiac dysrhythmia, cardiac ischemia, pneumonia, pulmonary embolism, bronchitis, electrolyte abnormality, and anxiety. EKG will be obtained to assess for cardiac dysrhythmia and cardiac ischemia. CTA of the chest will be obtained to assess for pneumonia and pulmonary embolism. CBC will be obtained to assess for leukocytosis and anemia. Basic metabolic profile will be obtained to assess for electrolyte abnormality and renal function. PT with INR and PTT will be obtained to assess for coagulopathy. High-sensitivity troponin will be obtained to assess for cardiac ischemia. 2-hour repeat high-sensitivity troponin will be obtained to assess for ongoing cardiac ischemia. History & Record Review Additional record(s) reviewed:: Prior labs Lab Data Attestation: I reviewed the patient's lab results. Lab results narrative: CBC was reviewed. There is a mild anemia with a hemoglobin of 11.0 and hematocrit of 35.0. PT was INR and PTT were reviewed. Pro time was 16.9 and INR is 1.4. PTT was normal at 33.7. Basic metabolic profile was reviewed and was essentially within normal limits. Initial high-sensitivity troponin was reviewed and was elevated at 79. 2-hour repeat high-sensitivity troponin was reviewed and was improving at 74. 4-hour repeat high-sensitivity troponin was reviewed and was 71. Labs: Laboratory Results - last 24 hr 02/20/25 02/20/25 02/20/25 12:40 14:35 16:15 WBC 7.9 RBC 3.71 L Hgb 11.0 L Hct 35.0 L MCV 94.3 H MCH 29.6 MCHC 31.4 L RDW Std Deviation 49.8 H RDW Coeff of Regino 14.4 Plt Count 419 MPV 9.0 Immature Gran % (Auto) 0.800 Neut % (Auto) 72.2 H Lymph % (Auto) 14.8 L [place] % (Auto) 9.5 Eos % (Auto) 1.9 Baso % (Auto) 0.8 Absolute Neuts (auto) 5.7 Absolute Lymphs (auto) 1.17 Nucleated RBC % 0 PT 16.9 H INR 1.4 APTT 33.7 Sodium 141 Potassium 3.6 Chloride 103 Carbon Dioxide 24.3 Anion Gap 13 BUN 12 Creatinine 1.04 Estim Creat Clear Calc 91.35 Est GFR (MDRD) Non-Af 78 BUN/Creatinine Ratio 11.3 Glucose 119 H Calcium 9.0 Troponin T High Sens 79 H* Troponin T Hi Sens 2 Hr 74 H* Troponin T Hi Sens 4Hr 71 H* Radiography CTA PE Study: No Evidence of PE and No Evidence of Dissection Diagnostic Testing: Clinical Impression(s) from Imaging Studies Chest CTA 02/20/25 12:04 IMPRESSION: There is a 1.5 x 1.8 cm right enlarged precarinal lymph node. There is a 3.5 cm left pleural effusion. There is a 1.4 cm pericardial effusion. Reading Location: [facility] CTA of the chest was obtained. There is no evidence of pulmonary embolism or aortic dissection. There is a 1.5 x 1.8 cm precarinal lymph node. There is a 3.5 cm left pleural effusion and a 1.4 cm pericardial effusion. This was interpreted by the radiologist was also independently reviewed by myself. EKG Initial EKG: Attestation: I personally reviewed and interpreted this EKG as follows: Interpretation: Sinus Tachycardia (127) and Non-Specific ST Changes Comments: EKG was obtained. On my independent interpretation, it shows sinus tachycardia with frequent PVCs with a rate of 127. [place] interval was normal at 176 ms. QRS of was normal at 88 ms. QTc interval was normal at 462 ms. [place] was normal. There are nonspecific ST-T wave changes noted. Prior EKG tracings: available for review Prior: Unchanged (02/11/2025) Management Discussion w/another healthcare provider: Hospitalist and Sheet Metal Insulator (Dr. Morton) Treatment and Re-Evaluation :: Patient was given aspirin. Patient was given a dose of metoprolol IV. Patient had no improvement with this. Patient was given a dose of Cardizem. I was informed that patient's heart rate did slow down but became somewhat irregular. Patient's heart rate went back up when I went to reevaluate the patient and was back into the 120s again. Case was discussed with Dr. Morton from cardiology. He recommended giving the patient a dose of oral metoprolol. Patient had no improvement with this. Dr. Morton was in to evaluate the patient. He recommended admission to the hospital. He recommends starting the patient on Cardizem drip. This was ordered. Case was discussed with the hospitalist. She will admit the patient to PCU stepdown. Patient and family understood and were agreeable with the plan. All questions were answered. Discharge Plan Dx/Rx/DC Orders Clinical Impression: Cardiac dysrhythmia, unspecified, Tachycardia, H/O aortic valve replacement, HTN (hypertension) Disposition Disposition: Acute Care Hospital [facility]
[2025-02-20 13:24] LABS: Anion Gap 13 (5-15); BUN 12 mg/dL (4-19); BUN/Creat Ratio 11.3 RATIO (10-20); Calcium,Total 9.0 mg/dL (7.6-11.0); Carbon Dioxide 24.3 mmol/L (21.0-32.0); Chloride 103 mmol/L (98-108); Estimated Creatinine Clearance 91.35 ml/min (50-250); Glucose 119 mg/dL (70-99); Potassium 3.6 mmol/L (3.3-5.1)
[2025-02-20 13:32] LABS: Troponin T High Sensitivity 79 ng/L (<=22)
[2025-02-20 15:43] LABS: Troponin T High Sens 2 HR 74 ng/L (<=22)
[2025-02-20 16:47] LABS: Troponin T High Sens 4 HR 71 ng/L (<=22)
--- NOTE | 2025-02-20 16:49 | ED.RN ---
Dr Adkins notified of critical troponin
--- NOTE | 2025-02-20 17:32 | PCM.CONS.C ---
Assessment & Plan Assessment/Plan (1) Tachycardia: PLAN: Patient's tachycardia appears to be either some type of automatic atrial tachyarrhythmia or an atypical flutter with 2-1 conduction. Is very difficult to map out at the rate of 127 but it does not appear to be sinus tachycardia. He did not respond to IV or oral Lopressor and only minimal response to IV Cardizem. The patient has been on Eliquis since January 30. He will continue on the Eliquis we will evaluate him for possible direct-current cardioversion if he does not convert with IV diltiazem and higher doses of oral metoprolol. The patient underwent a Maze procedure with both radiofrequency ablation and cryoablation during his AVR. That healing process is ongoing and makes the likelihood that this is some type of atrial tachyarrhythmia. If this remains without definitive diagnosis with aggressive rate slowing therapy would consider adenosine as transient AV blocking agent to try and define the arrhythmia. His [facility] java sybase developer had recommended cardioversion when he got to the emergency department but the ED was concerned that this was not atrial fibrillation and did not feel it was appropriate to proceed with cardioversion at this time. I agree and recommend that we try to convert this with IV medical therapy and if unsuccessful will do a cardioversion tomorrow. The procedures risk/benefit and alternatives were explained to the patient and his they voiced understanding and agrees to proceed as outlined. An echocardiogram will be performed first thing in the morning. (2) H/O aortic valve replacement: PLAN: Patient's status post AVR January 30 at [facility] he has a bioprosthetic valve. (3) HTN (hypertension): QUALIFIERS: Hypertension type: primary hypertension Qualified Code(s): I10 - Essential (primary) hypertension PLAN: Patient's blood pressures been stable since he has been in the emergency department. He has not been hypotensive and has not had any syncope or near syncope. (4) Atrial fibrillation with RVR: PLAN: The patient is not in atrial fibrillation his rhythm is regular and rapid with narrow complex and definitive atrial activity can be seen but it appears there may be 2-1 conduction. PLAN: Plan 1. Will continue metoprolol tartrate 50 mg twice daily. 2. Add IV Cardizem and titrate to rate control the heart rate less than 100. 3. Continue Eliquis 5 mg twice daily. 4. If rhythm not controlled with medications we will plan on direct-current cardioversion if indicated pending definitive diagnosis of the rhythm. 5. Obtain 2D echocardiogram to rule out significant pericardial effusion. HPI Consult Data Date of Consult: 02/20/25 HPI Narrative Reason for Consultation: Tachycardia HPI Narrative: ILDA STERN, is a 69 M who presents to the emergency department at [facility] with sudden onset of tachycardia that was noted yesterday morning and again this morning on his blood pressure and heart rate check done by his each morning. The patient is status post aortic valve replacement with a #27 [place] magna bioprosthetic valve and underwent a Maze procedure with cryo and RF ablation with left atrial appendage ligation at [facility] on January 30, 2025. Since discharge the patient is doing very well in his home environment he has been proceeding with activity without any restrictions. The patient did notice palpitations when he laid down to go to sleep the night before last and his heart rate was 123 when he got up in the morning. He did not notice palpitations during the day yesterday but then again this morning his heart rate was once again 127. He called his [facility] physicians and they recommended he come to the emergency department. ECG in the emergency department was initially read as sinus tachycardia at 125 bpm. However, upon closer examination it appears this may be an atypical flutter at 2-1. He did receive IV Lopressor which did not slow his heart rate he is on Lopressor 25 mg twice daily in his home environment. He also received IV Cardizem which only transiently slowed the rate but did not did not have a rhythm strip of that is slightly slower rate. He was simply given 100 mg of p.o. Lopressor without any change in his heart rate. He does occasionally have what he appears to be a PVC or aberrantly conducted beat but there is not enough pulse post extra beat to see definitive flutter waves. The patient had been on amiodarone in the past I am not sure when that was discontinued. Currently the patient is on Eliquis 5 mg twice daily which she has been on since January 30. He is on vitamin C and aspirin 81 mg daily metoprolol tartrate 25 mg twice daily potassium replacement was rosuvastatin 10 mg daily. Patient's last cardioversion was January 2023. Last echocardiogram September 2024 showed LVEF of 55 to 60% left atrium was normal the aortic valve showed a mean gradient of 35 mmHg the mitral valve showed trace regurgitation no stenosis compared to previous echo from March 2024 the aortic valve gradient had worsened. The patient also apparently had an echocardiogram done January 30, 2025 which I do not have the full results of. The decision was made to pursue surgical intervention at this time due to he needs orthopedic surgery on his knees. The patient's incisions are all healing well. The CTA was done which showed no pulmonary emboli but did show a small pericardial effusion measuring 1.4 cm. [facility]LY [facility] Medical History Nonrheumatic aortic (valve) stenosis Nonrheumatic mitral (valve) insufficiency Pulmonary HTN Valvular heart disease Acute CHF (congestive heart failure) Atrial fibrillation with RVR Sleep apnea HTN (hypertension) Hypercholesteremia Home Medications ?Medication ?Instructions ?Recorded ?Last Taken ?Type aspirin 81 mg tablet,delayed 81 mg PO QDAY heart health 04/30/17 Unknown History release rosuvastatin 10 mg tablet (Crestor) 10 mg PO QDAY cholesterol 04/30/17 Unknown History multivitamin 1 tab PO DAILY supplement 07/29/22 Unknown History furosemide 40 mg tablet 40 mg PO DAILY #90 tabs 12/07/23 Unknown Rx apixaban 5 mg tablet (Eliquis) 5 mg PO BID #180 tabs 10/24/24 Unknown Rx acetaminophen 325 mg tablet 650 mg PO Q6H 02/11/25 Unknown History ascorbic acid (vitamin C) 500 mg 500 mg PO QDAY 02/11/25 Unknown History tablet cholecalciferol (vitamin D3) 50 50 mcg PO QDAY 02/11/25 Unknown History mcg (2,000 unit) tablet gabapentin 100 mg capsule 100 mg PO Q12H neurapathy 02/11/25 Unknown History magnesium oxide 400 mg PO QDAY 02/11/25 Unknown History metoprolol tartrate 25 mg tablet 25 mg PO BID 02/11/25 Unknown History potassium chloride 20 mEq 20 meq PO QDAY 02/11/25 Unknown History tablet,extended release(part/cryst) (Klor-Con M) sennosides 8.6 mg capsule (senna) 8.6 mg PO BID PRN constipation 02/11/25 Unknown History zinc gluconate 30 mg tablet 30 mg PO QDAY 02/11/25 Unknown History Allergy/AdvReac Type Severity Reaction Status Date / Time atorvastatin Allergy Other Verified 02/20/25 10:14 Family History Father Heart disease Myocardial infarction Mother Cancer Diabetes Brother Myocardial infarction Surgical History H/O aortic valve replacement (01/30/25) History of partial knee replacement S/P excision of lipoma Social History Smoking Status: Never smoker alcohol intake: never substance use type: does not use eating out: 4 or more times/week during the past year weight has: remained stable ROS Constitutional Constitutional: Reports as per HPI Eyes Eyes: Reports systems reviewed and no addt'l complaints, except as documented ENT HEENT: Reports systems reviewed and no addt'l complaints, except as documented Cardiovascular Cardiovascular: Reports as per HPI Respiratory/Chest Respiratory/Chest: Reports as per HPI Gastrointestinal Gastrointestinal: Reports as per HPI Genitourinary Genitourinary: Reports systems reviewed and no addt'l complaints, except as documented Musculoskeletal Musculoskeletal: Reports as per HPI Integumentary Integumentary: Reports systems reviewed and no addt'l complaints, except as documented Neurologic Neurologic: Reports systems reviewed and no addt'l complaints, except as documented Psychiatric Psychiatric: Reports systems reviewed and no addt'l complaints, except as documented Endocrine Endocrinology: Reports systems reviewed and no addt'l complaints, except as documented Hematologic/Lymphatic Hematologic/Lymphatic: Reports systems reviewed and no addt'l complaints, except as documented Allergic/Immunologic Allergic/Immunologic: Reports systems reviewed and no addt'l complaints, except as documented Physical Exam Const alert and oriented x3 HEENT normocephalic Eyes EOMs intact bilaterally Neck no carotid bruits Neck Narrative: Probable flutter waves in the neck veins. Chest Chest Narrative: Healing midline sternotomy incision site healing chest tube insertion sites in the upper abdomen Chest: midline sternotomy incision Resp normal respiratory effort and clear to auscultation bilaterally Cardio Rate: tachycardic Rhythm: regular rhythm Heart Sounds: S1 normal and S2 normal; Negative for click, gallop or murmur GI GI Narrative: Healing chest tube insertion sites Extremity General Extremity: edema bilateral lower extremity Details: trace Neuro Neuro Narrative: Alert and oriented x 3 Psych mental status grossly normal Charges/Coding Visit Charges Inpatient E&M: 09209 Init Hosp L3 Objective Data Vital Signs: Vital Signs Temp Pulse Resp BP Pulse Ox O2 Del Method 97.8 F 128 H 24 H 156/116 H 96 Room Air 02/20/25 10:12 02/20/25 17:00 02/20/25 17:00 02/20/25 17:00 02/20/25 17:00 02/20/25 17:00 Oxygen Delivery Method Room Air Weight: 267 lb Body Mass Index (BMI) 36.2 Lab / Micro Data Attestation: I reviewed the patient's lab results. 02/20/25 12:40 02/20/25 12:40 Labs: Laboratory Results - last 24 hr 02/20/25 12:40: WBC 7.9, RBC 3.71 L, Hgb 11.0 L, Hct 35.0 L, MCV 94.3 H, MCH 29.6, MCHC 31.4 L, RDW Std Deviation 49.8 H, RDW Coeff of Regino 14.4, Plt Count 419, MPV 9.0, Immature Gran % (Auto) 0.800, Neut % (Auto) 72.2 H, Lymph % (Auto) 14.8 L, [place] % (Auto) 9.5, Eos % (Auto) 1.9, Baso % (Auto) 0.8, Absolute Neuts (auto) 5.7, Absolute Lymphs (auto) 1.17, Nucleated RBC % 0, PT 16.9 H, INR 1.4, APTT 33.7, Sodium 141, Potassium 3.6, Chloride 103, Carbon Dioxide 24.3, Anion Gap 13, BUN 12, Creatinine 1.04, Estim Creat Clear Calc 91.35, Est GFR (MDRD) Non-Af 78, BUN/Creatinine Ratio 11.3, Glucose 119 H, Calcium 9.0, Troponin T High Sens 79 H* 02/20/25 14:35: Troponin T Hi Sens 2 Hr 74 H* 02/20/25 16:15: Troponin T Hi Sens 4Hr 71 H* Rhythm Strip Rhythm Strip: Probable atypical flutter Rate: 127 Cardiology Labs/Tests 02/20/25 12:40: WBC 7.9, RBC 3.71 L, Hgb 11.0 L, Hct 35.0 L, MCV 94.3 H, MCH 29.6, MCHC 31.4 L, Plt Count 419, MPV 9.0, Immature Gran % (Auto) 0.800, Neut % (Auto) 72.2 H, Lymph % (Auto) 14.8 L, Nelson % (Auto) 9.5, Eos % (Auto) 1.9, Baso % (Auto) 0.8, Absolute Neuts (auto) 5.7, Nucleated RBC % 0, PT 16.9 H, INR 1.4, APTT 33.7, Sodium 141, Potassium 3.6, Chloride 103, Carbon Dioxide 24.3, Anion Gap 13, BUN 12, Creatinine 1.04, Est GFR (MDRD) Non-Af 78, BUN/Creatinine Ratio 11.3, Glucose 119 H, Calcium 9.0 Rhythm: EKG: ECHO: Stress Test: Cardiac Cath: PCI: CT Surgery: Holter monitor: EPS: PPM: CXR: Chest CT Scan: Radiography Diagnostic Testing: Radiology Impression Chest CTA 02/20/25 12:04 IMPRESSION: There is a 1.5 x 1.8 cm right enlarged precarinal lymph node. There is a 3.5 cm left pleural effusion. There is a 1.4 cm pericardial effusion. Reading Location: [facility] Risk Score for UA/STEMI Assesmment (YES = 1) Risk Stratification Applicable: No
[2025-02-20] MEDS: Diltiazem 125 MG in Dextrose 5%-Water (100mL Bag) 100 ML IV (18:03)
--- NOTE | 2025-02-20 18:03 | PCM.HP.STD ---
HPI - General General Date of Admission: 02/20/25 Date of Service: 02/20/25 Chief Complaint: Heart racing HPI Narrative ILDA STERN, is a 69-year-old male history of A-fib, CHF, hypertension presented to [facility] ED 02/20/2025 for palpitations that began night before last. He recently underwent a Maze procedure with both radiofrequency ablation and cryoablation during an aortic valve repair earlier this month at [facility]. In the ED heart rate in the 120s, blood pressure 161/111, respiratory 18 pulse ox 100% on room air. CBC with hemoglobin of 11, INR 1.4, BMP only notable for glucose of 119. Troponin 79 and subsequent over 74 and 71 respectively. CTA obtained which showed 1.5 x 1.8 cm right enlarged precarinal lymph node, 3.5 cm left pleural effusion, 1.4 cm pericardial effusion. His [facility] heater engineer helper recommended cardioversion in the ED but ED was concerned he was not in A-fib and requested [facility] evaluation to assist with further dispo. Extension Course Counselor evaluated patient in ED, he recommended IV Cardizem and an echocardiogram, increasing metoprolol and if he did not improve tomorrow he would be a candidate for cardioversion. Hospitalist contacted for admission. Patient evaluated at bedside with and reports history as above. He had been doing well since his surgery and neck for last he noticed his heart was racing. It has not changed since that time, no associated chest pain or shortness of breath. No swelling of his lower extremities. After surgery he got lightheaded twice briefly when his head was down and then he went to stand up but has not happened in over a week no other new or acute complaints. [facility] Medical History Nonrheumatic aortic (valve) stenosis Nonrheumatic mitral (valve) insufficiency Pulmonary HTN Valvular heart disease Acute CHF (congestive heart failure) Atrial fibrillation with RVR Sleep apnea HTN (hypertension) Hypercholesteremia Home Medications ?Medication ?Instructions ?Recorded ?Last Taken ?Type aspirin 81 mg tablet,delayed 81 mg PO QDAY heart health 04/30/17 Unknown History release rosuvastatin 10 mg tablet (Crestor) 10 mg PO QDAY cholesterol 04/30/17 Unknown History multivitamin 1 tab PO DAILY supplement 07/29/22 Unknown History furosemide 40 mg tablet 40 mg PO DAILY #90 tabs 12/07/23 Unknown Rx apixaban 5 mg tablet (Eliquis) 5 mg PO BID #180 tabs 10/24/24 Unknown Rx acetaminophen 325 mg tablet 650 mg PO Q6H 02/11/25 Unknown History ascorbic acid (vitamin C) 500 mg 500 mg PO QDAY 02/11/25 Unknown History tablet cholecalciferol (vitamin D3) 50 50 mcg PO QDAY 02/11/25 Unknown History mcg (2,000 unit) tablet gabapentin 100 mg capsule 100 mg PO Q12H neurapathy 02/11/25 Unknown History magnesium oxide 400 mg PO QDAY 02/11/25 Unknown History metoprolol tartrate 25 mg tablet 25 mg PO BID 02/11/25 Unknown History potassium chloride 20 mEq 20 meq PO QDAY 02/11/25 Unknown History tablet,extended release(part/cryst) (Klor-Con M) sennosides 8.6 mg capsule (senna) 8.6 mg PO BID PRN constipation 02/11/25 Unknown History zinc gluconate 30 mg tablet 30 mg PO QDAY 02/11/25 Unknown History Allergy/AdvReac Type Severity Reaction Status Date / Time atorvastatin Allergy Other Verified 02/20/25 10:14 Family History Father Heart disease Myocardial infarction Mother Cancer Diabetes Brother Myocardial infarction Surgical History H/O aortic valve replacement (01/30/25) History of partial knee replacement S/P excision of lipoma Social History Smoking Status: Never smoker alcohol intake: never substance use type: does not use eating out: 4 or more times/week during the past year weight has: remained stable ROS ROS Narrative General: Denies fever/chills HENT: Denies headache, denies stuffy nose, denies sore throat EYES: Denies changes in vision Resp: Denies cough, denies shortness of breath Cardiac: Denies chest pain, feels heart racing GI: Denies abdominal pain, denies changes in bowel, denies nausea/vomiting : Denies changes in urination Extremity: Denies swelling MSK: Denies weakness Neuro: Denies any numbness/tingling Heme: Denies any bleeding or bruising Skin: Denies rashes Psychiatric: No complaints voiced Vital Signs Vital Signs Vital Signs: 02/20/25 10:12 02/20/25 10:24 02/20/25 11:11 Temperature 97.8 F Temperature Source Oral Pulse Rate 128 H 126 H Respiratory Rate 18 21 H Respiratory Effort Normal Non-Labored Blood Pressure 161/111 H Blood Pressure Mean 127 Pulse Ox 100 95 Oxygen Delivery Method Room Air 02/20/25 12:00 02/20/25 12:04 02/20/25 12:15 Temperature Temperature Source Pulse Rate 126 H 126 H Respiratory Rate 16 22 H Respiratory Effort Blood Pressure 158/114 H 148/95 H Blood Pressure Mean 122 111 Pulse Ox 97 97 97 Oxygen Delivery Method Room Air 02/20/25 13:00 02/20/25 14:00 02/20/25 15:00 Temperature Temperature Source Pulse Rate 124 H 125 H 126 H Respiratory Rate 21 H 20 H 20 H Respiratory Effort Blood Pressure 158/113 H 148/110 H 167/113 H Blood Pressure Mean 128 122 131 Pulse Ox 96 94 96 Oxygen Delivery Method Room Air Room Air Room Air 02/20/25 15:52 02/20/25 16:00 02/20/25 16:34 Temperature Temperature Source Pulse Rate 126 H 116 H 128 H Respiratory Rate 18 19 H 21 H Respiratory Effort Blood Pressure 145/112 H 141/99 H 155/109 H Blood Pressure Mean 123 113 124 Pulse Ox 96 95 97 Oxygen Delivery Method Room Air Room Air Room Air 02/20/25 17:00 02/20/25 17:48 02/20/25 18:00 Temperature 97.8 F Temperature Source Pulse Rate 128 H 129 H 127 H Respiratory Rate 24 H 16 21 H Respiratory Effort Blood Pressure 156/116 H 159/112 H 171/91 H Blood Pressure Mean 129 127 117 Pulse Ox 96 96 96 Oxygen Delivery Method Room Air Room Air Weight Weight: 121.109 kg Body Mass Index (BMI) 36.2 Physical Exam Narrative General: Alert, oriented, no apparent distress HEENT: Atraumatic, normocephalic Eyes: Anicteric, normal conjunctiva, extraocular movements grossly intact Neck: Supple Respiratory: Very slight crackles at lung bases, normal respiratory effort Cardiovascular: Tachycardic in the 120s GI: Soft, nontender, nondistended Extremities: No edema Musculoskeletal: Moving all extremities Neuro: No overt focal neurological deficits Skin: No rashes appreciated Psych: Cooperative Results Lab / Micro Data 02/20/25 12:40 02/20/25 12:40 Labs: Laboratory Results - last 24 hr 02/20/25 12:40: WBC 7.9, RBC 3.71 L, Hgb 11.0 L, Hct 35.0 L, MCV 94.3 H, MCH 29.6, MCHC 31.4 L, RDW Std Deviation 49.8 H, RDW Coeff of Regino 14.4, Plt Count 419, MPV 9.0, Immature Gran % (Auto) 0.800, Neut % (Auto) 72.2 H, Lymph % (Auto) 14.8 L, Stanley % (Auto) 9.5, Eos % (Auto) 1.9, Baso % (Auto) 0.8, Absolute Neuts (auto) 5.7, Absolute Lymphs (auto) 1.17, Nucleated RBC % 0, PT 16.9 H, INR 1.4, APTT 33.7, Sodium 141, Potassium 3.6, Chloride 103, Carbon Dioxide 24.3, Anion Gap 13, BUN 12, Creatinine 1.04, Estim Creat Clear Calc 91.35, Est GFR (MDRD) Non-Af 78, BUN/Creatinine Ratio 11.3, Glucose 119 H, Calcium 9.0, Troponin T High Sens 79 H* 02/20/25 14:35: Troponin T Hi Sens 2 Hr 74 H* 02/20/25 16:15: Troponin T Hi Sens 4Hr 71 H* Rhythm Strip Rhythm Strip: Probable atypical flutter Rate: 127 Imaging Radiology Impression Chest CTA 02/20/25 12:04 IMPRESSION: There is a 1.5 x 1.8 cm right enlarged precarinal lymph node. There is a 3.5 cm left pleural effusion. There is a 1.4 cm pericardial effusion. Reading Location: [facility] Assessment & Plan Assessment/Plan (1) Atrial tachycardia: PLAN: Plan # Atrial tachycardia -Patient seems to be in either atypical flutter with 2-1 conduction or another atrial tachyarrhythmia -Discussed with cardiology -Patient to be admitted to stepdown on IV Cardizem -Increase home metoprolol -Echocardiogram ordered -Patient to be made n.p.o. at midnight in the event he needs cardioversion tomorrow -Continue home Eliquis - Will check TSH and magnesium # Recent AVR and maze procedure -Done at [facility] -Reportedly [facility] heater engineer helper recommended cardioversion, patient to be admitted on Cardizem first and cardioverted tomorrow if no improvement cardiology consult # History of chronic heart failure with preserved ejection fraction - Will continue patient's home medications - Daily weights, I's and O's # Elevated troponin - Denies any chest pain, troponin initially 79 and subsequently 74 and 71 respectively - Unclear significance - Did recent may have AVR and maze procedure - Repeating echocardiogram as above - Cardiology consulted #DVT ppx: Not needed, patient chronically anticoagulated on Eliquis Liz Blake MD Charges/Coding Visit Charges Inpatient E&M: 43428 Init Hosp L2
--- NOTE | 2025-02-20 18:55 | ECHOCS_ITS ---
Reason For Study : PERICARDIAL EFFUSION Procedure This was a 2D Doppler, Color Flow transthoracic echocardiogram. The patient was scanned supine. Due to recent surgery (instructed to lie on back). The study was technically difficult. Contrast injection was performed. Exam performed portable in patient room. Left Ventricle Normal LV size. Mild concentric left ventricular hypertrophy. Left ventricular systolic function is normal. The left ventricular ejection fraction is 60 %. Stage 2 diastolic dysfunction. No regional wall motion abnormalities noted. Right Ventricle Normal RV size. Normal systolic function. Atria Normal left atrium. Normal right atrium. Mitral Valve Bileaflet diffuse mitral valve thickening. Mild focal mitral valve calcification. Tricuspid Valve Normal tricuspid valve. Mild tricuspid valve insufficiency. Pulmonary artery systolic pressure is 24 mmHg. Aortic Valve Bioprosthetic aortic valve. Pulmonic Valve Normal pulmonic valve. Great Vessels Normal aortic root. The pulmonary artery is normal size. Inferior vena cava collapse with respiration. Pericardium/Pleural No pericardial effusion. Medication Diluted definity 2.0ml given slow IV push to enhance endocardial definition. MMode/2D Measurements & Calculations LVIDd: 4.5 cm IVSd: 1.4 cm LVOT diam: 2.3 cm LVIDs: 3.0 cm LVPWd: 1.4 cm RVDd: 3.6 cm FS: 33.5 % LVOT area: 4.0 cm2 Ao root diam: 2.6 cm asc Aorta Diam: 2.9 cm LAV(MOD- bp): 71.5 ml LAV(MOD- bp) Indexed: 30.2 ml/m2 LAV(MOD- sp2): 77.1 ml LAV(MOD- sp4): 66.6 ml SV(MOD-sp4): 69.7 ml SV(sp4- el): 70.8 ml LVAd ap4: 36.1 cm2 LVLd ap4: 8.2 cm SI(MOD-sp4): 29.5 ml/m2 EDV(MOD-sp4): 131.6 ml EDV(sp4-el): 134.8 ml LVAs ap4: 23.1 cm2 LVLs ap4: 7.1 cm ESV(MOD-sp4): 61.9 ml ESV(sp4-el): 64.0 ml EF(MOD-sp4): 53.0 % EF(sp4-el): 52.5 % LA A4 area: 21.5 cm2 LA dimension(2D): 5.2 cm RA A4 area: 18.2 cm2 TAPSE: 1.5 cm Time Measurements MV dec time: 0.16 sec Doppler Measurements & Calculations MV E max caleb: 111.8 cm/sec Lat Peak E' Caleb: 10.4 cm/sec Med Peak E' Caleb: 9.4 cm/sec MV A max caleb: 39.3 cm/sec E/E' lat: 10.8 E/E' med: 11.9 MV E/A: 2.8 MV V2 max: 122.3 cm/sec MV P1/2t max caleb: 119.4 cm/sec Ao V2 max: 215.2 cm/sec MV max P.0 mmHg MV P1/2t: 49.2 msec Ao max P.6 mmHg MV V2 mean: 60.5 cm/sec MV dec slope: 710.5 cm/sec2 Ao V2 mean: 153.3 cm/sec MV mean P.8 mmHg MVA(P1/2t): 4.5 cm2 Ao mean P.5 mmHg MV V2 VTI: 23.5 cm Ao V2 VTI: 40.4 cm MVA(VTI): 3.2 cm2 AV (velocity ratio): 0.46 DAVID(I,D): 1.9 cm2 DAVID(V,D): 1.8 cm2 LV V1 max: 96.1 cm/sec SV(LVOT): 74.8 ml PA V2 max: 99.9 cm/sec LV V1 max P.7 mmHg LV V1 mean P.0 mmHg LV V1 mean: 66.8 cm/sec LV V1 VTI: 18.8 cm TR max caleb: 231.4 cm/sec TR max P.4 mmHg ECHO/Echo Complete W/ Contrast Interpretation Summary Normal LV size. Left ventricular systolic function is normal. The left ventricular ejection fraction is 60 %. Stage 2 diastolic dysfunction. Pulmonary artery systolic pressure is 24 mmHg. No pericardial effusion. Contrast injection was performed. Ordering Physician: Liz Blake Referring Physician: Ant Roth Performed By: Maria Del Rosario Mcleod, FLAVIA, RVT
[2025-02-20] MEDS: MELATONIN 10 MG TABLET PO (21:30)
[2025-02-20] MEDS: Senna/Docusate Sodium 1 Tablet 2 TABLET PO (21:31)
[2025-02-20] MEDS: Amiodarone 360 MG in Dextrose 5% Viaflo Bag 192.8 ML 33.3 MG CONT INF (22:00)
[2025-02-20] MEDS: APIXABAN 5 MG TABLET PO (22:04)
[2025-02-21] VITALS (16 sets, daily range): BP systolic 111–152; BP diastolic 72–99; PULSE 73–126; RESP 16–23; TEMP 35.7–36.8; O2SAT 93–98; BMI 34.7
--- NOTE | 2025-02-21 00:26 | EKG12_ITS ---
Test Reason : RHYTHM CHANGE Blood Pressure : */* mmHG Vent. Rate : 125 BPM Atrial Rate : 125 BPM P-R Int : 92 ms QRS Dur : 90 ms QT Int : 338 ms P-R-T Axes : * 70 254 degrees QTcB Int : 487 ms Atypical Atrial Flutter ST & T wave abnormality, consider inferolateral ischemia Abnormal ECG When compared with ECG of 20-Feb-2025 10:20, MANUAL COMPARISON REQUIRED DATA IS UNCONFIRMED Confirmed by Stanley Morton ([id number]), day guard ALHAJI GLASS ([id number]) on 02/21/2025 8:09:55 AM Referred By: Confirmed By: Stanley Morton
--- NOTE | 2025-02-21 01:44 | EKG12_ITS ---
Test Reason : Rhythm change Blood Pressure : */* mmHG Vent. Rate : 77 BPM Atrial Rate : 77 BPM P-R Int : 196 ms QRS Dur : 84 ms QT Int : 418 ms P-R-T Axes : 74 67 130 degrees QTcB Int : 473 ms Normal sinus rhythm Septal infarct , age undetermined T wave abnormality, consider inferolateral ischemia Abnormal ECG When compared with ECG of 21-Feb-2025 00:37, MANUAL COMPARISON REQUIRED DATA IS UNCONFIRMED Confirmed by Stanley Morton [id number]), visual effects editor ALHAJI GLASS ([id number]) on 02/21/2025 8:09:36 AM Referred By: King Confirmed By: Stanley Morton
[2025-02-21] MEDS: Amiodarone 360 MG in Dextrose 5% Viaflo Bag 192.8 ML 16.7 MG CONT INF (03:40)
[2025-02-21 05:55] LABS: Hematocrit 31.1 % (40-54); Hemoglobin 10.0 g/dL (13.0-16.5); Mean Corp Hgb Conc 32.2 g/dL (32-36); Mean Corpuscular Volume 93.7 fL (80-94); Mean Platelet Vol. 9.1 fl (6.2-12.0); Platelet Count 389 K/mm3 (150-450); RBC Distribution Width CV 14.7 % (11.6-14.6); RBC Distribution Width SD 50.3 fl (35.1-43.9); Red Blood Count 3.32 M/mm3 (4.6-6.2); White Blood Count 8.5 K/mm3 (4.4-11.0)
[2025-02-21 06:09] LABS: Anion Gap 12 (5-15); BUN 15 mg/dL (4-19); BUN/Creat Ratio 12.9 RATIO (10-20); Calcium,Total 9.0 mg/dL (7.6-11.0); Carbon Dioxide 24.0 mmol/L (21.0-32.0); Chloride 105 mmol/L (98-108); Estimated Creatinine Clearance 80.21 ml/min (50-250); Glucose 126 mg/dL (70-99); Magnesium 2.2 mg/dL (1.5-2.2); Potassium 3.4 mmol/L (3.3-5.1)
--- NOTE | 2025-02-21 08:08 | PCM.PN.CARD ---
Subjective Subjective Patient resting comfortably in the bed in no apparent distress. Telemetry shows that he converted from this atypical flutter to normal sinus rhythm at approximately 0115 hrs. this morning. Heart rate is now 75 and vital signs are stable. The patient had been placed on IV amiodarone last evening when he failed to respond to IV Cardizem and higher doses of p.o. metoprolol. Objective Data Vital Signs: Vital Signs Temp Pulse Resp BP Pulse Ox O2 Del Method 97 F L 75 16 139/88 H 98 CPAP 02/21/25 05:00 02/21/25 07:00 02/21/25 07:00 02/21/25 07:00 02/21/25 07:00 02/21/25 07:00 Oxygen Delivery Method CPAP Weight: 256 lb 2.834 oz Body Mass Index (BMI) 34.7 Intake & Output: Intake and Output for Last 24 Hours 02/19/25 02/20/25 02/21/25 23:59 23:59 23:59 Intake Total 97.56 / 614.21 705.70 / 705.70 Balance 97.56 / 614.21 705.70 / 705.70 Lab / Micro Data Attestation: I reviewed the patient's lab results. 02/21/25 05:20 02/21/25 05:20 Labs: Laboratory Results - last 24 hr 02/20/25 12:40: WBC 7.9, RBC 3.71 L, Hgb 11.0 L, Hct 35.0 L, MCV 94.3 H, MCH 29.6, MCHC 31.4 L, RDW Std Deviation 49.8 H, RDW Coeff of Regino 14.4, Plt Count 419, MPV 9.0, Immature Gran % (Auto) 0.800, Neut % (Auto) 72.2 H, Lymph % (Auto) 14.8 L, [place] % (Auto) 9.5, Eos % (Auto) 1.9, Baso % (Auto) 0.8, Absolute Neuts (auto) 5.7, Absolute Lymphs (auto) 1.17, Nucleated RBC % 0, PT 16.9 H, INR 1.4, APTT 33.7, Sodium 141, Potassium 3.6, Chloride 103, Carbon Dioxide 24.3, Anion Gap 13, BUN 12, Creatinine 1.04, Estim Creat Clear Calc 91.35, Est GFR (MDRD) Non-Af 78, BUN/Creatinine Ratio 11.3, Glucose 119 H, Calcium 9.0, Troponin T High Sens 79 H* 02/20/25 14:35: Troponin T Hi Sens 2 Hr 74 H* 02/20/25 16:15: Troponin T Hi Sens 4Hr 71 H* 02/21/25 05:20: WBC 8.5, RBC 3.32 L, Hgb 10.0 L, Hct 31.1 L, MCV 93.7, MCH 30.1, MCHC 32.2, RDW Std Deviation 50.3 H, RDW Coeff of Regino 14.7 H, Plt Count 389, MPV 9.1, Sodium 141, Potassium 3.4, Chloride 105, Carbon Dioxide 24.0, Anion Gap 12, BUN 15, Creatinine 1.16, Estim Creat Clear Calc 80.21, Est GFR (MDRD) Non-Af 69, BUN/Creatinine Ratio 12.9, Glucose 126 H, Calcium 9.0, Magnesium 2.2, TSH 1.530 Rhythm Strip Rhythm Strip: Sinus Rhythm Rate: 78 Cardiology Labs/Tests 02/20/25 12:40: WBC 7.9, RBC 3.71 L, Hgb 11.0 L, Hct 35.0 L, MCV 94.3 H, MCH 29.6, MCHC 31.4 L, Plt Count 419, MPV 9.0, Immature Gran % (Auto) 0.800, Neut % (Auto) 72.2 H, Lymph % (Auto) 14.8 L, [place] % (Auto) 9.5, Eos % (Auto) 1.9, Baso % (Auto) 0.8, Absolute Neuts (auto) 5.7, Nucleated RBC % 0, PT 16.9 H, INR 1.4, APTT 33.7, Sodium 141, Potassium 3.6, Chloride 103, Carbon Dioxide 24.3, Anion Gap 13, BUN 12, Creatinine 1.04, Est GFR (MDRD) Non-Af 78, BUN/Creatinine Ratio 11.3, Glucose 119 H, Calcium 9.0 02/21/25 05:20: WBC 8.5, RBC 3.32 L, Hgb 10.0 L, Hct 31.1 L, MCV 93.7, MCH 30.1, MCHC 32.2, Plt Count 389, MPV 9.1, Sodium 141, Potassium 3.4, Chloride 105, Carbon Dioxide 24.0, Anion Gap 12, BUN 15, Creatinine 1.16, Est GFR (MDRD) Non-Af 69, BUN/Creatinine Ratio 12.9, Glucose 126 H, Calcium 9.0, Magnesium 2.2 Rhythm: EKG: ECHO: Stress Test: Cardiac Cath: PCI: CT Surgery: Holter monitor: EPS: PPM: CXR: Chest CT Scan: Radiography Diagnostic Testing: Radiology Impression Chest CTA 02/20/25 12:04 IMPRESSION: There is a 1.5 x 1.8 cm right enlarged precarinal lymph node. There is a 3.5 cm left pleural effusion. There is a 1.4 cm pericardial effusion. Reading [facility] Physical Exam Const alert and oriented x3 HEENT normocephalic Neck no JVD Chest Chest: midline sternotomy incision Resp normal respiratory effort and clear to auscultation bilaterally Cardio Rate: regular rate Rhythm: regular rhythm Heart Sounds: S1 normal, S2 normal and murmur systolic I/ soft left sternal border; Negative for click or gallop GI soft to palpation Extremity no pedal edema Neuro Neuro Narrative: Alert and oriented x 3 Psych mental status grossly normal Assessment & Plan Assessment/Plan (1) Atrial tachycardia: PLAN: Patient's rhythm appeared to be an atypical atrial flutter with 2-1 conduction and a heart rate of 125-130. The rhythm fail to respond to metoprolol 100 mg twice daily with addition of Cardizem 15 mg/h. The Cardizem was discontinued and the patient was placed on IV amiodarone and converted after 4 to 5 hours of infusion. He is now in normal sinus rhythm. The patient had been on amiodarone prior to his maze procedure January 30, 2025. At this point in time the plan is to discontinue the IV amiodarone and place him on a higher dose of metoprolol 50 mg twice daily and monitor him. If he reverts into the atrial tachyarrhythmia would reinstitute p.o. oral loading of amiodarone in the ambulatory setting followed by 200 mg daily until he is reevaluated at [facility] in early February. The patient is to remain on his Eliquis 5 mg twice daily. Will also increase his activities to make certain that he is appropriate for discharge. And he does need an echocardiogram done to evaluate the 1.4 cm pericardial effusion documented by CT and as a baseline for his bioprosthetic aortic valve. I did provide him copies of his ECG both with the atrial atypical flutter as well as the ECG following conversion and the rhythm strip where he converted for him to take to his physicians at [facility]. (2) H/O aortic valve replacement: PLAN: Patient status post SAVR with a bioprosthetic aortic valve January 30, 2025 at [facility]. He has a scheduled follow-up there for the 1st or 2nd week of February. He can then be followed up here at the [facility] if he so desires. (3) HTN (hypertension): QUALIFIERS: Hypertension type: primary hypertension Qualified Code(s): I10 - Essential (primary) hypertension PLAN: Blood pressure is well-controlled on his current medications his vital signs are stable. PLAN: Plan 1. DC IV amiodarone. 2. Will increase metoprolol to tartrate to 50 mg twice daily. 3. Obtain echocardiogram prior to discharge. 4. Ambulate the patient and as long as he is hemodynamically stable and appropriate for discharge from a cardiovascular standpoint he can be discharged to home to follow-up with his previously arranged appointment at [facility] in February 2025. 5. The patient can arrange for follow-up in April or May timeframe with the [place] [facility]. Charges/Coding Visit Charges Inpatient E&M: 48538 Subs Hosp L2
--- NOTE | 2025-02-21 09:13 | PN.HOSP_ITS ---
Reason for Visit Chief Complaint: Heart racing Subjective Subjective Feeling fine. Taking laps around the hospital floor without any difficulties. Objective Data Objective Data Vital Signs: Vital Signs Temp Pulse Resp BP Pulse Ox O2 Del Method 36.1 C L 79 16 146/82 H 97 Room Air 02/21/25 05:00 02/21/25 08:07 02/21/25 08:00 02/21/25 08:07 02/21/25 08:00 02/21/25 08:00 Oxygen Delivery Method Room Air Weight: 116.2 kg Body Mass Index (BMI) 34.7 Intake & Output: Intake and Output for Last 24 Hours 02/19/25 02/20/25 02/21/25 23:59 23:59 23:59 Intake Total 97.56 / 614.21 722.40 / 722.40 Balance 97.56 / 614.21 722.40 / 722.40 Lab / Micro Data 02/21/25 05:20 02/21/25 05:20 Labs: Laboratory Results - last 24 hr 02/20/25 12:40: WBC 7.9, RBC 3.71 L, Hgb 11.0 L, Hct 35.0 L, MCV 94.3 H, MCH 29.6, MCHC 31.4 L, RDW Std Deviation 49.8 H, RDW Coeff of Regino 14.4, Plt Count 419, MPV 9.0, Immature Gran % (Auto) 0.800, Neut % (Auto) 72.2 H, Lymph % (Auto) 14.8 L, [place] % (Auto) 9.5, Eos % (Auto) 1.9, Baso % (Auto) 0.8, Absolute Neuts (auto) 5.7, Absolute Lymphs (auto) 1.17, Nucleated RBC % 0, PT 16.9 H, INR 1.4, APTT 33.7, Sodium 141, Potassium 3.6, Chloride 103, Carbon Dioxide 24.3, Anion Gap 13, BUN 12, Creatinine 1.04, Estim Creat Clear Calc 91.35, Est GFR (MDRD) Non-Af 78, BUN/Creatinine Ratio 11.3, Glucose 119 H, Calcium 9.0, Troponin T High Sens 79 H* 02/20/25 14:35: Troponin T Hi Sens 2 Hr 74 H* 02/20/25 16:15: Troponin T Hi Sens 4Hr 71 H* 02/21/25 05:20: WBC 8.5, RBC 3.32 L, Hgb 10.0 L, Hct 31.1 L, MCV 93.7, MCH 30.1, MCHC 32.2, RDW Std Deviation 50.3 H, RDW Coeff of Regino 14.7 H, Plt Count 389, MPV 9.1, Sodium 141, Potassium 3.4, Chloride 105, Carbon Dioxide 24.0, Anion Gap 12, BUN 15, Creatinine 1.16, Estim Creat Clear Calc 80.21, Est GFR (MDRD) Non-Af 69, BUN/Creatinine Ratio 12.9, Glucose 126 H, Calcium 9.0, Magnesium 2.2, TSH 1.530 Radiography Diagnostic Testing: Radiology Impression Chest CTA 02/20/25 12:04 IMPRESSION: There is a 1.5 x 1.8 cm right enlarged precarinal lymph node. There is a 3.5 cm left pleural effusion. There is a 1.4 cm pericardial effusion. Reading [facility] Rhythm Strip Rhythm Strip: Sinus Rhythm Rate: 78 Physical Exam Const alert and no apparent distress HEENT head/scalp atraumatic and moist oral mucous membranes Resp normal respiratory effort, no retractions and no use of accessory muscles Cardio regular rate, regular rhythm, S1 normal heart sound and S2 normal heart sound Skin Skin Narrative: Healing sternotomy incision. Scabs at the superior portion of his wound. No dehiscence noted. Assessment & Plan Assessment/Plan (1) Atrial tachycardia: PLAN: Plan Atrial tachycardia * aflutter. * failed dilt infusion, transitioned to amiodarone. now amio discontinued. * metoprolol 50 BID. (At home was on 25 twice daily.) * anticoagulation w apixaban. * follow up with [facility] cardiology as previously scheduled in February Elevated troponin * Likely due to the tachycardia another words, this would be demand ischemia due to the tachycardia. * Echocardiogram shows an EF of 60%. No pericardial effusion. * No additional workup necessary. Chronic conditions: * History of chronic heart failure with preserved ejection fraction- Will continue patient's home medications- Daily weights, I's and O's DVT ppx: Not needed, patient chronically anticoagulated on Eliquis Discussed with the patient's at bedside.
[2025-02-21] MEDS: Potassium Chloride Oral Tablet 20 MEQ PO (09:43)
[2025-02-21] MEDS: Aspirin E.C. 81 MG Tablet PO (09:43)
[2025-02-21] MEDS: APIXABAN 5 MG TABLET PO (09:43)
[2025-02-21] MEDS: 0.9% Saline Lock 10 ML Syringe IV (09:50)
--- NOTE | 2025-02-21 10:11 | CASEMGMT ---
Dx: Atrial Tachycardia LACE: 2 6-Clicks: 24 Medical record reviewed and patient evaluated for identification of discharge planning needs. Based on this review, at this time criteria are not present to indicate a need for discharge planning. Will remain available to assist with discharge planning needs as identified or requested.
--- NOTE | 2025-02-21 11:55 | NURSING ---
0720 - This RN received report at shift change, to bedside with nightshift RN at this time. Visual inspection of PIV limited as room was dark, no abnormalities noted at that time. 0810 - This RN entered room during ECHO. Inspected visible portion of PIV, appeared intact without swelling or erythema. 0830 - Returned to pause PIV infusion for ECHO to use. After sleeve moved, noted pink discoloration and mild edema at insertion site and along vein tract. Positive blood return noted, Infusion stopped. 0902 - Notified Dr. Jones 0905 - Called inpt pharmacy to talk to pharmacist 1000 - DCd PIV, outlined pink area at this time. Noted improvement from previous visualization. 1022 - Dr. Jones notified of improvement of site, outlined, and discussion with pharmacist by this RN in person on floor.
--- NOTE | 2025-02-21 13:38 | DS.PCM_ITS ---
Providers Date of Admission: 02/20/25 Primary Care Physician: Dr. Ant Roth MD Consultations 02/20/25 18:55 Consult: Cardiology Routine Consulting Provider: Stanley Morton Reason for Consult: atrial tachycardia EMERGENT Consult: No MD Notified: Yes Date Notified: 02/20/25 Time Notified: 18:16 Method of Notification: ED Physician Initiated Reason For Visit: ATRIAL TACHYCARDIA Diagnosis Discharge Diagnosis (1) Atrial tachycardia: Status: Acute Code(s): I47.19 - Other supraventricular tachycardia Plan Atrial tachycardia * aflutter. * failed dilt infusion, transitioned to amiodarone. now amio discontinued. * metoprolol 50 BID. (At home was on 25 twice daily.) * anticoagulation w apixaban. * follow up with [facility] cardiology as previously scheduled in February Elevated troponin * Likely due to the tachycardia another words, this would be demand ischemia due to the tachycardia. * Echocardiogram shows an EF of 60%. No pericardial effusion. * No additional workup necessary. Chronic conditions: * History of chronic heart failure with preserved ejection fraction- Will continue patient's home medications- Daily weights, I's and O's DVT ppx: Not needed, patient chronically anticoagulated on Eliquis Discussed with the patient's at bedside. Medications at Discharge Home Medications aspirin 81 mg tablet,delayed release 81 mg PO QDAY heart health 04/30/17 rosuvastatin 10 mg tablet (Crestor) 10 mg PO QDAY cholesterol 04/30/17 multivitamin 1 tab PO DAILY supplement 07/29/22 furosemide 40 mg tablet 40 mg PO DAILY diuretic #90 tabs 12/07/23 apixaban 5 mg tablet (Eliquis) 5 mg PO BID blood thinner #180 tabs 10/24/24 acetaminophen 325 mg tablet 650 mg PO Q6H pain 02/11/25 ascorbic acid (vitamin C) 500 mg tablet 500 mg PO QDAY supplement 02/11/25 cholecalciferol (vitamin D3) 50 mcg (2,000 unit) tablet 50 mcg PO QDAY supplement 02/11/25 gabapentin 100 mg capsule 100 mg PO Q12H neurapathy 02/11/25 magnesium oxide 400 mg PO QDAY 02/11/25 potassium chloride 20 mEq tablet,extended release(part/cryst) (Klor-Con M) 20 meq PO QDAY 02/11/25 sennosides 8.6 mg capsule (senna) 8.6 mg PO BID PRN constipation 02/11/25 zinc gluconate 30 mg tablet 30 mg PO QDAY 02/11/25 metoprolol tartrate 50 mg tablet 50 mg PO BID #60 tabs 02/21/25 Hospital Course Operations None Procedures 2-D Echocardiogram Summary of Care Provided Hospital Course: Patient presents with atrial flutter. Patient started amiodarone but then was having a QTc prolongation and has been since changed over to metoprolol. And is currently in normal sinus rhythm. Patient had echocardiogram that showed an EF of 60%. Patient was evaluated by cardiology as well. 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 Patient proved much faster than initially anticipated. Weight / BMI Weight Weight: 116.2 kg Body Mass Index (BMI) 34.7 ABG / Lab / Microbiology Data 02/21/25 05:20 02/21/25 05:20 Laboratory: Laboratory Results - last 24 hr 02/20/25 14:35: Troponin T Hi Sens 2 Hr 74 H* 02/20/25 16:15: Troponin T Hi Sens 4Hr 71 H* 02/21/25 05:20: WBC 8.5, RBC 3.32 L, Hgb 10.0 L, Hct 31.1 L, MCV 93.7, MCH 30.1, MCHC 32.2, RDW Std Deviation 50.3 H, RDW Coeff of Regino 14.7 H, Plt Count 389, MPV 9.1, Sodium 141, Potassium 3.4, Chloride 105, Carbon Dioxide 24.0, Anion Gap 12, BUN 15, Creatinine 1.16, Estim Creat Clear Calc 80.21, Est GFR (MDRD) Non-Af 69, BUN/Creatinine Ratio 12.9, Glucose 126 H, Calcium 9.0, Magnesium 2.2, TSH 1.530 Radiography Diagnostic Testing: Radiology Impression Chest CTA 02/20/25 12:04 IMPRESSION: There is a 1.5 x 1.8 cm right enlarged precarinal lymph node. There is a 3.5 cm left pleural effusion. There is a 1.4 cm pericardial effusion. Reading Location: [facility] Echocardiogram 02/20/25 18:55 Interpretation Summary Normal LV size. Left ventricular systolic function is normal. The left ventricular ejection fraction is 60 %. Stage 2 diastolic dysfunction. Pulmonary artery systolic pressure is 24 mmHg. No pericardial effusion. Contrast injection was performed. Ordering Physician: Liz Blake Referring Physician: Ant Roth Performed By: Maria Del Rosario Mcleod, FLAVIA, RVT D/C Instructions DC O2, CPAP, BIPAP Needs Home O2 Discharge instructions: No Meaningful Use Info Meaningful Use Meaningful Use Diagnoses (Choose all that apply): None applicable Discharge Plan Admission Admit Date/Time: 02/20/25 18:03 Primary Reason for Your Visit: Atrial flutter Attending Provider: Apolinar Jones Primary Care Provider: Ant Roth Consulting Providers: Stanley Morton; Liz Blake Discharge Orders/Prescriptions Prescriptions: New metoprolol tartrate 50 mg Tablet 50 mg PO BID Qty: 60 0RF Continued aspirin 81 mg tablet,delayed release (DR/EC) 81 mg PO QDAY rosuvastatin [Crestor] 10 mg tablet 10 mg PO QDAY potassium chloride [Klor-Con M20] 20 mEq tablet,ER particles/crystals 20 meq PO QDAY furosemide 40 mg tablet 40 mg PO DAILY Qty: 90 3RF ascorbic acid (vitamin C) 500 mg tablet 500 mg PO QDAY cholecalciferol (vitamin D3) 50 mcg (2,000 unit) tablet 50 mcg PO QDAY magnesium oxide 400 mg magnesium tablet 400 mg PO QDAY zinc gluconate 30 mg tablet 30 mg PO QDAY acetaminophen 325 mg tablet 650 mg PO Q6H gabapentin 100 mg capsule 100 mg PO Q12H senna 8.6 mg capsule 8.6 mg PO BID PRN (Reason: constipation) multivitamin Tablet 1 tab PO DAILY Eliquis 5 mg tablet 5 mg PO BID Qty: 180 3RF Discontinued metoprolol tartrate 25 mg tablet 25 mg PO BID Referrals / Follow Up: [facility] [Provider Group] - 04/11/25 2:00 pm Ant Roth MD [Primary Care Provider, Family Practice] - Within 2 Weeks Disposition Disposition (needs filled in before D/C Order can be placed): Home, Self Care Charges/Coding Visit Charges Inpatient E&M: 43203 Disch Hosp
--- NOTE | 2025-02-21 14:18 | CASEMGMT ---
Addendum entered by Mame Corrigan 02/21/25 14:32: AURELIA CHRISTIAN notified that patient is active with [facility]. RN ANAHI called [facility] to notify that patient is discharging today. Resumption order placed. Original Note: Patient has order for discharge. AURELIA CHRISTIAN in to discuss needs at discharge. Patient denies needs or help at discharge. Patient had no further questions or concerns.
--- NOTE | 2025-02-21 15:46 | PHA.DC.MR.R ---
Pharmacy [place] Med Reconciliation Pharmacy Service has performed discharge medication reconciliation for this patient. The patient's discharge medication list was reviewed for discrepancies and discrepancies were resolved. Medications at Discharge Home Medications aspirin 81 mg tablet,delayed release 81 mg PO QDAY heart health 04/30/17 rosuvastatin 10 mg tablet (Crestor) 10 mg PO QDAY cholesterol 04/30/17 multivitamin 1 tab PO DAILY supplement 07/29/22 furosemide 40 mg tablet 40 mg PO DAILY diuretic #90 tabs 12/07/23 apixaban 5 mg tablet (Eliquis) 5 mg PO BID blood thinner #180 tabs 10/24/24 acetaminophen 325 mg tablet 650 mg PO Q6H pain 02/11/25 ascorbic acid (vitamin C) 500 mg tablet 500 mg PO QDAY supplement 02/11/25 cholecalciferol (vitamin D3) 50 mcg (2,000 unit) tablet 50 mcg PO QDAY supplement 02/11/25 gabapentin 100 mg capsule 100 mg PO Q12H neurapathy 02/11/25 magnesium oxide 400 mg PO QDAY 02/11/25 potassium chloride 20 mEq tablet,extended release(part/cryst) (Klor-Con M) 20 meq PO QDAY 02/11/25 sennosides 8.6 mg capsule (senna) 8.6 mg PO BID PRN constipation 02/11/25 zinc gluconate 30 mg tablet 30 mg PO QDAY 02/11/25 metoprolol tartrate 50 mg tablet 50 mg PO BID #60 tabs 02/21/25
--- NOTE | 2025-02-21 16:13 | CHAPLAIN ---
Type of Pastoral Visit _x__ Initial Visit ___ Follow-up Visit ___ On-call Visit ___ General Patient Visit ___ Spiritual Assessment ___ Family Conference ___ Bereavement ___ Rapid Response ___ Code Blue ___ Other (describe below) Pastoral Care Referral From _x__ Patient ___ Family ___ Nurse ___ Physician ___ Maintenance Supervisor Mechanical ___ Expedition Supervisor ___ Other (describe below) Sacrament/Intervention _x__ Active listening ___ Anointing ___ Adventist ___ Bereavement ___ Communion _x__ Matilde exploration ___ _x__ Life review _x__ Prayer ___ Reconciliation ___ Sacrament of Sick _x__ Supportive presence ___ Wedding ___ Other (describe below) Pastoral Comments patient is ready to be discharged; spouse is with him; both are talkative about their life, marriage of 47 years, background, and matilde; both are expresses of how they have worked through their marriage 'in sickness and in health'; pt and spouse are spiritually minded and welcome prayer and spiritual care
== END 2025-02-21 17:21 | disposition home or self-care (01) | DRG 309 ==
LOC: ED 17:41 → PCU 18:09
PROVIDERS: Admitting Provider Internal Medicine; Emergency Provider Emergency Medicine; PCP Family Medicine
DX: I47.19 Other supraventricular tachycardia (principal); I50.32 Chronic diastolic (congestive) heart failure; I24.89 Other forms of acute ischemic heart disease; I11.0 Hypertensive heart disease with heart failure; Z95.3 Presence of xenogenic heart valve; I48.91 Unspecified atrial fibrillation; E78.00 Pure hypercholesterolemia, unspecified; Z79.01 Long term (current) use of anticoagulants; Z79.82 Long term (current) use of aspirin; Z79.899 Other long term (current) drug therapy; Z96.659 Presence of unspecified artificial knee joint; R79.89 Other specified abnormal findings of blood chemistry
CPT/HCPCS: 36415; 71275; 80048; 83735; 84443; 84484; 85025; 85027; 85610; 85730; 93005; 93306; 99284; Q9957; Q9967; A4216; C8929

== ENCOUNTER → 2025-02-28 | Outpatient (CLI) | payer MEDICARE, SELFPAY ==
--- NOTE | 2025-02-28 13:00 | PCM.CR.HP2 ---
CR - History & Physical General Arrival date:: 02/28/25 Arrival time:: 13:00 Date of Referral:: 02/11/25 Date of CR Evaluation:: 02/28/25 Referring Physician: Dr. Goldman Primary Diagnosis: Heart valve replacement History of Present Cardiac Event Onset Date Heart valve replacement or repair:: Yes (onset 01/30/2025) Medications Ambulatory Orders ?Medication ?Instructions ?Recorded aspirin 81 mg tablet,delayed 81 mg PO QDAY heart health 04/30/17 release rosuvastatin 10 mg tablet (Crestor) 10 mg PO QDAY cholesterol 04/30/17 multivitamin 1 tab PO DAILY supplement 07/29/22 furosemide 40 mg tablet 40 mg PO DAILY diuretic #90 tabs 12/07/23 apixaban 5 mg tablet (Eliquis) 5 mg PO BID blood thinner #180 tabs 10/24/24 acetaminophen 325 mg tablet 650 mg PO Q6H pain 02/11/25 ascorbic acid (vitamin C) 500 mg 500 mg PO QDAY supplement 02/11/25 tablet cholecalciferol (vitamin D3) 50 50 mcg PO QDAY supplement 02/11/25 mcg (2,000 unit) tablet gabapentin 100 mg capsule 100 mg PO Q12H neurapathy 02/11/25 magnesium oxide 400 mg PO QDAY 02/11/25 potassium chloride 20 mEq 20 meq PO QDAY 02/11/25 tablet,extended release(part/cryst) (Klor-Con M) sennosides 8.6 mg capsule (senna) 8.6 mg PO BID PRN constipation 02/11/25 zinc gluconate 30 mg tablet 30 mg PO QDAY 02/11/25 metoprolol tartrate 50 mg tablet 50 mg PO BID #60 tabs 02/21/25 Allergies Allergies atorvastatin Allergy (Verified 02/20/25 10:14) Other ACHING JOINTS Sleep Disorder Evaluation Hx of Sleep Apnea: Yes Do you snore loudly (louder than talking or can be heard through closed doors)?: No Do you often feel tired/ fatigued/ sleepy during daytime?: No Has anyone observed you stop breathing during sleep?: No History of Hypertension (for STOP score): No STOP Results: Negative Advanced Directives Advanced Directives Do you have a Healthcare Power of Commercial Intelligence Manager?: Yes Living Will: Yes Advance Directives Information Provided: No Advance Directives on File: No DNR Order?:: No Past Medical History Covid-19 Screening Physicial Symptoms Other Clinical Concerns Exposure Risk Pertinent Comorbidities 65 years or older:: Yes Has a serious heart condition:: Yes Past Medical Illness Medical History Nonrheumatic aortic (valve) stenosis Nonrheumatic mitral (valve) insufficiency Pulmonary HTN Valvular heart disease Acute CHF (congestive heart failure) Atrial fibrillation with RVR Sleep apnea HTN (hypertension) Hypercholesteremia Past Surgical History Surgical History H/O aortic valve replacement (01/30/25) History of partial knee replacement S/P excision of lipoma Family History Summary Family History Father Heart disease Myocardial infarction Mother Cancer Diabetes Brother Myocardial infarction Social History Smoking History Smoking Status: Never smoker Alcohol Use Alcohol Usage: No Occupation Occupation (List type of work in comments):: Retired Social Environment Status Marital Status: Current Living Arrangements Living Environment:: Spouse Children How many children do you have?: 2 Do any of your children live nearby?: Yes Safety Do you feel safe in your surroundings?: Yes Assistance Do you need any assistance at home?: no Review of Systems Review of Systems Hints Review of Present Symptoms: Reports Heart Arrhythmia/Irregularities, Appetite - Normal, Appetite - Special Diet and Sleep - Normal; Denies Shortness of Breath at Rest, Shortness of Breath with Exertion, PVD, Operative Discomfort, Angina, Wound Healing, Dizziness/Lightheadedness, Fatigue or Sexual Changes Pain Is Patient Pain Free?: No Pain Location: lower extremity Pain Level: 6/10 Risk Factor Assessment Chief Complaint Chief Complaint: Heart valve replacement Vital Signs Pulse Ox: 98 Blood Pressure: 180/100 (Shady NARVAEZ at the [facility] called in regards to pt's BP. Pt to go to office after evaluation.) Pulse Pulse Rate: 76 Pulse Rhythm: Regular Hypertension Blood Pressure Sitting - Right Arm: 180/100 Obesity Height: 6 ft Weight:: 272 lb Weight in Pounds: 272.0 lbs Body Mass Index (BMI): 36.8 Physical Inactivity Physical Inactivity: Reg Exercise 30 min/day Risk Stratification Risk Guidelines: Lowest Risk: Risk Factor for Smoking and Risk Factor for Depression, Moderate Risk: Risk Factor for Sedentary Lifestyle and Highest Risk: Risk Factor for Dyslipidemia, Risk Factor for Diabetes, Risk Factor for Obesity and Risk Factor for Hypertension For Smoking Smoking Risk Guidelines For Dyslipidemia Dyslipidemia Risk Guidelines For Diabetes Mellitus Diabetes Risk Guidelines For Obesity/Overweight Obesity/Overweight Risk Guidelines For Hypertension Hypertension Risk Guidelines For Sedentary Lifestyle Sedentary Lifestyle Risk Guidelines For Depression Depression Risk Guidelines Family History Family History Father Heart disease Myocardial infarction Mother Cancer Diabetes Brother Myocardial infarction Motivation Motivation to Participate On a scale of 1 to 10, how prepared are you to commit to attending program?: 5 What do you see as barriers to successfully being able to complete the program?: knee What do you see as the benefits of succesfully completing the program? In other words, what do you hope to get out of participating in the program?: more energy Are there issues you are dealing with that will interfere with completing the program?: no Do you have a spouse or signficant other, family or friends who will help support you to complete the program?: yes
--- NOTE | 2025-02-28 13:04 | PCM.CR.ITP ---
Diagnosis General Information Admitting Diagnosis: Heart valve replacement Personal Learning Style:: Audio/Visual Barriers to Learning: No Barriers Stage of change r/t lifestyle modifications:: Contemplation Gave educational material for:: Treating Heart Disease, How The Heart Works, What it means to have Heart Disease, How Coronary Artery Disease is Diagnosed, Heart Procedures, What Heart Medications Do, Risk Factors & Modifications, Living an Active Life, Nutrition, Emotions & Heart Disease, Stress Management & Relaxation and Sleep Disorders & Heart Disease Education/Goals Cardiac Rehabilitation Goals Personal Goals: Initial Assessment: Improve energy level, Participate in home exercise program, Get back to work, or to resume activities faster, Improve knowledge of cardiac disease, Improve muscle strength and endurance, Improve diet and eating habits (eat healthier) and Control risk factors (learn risk factor modification) Scale for measuring improvement of personal goals Diagnosis & Disease Process Outcomes/Goals: Pt IDs own risk factors & lifestyle modifications by Session 10, Verbalizes symptoms of angina & response by session 3., Pt independently manages and Other Additional Outcomes/Goals: Plan/Interventions: Assist Pt to ID & engage in lifestyle modification to reduce CVD risk, Instruct on individual risk factors, Review symptoms of angina & emergency actions, Review secondary diagnosis & identify educational needs. and Other see comment 30 day Reassessments:: Not Met 30 day Reassessments:: Not Met 30 day Reassessments:: Not Met 30 day Reassessments:: Not Met Final Reassessments:: Not Met Safety Referral to Physical Therapy: No Referral to [facility] Case Management: No Fall Risk Assessed:: Yes Assistive Devices:: None Exercise - Initial Assessment Visit Date of Eval: 02/28/25 (initial eval) Mets: Pre-: >3 METS for 30 minutes by discharge, >5 METS for 30 minutes by discharge, >7 METS for 30 minutes by discharge and Unable to meet goal due to: (see comment below) Physician Prescribed Exercise Modalities: Treadmill, Schwinn Airdyne AD-7, SciFit Stepper, SciFit Pro-II Ergometer and SciFit Lateral Paralegal Instructor Frequency: 3x/week for 12 weeks [36 sessions] Intensity: 60-80% of age predicted maximum heart rate reserve Duration: 30 - 45 minutes Current METSs:: 3 Target Heart Rate:: 99-114 Resting Blood Pressure: 180/100 EKG Type: NSR Twave abnormality Hx Afib, SB 1DAVB Outcomes & Goals Goals:: Verbalizes understanding of THR, RPE & goal METS by session 6, Documents in home exercise log/reports 30 min aerobic 5 day/wk by DC, Demonstrates accurate pulse taking by DC and Other additional outcome/goals: see below Intervention & Plan Exercise Program Goals: Instruct on personal THR & RPE, Instruct on MET level & personal MET goal, Show patient to take own pulse /validate performance until accurate, Instruct on home exercise and Other additional plan/int Physical Activity Home Exercise Physical Activity - Home Exercise: Safe Exercise, Warm-up, Self-monitoring, Cool-Down, Home Exercise > 30 min Daily and Sitting Time <3 hours/daily Outcomes & Goals Outcomes/Goals: Demonstrates correct Warm-up/exercise Cool-Down (S3) if = 2.5 METs, Verbalizes symptoms of exercise intolerance by Session 3 (S3), Demonstrate safe equipment use (S3) & follows exercise prescrition (6) and Other: See below Intervention & Plan Plan/Intervention: Instruct warm-up & cool-down if exercising at > 2 METs, Instruct on symptoms of exercise intolerance & actions to take, Instruct & monitor on saf, Assess intial functional capacity & safety risk and Other See below Nutrition - Initial Assessment Program Goals Nutrition Program Goals Patient has diagnosis of Hyperlipidemia (ICD E78)?: Yes Visit Date of Eval: 02/28/25 (initial eval) Cholesterol/Lipids (Other Core Measures) Determine presence & major risk factors that modify LDL goal: Hypertension or hypertensive medication, Low HDL cholesterol <40 mg/dL*, Family history of premature CHD in Male < 55 years: female <65 yearsFa and Age men > 45 years; women >/= 55 years Outcomes/Goals: Pt IDs own risk factors & lifestyle modifications by Session 10, Verbalizes symptoms of angina & response by session 3., Pt independently manages and Other Additional Outcomes/Goals: Intervention/Plan: Advocate for lipid panel cholesterol medication if applicable, Instruct on personal lipid levels & lipid goals/NCEP guidelines, Instruct on cholesterol and Other additional plan/int Diabetes (Other Core Measures) Diabetes Type: Not Applicable Weight Mgt (Other Care) Height: 6 ft Weight:: 272 lb BMI: 36.8 Diagnosis Overweight/Obesity BMI> 30% ICD-10 E66: Yes Diagnosis High BMI/Morbid Obesity BMI> 35% ICD-10 Z68: Yes Outcomes/Goals: Pt sets, maintains & shows weight loss goal & trend during rehab and Other additional outcomes/goals Intervention/Plan: Instruct on ideal BMI & set weight loss goal w/patient, Assist pt to ID & incorporate diet changes for weight loss by S9, Refer to Structured Weight Loss program as appropriate, Encourage goal of using 250-300dcal per session for weight loss and Other additional plan/interventions Healthy Eating Habits Will attend diet classes:: Yes Outcomes/Goals:: Consume diet rich in vegs,fruits,whole grain/high fiber,fish,lean meat, Limit sat/trans fats,cholesterol & added salts & sugars and Other additional outcome/goals: Intervention/Plan:: Assess current eating habits and Other Additional plan/interventions Education Gave educational materials for:: Signs & symptoms of hypoglycemia, Signs & symptoms of hyperglycemia, Relate diabetes to coronary artery disease and Healthy eating Core - Initial Assessment Visit Date of Eval: 02/28/25 (initial eval) Medication Compliance Preventative Medication(s):: Aspirin, Statin/lipid, Beta bill and Eliquis H/O mental health issues: depression, anxiety, or addiction?: No Doesn?t believe in the benefits of treatment?: No Believes medications are unnecessary or harmful?: No Has a concern about medication side effects?: No Expresses concern over the cost of medications?: No Outcomes/Goals: Verbalizes medications,desired effect & common side effects @ DC, Pt self-reports following medication regimen, Keeps card in wallet w/medications listed by DC and Other additional outcome/goals: Interventions/plans: Instruct on medication effects & side effects, Review medication list w/patient every two weeks, Instruct importance of taking meds as ordered & assist problem solving and Other additional Tobacco Use Tobacco Use: Non-smoker Outcomes/Goals: Smoking cessation achieved or maintained by discharge, Identify aids/strategies for achieving smoking cessation by session 6 and Other additional outcome/goals Interventions/plan: Instruct on effects of smoking & provide smoking cessation resource, Assist pt to set quit date & provide encouragement, Assist pt to develop strategies to achieve/maintain quit date, Assist pt w/nicotine replacement & medication for cessation success and Other additional plan/interventions Hypertension Hypertension Diagnosis:: Hypertension ICD-10 I10 [place] [employer] Hypertension Guidelines Outcomes/Goals: Able to verbalize/achieve optimal blood pressure <130/80, Incorporates diet changes & exercise for blood pressure control by DC and Other additional outcomes/goals Interventions/plan: Instruct on optimal blood pressure, hypertension & medications, Instruct on effects of sodium, alcohol, stress, exercise &hypertension and Other additional plan/interventions Tobacco Cessation Referral Smoking Cessation Referral:: No Individual Education/Counseling:: No Education Schedule Given:: Yes Psychosocial - Initial Assess VIsit Date of Eval: 02/28/25 (initial eval) History of previous Mental disease:: No Psychosocial Test Tool Used:: [employer] QOL Cardiac and PHQ-9 Questionnaire phq-9 Severity See PHQ-9 Score: 1 Referral to Behavioral Health PS - Interventions: Yes: Attend Stress Management Classes Outcomes/Goals: See list Psychosocial Outcomes/Goals:: ID's personal stressors & 2 strategies to manage stress by discharge and Other Additional outcome/goals: Intervention/Plan: See List Interventions/Plan:: Assess stressors,coping strategies & signs of derpression on admission, Instruct/assist pt to develop coping & personal stress Mgt strategies, Refer to Behavioral Health if appropriate, Refer to Physician if appropriate, Instruct patient to recognize signs & symptoms of depression, Instruct patient to recog and Other additional plan/intervention Comments:: Pt denies any psychosocial issues at this time. Patient Health Questionnaire PHQ-9 Screening Initial Assessment: 1. Little interest or pleasure in doing things: Not at all 2. Feeling down, depressed, or hopeless: Not at all 3. Trouble falling or staying asleep, or sleeping too much: Not at all 4. Feeling tired or having little energy: Several days 5. Poor appetite or overeating: Not at all 6. Feeling bad about yourself -- or that you are a failure or have let yourself or your family down: Not at all 7. Trouble concentrating on things, such as reading the newspaper or watching television: Not at all 8. Moving or speaking so slowly that other people could have noticed. Or the opposite - being so fidgety or restless that you have been moving around a lot more than usual: Not at all 9. Thoughts that you would be better off , or of hurting yourself in some way: Not at all How difficult have these problems made it for you to do your work, take care of things at home, or get along with other people?: Somewhat difficult Total Score: 1 Self-Efficacy 6-Item Scale Initial Assessment: We would like to know how confident you are in doing certain activities. Please select your confidence level for: Fatigue Select Number: 10 Physical Discomfort or Pain Select Number: 10 Emotional Distress Select Number: 10 Other Symptoms or Health Problems Select Number: 10 Different Tasks and Activities Select Number: 8 Medication Select Number: 10 Total Score:: 9 Nutrition Survey Nutrition Survey Initial: Have you lost >10 lbs over the past 2 months without trying?: Yes Are you following a special diet at home for diabetes, low fat, or low salt?: Yes Are you interested in meeting with a dietitian for help understanding your diet?: No Do you eat less than 3 meals a day?: No Do you eat fatty meats (fermin, sausage, ribs, etc), fried foods, desserts, large amounts of salad dressings, margarine, butter, or cheese most days?: No Do you have food allergies? [Enter types in comment field]: No Do you eat in restaurants more than 3 times a week?: No Do you season food with salt, seasoning salt, or garlic salt?: No Do you used canned, boxed, frozen meals, or soups, seasoning packets?: No Total Score:: 2 Exercise - 30-day Assessment Physician Prescribed Exercise Modalities: Treadmill, Schwinn Airdyne AD-7, SciFit Stepper, SciFit Pro-II Ergometer and SciFit Lateral [place] Exercise - 60-day Assessment Physician Prescribed Exercise Modalities: Treadmill, Schwinn Airdyne AD-7, SciFit Stepper, SciFit Pro-II Ergometer and SciFit Lateral [place] Exercise - 90-day Assessment Physician Prescribed Exercise Modalities: Treadmill, Schwinn Airdyne AD-7, SciFit Stepper, SciFit Pro-II Ergometer and SciFit Lateral Paralegal Instructor Exercise - Final/Discharge Physician Prescribed Exercise Modalities: Treadmill, Schwinn Airdyne AD-7, SciFit Stepper, SciFit Pro-II Ergometer and SciFit Lateral Paralegal Instructor Frequency: 3x/week for 12 weeks [36 sessions] Intensity: 60-80% of age predicted maximum heart rate reserve Current METSs:: 3 Target Heart Rate:: 99-114 Nutrition - 30-Day Assessment Weight Mgt (Other Care) Height: 6 ft Weight:: 272 lb BMI: 36.8 Nutrition - 60-Day Assessment Weight Mgt (Other Care) Height: 6 ft Weight:: 272 lb BMI: 36.8 Psychosocial - 30-Day Assess Referral to Behavioral Health PS - Interventions: Yes: Attend Stress Management Classes Psychosocial - 60-Day Assess Referral to Behavioral Health PS - Interventions: Yes: Attend Stress Management Classes Psychosocial - 90-Day Assess Referral to Behavioral Health PS - Interventions: Yes: Attend Stress Management Classes Psychosocial - Final Assessmen Psychosocial Test phq-9 Severity See PHQ-9 Score: 1 Referral to Behavioral Health PS - Interventions: Yes: Attend Stress Management Classes Nutrition - 90-Day Assessment Weight Mgt (Other Care) Height: 6 ft Weight:: 272 lb BMI: 36.8 Nutrition - Final Assessment Program Goals Patient has diagnosis of Hyperlipidemia (ICD E78)?: Yes Weight Mgt (Other Care) Height: 6 ft Weight:: 272 lb BMI: 36.8
[2025-02-28 14:11] VITALS: BP 180/100; PULSE 76; O2SAT 98
[2025-02-28 14:18] VITALS: BP 180/100; BMI 36.8
== END | disposition home or self-care (01) ==
LOC: CR 12:59
PROVIDERS: PCP Family Medicine; Referring Provider Internal Medicine Cardiovascular Disease; Visit Provider Internal Medicine Cardiovascular Disease
DX: I48.91 Unspecified atrial fibrillation (principal); I42.9 Cardiomyopathy, unspecified; E78.5 Hyperlipidemia, unspecified; I10 Essential (primary) hypertension; I35.0 Nonrheumatic aortic (valve) stenosis; I34.0 Nonrheumatic mitral (valve) insufficiency; Z79.899 Other long term (current) drug therapy; Z95.2 Presence of prosthetic heart valve

== ENCOUNTER → 2025-03-04 | Outpatient (CLI) | payer MEDICARE, SELFPAY ==
[2025-02-28 14:18] VITALS: BMI 36.8
[2025-03-04 10:47] LABS: AST(SGOT) 26 U/L (<=37); Alanine Aminotransfer ALT/SGPT 27 U/L (<=46); Albumin, Serum 3.9 g/dL (3.4-4.8); Alkaline Phosphatase 66 U/L (40-129); Anion Gap 13 (5-15); BUN 12 mg/dL (4-19); BUN/Creat Ratio 12.8 RATIO (10-20); Calcium,Total 9.4 mg/dL (7.6-11.0); Carbon Dioxide 23.6 mmol/L (21.0-32.0); Chloride 105 mmol/L (98-108); Cholesterol 108 mg/dL (<=200); Globulin 3.5 g/dL (2.2-4.2); Glucose 104 mg/dL (70-99); Low Density Lipoprotein Calc. 54 mg/dL; Potassium 3.4 mmol/L (3.3-5.1); Triglycerides 103 mg/dL; Very Low Density Lipoprotein 21 mg/dL (5-40); cholesterol:hdl ratio screen 3.20
== END | disposition home or self-care (01) ==
LOC: MFPLAB 08:47
PROVIDERS: PCP Family Medicine; Visit Provider Family Medicine
DX: I10 Essential (primary) hypertension (principal)
CPT/HCPCS: 36415; 80053; 80061

== ENCOUNTER → 2025-03-20 | Outpatient (CLI) | payer MEDICARE, SELFPAY ==
[2025-02-28 14:18] VITALS: BMI 36.8
[2025-03-20 10:22] LABS: Anion Gap 9 (5-15); BUN 14 mg/dL (4-19); BUN/Creat Ratio 14.6 RATIO (10-20); Calcium,Total 9.7 mg/dL (7.6-11.0); Carbon Dioxide 28.1 mmol/L (21.0-32.0); Chloride 105 mmol/L (98-108); Glucose 126 mg/dL (70-99); Potassium 4.3 mmol/L (3.3-5.1)
== END | disposition home or self-care (01) ==
LOC: LAB 08:50
PROVIDERS: PCP Family Medicine; Referring Provider Student in an Organized Health Care Education/Training Program; Visit Provider Student in an Organized Health Care Education/Training Program
DX: I10 Essential (primary) hypertension (principal)
CPT/HCPCS: 36415; 80048

== ENCOUNTER 2025-03-29 13:00 | Outpatient (RCR) | payer MEDICARE, SELFPAY ==
[2025-02-28 14:18] VITALS: BMI 36.8
--- NOTE | 2025-03-27 08:08 | PCM.CR.ITP ---
Exercise - Initial Assessment Visit Session #:: 1 Physician Prescribed Exercise Modalities: Treadmill, Schwinn Airdyne AD-7 and SciFit Stepper Nutrition - Initial Assessment Weight Mgt (Other Care) Height: 6 ft Weight:: 272 lb BMI: 36.8 Psychosocial - Initial Assess Referral to Behavioral Health PS - Interventions: Yes: Attend Stress Management Classes Exercise - 30-day Assessment Visit Date of Eval: 03/27/25 Session #:: 1 Physician Prescribed Exercise Modalities: Treadmill, Schwinn Airdyne AD-7 and SciFit Stepper Frequency: 3x/week for 12 weeks [36 sessions] Intensity: 60-80% of age predicted maximum heart rate reserve Duration: 30 - 45 minutes Current METSs:: 3 Target Heart Rate:: 99-114 Current RPE:: 9-11 Maximum Excercise HR:: 101 Resting Blood Pressure: 164/98 Maximum Exercise Blood Pressure: 174/80 EKG Type: NSR-ST w/occas PAC, PVC Outcomes & Goals Goals:: Verbalizes understanding of THR, RPE & goal METS by session 6, Documents in home exercise log/reports 30 min aerobic 5 day/wk by DC, Demonstrates accurate pulse taking by DC and Other additional outcome/goals: see below Intervention & Plan Exercise Program Goals: Instruct on personal THR & RPE, Instruct on MET level & personal MET goal, Show patient to take own pulse /validate performance until accurate, Instruct on home exercise and Other additional plan/int Physical Activity Home Exercise Physical Activity - Home Exercise: Safe Exercise, Warm-up, Self-monitoring, Cool-Down, Home Exercise > 30 min Daily and Sitting Time <3 hours/daily Outcomes & Goals Outcomes/Goals: Demonstrates correct Warm-up/exercise Cool-Down (S3) if = 2.5 METs, Verbalizes symptoms of exercise intolerance by Session 3 (S3), Demonstrate safe equipment use (S3) & follows exercise prescrition (6) and Other: See below Intervention & Plan Plan/Intervention: Instruct warm-up & cool-down if exercising at > 2 METs, Instruct on symptoms of exercise intolerance & actions to take, Instruct & monitor on saf, Assess intial functional capacity & safety risk and Other See below 30-day Reassessments 30 day Reassessments:: Progressing Reassessment Notes & Comments:: Pt oriented to equipment. RPE explained to pt. Pt demonstrates understanding in his daily sessions. Exercise - 60-day Assessment Physician Prescribed Exercise Modalities: Treadmill, Schwinn Airdyne AD-7 and SciFit Stepper Exercise - 90-day Assessment Physician Prescribed Exercise Modalities: Treadmill, Schwinn Airdyne AD-7 and SciFit Stepper Exercise - Final/Discharge Physician Prescribed Exercise Modalities: Treadmill, Schwinn Airdyne AD-7 and SciFit Stepper Nutrition - 30-Day Assessment Program Goals Nutrition Program Goals Patient has diagnosis of Hyperlipidemia (ICD E78)?: Yes Visit Date of Eval: 03/27/25 Session #:: 1 (Nutrition survey score of 3.) Cholesterol/Lipids (Other Core Measures) Determine presence & major risk factors that modify LDL goal: Cigarette smoking, Hypertension or hypertensive medication, Low HDL cholesterol <40 mg/dL*, Family history of premature CHD in Male < 55 years: female <65 yearsFa and Age men > 45 years; women >/= 55 years Outcomes/Goals: Pt IDs own risk factors & lifestyle modifications by Session 10, Verbalizes symptoms of angina & response by session 3., Pt independently manages and Other Additional Outcomes/Goals: Intervention/Plan: Advocate for lipid panel cholesterol medication if applicable, Instruct on personal lipid levels & lipid goals/NCEP guidelines, Instruct on cholesterol and Other additional plan/int Diabetes (Other Core Measures) Diabetes Type: Not Applicable Weight Mgt (Other Care) Height: 6 ft Weight:: 272 lb BMI: 36.8 Diagnosis Overweight/Obesity BMI> 30% ICD-10 E66: Yes Diagnosis High BMI/Morbid Obesity BMI> 35% ICD-10 Z68: Yes Outcomes/Goals: Pt sets, maintains & shows weight loss goal & trend during rehab and Other additional outcomes/goals Intervention/Plan: Instruct on ideal BMI & set weight loss goal w/patient, Assist pt to ID & incorporate diet changes for weight loss by S9, Refer to Structured Weight Loss program as appropriate, Encourage goal of using 250-300dcal per session for weight loss and Other additional plan/interventions Healthy Eating Habits Will attend diet classes:: Yes Outcomes/Goals:: Consume diet rich in vegs,fruits,whole grain/high fiber,fish,lean meat, Limit sat/trans fats,cholesterol & added salts & sugars and Other additional outcome/goals: Intervention/Plan:: Assess current eating habits and Other Additional plan/interventions 30-day Reassessments:: Progressing Reassessment Notes & Comments:: Pt is scheduled to attend nutrition classes. Low sodium heart healthy diet encouraged. Education Gave educational materials for:: Signs & symptoms of hypoglycemia, Signs & symptoms of hyperglycemia, Relate diabetes to coronary artery disease and Healthy eating Nutrition - 60-Day Assessment Weight Mgt (Other Care) Height: 6 ft Weight:: 272 lb BMI: 36.8 Core - 30-Day Assessment Visit Date of Eval: 03/27/25 Session #:: 1 Medication Compliance Preventative Medication(s):: Aspirin, Statin/lipid, Beta bill and Eliquis H/O mental health issues: depression, anxiety, or addiction?: No Doesn’t believe in the benefits of treatment?: No Believes medications are unnecessary or harmful?: No Has a concern about medication side effects?: No Expresses concern over the cost of medications?: No Outcomes/Goals: Verbalizes medications,desired effect & common side effects @ DC, Pt self-reports following medication regimen, Keeps card in wallet w/medications listed by DC and Other additional outcome/goals: Interventions/plans: Instruct on medication effects & side effects, Review medication list w/patient every two weeks, Instruct importance of taking meds as ordered & assist problem solving and Other additional Tobacco Use Tobacco Use: Non-smoker Hypertension Hypertension Diagnosis:: Hypertension ICD-10 I10 Resting Blood Pressure:: 164/98 [place] [employer] Hypertension Guidelines Peak Exercise Blood Pressure:: 174/80 Outcomes/Goals: Able to verbalize/achieve optimal blood pressure <130/80, Incorporates diet changes & exercise for blood pressure control by DC and Other additional outcomes/goals Interventions/plan: Instruct on optimal blood pressure, hypertension & medications, Instruct on effects of sodium, alcohol, stress, exercise &hypertension and Other additional plan/interventions 30 day Reassessments:: Progressing Reassessment Notes & Comments:: Pt's BP's are elevated. Weight loss and a low sodium heart healthy diet encouraged. Will continue to monitor and report to pt's physician if necessary. 03/18 pt started on amlodipine 5 mg QD and Lasix 40 meq QD Tobacco Cessation Referral Smoking Cessation Referral:: No Individual Education/Counseling:: No Education Schedule Given:: Yes Psychosocial - 30-Day Assess VIsit Date of Eval: 03/27/25 Session #:: 1 History of previous Mental disease:: No Psychosocial Test Tool Used:: PHQ-9 Questionnaire phq-9 Severity See PHQ-9 Score: 1 Referral to Behavioral Health PS - Interventions: Yes: Attend Stress Management Classes Outcomes/Goals: See list Psychosocial Outcomes/Goals:: ID's personal stressors & 2 strategies to manage stress by discharge and Other Additional outcome/goals: Intervention/Plan: See List Interventions/Plan:: Assess stressors,coping strategies & signs of derpression on admission, Instruct/assist pt to develop coping & personal stress Mgt strategies, Refer to Behavioral Health if appropriate, Refer to Physician if appropriate, Instruct patient to recognize signs & symptoms of depression, Instruct patient to recog and Other additional plan/intervention 30-day Reassessments: 30 day Reassessments:: Progressing Reassessment Notes & Comments:: Pt denies any psychosocial issues at this time. Pt to attend stress management class. Will reassess every 30 days. Psychosocial - 60-Day Assess Referral to Behavioral Health PS - Interventions: Yes: Attend Stress Management Classes Outcomes/Goals: See list Psychosocial Outcomes/Goals:: ID's personal stressors & 2 strategies to manage stress by discharge and Other Additional outcome/goals: Psychosocial - 90-Day Assess Referral to Behavioral Health PS - Interventions: Yes: Attend Stress Management Classes Psychosocial - Final Assessmen Referral to Behavioral Health PS - Interventions: Yes: Attend Stress Management Classes Nutrition - 90-Day Assessment Weight Mgt (Other Care) Height: 6 ft Weight:: 272 lb BMI: 36.8 Nutrition - Final Assessment Weight Mgt (Other Care) Height: 6 ft Weight:: 272 lb BMI: 36.8
[2025-03-27 08:18] VITALS: BP 164/98; BMI 36.8
[2025-03-27 08:21] VITALS: BP 164/98
== END 2025-03-29 23:59 ==
LOC: CR 13:00
PROVIDERS: PCP Family Medicine; Referring Provider Internal Medicine Cardiovascular Disease; Visit Provider Internal Medicine Cardiovascular Disease
DX: Z95.2 Presence of prosthetic heart valve (principal); I48.91 Unspecified atrial fibrillation; I42.9 Cardiomyopathy, unspecified; E78.5 Hyperlipidemia, unspecified; I10 Essential (primary) hypertension; Z79.899 Other long term (current) drug therapy; I35.0 Nonrheumatic aortic (valve) stenosis; I34.0 Nonrheumatic mitral (valve) insufficiency
CPT/HCPCS: 93798

== ENCOUNTER → 2025-04-08 | Outpatient (CLI) | payer MEDICARE, SELFPAY ==
[2025-03-27 08:18] VITALS: BMI 36.8
[2025-04-08 09:44] LABS: Anion Gap 10 (5-15); BUN 14 mg/dL (4-19); BUN/Creat Ratio 13.0 RATIO (10-20); Calcium,Total 9.6 mg/dL (7.6-11.0); Carbon Dioxide 27.0 mmol/L (21.0-32.0); Chloride 105 mmol/L (98-108); Glucose 122 mg/dL (70-99); Potassium 4.1 mmol/L (3.3-5.1)
== END | disposition home or self-care (01) ==
LOC: LAB 08:02
PROVIDERS: PCP Family Medicine; Referring Provider Student in an Organized Health Care Education/Training Program; Visit Provider Student in an Organized Health Care Education/Training Program
DX: I10 Essential (primary) hypertension (principal)
CPT/HCPCS: 36415; 80048

== ENCOUNTER 2025-04-24 13:00 | Outpatient (RCR) | payer MEDICARE, SELFPAY ==
[2025-03-27 08:18] VITALS: BMI 36.8
--- NOTE | 2025-04-22 09:20 | PCM.CR.ITP ---
Exercise - Initial Assessment Physician Prescribed Exercise Modalities: Schwmalinin Abiodunne AD-7 and SciFit Stepper Nutrition - Initial Assessment Weight Mgt (Other Care) Height: 6 ft Weight:: 266 lb BMI: 36.1 Psychosocial - Initial Assess Referral to Behavioral Health PS - Interventions: Yes: Attend Stress Management Classes and No: Referral to Behavioral Health if PHQ-9 score >9:, No: Referral to [facility] and No: Referral to Physician if PHQ-9 if score is 5-9: Patient Health Questionnaire PHQ-9 Screening 60-Day Re-eval Assessment: 1. Little interest or pleasure in doing things: Not at all 2. Feeling down, depressed, or hopeless: Not at all 3. Trouble falling or staying asleep, or sleeping too much: Not at all 4. Feeling tired or having little energy: Several days 5. Poor appetite or overeating: Not at all 6. Feeling bad about yourself -- or that you are a failure or have let yourself or your family down: Not at all 7. Trouble concentrating on things, such as reading the newspaper or watching television: Not at all 8. Moving or speaking so slowly that other people could have noticed. Or the opposite - being so fidgety or restless that you have been moving around a lot more than usual: Not at all 9. Thoughts that you would be better off , or of hurting yourself in some way: Not at all How difficult have these problems made it for you to do your work, take care of things at home, or get along with other people?: Somewhat difficult Total Score: 1 Exercise - 30-day Assessment Physician Prescribed Exercise Modalities: Karey Rasconne AD-7 and SciFit Stepper Intensity: 60-80% of age predicted maximum heart rate reserve Exercise - 60-day Assessment Visit Date of Eval: 04/22/25 Session #:: 11 Physician Prescribed Exercise Modalities: Schwinn Airdyne AD-7 and SciFit Stepper Frequency: 3x/week for 12 weeks [36 sessions] Intensity: 60-80% of age predicted maximum heart rate reserve Duration: 30 - 45 minutes METs - Progression 0.5-1.0 weekly:: 0.5 Current METSs:: 3.9 Target Heart Rate:: 12-16 Current RPE:: 12 Maximum Excercise HR:: 106 Resting Blood Pressure: 142/72 Maximum Exercise Blood Pressure: 164/76 EKG Type: nsr with occasional pvc Current Physical Activity or Exercising minutes: 30 mins Outcomes & Goals Goals:: Verbalizes understanding of THR, RPE & goal METS by session 6, Documents in home exercise log/reports 30 min aerobic 5 day/wk by DC, Demonstrates accurate pulse taking by DC and Other additional outcome/goals: see below Intervention & Plan Exercise Program Goals: Instruct on personal THR & RPE, Instruct on MET level & personal MET goal, Show patient to take own pulse /validate performance until accurate, Instruct on home exercise and Other additional plan/int 30-day Reassessments 30 day Reassessments:: Progressing Reassessment Notes & Comments:: pt rating exercise appropriately using rpe scale. increasing exercise workloads as tolerated. Physical Activity Home Exercise Physical Activity - Home Exercise: Safe Exercise, Warm-up, Self-monitoring, Cool-Down, Home Exercise > 30 min Daily and Sitting Time <3 hours/daily Outcomes & Goals Outcomes/Goals: Demonstrates correct Warm-up/exercise Cool-Down (S3) if = 2.5 METs, Verbalizes symptoms of exercise intolerance by Session 3 (S3), Demonstrate safe equipment use (S3) & follows exercise prescrition (6) and Other: See below Intervention & Plan Plan/Intervention: Instruct warm-up & cool-down if exercising at > 2 METs, Instruct on symptoms of exercise intolerance & actions to take, Instruct & monitor on saf, Assess intial functional capacity & safety risk and Other See below 30-day Reassessments 30 day Reassessments:: Progressing Reassessment Notes & Comments:: pt adequately warming up and cooling down before/after exercise. Exercise - 90-day Assessment Physician Prescribed Exercise Modalities: Karey Carson AD-7 and SciFit Stepper Exercise - Final/Discharge Physician Prescribed Exercise Modalities: Karey Carson AD-7 and SciFit Stepper Nutrition - 30-Day Assessment Weight Mgt (Other Care) Height: 6 ft Weight:: 266 lb BMI: 36.1 Nutrition - 60-Day Assessment Program Goals Nutrition Program Goals Patient has diagnosis of Hyperlipidemia (ICD E78)?: Yes Visit Date of Eval: 04/22/25 (nutrition score 2) Session #:: 11 Cholesterol/Lipids (Other Core Measures) Determine presence & major risk factors that modify LDL goal: Cigarette smoking, Hypertension or hypertensive medication, Low HDL cholesterol <40 mg/dL*, Family history of premature CHD in Male < 55 years: female <65 yearsFa and Age men > 45 years; women >/= 55 years Outcomes/Goals: Pt IDs own risk factors & lifestyle modifications by Session 10, Verbalizes symptoms of angina & response by session 3., Pt independently manages and Other Additional Outcomes/Goals: Intervention/Plan: Advocate for lipid panel cholesterol medication if applicable, Instruct on personal lipid levels & lipid goals/NCEP guidelines, Instruct on cholesterol and Other additional plan/int 30-day Reassessments:: Progressing Reassessment Notes & Comments:: pt taking cholesterol medication as prescribed. Diabetes (Other Core Measures) Diabetes Type: Not Applicable Weight Mgt (Other Care) Height: 6 ft Weight:: 266 lb BMI: 36.1 Diagnosis High BMI/Morbid Obesity BMI> 35% ICD-10 Z68: Yes Outcomes/Goals: Pt sets, maintains & shows weight loss goal & trend during rehab and Other additional outcomes/goals Intervention/Plan: Instruct on ideal BMI & set weight loss goal w/patient, Assist pt to ID & incorporate diet changes for weight loss by S9, Refer to Structured Weight Loss program as appropriate, Encourage goal of using 250-300dcal per session for weight loss and Other additional plan/interventions 30 day Reassessments:: Progressing Reassessment Notes & Comments:: pt will continue to weigh weekly to monitor progress. Healthy Eating Habits Will attend diet classes:: Yes Outcomes/Goals:: Consume diet rich in vegs,fruits,whole grain/high fiber,fish,lean meat, Limit sat/trans fats,cholesterol & added salts & sugars and Other additional outcome/goals: Intervention/Plan:: Assess current eating habits and Other Additional plan/interventions 30-day Reassessments:: Progressing Reassessment Notes & Comments:: pt attended nutrition classes with diamond wheel edger this week. Education Gave educational materials for:: Signs & symptoms of hypoglycemia, Signs & symptoms of hyperglycemia, Relate diabetes to coronary artery disease and Healthy eating Core - 60-Day Assessment Visit Date of Eval: 04/22/25 Session #:: 11 Medication Compliance Preventative Medication(s):: Aspirin, Statin/lipid, Beta bill and Eliquis H/O mental health issues: depression, anxiety, or addiction?: No Doesn’t believe in the benefits of treatment?: No Believes medications are unnecessary or harmful?: No Has a concern about medication side effects?: No Expresses concern over the cost of medications?: No Outcomes/Goals: Verbalizes medications,desired effect & common side effects @ DC, Pt self-reports following medication regimen, Keeps card in wallet w/medications listed by DC and Other additional outcome/goals: Interventions/plans: Instruct on medication effects & side effects, Review medication list w/patient every two weeks, Instruct importance of taking meds as ordered & assist problem solving and Other additional 30-day Reassessments:: Progressing Reassessment Notes & Comments:: taking meds as prescribed Tobacco Use Tobacco Use: Non-smoker Hypertension Hypertension Diagnosis:: Hypertension ICD-10 I10 Resting Blood Pressure:: 142/72 [place] [employer] Hypertension Guidelines Peak Exercise Blood Pressure:: 164/76 Outcomes/Goals: Able to verbalize/achieve optimal blood pressure <130/80, Incorporates diet changes & exercise for blood pressure control by DC and Other additional outcomes/goals Interventions/plan: Instruct on optimal blood pressure, hypertension & medications, Instruct on effects of sodium, alcohol, stress, exercise &hypertension and Other additional plan/interventions 30 day Reassessments:: Progressing Reassessment Notes & Comments:: monitoring elevated bp's. bp meds were increased this month. will continue to report if bp's remain elevated. Tobacco Cessation Referral Education Schedule Given:: Yes Psychosocial - 30-Day Assess Referral to Behavioral Health PS - Interventions: Yes: Attend Stress Management Classes and No: Referral to Behavioral Health if PHQ-9 score >9:, No: Referral to [facility] and No: Referral to Physician if PHQ-9 if score is 5-9: Outcomes/Goals: See list Psychosocial Outcomes/Goals:: ID's personal stressors & 2 strategies to manage stress by discharge and Other Additional outcome/goals: Psychosocial - 60-Day Assess VIsit Date of Eval: 04/22/25 Session #:: 11 History of previous Mental disease:: No Psychosocial Test Tool Used:: PHQ-9 Questionnaire phq-9 Severity See PHQ-9 Score: 1 Referral to Behavioral Health PS - Interventions: Yes: Attend Stress Management Classes and No: Referral to Behavioral Health if PHQ-9 score >9:, No: Referral to [facility] and No: Referral to Physician if PHQ-9 if score is 5-9: Outcomes/Goals: See list Psychosocial Outcomes/Goals:: ID's personal stressors & 2 strategies to manage stress by discharge and Other Additional outcome/goals: Intervention/Plan: See List Interventions/Plan:: Assess stressors,coping strategies & signs of derpression on admission, Instruct/assist pt to develop coping & personal stress Mgt strategies, Refer to Behavioral Health if appropriate, Refer to Physician if appropriate, Instruct patient to recognize signs & symptoms of depression, Instruct patient to recog and Other additional plan/intervention 30-day Reassessments: 30 day Reassessments:: Progressing Reassessment Notes & Comments:: no psychosocial concerns at this time. is motivated and attending rehab consistently Psychosocial - 90-Day Assess Referral to Behavioral Health PS - Interventions: Yes: Attend Stress Management Classes and No: Referral to Behavioral Health if PHQ-9 score >9:, No: Referral to [facility] and No: Referral to Physician if PHQ-9 if score is 5-9: Psychosocial - Final Assessmen Referral to Behavioral Health PS - Interventions: Yes: Attend Stress Management Classes and No: Referral to Behavioral Health if PHQ-9 score >9:, No: Referral to [facility] and No: Referral to Physician if PHQ-9 if score is 5-9: Nutrition - 90-Day Assessment Weight Mgt (Other Care) Height: 6 ft Weight:: 266 lb BMI: 36.1 Nutrition - Final Assessment Weight Mgt (Other Care) Height: 6 ft Weight:: 266 lb BMI: 36.1
[2025-04-22 09:30] VITALS: BP 142/72
[2025-04-22 09:37] VITALS: BMI 36.1
[2025-04-22 09:46] VITALS: BP 142/72
== END 2025-04-28 23:59 ==
LOC: CR 13:00
PROVIDERS: PCP Family Medicine; Referring Provider Internal Medicine Cardiovascular Disease; Visit Provider Internal Medicine Cardiovascular Disease
DX: Z95.2 Presence of prosthetic heart valve (principal); I48.91 Unspecified atrial fibrillation; I42.9 Cardiomyopathy, unspecified; E78.5 Hyperlipidemia, unspecified; I10 Essential (primary) hypertension; Z79.899 Other long term (current) drug therapy; I35.0 Nonrheumatic aortic (valve) stenosis; I34.0 Nonrheumatic mitral (valve) insufficiency
CPT/HCPCS: 93798

== ENCOUNTER → 2025-05-03 | Outpatient (CLI) | payer MEDICARE, SELFPAY ==
[2025-04-22 09:37] VITALS: BMI 36.1
[2025-05-03 13:07] LABS: Anion Gap 13 (5-15); BUN 25 mg/dL (4-19); BUN/Creat Ratio 21.8 RATIO (10-20); Calcium,Total 9.6 mg/dL (7.6-11.0); Carbon Dioxide 27.1 mmol/L (21.0-32.0); Chloride 103 mmol/L (98-108); Glucose 116 mg/dL (70-99); Potassium 3.6 mmol/L (3.3-5.1)
== END | disposition home or self-care (01) ==
LOC: MFPLAB 10:08
PROVIDERS: PCP Family Medicine; Visit Provider Family Medicine
DX: I10 Essential (primary) hypertension (principal)
CPT/HCPCS: 36415; 80048

== ENCOUNTER 2025-05-17 13:00 | Outpatient (RCR) | payer MEDICARE, SELFPAY ==
[2025-04-22 09:37] VITALS: BMI 36.1
--- NOTE | 2025-05-21 09:40 | CR.ITP_ITS ---
Exercise - Initial Assessment Physician Prescribed Exercise Modalities: Treadmill, Schwinn Airdyne AD-7 and SciFit Stepper Nutrition - Initial Assessment Weight Mgt (Other Care) Height: 6 ft Weight:: 268 lb BMI: 36.3 Psychosocial - Initial Assess Referral to Behavioral Health PS - Interventions: Yes: Attend Stress Management Classes Exercise - 30-day Assessment Physician Prescribed Exercise Modalities: Treadmill, Schwinn Airdyne AD-7 and SciFit Stepper Exercise - 60-day Assessment Physician Prescribed Exercise Modalities: Treadmill, Schwinn Airdyne AD-7 and SciFit Stepper Exercise - 90-day Assessment Visit Date of Eval: 05/21/25 Session #:: 19 Physician Prescribed Exercise Modalities: Treadmill, Schwinn Airdyne AD-7 and SciFit Stepper Frequency: 3x/week for 12 weeks [36 sessions] Intensity: 60-80% of age predicted maximum heart rate reserve Duration: 30 - 45 minutes Current METSs:: 4.3 Target Heart Rate:: 99-114 Current RPE:: 12-13 Maximum Excercise HR:: 106 Resting Blood Pressure: 140/80 Maximum Exercise Blood Pressure: 146/66 EKG Type: Afib w/ occas PVC Outcomes & Goals Goals:: Verbalizes understanding of THR, RPE & goal METS by session 6, Documents in home exercise log/reports 30 min aerobic 5 day/wk by DC, Demonstrates accurate pulse taking by DC and Other additional outcome/goals: see below Intervention & Plan Exercise Program Goals: Instruct on personal THR & RPE, Instruct on MET level & personal MET goal, Show patient to take own pulse /validate performance until accurate, Instruct on home exercise and Other additional plan/int Physical Activity Home Exercise Physical Activity - Home Exercise: Safe Exercise, Warm-up, Self-monitoring, Cool-Down, Home Exercise > 30 min Daily and Sitting Time <3 hours/daily Outcomes & Goals Outcomes/Goals: Demonstrates correct Warm-up/exercise Cool-Down (S3) if = 2.5 METs, Verbalizes symptoms of exercise intolerance by Session 3 (S3), Demonstrate safe equipment use (S3) & follows exercise prescrition (6) and Other: See below Intervention & Plan Plan/Intervention: Instruct warm-up & cool-down if exercising at > 2 METs, Instruct on symptoms of exercise intolerance & actions to take, Instruct & monitor on saf, Assess intial functional capacity & safety risk and Other See below 30-day Reassessments 30 day Reassessments:: Progressing Reassessment Notes & Comments:: Pt is progressing his exercise intensity. Will continue to encourage and increase intensity as tolerated. Exercise - Final/Discharge Physician Prescribed Exercise Modalities: Treadmill, Schwinn Airdyne AD-7 and SciFit Stepper Nutrition - 30-Day Assessment Weight Mgt (Other Care) Height: 6 ft Weight:: 268 lb BMI: 36.3 Nutrition - 60-Day Assessment Weight Mgt (Other Care) Height: 6 ft Weight:: 268 lb BMI: 36.3 Core - 30-Day Assessment Hypertension [place] [employer] Hypertension Guidelines Reassessment Notes & Comments:: Pt taking antihypertensive meds as prescribed, pt instructed on optimal BP and effects of sodium on BP. Pt's BP's are are still slightly elevated. Will continue to monitor and report to pt's physician if necessary. 04/17 HCTZ 20 mg QDAY added Core - Final Assessment Hypertension [place] [employer] Hypertension Guidelines Reassessment Notes & Comments:: Pt taking antihypertensive meds as prescribed, pt instructed on optimal BP and effects of sodium on BP. Pt's BP's are are still slightly elevated. Will continue to monitor and report to pt's physician if necessary. 04/17 HCTZ 20 mg QDAY added Core - 90 Day Assessment Visit Date of Eval: 05/21/25 Medication Compliance Preventative Medication(s):: Aspirin, Statin/lipid and Beta bill H/O mental health issues: depression, anxiety, or addiction?: No Doesn?t believe in the benefits of treatment?: No Believes medications are unnecessary or harmful?: No Has a concern about medication side effects?: No Expresses concern over the cost of medications?: No Outcomes/Goals: Verbalizes medications,desired effect & common side effects @ DC, Pt self-reports following medication regimen, Keeps card in wallet w/medications listed by DC and Other additional outcome/goals: Interventions/plans: Instruct on medication effects & side effects, Review medication list w/patient every two weeks, Instruct importance of taking meds as ordered & assist problem solving and Other additional 30-day Reassessments:: Progressing Reassessment Notes & Comments:: 04/17 HCTZ 20 mg QDAY added Tobacco Use Tobacco Use: Non-smoker Hypertension Hypertension Diagnosis:: Hypertension ICD-10 I10 Resting Blood Pressure:: 140/80 [place] [employer] Hypertension Guidelines Peak Exercise Blood Pressure:: 146/66 Outcomes/Goals: Able to verbalize/achieve optimal blood pressure <130/80, Incorporates diet changes & exercise for blood pressure control by DC and Other additional outcomes/goals Interventions/plan: Instruct on optimal blood pressure, hypertension & medications, Instruct on effects of sodium, alcohol, stress, exercise &hypertension and Other additional plan/interventions 30 day Reassessments:: Progressing Reassessment Notes & Comments:: Pt taking antihypertensive meds as prescribed, pt instructed on optimal BP and effects of sodium on BP. Pt's BP's are are still slightly elevated. Will continue to monitor and report to pt's physician if necessary. 04/17 HCTZ 20 mg QDAY added Tobacco Cessation Referral Smoking Cessation Referral:: No Individual Education/Counseling:: No Education Schedule Given:: Yes Psychosocial - 30-Day Assess Referral to Behavioral Health PS - Interventions: Yes: Attend Stress Management Classes Psychosocial - 60-Day Assess Referral to Behavioral Health PS - Interventions: Yes: Attend Stress Management Classes Psychosocial - 90-Day Assess VIsit Date of Eval: 05/21/25 Session #:: 19 History of previous Mental disease:: No Psychosocial Test Tool Used:: [employer] QOL Cardiac and PHQ-9 Questionnaire phq-9 Severity See PHQ-9 Score: 1 Referral to Behavioral Health PS - Interventions: Yes: Attend Stress Management Classes Outcomes/Goals: See list Psychosocial Outcomes/Goals:: ID's personal stressors & 2 strategies to manage stress by discharge and Other Additional outcome/goals: Intervention/Plan: See List Interventions/Plan:: Assess stressors,coping strategies & signs of derpression on admission, Instruct/assist pt to develop coping & personal stress Mgt strategies, Refer to Behavioral Health if appropriate, Refer to Physician if appropriate, Instruct patient to recognize signs & symptoms of depression, Instruct patient to recog and Other additional plan/intervention 30-day Reassessments: 30 day Reassessments:: Met Reassessment Notes & Comments:: Pt denies any psychosocial issues at this time. Pt to attend stress management classes. Will reassess every 30 days. Psychosocial - Final Assessmen Referral to Behavioral Health PS - Interventions: Yes: Attend Stress Management Classes Nutrition - 90-Day Assessment Program Goals Nutrition Program Goals Patient has diagnosis of Hyperlipidemia (ICD E78)?: Yes Visit Date of Eval: 05/21/25 Session #:: 19 (Nutrition score of 2) Cholesterol/Lipids (Other Core Measures) Determine presence & major risk factors that modify LDL goal: Cigarette smoking, Hypertension or hypertensive medication, Low HDL cholesterol <40 mg/dL*, Family history of premature CHD in Male < 55 years: female <65 yearsFa and Age men > 45 years; women >/= 55 years Outcomes/Goals: Pt IDs own risk factors & lifestyle modifications by Session 10, Verbalizes symptoms of angina & response by session 3., Pt independently manages and Other Additional Outcomes/Goals: Intervention/Plan: Advocate for lipid panel cholesterol medication if applicable, Instruct on personal lipid levels & lipid goals/NCEP guidelines, Instruct on cholesterol and Other additional plan/int Diabetes (Other Core Measures) Diabetes Type: Not Applicable Weight Mgt (Other Care) Height: 6 ft Weight:: 268 lb BMI: 36.3 Diagnosis Overweight/Obesity BMI> 30% ICD-10 E66: Yes Diagnosis High BMI/Morbid Obesity BMI> 35% ICD-10 Z68: Yes Outcomes/Goals: Pt sets, maintains & shows weight loss goal & trend during rehab and Other additional outcomes/goals Intervention/Plan: Instruct on ideal BMI & set weight loss goal w/patient, Assist pt to ID & incorporate diet changes for weight loss by S9, Refer to Structured Weight Loss program as appropriate, Encourage goal of using 250- 300dcal per session for weight loss and Other additional plan/interventions 30 day Reassessments:: Progressing Reassessment Notes & Comments:: Pt is has attended nutrition classes with our water pollution control technician. Heart healthy low sodium diet encouraged. Healthy Eating Habits Will attend diet classes:: Yes Outcomes/Goals:: Consume diet rich in vegs,fruits,whole grain/high fiber,fish,lean meat, Limit sat/trans fats,cholesterol & added salts & sugars and Other additional outcome/goals: Intervention/Plan:: Assess current eating habits and Other Additional plan/interventions 30-day Reassessments:: Met Reassessment Notes & Comments:: Pt is has attended nutrition classes with our water pollution control technician. Heart healthy low sodium diet encouraged. Education Gave educational materials for:: Signs & symptoms of hypoglycemia, Signs & symptoms of hyperglycemia, Relate diabetes to coronary artery disease and Healthy eating Nutrition - Final Assessment Weight Mgt (Other Care) Height: 6 ft Weight:: 268 lb BMI: 36.3
[2025-05-21 09:50] VITALS: BP 140/80; BMI 36.3
== END 2025-05-29 23:59 ==
LOC: CR 13:00
PROVIDERS: PCP Family Medicine; Referring Provider Internal Medicine Cardiovascular Disease; Visit Provider Internal Medicine Cardiovascular Disease
DX: Z95.5 Presence of coronary angioplasty implant and graft (principal); I48.91 Unspecified atrial fibrillation; I42.9 Cardiomyopathy, unspecified; E78.5 Hyperlipidemia, unspecified; I10 Essential (primary) hypertension; Z79.899 Other long term (current) drug therapy; I35.0 Nonrheumatic aortic (valve) stenosis; I34.0 Nonrheumatic mitral (valve) insufficiency
CPT/HCPCS: 93798